=== PATIENT | female | born 1935 ===

== ENCOUNTER 2016-10-14 12:03 | Inpatient (IN) | payer MEDICARE, OTHER ==
[2016-10-14 12:11] VITALS: BMI 25.9
[2016-10-14 12:54] LABS: BASO # 0.1 K/uL (0.0-0.2); BASO % 1.4 % (0.0-2.0); EOS # 0.2 K/uL (0.0-0.7); EOS % 2.9 % (0.0-4.0); HEMATOCRIT 37.4 % (34.0-47.0); LYMPH # 1.4 K/uL (1.0-4.3); LYMPH % 23.3 % (20.0-40.0); MEAN CELL VOLUME 76.2 fL (81.0-99.0); MEAN CORPUSCULAR HEMOGLOBIN 23.5 pg (27.0-31.0); MEAN CORPUSCULAR HGB CONC 30.8 g/dL (33.0-37.0); MEAN PLATELET VOLUME 8.5 fL (7.2-11.7); MONO # 0.6 K/uL (0.0-0.8); MONO % 9.3 % (0.0-10.0); NRBC % 0.1 % (0.0-2.0); RED CELL DISTRIBUTION WIDTH 14.8 % (11.5-14.5); WHITE BLOOD COUNT 6.1 K/uL (4.8-10.8)
[2016-10-14 13:04] LABS: CHLORIDE 101 mmol/L (98-107); POTASSIUM 4.8 mmol/L (3.6-5.2); SODIUM 145 mmol/L (132-148)
[2016-10-14 13:06] LABS: ALB/GLOB RATIO 1.1 (1.0-2.1); ALKALINE PHOSPHATASE 81 U/L (38-126); AST/SGOT 26 U/L (14-36); BILIRUBIN,TOTAL 0.3 mg/dL (0.2-1.3); BLOOD UREA NITROGEN 23 mg/dL (7-17); CARBON DIOXIDE 31 mmol/L (22-30); GFR AFRICAN-AMERICAN 52
[2016-10-14 13:07] LABS: ALT/SGPT < 6 U/L (9-52); CALCIUM 9.8 mg/dl (8.6-10.4); GLUCOSE,RANDOM 108 mg/dL (65-105)
--- NOTE | 2016-10-14 13:17 | RAD ---
PROCEDURE: CHEST RADIOGRAPH, 1 VIEW HISTORY: SOB COMPARISON: 08/23/2016 FINDINGS: LUNGS: Dense consolidation left lung base likely represent some combination of atelectasis/infiltrate and effusion. Mild right basilar atelectasis and or developing infiltrate with small right-sided effusion PLEURA: No pneumothorax or pleural fluid seen. CARDIOVASCULAR: Normal. OSSEOUS STRUCTURES: Minor degenerative changes both shoulder girdles VISUALIZED UPPER ABDOMEN: Normal. OTHER FINDINGS: None. IMPRESSION: Dense consolidation left lung base likely represent some combination of atelectasis/infiltrate and effusion. Mild right basilar atelectasis and or developing infiltrate with small right-sided effusion
--- NOTE | 2016-10-14 13:39 | C.PDOC ---
History Of Present Illness 81-year-old female, PMHx of COPD, lung CA (dx 08/2016, pt unaware), brought to the emergency department by daughterfor evaluation of increasing shortness of breath and non-productive cough x2 days. Patient recently traveled back from , and was feeling well while she was there. Pt uses O2 by NC - 2.5L O2 at home. Time Seen by Provider: 10/14/16 12:04 Chief Complaint (Nursing): Shortness Of Breath History Per: Patient, Family History/Exam Limitations: no limitations Onset/Duration Of Symptoms: Days Current Symptoms Are (Timing): Still Present Current Respiratory Medications: See Home Med List Severity: Moderate Past Medical History Reviewed: Historical Data, Nursing Documentation, Vital Signs Vital Signs: Last Vital Signs Temp 98.5 F 10/20/16 08:00 Pulse 70 10/20/16 08:00 Resp 20 10/20/16 08:00 BP 125/68 10/20/16 09:47 Pulse Ox 96 10/20/16 10:03 - Medical History PMH: COPD (EMPHYSEMA), Emphysema, Hiatal Hernia, HTN, Hypercholesterolemia, Peripheral Edema (FEET) Surgical History: Endoscopy - [facility] Procedures ASSISTANCE WITH RESPIRATORY VENTILATION, <24 HRS, CPAP (05/23/16) RESTRICT OF L INT ILIAC ART WITH INTRALUM DEV, PERC APPROACH (04/29/15) RESTRICTION OF ABD AORTA WITH INTRALUM DEV, PERC APPROACH (04/29/15) Family History: States: Other Other Family History: noncontributory - Social History Hx Tobacco Use: No Hx Alcohol Use: No Hx Substance Use: No - Immunization History Hx Tetanus Toxoid Vaccination: Yes Hx Influenza Vaccination: Yes (05/26/16) Hx Pneumococcal Vaccination: Yes Review Of Systems Except As Marked, All Systems Reviewed And Found Negative. Constitutional: Negative for: Fever, Chills Cardiovascular: Negative for: Chest Pain Respiratory: Positive for: Cough, Shortness of Breath Gastrointestinal: Negative for: Nausea, Vomiting, Abdominal Pain Musculoskeletal: Negative for: Back Pain Skin: Negative for: Rash Neurological: Negative for: Numbness, Headache, Dizziness Physical Exam - Physical Exam Appears: Non-toxic, Chronically Ill, Other (Speaking in full sentences) Skin: Warm, Dry, No Rash Head: Normacephalic Eye(s): bilateral: Normal Inspection Oral Mucosa: Moist Chest: Symmetrical Cardiovascular: Rhythm Regular Respiratory: Decreased Breath Sounds (Left base), No Accessory Muscle Use, No Rales, No Rhonchi, No Wheezing Gastrointestinal/Abdominal: Normal Exam, Bowel Sounds, Soft, No Tenderness Extremity: Normal ROM, No Tenderness, No Pedal Edema Neurological/Psych: Oriented x3 ED Course And Treatment - Laboratory Results Result Diagrams: 10/20/16 07:20 10/20/16 07:20 O2 Sat by Pulse Oximetry: 96 (3L) Pulse Ox Interpretation: Normal - Radiology CXR: Interpreted by Me, Viewed By Me CXR Interpretation: Yes: Other (left sided infiltrate vs effusion) Progress Note: Blood work, EKG and CXR ordered and reviewed. CTA chest ordered to r/o PE due to recent travel and lung CA history. - Physician Consult Information Physician Contacted: Addie Garnica Outcome Of Conversation: Discussed patient with PMD, he agrees with admission to his service for lung CA, large pleural effusion, dyspnea, hydropneumothorax. Medical Decision Making Medical Decision Making: differential diagnoses considered: pneumonia, PE, pleural effusion, pneumothorax , AR/ACS, copd exacerbation, chf excerbation Disposition - Disposition Disposition: HOSPITALIZED Disposition Time: 16:02 Condition: GUARDED - Clinical Impression Clinical Impression: Dyspnea, Lung cancer, Pleural effusion, Hydropneumothorax - Scribe Statement The provider has reviewed the documentation as recorded by the Scriblizzie Lee All medical record entries made by the Scribe were at my direction and personally dictated by me. I have reviewed the chart and agree that the record accurately reflects my personal performance of the history, physical exam, medical decision making, and the department course for this patient. I have also personally directed, reviewed, and agree with the discharge instructions and disposition. Decision To Admit - Pt Status Changed To: Hospital Disposition Of: Inpatient - Admit Certification Admit to Inpatient:: After my assessment, the patient will require hospitalization for at least two midnights. This is because of the severity of symptoms shown, intensity of services needed, and/or the medical risk in this patient being treated as an outpatient. - InPatient: Physician Admission Certification: I certify that this patient requires 2 or more midnights of care for the following reason:: see notes - . Bed Request Type: Telemetry Admitting Physician: Addie Garnica Patient Diagnosis: Dyspnea, Lung cancer, Pleural effusion, Hydropneumothorax
[2016-10-14] MEDS ORDERED: Iodixanol 320 MG/ML 100 ML BOTTLE IV ONE (13:44)
--- NOTE | 2016-10-14 15:56 | CT ---
PROCEDURE: CT angiography chest with contrast. HISTORY: SOB, H/O LUNG CA AND RECENT TRAVEL. COMPARISON: CT chest 05/24/2016 TECHNIQUE: Technique: CT angiography of the chest. Coronal and sagittal reformats, and well as rotating MIP images of the vessels generated at the workstation. Intravenous contrast dose: 100cc Radiation dose: Total exam DLP = 464.45 MGy-cm. This CT exam was performed using one or more of the following dose reduction techniques: Automated exposure control, adjustment of the mA and/or kV according to patient size, and/or use of iterative reconstruction technique FINDINGS: CT ANGIOGRAPHY: Findings: The pulmonary trunk, right and left main, lobar, and segmental branches and proximal subsegmental branches of the pulmonary arteries are well opacified. Note obvious filling defects seen to suggest acute central pulmonary embolus. Heart size appears upper limits of normal/borderline enlarged. No significant pericardial effusion. The ascending thoracic aorta is mildly dilated Few small nonspecific mediastinal lymph nodes. Re- demonstrated is a right perihilar/upper lobe mass consistent with the patient's history of cough of lung carcinoma. Mild atelectasis/ scarring right lung base The There is a large left effusion and left anterior pneumothorax (hydro pneumothorax). Mild to moderate left lower lobe atelectasis. Significant emphysematous changes again noted. The osseous structures appear intact with no definitive suspicious lytic or blastic lesions. There are no acute compression fractures of the thoracic spine. Mild diffuse demineralization. Large hiatal hernia Cholelithiasis. Several low-attenuation foci both kidneys In situ endovascular stent within the abdominal aorta. Impression: No evidence of acute pulmonary embolus. . There is a large left effusion associated with a small to medium-sized left anterior left pneumothorax (hydropneumothorax). Mild to moderate left lower lobe atelectasis. Significant emphysematous changes again noted. Large hiatal hernia. Cholelithiasis. Several low-attenuation foci of the kidneys ; please refer to prior CT scan chest abdomen pelvis report
[2016-10-14] MEDS ORDERED: Albuterol-Ipratrop 3 mg / 0.5 (3 ml) UD INH STA (16:03)
[2016-10-14] MEDS ORDERED: Albuterol-Ipratrop 3 mg / 0.5 (3 ml) UD IH PRN (16:03)
[2016-10-14] MEDS ORDERED: Albuterol-Ipratrop 3 mg / 0.5 (3 ml) UD ONE (16:34)
--- NOTE | 2016-10-14 19:09 | CP.PCM.HP ---
History of Present Illness - History of Present Illness History of Present Illness: Chief complaint: Shortness of breath History present illness: 80-year-old female with history of hypertension congestive heart failure chronic obstructive lung disease chronic smoking abdominal aortic aneurysm status post repair came to the emergency room with the shortness of breath. Patient recently returned from [facility], while she was there she was doing well, but after she came here slowly started developing some shortness of breath. Last night her breathing got worse, and her oxygen usage at home increased to 5 L, in spite of that she was not feeling well, and she came into the emergency room. In the emergency room patient was started having increasing shortness of breath , increasing oxygen was given, bronchial dilators was given and the Solu-Medrol , patient is slightly feeling better. Patient recently diagnosed with the lung cancer, and family aware of the situation, no treatment was discussed with the family.. But patient is not aware of the diagnosis, but the familyabout the diagnosis at this time. Recent PET scan also showing evidence of possible secondaries in the pleural effusion area. Currently patient underwent a CT scan of the chest are showing evidence of hydropneumothorax Past medical history: Hypertension and hypercholesteremia COPD emphysematous lung disease CHF abdominal aortic aneurysm stent placement Surgical history: Inguinal hernia surgery, recent abdominal aortic stent placement Family history noncontributory Review of system noted from the chart Mild shortness of breath noted. Poor appetite noted On examination: Vital signs reviewed Chest good air entry bilaterally, decreased on the left side, regular heart sound, nontender abdomen, extended is no pedal edema BILINGUAL SPEECH THERAPIST alert awake oriented 3 no functional neurological deficit Oxygen saturation is 91% on 5 L of nasal cannula Labs reviewed CT scan of the lungs are showing evidence of hydropneumothorax on the left lung , lung mass noted. Labs reviewed otherwise Assessment/condition: 80-year-old female with history of hypercholesteremia hypertension COPD emphysematous lung disease congestive heart failure aortic aneurysm admitted with shortness of breath. 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 Recent pneumothorax unclear etiology, likely related to residual pneumothorax from biopsy in the past. I spoke to the patient family in details about that and also given the option for chest tube. Meanwhile I spoke to the thoracic surgeon about the patient's situation. He advised the patient to come to the unit, will monitor the patient in the intensive care unit, and the possible chest tube. And will follow the patient Present on Admission - Present on Admission Any Indicators Present on Admission: No History of DVT/PE: No History of Uncontrolled Diabetes: No Urinary Catheter: No Decubitus Ulcer Present: No Past Patient History - Infectious Disease Hx of Infectious Diseases: None - Past Medical History & Family History Past Medical History?: Yes - Past Social History Smoking Status: Former Smoker - CARDIAC Hx Hypercholesterolemia: Yes Hx Hypertension: Yes Hx Peripheral Edema: Yes (FEET) - PULMONARY Hx Chronic Obstructive Pulmonary Disease (COPD): Yes (EMPHYSEMA) Hx Emphysema: Yes - NEUROLOGICAL Hx Neurological Disorder: No Hx Paralysis: No - HEENT Hx HEENT Problems: Yes (READING GLASSES) - ENDOCRINE/METABOLIC Hx Endocrine Disorders: No - HEMATOLOGICAL/ONCOLOGICAL Hx Blood Disorders: No Hx Blood Transfusions: No - INTEGUMENTARY Hx Dermatological Problems: No - MUSCULOSKELETAL/RHEUMATOLOGICAL Hx Musculoskeletal Disorders: No Hx Falls: No - GASTROINTESTINAL Hx Gastrointestinal Disorders: Yes (SEE COMMENT) Other/Comment: Hiatal Hernia, abdominal aneurysm - GENITOURINARY/GYNECOLOGICAL Hx Genitourinary Disorders: No - PSYCHIATRIC Hx Substance Use: No - SURGICAL HISTORY Hx Surgeries: Yes Hx Herniorrhaphy: Yes Hx Hysterectomy: Yes Hx Vascular Surgery: Yes ([facility] 11-05-15) Other/Comment: abdominal aneurysm surgery as per patient - ANESTHESIA Hx Anesthesia Reactions: (REACTED TO MORPHINE DROP IN BP) Meds Allergies/Adverse Reactions: Allergies Allergy/AdvReac Type Severity Reaction Status Date / Time carbamazepine [From Tegretol] Allergy Verified 10/14/16 12:08 morphine AdvReac Mild VOMITING Verified 10/14/16 12:08 Results - Vital Signs Recent Vital Signs: Last Vital Signs Temp 98.1 F 10/14/16 17:25 Pulse 95 H 10/14/16 17:25 Resp 20 10/14/16 17:25 BP 120/71 10/14/16 17:25 Pulse Ox 94 L 10/14/16 17:25 - Labs Result Diagrams: 10/14/16 12:49 10/14/16 12:49
[2016-10-14] MEDS: MethylPREDNISolone 40 mg Vial IVP SCH ×2 (19:17→22:24)
[2016-10-14] MEDS: Albuterol-Ipratrop 3 mg / 0.5 (3 ml) UD INH SCH (21:29)
--- NOTE | 2016-10-14 21:36 | CP.PCM.PN ---
Subjective - Date & Time of Evaluation Date of Evaluation: 10/14/16 Time of Evaluation: 20:00 - Subjective Subjective: THORACIC SURGERY CONSULT NOTE FOR DR. MILLAN 81yo F with PMHx of COPD, CHF, CAD, AAA s/p repair with lung cancer who presented to the ED with SOB. She had recently travelled to the [facility] and returned on 10/05. Then on Sunday, 10/11, she began having SOB. She denies cough, denies CP. The patient is on home O2 at 2.5L and it was increased to 5L which did not relieve her symptoms. She saw her PMD today who told her to come to the ED. She was given Solu-Medrol, DuoNeb, and Spiriva. She states that she feels better than she did when she arrived in the ED. Her vitals are stable on 5L O2 via NC. Of note, she was recently diagnosed with lung cancer. On 08/23/16, she had a CT guided lung biopsy of a mass in the right upper lobe. The pathology report showed adenocarcinoma, acinar pattern, consistent with lung primary. She also had a recent PET CT that showed possible mets in the pleural effusion. The daughter asks that her mother not be told about her diagnosis. PMHx: HTN, hyperlipidemia, COPD with emphysematous lung changes, CHF, AAA s/p stent, [place] in May, Lung Adenocarcinoma Surgeries: inguinal hernia repair, hysterectomy, endovascular repair of AAA and left common iliac aneurysm on 04/29/[address] Henderson Allergies: carbamazepine (rash), morphine (rash) Social history: former smoker Objective - Vital Signs/Intake and Output Vital Signs (last 24 hours): Temp Pulse Resp BP Pulse Ox 98.1 F 93 H 20 120/71 94 L 10/14/16 17:25 10/14/16 21:30 10/14/16 17:25 10/14/16 17:25 10/14/16 17:42 - Medications Medications: Current Medications Albuterol/Ipratropium (Duoneb 3 Mg/0.5 Mg (3 Ml) Ud) 3 ml IH Q2H PRN PRN Reason: SOB Albuterol/Ipratropium (Duoneb 3 Mg/0.5 Mg (3 Ml) Ud) 3 ml INH RQ6 [facility] Last Admin: 10/14/16 21:29 Dose: 3 ml Enalapril Maleate (Vasotec) 2.5 mg PO BID TIKA Furosemide (Lasix) 20 mg PO DAILY TIKA Methylprednisolone (Solu-Medrol) 40 mg IVP Q8 [facility] Last Admin: 10/14/16 19:17 Dose: 40 mg Pantoprazole Sodium (Protonix Ec Tab) 20 mg PO DAILY TIKA Rosuvastatin Calcium (Crestor) 5 mg PO HS TIKA - Labs Labs: PT 11.9 SECONDS (9.7-12.2) 10/14/16 12:49 INR 1.0 10/14/16 12:49 APTT 33 SECONDS (21-34) 10/14/16 12:49 - Constitutional Appears: Non-toxic, No Acute Distress - Head Exam Head Exam: ATRAUMATIC, NORMAL INSPECTION - Respiratory Exam Respiratory Exam: NORMAL BREATHING PATTERN. absent: Respiratory Distress Additional comments: on 5L O2 via nasal cannula - Cardiovascular Exam Cardiovascular Exam: +S1, +S2 - GI/Abdominal Exam GI & Abdominal Exam: Soft. absent: Distended, Tenderness - Extremities Exam Extremities Exam: Normal Inspection. absent: Pedal Edema, Tenderness - Neurological Exam Neurological Exam: Alert, Awake, Oriented x3 - Psychiatric Exam Psychiatric exam: Normal Affect, Normal Mood - Skin Skin Exam: Dry, Normal Color, Warm Assessment and Plan - Assessment and Plan (Free Text) Assessment: 81yo F with PMHx of COPD, CHF, CAD, AAA s/p repair with right lung cancer who presented with SOB and was found to have left hydropneumothorax - Afebrile, HR in 90s, O2 sat between 94-96 - CT: large left effusion associated with small to medium sized left anterior pneumothorax; significant emphysematous changes present;right perihilar/upper lobe mass - Patient currently stable and breathing comfortably on NC - No emergent chest tube indicated at this time - Options discussed extensively with patient, daughter, and Dr. Garnica. - Effusion likely malignant - PleurX catheter would be beneficial for patient for penitentiary control of effusions - Will plan for chest tube with PleurX catheter placement in the OR on Sunday - Due to patient's extensive history, Needs cardiology clearance for IV sedation - Discussed plan with Dr. Rafi Funes PGY-2
--- NOTE | 2016-10-14 21:59 | CP.PCM.CON ---
History of Present Illness - History of Present Illness History of Present Illness: THORACIC SURGERY CONSULT NOTE FOR DR. MILLAN 81yo F with PMHx of COPD, CHF, CAD, AAA s/p repair with lung cancer who presented to the ED with SOB. She had recently travelled to the [facility] and returned on 10/05. Then on 10/11, she began having SOB. She denies cough, denies CP. The patient is on home O2 at 2.5L and it was increased to 5L which did not relieve her symptoms. She saw her PMD today who told her to come to the ED. She was given Solu-Medrol, DuoNeb, and Spiriva. She states that she feels better than she did when she arrived in the ED. Her vitals are stable on 5L O2 via NC. Of note, she was recently diagnosed with lung cancer. On 08/23/16, she had a CT guided lung biopsy of a mass in the right upper lobe. The pathology report showed adenocarcinoma, acinar pattern, consistent with lung primary. She also had a recent PET CT that showed possible mets in the pleural effusion. The daughter asks that her mother not be told about her diagnosis. PMHx: HTN, hyperlipidemia, COPD with emphysematous lung changes, CHF, AAA s/p stent, [place] in May, Lung Adenocarcinoma Surgeries: inguinal hernia repair, hysterectomy, endovascular repair of AAA and left common iliac aneurysm on 04/29/[address] Henderson Allergies: carbamazepine (rash), morphine (rash) Social history: former smoker Review of Systems - Review of Systems All systems: reviewed and no additional remarkable complaints except (as per HPI ) Past Patient History - Infectious Disease Hx of Infectious Diseases: None - Past Medical History & Family History Past Medical History?: Yes - Past Social History Smoking Status: Former Smoker - CARDIAC Hx Hypercholesterolemia: Yes Hx Hypertension: Yes Hx Peripheral Edema: Yes (FEET) - PULMONARY Hx Chronic Obstructive Pulmonary Disease (COPD): Yes (EMPHYSEMA) Hx Emphysema: Yes - NEUROLOGICAL Hx Neurological Disorder: No Hx Paralysis: No - HEENT Hx HEENT Problems: Yes (READING GLASSES) - ENDOCRINE/METABOLIC Hx Endocrine Disorders: No - HEMATOLOGICAL/ONCOLOGICAL Hx Blood Disorders: No Hx Blood Transfusions: No - INTEGUMENTARY Hx Dermatological Problems: No - MUSCULOSKELETAL/RHEUMATOLOGICAL Hx Musculoskeletal Disorders: No Hx Falls: No - GASTROINTESTINAL Hx Gastrointestinal Disorders: Yes (SEE COMMENT) Other/Comment: Hiatal Hernia, abdominal aneurysm - GENITOURINARY/GYNECOLOGICAL Hx Genitourinary Disorders: No - PSYCHIATRIC Hx Substance Use: No - SURGICAL HISTORY Hx Surgeries: Yes Hx Herniorrhaphy: Yes Hx Hysterectomy: Yes Hx Vascular Surgery: Yes ([facility] 04-29-15) Other/Comment: abdominal aneurysm surgery as per patient - ANESTHESIA Hx Anesthesia Reactions: (REACTED TO MORPHINE DROP IN BP) Meds Allergies/Adverse Reactions: Allergies Allergy/AdvReac Type Severity Reaction Status Date / Time carbamazepine [From Tegretol] Allergy Verified 10/14/16 12:08 morphine AdvReac Mild VOMITING Verified 10/14/16 12:08 - Medications Medications: Current Medications Albuterol/Ipratropium (Duoneb 3 Mg/0.5 Mg (3 Ml) Ud) 3 ml IH Q2H PRN PRN Reason: SOB Albuterol/Ipratropium (Duoneb 3 Mg/0.5 Mg (3 Ml) Ud) 3 ml INH RQ6 TIKA Last Admin: 10/14/16 21:29 Dose: 3 ml Enalapril Maleate (Vasotec) 2.5 mg PO BID TIKA Furosemide (Lasix) 20 mg PO DAILY TIKA Methylprednisolone (Solu-Medrol) 40 mg IVP Q8 [facility] Last Admin: 10/14/16 19:17 Dose: 40 mg Pantoprazole Sodium (Protonix Ec Tab) 20 mg PO DAILY TIKA Rosuvastatin Calcium (Crestor) 5 mg PO HS TIKA Physical Exam - Constitutional Appears: Non-toxic, No Acute Distress - Head Exam Head Exam: ATRAUMATIC, NORMAL INSPECTION - Eye Exam Eye Exam: EOMI, Normal appearance - Respiratory Exam Respiratory Exam: NORMAL BREATHING PATTERN. absent: Respiratory Distress Additional comments: on 5L O2 via nasal cannula - Cardiovascular Exam Cardiovascular Exam: +S1, +S2 - GI/Abdominal Exam GI & Abdominal Exam: Soft. absent: Distended, Tenderness - Extremities Exam Extremities exam: Positive for: normal inspection. Negative for: calf tenderness, pedal edema - Neurological Exam Neurological exam: Alert, CN II-XII Intact, Oriented x3 - Psychiatric Exam Psychiatric exam: Normal Affect, Normal Mood - Skin Skin Exam: Dry, Normal Color, Warm Results - Vital Signs Recent Vital Signs: Last Vital Signs Temp 98.1 F 10/14/16 17:25 Pulse 93 H 10/14/16 21:30 Resp 20 10/14/16 17:25 BP 120/71 10/14/16 17:25 Pulse Ox 94 L 10/14/16 17:42 - Labs Result Diagrams: 10/14/16 12:49 10/14/16 12:49 Assessment & Plan - Assessment and Plan (Free Text) Assessment: 81yo F with PMHx of COPD, CHF, CAD, AAA s/p repair with right lung cancer who presented with SOB and was found to have left hydropneumothorax - Afebrile, HR in 90s, O2 sat between 94-96 - CT: large left effusion associated with small to medium sized left anterior pneumothorax; significant emphysematous changes present;right perihilar/upper lobe mass - Patient currently stable and breathing comfortably on NC - No emergent chest tube indicated at this time - Options discussed extensively with patient, daughter, and Dr. Garnica. - Effusion likely malignant - PleurX catheter would be beneficial for patient for longterm control of effusions - Will plan for chest tube with PleurX catheter placement in the OR on Sunday - Due to patient's extensive history, Needs cardiology clearance for IV sedation - Discussed plan with Dr. Rafi Funes PGY-2
[2016-10-15] MEDS: Albuterol-Ipratrop 3 mg / 0.5 (3 ml) UD INH SCH ×4 (01:15→20:13)
[2016-10-15] MEDS: MethylPREDNISolone 40 mg Vial IVP SCH ×3 (05:51→21:48)
[2016-10-15 06:35] LABS: BASO % 0.1 % (0.0-2.0); LYMPH # 0.8 K/uL (1.0-4.3); MEAN CELL VOLUME 75.8 fL (81.0-99.0); MEAN CORPUSCULAR HGB CONC 31.6 g/dL (33.0-37.0); MEAN PLATELET VOLUME 9.1 fL (7.2-11.7); MONO % 0.3 % (0.0-10.0); NRBC % 0.1 % (0.0-2.0); RED CELL DISTRIBUTION WIDTH 14.8 % (11.5-14.5); WHITE BLOOD COUNT 6.1 K/uL (4.8-10.8)
[2016-10-15 06:52] LABS: POTASSIUM 4.5 mmol/L (3.6-5.2)
[2016-10-15 06:54] LABS: ALB/GLOB RATIO 1.1 (1.0-2.1); BILIRUBIN,TOTAL 0.3 mg/dL (0.2-1.3); TOTAL PROTEIN 7.9 g/dL (6.3-8.3)
[2016-10-15 06:55] LABS: CALCIUM 9.9 mg/dl (8.6-10.4); MAGNESIUM 2.3 mg/dL (1.6-2.3)
[2016-10-15] MEDS: Tiotropium 18 mcg Cap For Inhalation INH SCH (07:54)
[2016-10-15] MEDS: Pantoprazole 20 mg EC Tab PO SCH (09:33)
[2016-10-15] MEDS ORDERED: PREGABALIN PO SCH (10:00)
--- NOTE | 2016-10-15 10:11 | CP.PCM.PN ---
Subjective - Date & Time of Evaluation Date of Evaluation: 10/15/16 Time of Evaluation: 07:00 - Subjective Subjective: THORACIC SURGERY PROGRESS NOTE FOR DR. MILLAN Patient seen and examined at bedside in the ICU. There were no acute events overnight per nurse. She denies CP or SOB. She was on 3L O2 when I saw her but after developed some wheezing when she was using the bedpan. She was sat up more in the bed, respiratory therapist gave her a breathing treatment, and now she is on 4L O2 and more comfortable. O2 sat around 93-94. Patient was offered ngo catheter but she refused. Objective - Vital Signs/Intake and Output Vital Signs (last 24 hours): Temp Pulse Resp BP Pulse Ox 98.6 F 104 H 24 137/74 92 L 10/15/16 04:00 10/15/16 06:18 10/15/16 06:18 10/15/16 09:33 10/15/16 06:18 Intake and Output: 10/15/16 10/15/16 06:59 18:59 Intake Total 150 Output Total 800 Balance -650 - Medications Medications: Current Medications Albuterol/Ipratropium (Duoneb 3 Mg/0.5 Mg (3 Ml) Ud) 3 ml IH Q2H PRN PRN Reason: SOB Albuterol/Ipratropium (Duoneb 3 Mg/0.5 Mg (3 Ml) Ud) 3 ml INH RQ6 [facility] Last Admin: 10/15/16 07:54 Dose: 3 ml Enalapril Maleate (Vasotec) 2.5 mg PO BID [facility] Last Admin: 10/15/16 09:32 Dose: 2.5 mg Furosemide (Lasix) 20 mg PO DAILY [facility] Last Admin: 10/15/16 09:33 Dose: 20 mg Methylprednisolone (Solu-Medrol) 40 mg IVP Q8 [facility] Last Admin: 10/15/16 05:51 Dose: 40 mg Pantoprazole Sodium (Protonix Ec Tab) 20 mg PO DAILY [facility] Last Admin: 10/15/16 09:33 Dose: 20 mg Rosuvastatin Calcium (Crestor) 5 mg PO HS [facility] Last Admin: 10/14/16 22:24 Dose: 5 mg Tiotropium [place] (Spiriva) 18 mcg INH RQ24 [facility] Last Admin: 10/15/16 07:54 Dose: 18 mcg - Labs Labs: 10/15/16 06:29 10/15/16 06:29 PT 11.9 SECONDS (9.7-12.2) 10/14/16 12:49 INR 1.0 10/14/16 12:49 APTT 33 SECONDS (21-34) 10/14/16 12:49 - Constitutional Appears: Non-toxic, No Acute Distress - Respiratory Exam Respiratory Exam: NORMAL BREATHING PATTERN (on 4L O2 NC). absent: Respiratory Distress - Cardiovascular Exam Cardiovascular Exam: +S1, +S2 - GI/Abdominal Exam GI & Abdominal Exam: Soft. absent: Tenderness - Neurological Exam Neurological Exam: Alert, Awake, Oriented x3 - Psychiatric Exam Psychiatric exam: Normal Affect, Normal Mood - Skin Skin Exam: Dry, Normal Color, Warm Assessment and Plan - Assessment and Plan (Free Text) Assessment: 81yo F with PMHx of COPD, CHF, CAD, AAA s/p repair with right lung cancer who was found to have left hydropneumothorax - Afebrile, mild tachy, O2 sat between 92-95 - CT: large left effusion associated with small to medium sized left anterior pneumothorax; significant emphysematous changes present;right perihilar/upper lobe mass - Patient currently stable and breathing comfortably on 4L O2 NC - No emergent chest tube indicated at this time - Effusion likely malignant - PleurX catheter would be beneficial for patient for mcfp control of effusions - Scheduled for chest tube with PleurX catheter placement in the OR on Sunday - Procedure will be with local + IV sedation - Due to patient's extensive history, Needs cardiology clearance for IV sedation , Dr. Porras consulted - Discussed plan with Dr. Rafi Funes PGY-2
--- NOTE | 2016-10-15 11:33 | CP.CCUPN ---
CCU Subjective - Physician Review Events Since Last Encounter (Free Text): 10/15/16 11:31 Patient is sometimes having episodes of distress, shortness of breath. She also has a history of COPD, lung cancer. Right now having most likely cancer related pleural effusion, associated with the persistent pneumothorax. Slightly worsening, some shortness of breath noted CCU Objective - Vital Signs / Intake & Output Vital Signs (Last 4 hours): Vital Signs Temp Pulse Resp BP Pulse Ox 10/15/16 10:19 119 H 26 H 166/88 H 96 10/15/16 10:00 119 H 21 96 10/15/16 09:33 137/74 10/15/16 09:32 137/74 10/15/16 09:19 137/74 10/15/16 09:18 103 H 19 10/15/16 09:00 107 H 26 H 96 10/15/16 08:19 105 H 17 158/82 H 93 L 10/15/16 08:00 97.4 F L 106 H 18 96 Intake and Output (Last 8hrs): Intake & Output 10/14/16 10/15/16 10/15/16 22:59 06:59 14:59 Intake Total 150 0 0 Output Total 400 400 350 Balance -250 -400 -350 Weight 167 lb 1.766 oz Intake: Oral 150 0 0 Output: Urine 400 400 350 Urine, Voided 400 400 350 - Physical Exam Narrative Physical Exam (Free Text): 10/15/16 11:31 Chest good air entry bilaterally, decreased in the left lower lung. Regular heart sound. Abdomen nontender. No pedal edema. - Medications Active Medications: Active Medications Generic Name Dose Route Start Last Admin Trade Name Freq PRN Reason Stop Dose Admin Albuterol/Ipratropium 3 ml 10/14/16 16:03 Duoneb 3 Mg/0.5 Mg (3 Ml) Ud IH Q2H PRN SOB Albuterol/Ipratropium 3 ml 10/14/16 20:00 10/15/16 07:54 Duoneb 3 Mg/0.5 Mg (3 Ml) Ud INH 3 ml RQ6 [facility] Administration Enalapril Maleate 2.5 mg 10/15/16 10:00 10/15/16 09:32 Vasotec PO 2.5 mg BID [facility] Administration Furosemide 20 mg 10/15/16 10:00 10/15/16 09:33 Lasix PO 20 mg DAILY [facility] Administration Methylprednisolone 40 mg 10/14/16 17:45 10/15/16 05:51 Solu-Medrol IVP 40 mg Q8 [facility] Administration Pantoprazole Sodium 20 mg 10/15/16 10:00 10/15/16 09:33 Protonix Ec Tab PO 20 mg DAILY [facility] Administration Rosuvastatin Calcium 5 mg 10/14/16 22:00 10/14/16 22:24 Crestor PO 5 mg HS [facility] Administration Tiotropium [place] 18 mcg 10/15/16 08:00 10/15/16 07:54 Spiriva INH 18 mcg RQ24 [facility] Administration - Patient Studies Lab Studies: Lab Studies 10/15/16 Range/Units 06:29 WBC 6.1 (4.8-10.8) K/uL RBC 4.76 (3.80-5.20) Mil/uL Hgb 11.4 (11.0-16.0) g/dL Hct 36.0 (34.0-47.0) % MCV 75.8 L (81.0-99.0) fL MCH 24.0 L (27.0-31.0) pg MCHC 31.6 L (33.0-37.0) g/dL RDW 14.8 H (11.5-14.5) % Plt Count 296 (130-400) K/uL MPV 9.1 (7.2-11.7) fL Neut % (Auto) 86.6 H (50.0-75.0) % Lymph % (Auto) 13.0 L (20.0-40.0) % [place] % (Auto) 0.3 (0.0-10.0) % Eos % (Auto) 0.0 (0.0-4.0) % Baso % (Auto) 0.1 (0.0-2.0) % Neut # 5.3 (1.8-7.0) K/uL Lymph # 0.8 L (1.0-4.3) K/uL [place] # 0.0 (0.0-0.8) K/uL Eos # 0.0 (0.0-0.7) K/uL Baso # 0.0 (0.0-0.2) K/uL Sodium 141 (132-148) mmol/L Potassium 4.5 (3.6-5.2) mmol/L Chloride 103 (98-107) mmol/L Carbon Dioxide 23 (22-30) mmol/L Anion Gap 20 (10-20) BUN 23 H (7-17) mg/dL Creatinine 1.1 (0.7-1.2) MG/DL Est GFR ( Amer) 58 Est GFR (Non-Af Amer) 48 Random Glucose 155 H (65-105) mg/dL Calcium 9.9 (8.6-10.4) mg/dl Phosphorus 4.0 (2.5-4.5) mg/dL Magnesium 2.3 (1.6-2.3) mg/dL Total Bilirubin 0.3 (0.2-1.3) mg/dL AST 18 (14-36) U/L ALT 16 (9-52) U/L Alkaline Phosphatase 82 (38-126) U/L Total Protein 7.9 (6.3-8.3) g/dL Albumin 4.2 (3.5-5.0) g/dL Globulin 3.8 (2.2-3.9) gm/dL Albumin/Globulin Ratio 1.1 (1.0-2.1) Laboratory Results - last 24 hr 10/15/16 06:29 WBC 6.1 RBC 4.76 Hgb 11.4 Hct 36.0 MCV 75.8 L MCH 24.0 L MCHC 31.6 L RDW 14.8 H Plt Count 296 MPV 9.1 Neut % (Auto) 86.6 H Lymph % (Auto) 13.0 L [place] % (Auto) 0.3 Eos % (Auto) 0.0 Baso % (Auto) 0.1 Neut # 5.3 Lymph # 0.8 L [place] # 0.0 Eos # 0.0 Baso # 0.0 Sodium 141 Potassium 4.5 Chloride 103 Carbon Dioxide 23 Anion Gap 20 BUN 23 H Creatinine 1.1 Est GFR ( Amer) 58 Est GFR (Non-Af Amer) 48 Random Glucose 155 H Calcium 9.9 Phosphorus 4.0 Magnesium 2.3 Total Bilirubin 0.3 AST 18 ALT 16 Alkaline Phosphatase 82 Total Protein 7.9 Albumin 4.2 Globulin 3.8 Albumin/Globulin Ratio 1.1 Fingerstick Blood Sugar Results: 125 Review of Systems - Review of Systems All systems: reviewed and no additional remarkable complaints except Critical Care Progress Note - Nutrition Nutrition: Nutrition Category Date Time Status NPO Diet [DIET] Diets 10/16/16 Breakfast Active Assessment/Plan (1) SOB (shortness of breath) Current Visit: No Status: Acute (2) Hydropneumothorax Assessment and plan: Patient with the lung cancer, hydropneumothorax. Most likely related to recent biopsy. 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 Spoke to the patient family. Patient will need a the thorax are chest tube. Spoke to the thoracic surgeon. Current Visit: Yes Status: Acute
--- NOTE | 2016-10-15 12:15 | RAD ---
PROCEDURE: CHEST RADIOGRAPH, 1 VIEW. Note that the examination is limited by rotation to the right HISTORY: hydropneumothorax, lung mass COMPARISON: Comparison made with chest radiographs and CT scan chest 10/14/2016 FINDINGS: LUNGS: Opacification left mid to lower lung field unchanged. [place] pneumothorax is not appreciated on this exam as compared to high-resolution CT scan. Small mass density right upper lobe also less well seen PLEURA: As above CARDIOVASCULAR: Normal. OSSEOUS STRUCTURES: No significant abnormalities. VISUALIZED UPPER ABDOMEN: Normal. OTHER FINDINGS: None. IMPRESSION: Limited rotated study. Opacification left mid to lower lung field unchanged. [place] pneumothorax is not appreciated on this exam as compared to high-resolution CT scan. Small mass density right upper lobe also less well seen
--- NOTE | 2016-10-15 12:24 | CP.PCM.CON ---
History of Present Illness - History of Present Illness History of Present Illness: Reason for consultation: Lung ca right upper lobe, and hydropneumothorax, left+ sob. Requested by Dr. Seay. The patient s/e. Imaging studies and progress notes reviewed. I concurr with 's a/p. This is a 81yo F with multiple comorbities and s/p bx documented(IR) adenocarcinoma and PET+ left pleural effusion+Pleural nodule(STAGE 4 lung ca) who presented to ED with a progressive sob. CT chest: 1.5 cm right upper lobe mass+bullous dis of apex Left>right and hydorpneumothorax of left with copressive atelectasis of left lung. Scheduled for a tube thoracostomy in the OR tomorrow, and further surgical RX,ie resection +pleurodesis of bullous dis, provided the left lung fail to reexpand with air leak. d/w Dr Seay and Dr. Funes. Past Patient History - Infectious Disease Hx of Infectious Diseases: None - Past Medical History & Family History Past Medical History?: Yes - Past Social History Smoking Status: Former Smoker - CARDIAC Hx Hypercholesterolemia: Yes Hx Hypertension: Yes Hx Peripheral Edema: Yes (FEET) - PULMONARY Hx Chronic Obstructive Pulmonary Disease (COPD): Yes (EMPHYSEMA) Hx Emphysema: Yes - NEUROLOGICAL Hx Neurological Disorder: No Hx Paralysis: No - HEENT Hx HEENT Problems: Yes (READING GLASSES) - ENDOCRINE/METABOLIC Hx Endocrine Disorders: No - HEMATOLOGICAL/ONCOLOGICAL Hx Blood Disorders: No Hx Blood Transfusions: No - INTEGUMENTARY Hx Dermatological Problems: No - MUSCULOSKELETAL/RHEUMATOLOGICAL Hx Musculoskeletal Disorders: No Hx Falls: No - GASTROINTESTINAL Hx Gastrointestinal Disorders: Yes (SEE COMMENT) Other/Comment: Hiatal Hernia, abdominal aneurysm - GENITOURINARY/GYNECOLOGICAL Hx Genitourinary Disorders: No - PSYCHIATRIC Hx Substance Use: No - SURGICAL HISTORY Hx Surgeries: Yes Hx Herniorrhaphy: Yes Hx Hysterectomy: Yes Hx Vascular Surgery: Yes ([facility] DEVICE 04-29-15) Other/Comment: abdominal aneurysm surgery as per patient - ANESTHESIA Hx Anesthesia Reactions: (REACTED TO MORPHINE DROP IN BP) Meds Allergies/Adverse Reactions: Allergies Allergy/AdvReac Type Severity Reaction Status Date / Time carbamazepine [From Tegretol] Allergy Verified 10/14/16 12:08 morphine AdvReac Mild VOMITING Verified 10/14/16 12:08 - Medications Medications: Current Medications Albuterol/Ipratropium (Duoneb 3 Mg/0.5 Mg (3 Ml) Ud) 3 ml IH Q2H PRN PRN Reason: SOB Albuterol/Ipratropium (Duoneb 3 Mg/0.5 Mg (3 Ml) Ud) [address] [facility] Last Admin: 10/15/16 07:54 Dose: 3 ml Enalapril Maleate (Vasotec) 2.[address] [facility] Last Admin: 10/15/16 09:32 Dose: 2.5 mg Furosemide (Lasix) [address] [facility] Last Admin: 10/15/16 09:33 Dose: 20 mg Methylprednisolone (Solu-Medrol) [address] [facility] Last Admin: 10/15/16 05:51 Dose: 40 mg Pantoprazole Sodium (Protonix Ec Tab) [address] [facility] Last Admin: 10/15/16 09:33 Dose: 20 mg Rosuvastatin Calcium (Crestor) [address] [facility] Last Admin: 10/14/16 22:24 Dose: 5 mg Tiotropium [place] (Spiriva) [address] [facility] Last Admin: 10/15/16 07:54 Dose: 18 mcg Results - Vital Signs Recent Vital Signs: Last Vital Signs Temp 97.4 F L 10/15/16 08:00 Pulse 111 H 10/15/16 11:19 Resp 24 10/15/16 11:19 BP 156/96 H 10/15/16 11:19 Pulse Ox 96 10/15/16 11:19 - Labs Result Diagrams: 10/15/16 06:29 10/15/16 06:29 Labs: Laboratory Results - last 24 hr 10/15/16 06:29 WBC 6.1 RBC 4.76 Hgb 11.4 Hct 36.0 MCV 75.8 L MCH 24.0 L MCHC 31.6 L RDW 14.8 H Plt Count 296 MPV 9.1 Neut % (Auto) 86.6 H Lymph % (Auto) 13.0 L [place] % (Auto) 0.3 Eos % (Auto) 0.0 Baso % (Auto) 0.1 Neut # 5.3 Lymph # 0.8 L [place] # 0.0 Eos # 0.0 Baso # 0.0 Sodium 141 Potassium 4.5 Chloride 103 Carbon Dioxide 23 Anion Gap 20 BUN 23 H Creatinine 1.1 Est GFR ( Amer) 58 Est GFR (Non-Af Amer) 48 Random Glucose 155 H Calcium 9.9 Phosphorus 4.0 Magnesium 2.3 Total Bilirubin 0.3 AST 18 ALT 16 Alkaline Phosphatase 82 Total Protein 7.9 Albumin 4.2 Globulin 3.8 Albumin/Globulin Ratio 1.1
--- NOTE | 2016-10-15 21:28 | CP.PCM.CON ---
History of Present Illness - History of Present Illness History of Present Illness: Reason For Consultation Pre Op cardiac risk assessment 81-year-old female, PMHx includes lung CA (dx 08/2016, pt unaware), admitted to [facility], brought in by daughter, with complaints of increasing shortness of breath and non-productive cough x2 days. Patient recently traveled back from , and was feeling well, while she was there. Pt is on 2.5L O2 at home. Chief Complaint (Nursing): Shortness Of Breath History Per: Patient History/Exam Limitations: no limitations Onset/Duration Of Symptoms: Days Current Symptoms Are (Timing): Still Present - [facility] Procedures ASSISTANCE WITH RESPIRATORY VENTILATION, <24 HRS, CPAP (05/23/16) RESTRICT OF L INT ILIAC ART WITH INTRALUM DEV, PERC APPROACH (04/29/15) RESTRICTION OF ABD AORTA WITH INTRALUM DEV, PERC APPROACH (04/29/15) Family History: States: Unknown Family Hx - Social History Hx Tobacco Use: No Hx Alcohol Use: No Hx Substance Use: No - Immunization History Hx Tetanus Toxoid Vaccination: Yes Hx Influenza Vaccination: Yes (05/26/16) Hx Pneumococcal Vaccination: Yes Review Of Systems Except As Marked, All Systems Reviewed And Found Negative. Constitutional: Negative for: Fever, Chills Cardiovascular: Negative for: Chest Pain Respiratory: Positive for: Cough, Shortness of Breath Gastrointestinal: Negative for: Vomiting Musculoskeletal: Negative for: Back Pain Skin: Negative for: Rash Neurological: Negative for: Numbness, Headache, Dizziness Physical Exam - Physical Exam Appears: Non-toxic, No Acute Distress, Other (Speaking in full sentences) Skin: Warm, Dry, No Rash Head: Atraumatic, Normacephalic Eye(s): bilateral: Normal Inspection, PERRL Oral Mucosa: Moist Lips: Normal Appearing Neck: Normal ROM Chest: Symmetrical Cardiovascular: Rhythm Irregular (regular rate) Respiratory: Decreased Breath Sounds (Left base), No Accessory Muscle Use, No Wheezing Extremity: Normal ROM, No Tenderness, No Pedal Edema Neurological/Psych: Oriented x3, Normal Speech Past Patient History - Infectious Disease Hx of Infectious Diseases: None - Past Medical History & Family History Past Medical History?: Yes - Past Social History Smoking Status: Former Smoker - CARDIAC Hx Hypercholesterolemia: Yes Hx Hypertension: Yes Hx Peripheral Edema: Yes (FEET) - PULMONARY Hx Chronic Obstructive Pulmonary Disease (COPD): Yes (EMPHYSEMA) Hx Emphysema: Yes - NEUROLOGICAL Hx Neurological Disorder: No Hx Paralysis: No - HEENT Hx HEENT Problems: Yes (READING GLASSES) - ENDOCRINE/METABOLIC Hx Endocrine Disorders: No - HEMATOLOGICAL/ONCOLOGICAL Hx Blood Disorders: No Hx Blood Transfusions: No - INTEGUMENTARY Hx Dermatological Problems: No - MUSCULOSKELETAL/RHEUMATOLOGICAL Hx Musculoskeletal Disorders: No Hx Falls: No - GASTROINTESTINAL Hx Gastrointestinal Disorders: Yes (SEE COMMENT) Other/Comment: Hiatal Hernia, abdominal aneurysm - GENITOURINARY/GYNECOLOGICAL Hx Genitourinary Disorders: No - PSYCHIATRIC Hx Substance Use: No - SURGICAL HISTORY Hx Surgeries: Yes Hx Herniorrhaphy: Yes Hx Hysterectomy: Yes Hx Vascular Surgery: Yes ([facility] ENDOLOG[facility] DEVICE 04-29-15) Other/Comment: abdominal aneurysm surgery as per patient - ANESTHESIA Hx Anesthesia Reactions: (REACTED TO MORPHINE DROP IN BP) Meds Allergies/Adverse Reactions: Allergies Allergy/AdvReac Type Severity Reaction Status Date / Time carbamazepine [From Tegretol] Allergy Verified 10/14/16 12:08 morphine AdvReac Mild VOMITING Verified 10/14/16 12:08 - Medications Medications: Current Medications Albuterol/Ipratropium (Duoneb 3 Mg/0.5 Mg (3 Ml) Ud) 3 ml IH Q2H PRN PRN Reason: SOB Albuterol/Ipratropium (Duoneb 3 Mg/0.5 Mg (3 Ml) Ud) 3 ml INH RQ6 [facility] Last Admin: 10/15/16 20:13 Dose: 3 ml Enalapril Maleate (Vasotec) 2.5 mg PO BID [facility] Last Admin: 10/15/16 17:45 Dose: 2.5 mg Furosemide (Lasix) 20 mg PO DAILY [facility] Last Admin: 10/15/16 09:33 Dose: 20 mg Methylprednisolone (Solu-Medrol) 40 mg IVP Q8 [facility] Last Admin: 10/15/16 14:29 Dose: 40 mg Pantoprazole Sodium (Protonix Ec Tab) 20 mg PO DAILY [facility] Last Admin: 10/15/16 09:33 Dose: 20 mg Rosuvastatin Calcium (Crestor) 5 mg PO HS [facility] Last Admin: 10/14/16 22:24 Dose: 5 mg Tiotropium [place] (Spiriva) 18 mcg INH RQ24 [facility] Last Admin: 10/15/16 07:54 Dose: 18 mcg Results - Vital Signs Recent Vital Signs: Last Vital Signs Temp 98.1 F 10/15/16 20:00 Pulse 108 H 10/15/16 20:00 Resp 25 H 10/15/16 20:00 BP 138/84 10/15/16 19:18 Pulse Ox 80 L 10/15/16 20:00 - Labs Result Diagrams: 10/15/16 06:29 10/15/16 06:29 Labs: Laboratory Results - last 24 hr 10/15/16 06:29 WBC 6.1 RBC 4.76 Hgb 11.4 Hct 36.0 MCV 75.8 L MCH 24.0 L MCHC 31.6 L RDW 14.8 H Plt Count 296 MPV 9.1 Neut % (Auto) 86.6 H Lymph % (Auto) 13.0 L [place] % (Auto) 0.3 Eos % (Auto) 0.0 Baso % (Auto) 0.1 Neut # 5.3 Lymph # 0.8 L [place] # 0.0 Eos # 0.0 Baso # 0.0 Sodium 141 Potassium 4.5 Chloride 103 Carbon Dioxide 23 Anion Gap 20 BUN 23 H Creatinine 1.1 Est GFR ( Amer) 58 Est GFR (Non-Af Amer) 48 Random Glucose 155 H Calcium 9.9 Phosphorus 4.0 Magnesium 2.3 Total Bilirubin 0.3 AST 18 ALT 16 Alkaline Phosphatase 82 Total Protein 7.9 Albumin 4.2 Globulin 3.8 Albumin/Globulin Ratio 1.1 Assessment & Plan - Assessment and Plan (Free Text) Assessment: 81yo F with PMHx of COPD, CHF, CAD, AAA s/p repair with right lung cancer who presented with SOB and was found to have left hydropneumothorax Cardiac risk assessment requested Will evaluate Check ECHO May need a stress test
[2016-10-16] MEDS: Albuterol-Ipratrop 3 mg / 0.5 (3 ml) UD INH SCH ×5 (01:28→19:27)
[2016-10-16] MEDS: MethylPREDNISolone 40 mg Vial IVP SCH ×3 (05:42→21:33)
[2016-10-16] MEDS: Tiotropium 18 mcg Cap For Inhalation INH SCH (08:04)
--- NOTE | 2016-10-16 08:16 | RAD ---
PROCEDURE: CHEST RADIOGRAPH, 1 VIEW HISTORY: hydropneumothorax, lung mass COMPARISON: 10/15/2016 FINDINGS: LUNGS: Persistent large left pleural effusion. Persistent airspace opacifications throughout the majority of the remainder of the left lung. Diffuse increased interstitial lung markings throughout the right lung. Right hilar prominence. Biapical pleural thickening. PLEURA: As above. CARDIOVASCULAR: Cardiomegaly. OSSEOUS STRUCTURES: No significant abnormalities. VISUALIZED UPPER ABDOMEN: Normal. OTHER FINDINGS: None. IMPRESSION: No significant interval change.
[2016-10-16] MEDS: Pantoprazole 20 mg EC Tab PO SCH (09:56)
[2016-10-16] MEDS ORDERED: Lidocaine 1% Inj (20ml) ONE (10:29)
[2016-10-16] MEDS ORDERED: Midazolam 2 MG/2 ML VIAL ONE (10:48)
[2016-10-16] MEDS ORDERED: Etomidate 20 mg/10ml Inj IV ONE (11:08)
[2016-10-16] MEDS ORDERED: ceFAZolin IV 1 gm in Dextrose 1 GM/50 ML BAG IVPB ONE (11:26)
[2016-10-16] MEDS ORDERED: ceFAZolin 1 gm FROZEN Premix 0 ML IVPB ONE (11:27)
[2016-10-16] MEDS ORDERED: Sodium Chloride 0.9% 1,000 ML IV ONE (11:29)
--- NOTE | 2016-10-16 12:37 | PCM.SURG1 ---
Surgeon's Initial Post Op Note - Surgeon's Notes Surgeon: Dr. Mckee Flight Line Service Attendant: Dr. Funes PGY-2 Type of Anesthesia: IV Sedation, Local Anesthesia Administered By: Dr. Jamison Pre-Operative Diagnosis: Left hydropneumothorax, hx right lung adenocarcinoma Operative Findings: 800cc hemorrhagic effusion drained Post-Operative Diagnosis: Left hemopneumothorax Operation Performed: Left chest tube insertion Specimen/Specimens Removed: hemorrhagic fluid, sent for cytology Estimated Blood Loss: EBL {In ML}: 10 Blood Products Given: N/A Drains Used: Chest Tubes (28F) Post-Op Condition: Poor Date of Surgery/Procedure: 10/16/16 Time of Surgery/Procedure: 12:37
--- NOTE | 2016-10-16 13:30 | RAD ---
HISTORY: s/p left chest tube COMPARISON: No prior. FINDINGS: LUNGS: Hazy opacity in the lung bases left greater than right. Bullous changes in both apices, right greater than left. Nodular opacity in the right hilum. PLEURA: Interval reduction in pleural effusion on the left. Minimal pleural effusion on the left again seen. Rounded lucency overlying the projection of the left border of heart could represent a loculated pneumothorax. CARDIOVASCULAR: Enlarged heart. OSSEOUS STRUCTURES: The osseous structures demonstrate degenerative changes. VISUALIZED UPPER ABDOMEN: Upper abdomen is suboptimally evaluated. OTHER FINDINGS: Interval introduction of left-sided chest tube with the distal tip in the left hilum. IMPRESSION: Interval introduction of left-sided chest tube with the distal tip in the left hilum. Residual loculated pneumothorax overlying the projection of the left heart border. Discussed with Dr. Mckee at approximately 1:25 p.m. on 10/16/2016.
[2016-10-16 14:47] LABS: BODY FLUID TYPE PLEURAL
--- NOTE | 2016-10-16 15:39 | CP.CCUPN ---
CCU Subjective - Physician Review Subjective (Free Text): 10/16/16 15:39 Pt seen and examined at bedside. Nursing reports NAEO. Pt is for OR today for chest tube insertion for hydropneumothorax removal. Pt reports severe SOB this AM which is chronic finding due to pts history of COPD. Pt improved on duoneb treatment. Critical Care Time Spent (in minutes): 40 CCU Objective - Vital Signs / Intake & Output Vital Signs (Last 4 hours): Vital Signs Temp Pulse Resp BP Pulse Ox 10/16/16 15:02 76 18 106/45 L 100 10/16/16 15:00 71 20 100 10/16/16 14:52 73 18 133/49 L 100 10/16/16 14:22 91 H 15 127/56 L 100 10/16/16 14:15 95 H 21 100 10/16/16 14:00 86 17 100 10/16/16 13:52 90 17 117/56 L 96 10/16/16 13:40 84 19 102/58 L 100 10/16/16 13:24 82 18 109/52 L 99 10/16/16 13:10 71 17 104/55 L 99 10/16/16 13:00 98 H 14 97 10/16/16 12:54 86 16 133/73 96 10/16/16 12:40 99 H 21 132/80 96 10/16/16 12:25 92 H 16 102/60 96 10/16/16 12:19 100 H 20 97/51 L 96 10/16/16 12:15 98.3 F 94 H 16 102/60 95 10/16/16 12:13 96 H 93 L Intake and Output (Last 8hrs): Intake & Output 10/16/16 10/16/16 10/16/16 06:59 14:59 22:59 Intake Total 0 120 Output Total 590 1380 Balance -590 -1260 Intake: Intake, IV Amount 0 Left Antecubital 0 Oral 0 120 Output: Chest Tube Drainage 800 Urine 590 580 Urethral ([place]) 590 380 - Physical Exam Physical Exam Limitations: Negative for: Altered Mental Status Head: Positive for: Atraumatic, Normocephalic Pupils: Positive for: PERRL Extroacular Muscles: Positive for: EOMI Conjunctiva: Positive for: Normal Mouth: Positive for: Moist Mucous Membranes Neck: Positive for: Normal Range of Motion Respiratory/Chest: Positive for: Accessory Muscle Use, Decreased Breath Sounds ( lower left lung specifically). Negative for: Respiratory Distress Cardiovascular: Positive for: Normal S1, S2, Tachycardic Abdomen: Positive for: Normal Bowel Sounds. Negative for: Tenderness, Distention Upper Extremity: Positive for: Normal Inspection Lower Extremity: Positive for: Normal Inspection Neurological: Positive for: GCS=15, Speech Normal Skin: Positive for: Warm, Dry Psychiatric: Positive for: Alert, Oriented x 3 - Medications Active Medications: Active Medications Generic Name Dose Route Start Last Admin Trade Name Freq PRN Reason Stop Dose Admin Albuterol/Ipratropium 3 ml 10/14/16 20:00 10/16/16 13:53 Duoneb 3 Mg/0.5 Mg (3 Ml) Ud INH 3 ml RQ6 TIKA Administration Enalapril Maleate 2.5 mg 10/15/16 10:00 10/16/16 09:56 Vasotec PO 2.5 mg BID TIKA Administration Furosemide 20 mg 10/15/16 10:00 10/16/16 09:56 Lasix PO 20 mg DAILY TIKA Administration Ketorolac Tromethamine 30 mg 10/16/16 12:34 10/16/16 14:06 Toradol IVP 30 mg Q6 PRN Administration Pain, moderate (4-7) Methylprednisolone 40 mg 10/14/16 17:45 10/16/16 14:02 Solu-Medrol IVP 40 mg Q8 TIKA Administration Ondansetron HCl 4 mg 10/16/16 12:32 10/16/16 12:35 Zofran Inj IVP 4 mg Q4 PRN Administration Nausea/Vomiting Pantoprazole Sodium 20 mg 10/15/16 10:00 10/16/16 09:56 Protonix Ec Tab PO 20 mg DAILY TIKA Administration Rosuvastatin Calcium 5 mg 10/14/16 22:00 10/15/16 21:49 Crestor PO 5 mg HS TIKA Administration Tiotropium [place] 18 mcg 10/15/16 08:00 10/16/16 08:04 Spiriva INH 18 mcg RQ24 TIKA Administration - Patient Studies Lab Studies: Microbiology Studies 10/14/16 Unknown MRSA Culture (Admit) - Final [place] MRSA NOT DETECTED Lab Studies 10/16/16 Range/Units 14:43 Fluid Source Pleural Laboratory Results - last 24 hr 10/16/16 14:43 Fluid Source Pleural Fingerstick Blood Sugar Results: 125 Review of Systems - Constitutional Constitutional: absent: Fever, Chills - EENT Eyes: absent: Change in Vision Ears: absent: Decreased Hearing - Cardiovascular Cardiovascular: Dyspnea (episodes of distress), Dyspnea on Exertion. absent: Chest Pain, Chest Pain at Rest, Palpitations - Gastrointestinal Gastrointestinal: absent: Abdominal Pain, Diarrhea, Nausea, Vomiting - Genitourinary Genitourinary: absent: Dysuria - Neurological Neurological: absent: Numbness, Tingling, Weakness - Endocrine Endocrine: absent: Polydipsia, Polyphagia, Polyuria Critical Care Progress Note - Nutrition Nutrition: Nutrition Category Date Time Status Heart Healthy Diet [DIET] Diets 10/16/16 Dinner Active Assessment/Plan - Assessment and Plan (Free Text) Assessment: 81yo F with PMHx of COPD, CHF, CAD, AAA s/p repair with right lung cancer who was found to have left hydropneumothorax Plan: Pt status: Admitted to IC, Full Code Neuro: AAOx3 CV: HTN Normotensive, hypotensive this AM Start Vasotec 2.5mg PO BID Start Lasix 20mg PO Daily CAD - Crestor 5mg PO HS AAA - 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 Henderson CHF Lasix 20mg PO Daily Pulm: Hydropneumothorax - believed 2/[address] Mckee, CT Surgery: help appreciated - s/p Chest tube insertion, 800cc hemorrhagic effusion drained - f/u cytology Cardiology consult: Dr. Porras, help appreciated - f/u Clearance for procedure Lung CA - Rt Lung Adenocarcinoma, Stage 4 - PET scan (): + left pleural effusion, + pleural nodules - CT Chest Angio (10/14/16): Pulmonary trunk, right and left main, lobar, and segmental branches and subsegmental branches of pulmonary arteries are well opacified. Obvious filling defects seen to suggest pulm embolus. Few non- specific mediastinal lymph nodes. Redemonstrated perihilar/upper lobe mass c/w lung carcinoma. Large right effusion and left anterior pneumothorax ( hydropneumothorax). Mild LLL atelectasis. Significant emphysema. Cholelithiasis. ( COPD: - pt on home 2.5 L O2 - Solumedrol 40mg IV Q8 - Home meds: Continue Spiriva GI: Heart Healthy Diet /Renal: BUN/Cr: 23/1.1 - isolated BUN elevation - monitor Prophylaxis: Protonix 20mg PO Daily SCDs
[2016-10-16 15:45] LABS: BF GROSS APPEARANCE BLOODY (CLEAR)
--- NOTE | 2016-10-16 18:08 | CARD ---
APPROVED REPORT EKG Measurement Heart [id number] <Conclusion> Normal sinus rhythm Minimal voltage criteria for LVH, may be normal variant Nonspecific T wave abnormality Abnormal ECG
[2016-10-16] MEDS ORDERED: POLYETHYLENE GLYCOL 3350 17 GM/Dose PACKET PO ONE (18:11)
--- NOTE | 2016-10-16 20:37 | CP.PCM.PN ---
Subjective - Date & Time of Evaluation Date of Evaluation: 10/16/16 Time of Evaluation: 17:00 - Subjective Subjective: Patient seen and evaluated Denies chest pain and dyspnea S/P Chest Pain Review Of Systems Except As Marked, All Systems Reviewed And Found Negative. Constitutional: Negative for: Fever, Chills Cardiovascular: Negative for: Chest Pain Respiratory: Positive for: Cough, Shortness of Breath Gastrointestinal: Negative for: Vomiting Musculoskeletal: Negative for: Back Pain Skin: Negative for: Rash Neurological: Negative for: Numbness, Headache, Dizziness Physical Exam - Physical Exam Appears: Non-toxic, No Acute Distress, Other (Speaking in full sentences) Skin: Warm, Dry, No Rash Head: Atraumatic, Normacephalic Eye(s): bilateral: Normal Inspection, PERRL Oral Mucosa: Moist Lips: Normal Appearing Neck: Normal ROM Chest: Symmetrical Cardiovascular: Rhythm Irregular (regular rate) Respiratory: Decreased Breath Sounds (Left base), No Accessory Muscle Use, No Wheezing Extremity: Normal ROM, No Tenderness, No Pedal Edema Neurological/Psych: Oriented x3, Normal Speech Objective - Vital Signs/Intake and Output Vital Signs (last 24 hours): Temp Pulse Resp BP Pulse Ox 96.8 F L 101 H 23 102/43 L 98 10/16/16 16:00 10/16/16 18:02 10/16/16 18:02 10/16/16 18:02 10/16/16 18:02 Intake and Output: 10/16/16 10/17/16 18:59 06:59 Intake Total 480 Output Total 1615 Balance -1135 - Medications Medications: Current Medications Albuterol/Ipratropium (Duoneb 3 Mg/0.5 Mg (3 Ml) Ud) 3 ml INH RQ6 [facility] Last Admin: 10/16/16 19:27 Dose: 3 ml Enalapril Maleate (Vasotec) 2.5 mg PO BID [facility] Last Admin: 10/16/16 17:42 Dose: 2.5 mg Furosemide (Lasix) 20 mg PO DAILY [facility] Last Admin: 10/16/16 09:56 Dose: 20 mg Ketorolac Tromethamine (Toradol) 30 mg IVP Q6 PRN PRN Reason: Pain, moderate (4-7) Last Admin: 10/16/16 14:06 Dose: 30 mg Methylprednisolone (Solu-Medrol) 40 mg IVP Q8 [facility] Last Admin: 10/16/16 14:02 Dose: 40 mg Ondansetron HCl (Zofran Inj) 4 mg IVP Q4 PRN PRN Reason: Nausea/Vomiting Last Admin: 10/16/16 12:35 Dose: 4 mg Pantoprazole Sodium (Protonix Ec Tab) 20 mg PO DAILY [facility] Last Admin: 10/16/16 09:56 Dose: 20 mg Rosuvastatin Calcium (Crestor) 5 mg PO HS [facility] Last Admin: 10/15/16 21:49 Dose: 5 mg Tiotropium [place] (Spiriva) 18 mcg INH RQ24 [facility] Last Admin: 10/16/16 08:04 Dose: 18 mcg - Labs Labs: 10/15/16 06:29 10/15/16 06:29 PT 11.9 SECONDS (9.7-12.2) 10/14/16 12:49 INR 1.0 10/14/16 12:49 APTT 33 SECONDS (21-34) 10/14/16 12:49 Assessment and Plan - Assessment and Plan (Free Text) Assessment: 81yo F with PMHx of COPD, CHF, CAD, AAA s/p repair with right lung cancer who was found to have left hydropneumothorax CV: HTN Normotensive, hypotensive this AM Vasotec 2.5mg PO BID Lasix 20mg PO Daily Needs stress test for surgical clearance CAD - Crestor 5mg PO HS AAA - 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 Henderson CHF Lasix 20mg PO Daily Pulm: Hydropneumothorax - believed 2/[address] Mckee, CT Surgery: help appreciated - s/p Chest tube insertion, 800cc hemorrhagic effusion drained - f/u cytology Lung CA - Rt Lung Adenocarcinoma, Stage 4 - PET scan (): + left pleural effusion, + pleural nodules - CT Chest Angio (10/14/16): Pulmonary trunk, right and left main, lobar, and segmental branches and subsegmental branches of pulmonary arteries are well opacified. Obvious filling defects seen to suggest pulm embolus. Few non- specific mediastinal lymph nodes. Redemonstrated perihilar/upper lobe mass c/w lung carcinoma. Large right effusion and left anterior pneumothorax ( hydropneumothorax). Mild LLL atelectasis. Significant emphysema. Cholelithiasis. ( COPD: - pt on home 2.5 L O2 - Solumedrol 40mg IV Q8 - Home meds: Continue Spiriva GI: Heart Healthy Diet /Renal: BUN/Cr: 23/1.1 - isolated BUN elevation - monitor Prophylaxis: Protonix 20mg PO Daily SCDs
[2016-10-17] MEDS: Albuterol-Ipratrop 3 mg / 0.5 (3 ml) UD INH SCH ×4 (01:10→19:21)
[2016-10-17] MEDS: MethylPREDNISolone 40 mg Vial IVP SCH ×3 (06:00→21:53)
[2016-10-17 06:57] LABS: BASO % 0.2 % (0.0-2.0); HEMATOCRIT 35.8 % (34.0-47.0); LYMPH # 0.6 K/uL (1.0-4.3); LYMPH % 4.8 % (20.0-40.0); MEAN CELL VOLUME 75.8 fL (81.0-99.0); MEAN CORPUSCULAR HEMOGLOBIN 23.2 pg (27.0-31.0); MEAN CORPUSCULAR HGB CONC 30.6 g/dL (33.0-37.0); MEAN PLATELET VOLUME 9.5 fL (7.2-11.7); MONO # 0.4 K/uL (0.0-0.8); MONO % 2.9 % (0.0-10.0); PLATELET COUNT 297 K/uL (130-400); WHITE BLOOD COUNT 13.2 K/uL (4.8-10.8)
[2016-10-17 06:58] LABS: CHLORIDE 103 mmol/L (98-107); SODIUM 138 mmol/L (132-148)
[2016-10-17 07:00] LABS: GFR AFRICAN-AMERICAN 40
[2016-10-17 07:01] LABS: ALKALINE PHOSPHATASE 59 U/L (38-126); AST/SGOT 30 U/L (14-36); BILIRUBIN,TOTAL 0.4 mg/dL (0.2-1.3); BLOOD UREA NITROGEN 49 mg/dL (7-17); CARBON DIOXIDE 21 mmol/L (22-30); GLUCOSE,RANDOM 115 mg/dL (65-105); TOTAL PROTEIN 6.7 g/dL (6.3-8.3)
[2016-10-17 07:02] LABS: CALCIUM 8.8 mg/dl (8.6-10.4)
[2016-10-17 07:16] LABS: ALT/SGPT < 6 U/L (9-52)
[2016-10-17 07:17] LABS: POTASSIUM 4.9 mmol/L (3.6-5.2)
[2016-10-17 07:45] LABS: MAGNESIUM 2.3 mg/dL (1.6-2.3)
[2016-10-17] MEDS: Tiotropium 18 mcg Cap For Inhalation INH SCH (08:00)
[2016-10-17 09:30] LABS: MYELOCYTE 1 % (0-0); NEUTROPHIL 92 % (50-75); TOTAL CELLS COUNTED 100
[2016-10-17 09:44] LABS: GIANT PLATELETS PRESENT; LARGE PLATELETS PRESENT
[2016-10-17] MEDS: Pantoprazole 20 mg EC Tab PO SCH (09:46)
[2016-10-17] MEDS: Sodium Chloride 0.9% 1,000 ML IV SCH ×2 (09:47→19:18)
--- NOTE | 2016-10-17 10:19 | RAD ---
PROCEDURE: CHEST RADIOGRAPH, 1 VIEW HISTORY: hydropneumothorax, lung mass COMPARISON: 10/16/2016 FINDINGS: LUNGS: Lines and tubes stable position. Persistent moderate left pleural effusion with associated confluent consolidative changes in the left mid to lower lung zone. Biapical pleural thickening with upper lobe granulomatous changes. Hyperinflation suggestive for COPD and or emphysematous changes. Venous congestion. Nodular consolidative changes in the right hilar region and right lung base. Small right pleural effusion. PLEURA: As above. CARDIOVASCULAR: Cardiomegaly. Radiopaque density projects over the upper abdomen, possibly related to aorta. Clinical correlation. OSSEOUS STRUCTURES: No significant abnormalities. VISUALIZED UPPER ABDOMEN: Normal. OTHER FINDINGS: None. IMPRESSION: Lines and tubes stable position. Persistent moderate left pleural effusion with associated confluent consolidative changes in the left mid to lower lung zone. Biapical pleural thickening with upper lobe granulomatous changes. Hyperinflation suggestive for COPD and or emphysematous changes. Venous congestion. Nodular consolidative changes in the right hilar region and right lung base. Small right pleural effusion.
--- NOTE | 2016-10-17 11:06 | CP.CCUPN ---
Addendum entered and electronically signed by Matt Goldstein DO 10/17/16 14:54: Spoke with attending Dr. Mckee and surgical team: - will restart Heparin today - further interventions by surgery will "entail prohibitive morbidity/mortality " due to pts co-morbidities - pt is poor candidate for pleurodesis or pleurx catheter Original Note: <Matt Goldstein - Last Filed: 10/17/16 14:48> CCU Subjective - Physician Review Subjective (Free Text): 10/17/16 10:39 Pt seen and examined at bedside. Nursing reports NAEO. S/P chest tube insertion for hydropneumothorax. Pt admits improved breathing today, and denies present SOB. 24 hour chest tube drainage: 220 cc, 110 cc overnight. Critical Care Time Spent (in minutes): 40 CCU Objective - Vital Signs / Intake & Output Vital Signs (Last 4 hours): Vital Signs Temp Pulse Resp BP Pulse Ox 10/17/16 09:46 124/76 10/17/16 08:02 71 18 132/70 98 10/17/16 08:00 97.8 F 67 19 97 10/17/16 07:04 54 L 17 100 Intake and Output (Last 8hrs): Intake & Output 10/16/16 10/17/16 10/17/16 22:59 06:59 14:59 Intake Total 460 0 Output Total 315 60 30 Balance 145 -60 -30 Intake: Oral 460 0 Output: Chest Tube Drainage 80 Left Mid-Axillary Chest 80 Urine 235 60 30 Urethral ([place]) 235 60 30 Other: # Bowel Movements 0 - Physical Exam Head: Positive for: Atraumatic, Normocephalic Pupils: Positive for: PERRL Extroacular Muscles: Positive for: EOMI Conjunctiva: Positive for: Normal Mouth: Positive for: Moist Mucous Membranes Neck: Positive for: Normal Range of Motion Respiratory/Chest: Positive for: Accessory Muscle Use, Decreased Breath Sounds ( lower left lung specifically). Negative for: Respiratory Distress Cardiovascular: Positive for: Normal S1, S2, Tachycardic Abdomen: Positive for: Normal Bowel Sounds. Negative for: Tenderness, Distention Upper Extremity: Positive for: Normal Inspection Lower Extremity: Positive for: Normal Inspection Neurological: Positive for: GCS=15, Speech Normal Skin: Positive for: Warm, Dry Psychiatric: Positive for: Alert, Oriented x 3 - Medications Active Medications: Active Medications Generic Name Dose Route Start Last Admin Trade Name Freq PRN Reason Stop Dose Admin Albuterol/Ipratropium 3 ml 10/14/16 20:00 10/17/16 07:39 Duoneb 3 Mg/0.5 Mg (3 Ml) Ud INH 3 ml RQ6 TIKA Administration Enalapril Maleate 2.5 mg 10/15/16 10:00 10/17/16 09:46 Vasotec PO 2.5 mg BID TIKA Administration Sodium Chloride 1,000 mls @ 100 mls/hr 10/17/16 09:30 10/17/16 09:47 Sodium Chloride 0.9% IV 100 mls/hr .Q10H TIKA Administration Ketorolac Tromethamine 30 mg 10/16/16 12:34 10/16/16 21:29 Toradol IVP 30 mg Q6 PRN Administration Pain, moderate (4-7) Methylprednisolone 40 mg 10/14/16 17:45 10/16/16 21:33 Solu-Medrol IVP 40 mg Q8 TIKA Administration Ondansetron HCl 4 mg 10/16/16 12:32 10/16/16 12:35 Zofran Inj IVP 4 mg Q4 PRN Administration Nausea/Vomiting Pantoprazole Sodium 20 mg 10/15/16 10:00 10/17/16 09:46 Protonix Ec Tab PO 20 mg DAILY TIKA Administration Rosuvastatin Calcium 5 mg 10/14/16 22:00 10/16/16 21:33 Crestor PO 5 mg HS TIKA Administration Tiotropium [place] 18 mcg 10/15/16 08:00 10/17/16 08:00 Spiriva INH 18 mcg RQ24 TIKA Administration - Patient Studies Lab Studies: Microbiology Studies 10/16/16 12:19 Gram Stain - Final Pleural Fluid 10/14/16 Unknown MRSA Culture (Admit) - Final Naris MRSA NOT DETECTED Lab Studies 10/17/16 10/17/16 10/17/16 Range/Units 06:34 06:34 01:55 WBC 13.2 H D (4.8-10.8) K/uL RBC 4.73 (3.80-5.20) Mil/uL Hgb 11.0 (11.0-16.0) g/dL Hct 35.8 (34.0-47.0) % MCV 75.8 L (81.0-99.0) fL MCH 23.2 L (27.0-31.0) pg MCHC 30.6 L (33.0-37.0) g/dL RDW 15.0 H (11.5-14.5) % Plt Count 297 (130-400) K/uL MPV 9.5 (7.2-11.7) fL Neut % (Auto) 92.1 H (50.0-75.0) % Lymph % (Auto) 4.8 L (20.0-40.0) % [place] % (Auto) 2.9 (0.0-10.0) % Eos % (Auto) 0.0 (0.0-4.0) % Baso % (Auto) 0.2 (0.0-2.0) % Neut # 12.2 H (1.8-7.0) K/uL Lymph # 0.6 L (1.0-4.3) K/uL [place] # 0.4 (0.0-0.8) K/uL Eos # 0.0 (0.0-0.7) K/uL Baso # 0.0 (0.0-0.2) K/uL Neutrophils % (Manual) 92 H (50-75) % Lymphocytes % (Manual) 4 L (20-40) % Monocytes % (Manual) 3 (0-10) % Myelocytes % 1 H (0-0) % Platelet Estimate Normal (NORMAL) Large Platelets Present Giant Platelets Present Hypochromasia (manual) Slight Poikilocytosis (manual Slight Anisocytosis (manual) Slight Macrocytosis (manual) Slight Target Cells Slight Sodium 138 (132-148) mmol/L Potassium 4.9 (3.6-5.2) mmol/L Chloride 103 (98-107) mmol/L Carbon Dioxide 21 L (22-30) mmol/L Anion Gap 19 (10-20) BUN 49 H (7-17) mg/dL Creatinine 1.5 H (0.7-1.2) MG/DL Est GFR ( Amer) 40 Est GFR (Non-Af Amer) 33 Random Glucose 115 H (65-105) mg/dL Calcium 8.8 (8.6-10.4) mg/dl Phosphorus 4.0 (2.5-4.5) mg/dL Magnesium 2.3 (1.6-2.3) mg/dL Total Bilirubin 0.4 (0.2-1.3) mg/dL AST 30 (14-36) U/L ALT < 6 L D (9-52) U/L Alkaline Phosphatase 59 (38-126) U/L Total Protein 6.7 (6.3-8.3) g/dL Albumin 3.4 L (3.5-5.0) g/dL Globulin 3.3 (2.2-3.9) gm/dL Albumin/Globulin Ratio 1.0 (1.0-2.1) Fluid Source Fluid Appearance (CLEAR) Fluid WBC (0.0-300.0) /mm3 Fluid RBC (0.0-0.0) /mm3 Fluid Tot Cell Count Fluid Neutrophils (0-0) % Fluid Lymphocytes (0-0) % Fld Monocyte/Macrophag (0-0) % Fluid Comment 10/16/16 Range/Units 14:43 WBC (4.8-10.8) K/uL RBC (3.80-5.20) Mil/uL Hgb (11.0-16.0) g/dL Hct (34.0-47.0) % MCV (81.0-99.0) fL MCH (27.0-31.0) pg MCHC (33.0-37.0) g/dL RDW (11.5-14.5) % Plt Count (130-400) K/uL MPV (7.2-11.7) fL Neut % (Auto) (50.0-75.0) % Lymph % (Auto) (20.0-40.0) % [place] % (Auto) (0.0-10.0) % Eos % (Auto) (0.0-4.0) % Baso % (Auto) (0.0-2.0) % Neut # (1.8-7.0) K/uL Lymph # (1.0-4.3) K/uL [place] # (0.0-0.8) K/uL Eos # (0.0-0.7) K/uL Baso # (0.0-0.2) K/uL Neutrophils % (Manual) (50-75) % Lymphocytes % (Manual) (20-40) % Monocytes % (Manual) (0-10) % Myelocytes % (0-0) % Platelet Estimate (NORMAL) Large Platelets Giant Platelets Hypochromasia (manual) Poikilocytosis (manual Anisocytosis (manual) Macrocytosis (manual) Target Cells Sodium (132-148) mmol/L Potassium (3.6-5.2) mmol/L Chloride (98-107) mmol/L Carbon Dioxide (22-30) mmol/L Anion Gap (10-20) BUN (7-17) mg/dL Creatinine (0.7-1.2) MG/DL Est GFR ( Amer) Est GFR (Non-Af Amer) Random Glucose (65-105) mg/dL Calcium (8.6-10.4) mg/dl Phosphorus (2.5-4.5) mg/dL Magnesium (1.6-2.3) mg/dL Total Bilirubin (0.2-1.3) mg/dL AST (14-36) U/L ALT (9-52) U/L Alkaline Phosphatase (38-126) U/L Total Protein (6.3-8.3) g/dL Albumin (3.5-5.0) g/dL Globulin (2.2-3.9) gm/dL Albumin/Globulin Ratio (1.0-2.1) Fluid Source Pleural Fluid Appearance Bloody (CLEAR) Fluid WBC 6676.0 H (0.0-300.0) /mm3 Fluid RBC 088528.0 H (0.0-0.0) /mm3 Fluid Tot Cell Count TEST NOT PERFORMED Fluid Neutrophils 21.0 H (0-0) % Fluid Lymphocytes 53.0 H (0-0) % Fld Monocyte/Macrophag 10 H (0-0) % Fluid Comment Laboratory Results - last 24 hr 10/16/16 10/17/16 10/17/16 14:43 01:55 06:34 WBC RBC Hgb Hct MCV MCH MCHC RDW Plt Count MPV Neut % (Auto) Lymph % (Auto) [place] % (Auto) Eos % (Auto) Baso % (Auto) Neut # Lymph # [place] # Eos # Baso # Neutrophils % (Manual) Lymphocytes % (Manual) Monocytes % (Manual) Myelocytes % Platelet Estimate Large Platelets Giant Platelets Hypochromasia (manual) Poikilocytosis (manual Anisocytosis (manual) Macrocytosis (manual) Target Cells Sodium 138 Potassium 4.9 Chloride 103 Carbon Dioxide 21 L Anion Gap 19 BUN 49 H Creatinine 1.5 H Est GFR ( Amer) 40 Est GFR (Non-Af Amer) 33 Random Glucose 115 H Calcium 8.8 Phosphorus 4.0 Magnesium 2.3 Total Bilirubin 0.4 AST 30 ALT < 6 L D Alkaline Phosphatase 59 Total Protein 6.7 Albumin 3.4 L Globulin 3.3 Albumin/Globulin Ratio 1.0 Fluid Source Pleural Fluid Appearance Bloody Fluid WBC 6676.0 H Fluid RBC 446320.0 H Fluid Tot Cell Count TEST NOT PERFORMED Fluid Neutrophils 21.0 H Fluid Lymphocytes 53.0 H Fld Monocyte/Macrophag 10 H Fluid Comment 10/17/16 06:34 WBC 13.2 H D RBC 4.73 Hgb 11.0 Hct 35.8 MCV 75.8 L MCH 23.2 L MCHC 30.6 L RDW 15.0 H Plt Count 297 MPV 9.5 Neut % (Auto) 92.1 H Lymph % (Auto) 4.8 L [place] % (Auto) 2.9 Eos % (Auto) 0.0 Baso % (Auto) 0.2 Neut # 12.2 H Lymph # 0.6 L [place] # 0.4 Eos # 0.0 Baso # 0.0 Neutrophils % (Manual) 92 H Lymphocytes % (Manual) 4 L Monocytes % (Manual) 3 Myelocytes % 1 H Platelet Estimate Normal Large Platelets Present Giant Platelets Present Hypochromasia (manual) Slight Poikilocytosis (manual Slight Anisocytosis (manual) Slight Macrocytosis (manual) Slight Target Cells Slight Sodium Potassium Chloride Carbon Dioxide Anion Gap BUN Creatinine Est GFR ( Amer) Est GFR (Non-Af Amer) Random Glucose Calcium Phosphorus Magnesium Total Bilirubin AST ALT Alkaline Phosphatase Total Protein Albumin Globulin Albumin/Globulin Ratio Fluid Source Fluid Appearance Fluid WBC Fluid RBC Fluid Tot Cell Count Fluid Neutrophils Fluid Lymphocytes Fld Monocyte/Macrophag Fluid Comment Fingerstick Blood Sugar Results: 125 Review of Systems - Constitutional Constitutional: absent: Fever, Chills - EENT Eyes: absent: Change in Vision Ears: absent: Decreased Hearing Nose/Mouth/Throat: absent: Nasal Discharge, Sore Throat - Cardiovascular Cardiovascular: absent: Chest Pain, Chest Pain at Rest, Dyspnea, Dyspnea on Exertion - Respiratory Respiratory: absent: Cough, Chest Congestion - Gastrointestinal Gastrointestinal: absent: Abdominal Pain, Nausea, Vomiting - Genitourinary Genitourinary: absent: Dysuria - Musculoskeletal Musculoskeletal: absent: Back Pain, Numbness, Tingling - Neurological Neurological: absent: Numbness, Tingling, Weakness - Psychiatric Psychiatric: absent: Anxiety, Depression - Endocrine Endocrine: absent: Polydipsia, Polyphagia Critical Care Progress Note - Nutrition Nutrition: Nutrition Category Date Time Status Heart Healthy Diet [DIET] Diets 10/16/16 Dinner Active Assessment/Plan - Assessment and Plan (Free Text) Assessment: 81yo F with PMHx of COPD, CHF, CAD, AAA s/p repair with right lung cancer who was found to have left hydropneumothorax. S/P chest tube placement on 10/[address] Mckee, CT surgeon. 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 Henderson CHF Discontinued Lasix 20mg PO Daily due to worsening RF Pulm: Hydropneumothorax - believed 2/[address] Mckee, CT Surgery: help appreciated - s/p Chest tube insertion, 800cc hemorrhagic effusion drained - Overnight 110cc drainage, 220cc in 24 hrs - f/u cytology Pain: Toradol 30mg IVP Q6H Nausea: Zofran 40mg IVP Q4H Lung CA - Rt Lung Adenocarcinoma, Stage 4 - PET scan (07/29/16): + left pleural effusion, + pleural nodules; believed possible mets - CT Chest Angio (10/14/16): Pulmonary trunk, right and left main, lobar, and segmental branches and subsegmental branches of pulmonary arteries are well opacified. Obvious filling defects seen to suggest pulm embolus. Few non- specific mediastinal lymph nodes. Redemonstrated perihilar/upper lobe mass c/w lung carcinoma. Large right effusion and left anterior pneumothorax ( hydropneumothorax). Mild LLL atelectasis. Significant emphysema. Cholelithiasis. (see full report) Palliative care consult: help, appreciated - chart says pt unaware of diagnosis of Adenocarcinoma - will speak with family today COPD: - pt on home 2.5 L O2 - Solumedrol 40mg IV Q8, Duonebs Q6H tika - Home meds: Continue Spiriva GI: Heart Healthy Diet /Renal: BUN/Cr: 49/1.5, elevated from 23.1 yesterday -discontinued lasix Start NS @100 cc/hr Monitor Hem/Onc: Leukocytosis 13.2 today, from 6.1 - believed reactive, will monitor - Blood cx: (10/17/16) - negative x 3days - Pleural fluid (10/16/16) - no growth x 24 hours Prophylaxis: Protonix 20mg PO Daily SCDs Heparin 5000 units Q12H <Tristan Terry - Last Filed: 10/17/16 18:02> CCU Objective - Vital Signs / Intake & Output Vital Signs (Last 4 hours): Vital Signs Temp Pulse Resp BP Pulse Ox 10/17/16 17:59 137/62 10/17/16 17:03 64 16 137/62 100 10/17/16 17:00 59 L 23 99 10/17/16 16:03 72 19 135/59 L 99 10/17/16 16:00 97.6 F 77 16 100 10/17/16 15:02 74 20 112/76 99 10/17/16 15:00 72 17 98 10/17/16 14:03 70 15 121/71 100 Intake and Output (Last 8hrs): Intake & Output 10/17/16 10/17/16 10/17/16 06:59 14:59 22:59 Intake Total 1050 Output Total 60 185 Balance -60 865 Intake: Intake, IV Amount 450 Right Wrist 450 Oral 600 Output: Urine 60 185 Urethral ([place]) 60 185 Other: # Bowel Movements 0 - Medications Active Medications: Active Medications Generic Name Dose Route Start Last Admin Trade Name Freq PRN Reason Stop Dose Admin Albuterol/Ipratropium 3 ml 10/14/16 20:00 10/17/16 13:55 Duoneb 3 Mg/0.5 Mg (3 Ml) Ud INH 3 ml RQ6 TIKA Administration Enalapril Maleate 2.5 mg 10/15/16 10:00 10/17/16 17:59 Vasotec PO 2.5 mg BID TIKA Administration Heparin Sodium (Porcine) 5,000 units 10/17/16 13:30 10/17/16 13:32 Heparin SC 5,000 units Q12H TIKA Administration Sodium Chloride 1,000 mls @ 100 mls/hr 10/17/16 09:30 10/17/16 09:47 Sodium Chloride 0.9% IV 100 mls/hr .Q10H TIKA Administration Ketorolac Tromethamine 30 mg 10/16/16 12:34 10/16/16 21:29 Toradol IVP 30 mg Q6 PRN Administration Pain, moderate (4-7) Methylprednisolone 40 mg 10/14/16 17:45 10/17/16 13:25 Solu-Medrol IVP 40 mg Q8 TIKA Administration Ondansetron HCl 4 mg 10/16/16 12:32 10/16/16 12:35 Zofran Inj IVP 4 mg Q4 PRN Administration Nausea/Vomiting Pantoprazole Sodium 20 mg 10/15/16 10:00 10/17/16 09:46 Protonix Ec Tab PO 20 mg DAILY TIKA Administration Rosuvastatin Calcium 5 mg 10/14/16 22:00 10/16/16 21:33 Crestor PO 5 mg HS TIKA Administration Tiotropium [place] 18 mcg 10/15/16 08:00 10/17/16 08:00 Spiriva INH 18 mcg RQ24 TIKA Administration - Patient Studies Lab Studies: Microbiology Studies 10/16/16 12:19 Gram Stain - Final Pleural Fluid Body Fluid Culture - Preliminary NO GROWTH AFTER 24 HOURS Lab Studies 10/17/16 10/17/16 10/17/16 Range/Units 06:34 06:34 01:55 WBC 13.2 H D (4.8-10.8) K/uL RBC 4.73 (3.80-5.20) Mil/uL Hgb 11.0 (11.0-16.0) g/dL Hct 35.8 (34.0-47.0) % MCV 75.8 L (81.0-99.0) fL MCH 23.2 L (27.0-31.0) pg MCHC 30.6 L (33.0-37.0) g/dL RDW 15.0 H (11.5-14.5) % Plt Count 297 (130-400) K/uL MPV 9.5 (7.2-11.7) fL Neut % (Auto) 92.1 H (50.0-75.0) % Lymph % (Auto) 4.8 L (20.0-40.0) % [place] % (Auto) 2.9 (0.0-10.0) % Eos % (Auto) 0.0 (0.0-4.0) % Baso % (Auto) 0.2 (0.0-2.0) % Neut # 12.2 H (1.8-7.0) K/uL Lymph # 0.6 L (1.0-4.3) K/uL [place] # 0.4 (0.0-0.8) K/uL Eos # 0.0 (0.0-0.7) K/uL Baso # 0.0 (0.0-0.2) K/uL Neutrophils % (Manual) 92 H (50-75) % Lymphocytes % (Manual) 4 L (20-40) % Monocytes % (Manual) 3 (0-10) % Myelocytes % 1 H (0-0) % Platelet Estimate Normal (NORMAL) Large Platelets Present Giant Platelets Present Hypochromasia (manual) Slight Poikilocytosis (manual Slight Anisocytosis (manual) Slight Macrocytosis (manual) Slight Target Cells Slight Sodium 138 (132-148) mmol/L Potassium 4.9 (3.6-5.2) mmol/L Chloride 103 (98-107) mmol/L Carbon Dioxide 21 L (22-30) mmol/L Anion Gap 19 (10-20) BUN 49 H (7-17) mg/dL Creatinine 1.5 H (0.7-1.2) MG/DL Est GFR ( Amer) 40 Est GFR (Non-Af Amer) 33 Random Glucose 115 H (65-105) mg/dL Calcium 8.8 (8.6-10.4) mg/dl Phosphorus 4.0 (2.5-4.5) mg/dL Magnesium 2.3 (1.6-2.3) mg/dL Total Bilirubin 0.4 (0.2-1.3) mg/dL AST 30 (14-36) U/L ALT < 6 L D (9-52) U/L Alkaline Phosphatase 59 (38-126) U/L Total Protein 6.7 (6.3-8.3) g/dL Albumin 3.4 L (3.5-5.0) g/dL Globulin 3.3 (2.2-3.9) gm/dL Albumin/Globulin Ratio 1.0 (1.0-2.1) Laboratory Results - last 24 hr 10/17/16 10/17/16 10/17/16 01:55 06:34 06:34 WBC 13.2 H D RBC 4.73 Hgb 11.0 Hct 35.8 MCV 75.8 L MCH 23.2 L MCHC 30.6 L RDW 15.0 H Plt Count 297 MPV 9.5 Neut % (Auto) 92.1 H Lymph % (Auto) 4.8 L [place] % (Auto) 2.9 Eos % (Auto) 0.0 Baso % (Auto) 0.2 Neut # 12.2 H Lymph # 0.6 L [place] # 0.4 Eos # 0.0 Baso # 0.0 Neutrophils % (Manual) 92 H Lymphocytes % (Manual) 4 L Monocytes % (Manual) 3 Myelocytes % 1 H Platelet Estimate Normal Large Platelets Present Giant Platelets Present Hypochromasia (manual) Slight Poikilocytosis (manual Slight Anisocytosis (manual) Slight Macrocytosis (manual) Slight Target Cells Slight Sodium 138 Potassium 4.9 Chloride 103 Carbon Dioxide 21 L Anion Gap 19 BUN 49 H Creatinine 1.5 H Est GFR ( Amer) 40 Est GFR (Non-Af Amer) 33 Random Glucose 115 H Calcium 8.8 Phosphorus 4.0 Magnesium 2.3 Total Bilirubin 0.4 AST 30 ALT < 6 L D Alkaline Phosphatase 59 Total Protein 6.7 Albumin 3.4 L Globulin 3.3 Albumin/Globulin Ratio 1.0 Critical Care Progress Note - Nutrition Nutrition: Nutrition Category Date Time Status Heart Healthy Diet [DIET] Diets 10/16/16 Dinner Active Attending/Attestation - Attestation I have personally seen and examined this patient.: Yes I have fully participated in the care of the patient.: Yes I have reviewed all pertinent clinical information: Yes Notes (Text): 10/17/16 18:01 Patient seen and examined in the intensive care unit. Case discussed with house staff in the morning rounds. Status post chest tube insertion for hydropneumothorax and plan is to continue with chest tube is still draining fluid Not a candidate for pleurodesis
--- NOTE | 2016-10-17 11:37 | CP.PCM.PN ---
Subjective - Date & Time of Evaluation Date of Evaluation: 10/17/16 Time of Evaluation: 07:00 - Subjective Subjective: THORACIC SURGERY PROGRESS NOTE FOR DR. MILLAN The patient is an 81 y/o female with history of COPD, CHF, CAD, AAA s/ p repair with right lung adenocarcinoma w/ left pleural effusion s/p left chest tube POD#1. When seen, the patient states that her breathing has significantly improved after chest tube insertion. She also complained of pain at the site of the Left CT last night. Nursing stated that she received Toradol once overnight. Both the patient and nursing staff report no other acute events overnight. The patient denies any trouble with breathing, eating, and drinking. Her chest tube is on low suction (-20 mm Hg) and put out 110 cc of serosanguinous fluid overnight (total output of 220 cc from chest tube insertion until 7 am this morning). Review of systems: General: denies fever/chills Cardiac: denies chest pain and palpitations Pulmonary: denies cough, SOB, pain on inspiration, and sputum production GI: denies nausea/vomiting and abdominal pain Objective - Vital Signs/Intake and Output Vital Signs (last 24 hours): Temp Pulse Resp BP Pulse Ox 97.8 F 71 18 124/76 98 10/17/16 08:00 10/17/16 08:02 10/17/16 08:02 10/17/16 09:46 10/17/16 08:02 Intake and Output: 10/17/16 10/17/16 06:59 18:59 Intake Total 100 0 Output Total 140 30 Balance -40 -30 - Medications Medications: Current Medications Albuterol/Ipratropium (Duoneb 3 Mg/0.5 Mg (3 Ml) Ud) 3 ml INH RQ6 TIKA Last Admin: 10/17/16 07:39 Dose: 3 ml Enalapril Maleate (Vasotec) 2.5 mg PO BID TIKA Last Admin: 10/17/16 09:46 Dose: 2.5 mg Sodium Chloride (Sodium Chloride 0.9%) 1,000 mls @ 100 mls/hr IV .Q10H TIKA Last Admin: 10/17/16 09:47 Dose: 100 mls/hr Ketorolac Tromethamine (Toradol) 30 mg IVP Q6 PRN PRN Reason: Pain, moderate (4-7) Last Admin: 10/16/16 21:29 Dose: 30 mg Methylprednisolone (Solu-Medrol) 40 mg IVP Q8 TIKA Last Admin: 10/16/16 21:33 Dose: 40 mg Ondansetron HCl (Zofran Inj) 4 mg IVP Q4 PRN PRN Reason: Nausea/Vomiting Last Admin: 10/16/16 12:35 Dose: 4 mg Pantoprazole Sodium (Protonix Ec Tab) 20 mg PO DAILY TIKA Last Admin: 10/17/16 09:46 Dose: 20 mg Rosuvastatin Calcium (Crestor) 5 mg PO HS TIKA Last Admin: 10/16/16 21:33 Dose: 5 mg Tiotropium [place] (Spiriva) 18 mcg INH RQ24 TIKA Last Admin: 10/17/16 08:00 Dose: 18 mcg - Labs Labs: 10/17/16 06:34 10/17/16 01:55 PT 11.9 SECONDS (9.7-12.2) 10/14/16 12:49 INR 1.0 10/14/16 12:49 APTT 33 SECONDS (21-34) 10/14/16 12:49 - Constitutional Appears: Non-toxic, No Acute Distress - Head Exam Head Exam: ATRAUMATIC, NORMOCEPHALIC - Respiratory Exam Respiratory Exam: Decreased Breath Sounds (Decreased breath sounds on the left) , Rhonchi (Minimal in left lung base), NORMAL BREATHING PATTERN. absent: Rales , Wheezes, Respiratory Distress Additional comments: - Chest tube: 110 cc of serosanguinous output overnight (total output of 220 cc from chest tube insertion until 7 am this morning) - Chest tube on low suction (-20 mm Hg) with no air leak - Dressing clean and dry, changed at bedside - Cardiovascular Exam Cardiovascular Exam: RRR, +S1, +S2. absent: Diastolic murmur, Gallop, Rubs, Murmur - Neurological Exam Neurological Exam: Alert, Awake - Psychiatric Exam Psychiatric exam: Normal Affect, Normal Mood - Skin Skin Exam: Dry, Normal Color, Warm Assessment and Plan - Assessment and Plan (Free Text) Assessment: 81 y/o female with history of COPD, CHF, CAD, AAA s/p repair with right lung adenocarcinoma w/ left pleural effusion s/p Left CT in [place] POD#1 Plan: - Afebrile, O2 sat at 99% improved from yesterday - Patient currently breathing comfortably on NC - Continue chest tube dressing daily - CXR impressions: "Persistent moderate left pleural effusion with associated confluent consolidative changes in the left mid to lower lung zone. Biapical pleural thickening with upper lobe granulomatous changes. Hyperinflation suggestive for COPD and or emphysematous changes. Venous congestion. Nodular consolidative changes in the right hilar region and right lung base. Small right pleural effusion." - Chest tube: 110 cc of serosanguinous output overnight (total output of 220 cc from chest tube insertion until 7 am this morning) - Continue chest tube on low suction (-20 mm Hg) - Continue daily CXRs - F/u pleural fluid cytology - Will remove chest tube prior to DC from hospital - Discussed plan with Dr. Rafi Funes PGY-2
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
--- NOTE | 2016-10-17 14:24 | CP.PCM.PN ---
Subjective - Date & Time of Evaluation Date of Evaluation: 10/17/16 Time of Evaluation: 14:19 - Subjective Subjective: pt s/e. Management plan discussed with residents on rounds. Any further surgical interventions to control effusion would entail prohibitive mortality and morbity due to her multible significant comorbities. Will remove chest tube whenever disposition plan is finalized. a Objective - Vital Signs/Intake and Output Vital Signs (last 24 hours): Temp Pulse Resp BP Pulse Ox 97.9 F 64 22 129/68 99 10/17/16 12:00 10/17/16 13:02 10/17/16 13:02 10/17/16 13:02 10/17/16 13:02 Intake and Output: 10/17/16 10/17/16 06:59 18:59 Intake Total 100 1050 Output Total 140 185 Balance -40 865 - Medications Medications: Current Medications Albuterol/Ipratropium (Duoneb 3 Mg/0.5 Mg (3 Ml) Ud) 3 ml INH RQ6 [facility] Last Admin: 10/17/16 13:55 Dose: 3 ml Enalapril Maleate (Vasotec) 2.5 mg PO BID [facility] Last Admin: 10/17/16 09:46 Dose: 2.5 mg Heparin Sodium (Porcine) (Heparin) 5,000 units SC Q12H [facility] Last Admin: 10/17/16 13:32 Dose: 5,000 units Sodium Chloride (Sodium Chloride 0.9%) 1,000 mls @ 100 mls/hr IV .Q10H [facility] Last Admin: 10/17/16 09:47 Dose: 100 mls/hr Ketorolac Tromethamine (Toradol) 30 mg IVP Q6 PRN PRN Reason: Pain, moderate (4-7) Last Admin: 10/16/16 21:29 Dose: 30 mg Methylprednisolone (Solu-Medrol) 40 mg IVP Q8 [facility] Last Admin: 10/17/16 13:25 Dose: 40 mg Ondansetron HCl (Zofran Inj) 4 mg IVP Q4 PRN PRN Reason: Nausea/Vomiting Last Admin: 10/16/16 12:35 Dose: 4 mg Pantoprazole Sodium (Protonix Ec Tab) 20 mg PO DAILY [facility] Last Admin: 10/17/16 09:46 Dose: 20 mg Rosuvastatin Calcium (Crestor) 5 mg PO HS [facility] Last Admin: 10/16/16 21:33 Dose: 5 mg Tiotropium [place] (Spiriva) 18 mcg INH RQ24 [facility] Last Admin: 10/17/16 08:00 Dose: 18 mcg - Labs Labs: 10/17/16 06:34 10/17/16 01:55 PT 11.9 SECONDS (9.7-12.2) 10/14/16 12:49 INR 1.0 10/14/16 12:49 APTT 33 SECONDS (21-34) 10/14/16 12:49
--- NOTE | 2016-10-17 22:12 | CP.PCM.PN ---
Subjective - Date & Time of Evaluation Date of Evaluation: 10/17/16 Time of Evaluation: 16:10 - Subjective Subjective: Patient seen and evaluated Comfortable S/P Chest tube Review Of Systems Except As Marked, All Systems Reviewed And Found Negative. Constitutional: Negative for: Fever, Chills Cardiovascular: Negative for: Chest Pain Respiratory: Positive for: Cough, Shortness of Breath Gastrointestinal: Negative for: Vomiting Musculoskeletal: Negative for: Back Pain Skin: Negative for: Rash Neurological: Negative for: Numbness, Headache, Dizziness Physical Exam - Physical Exam Appears: Non-toxic, No Acute Distress, Other (Speaking in full sentences) Skin: Warm, Dry, No Rash Head: Atraumatic, Normacephalic Eye(s): bilateral: Normal Inspection, PERRL Oral Mucosa: Moist Lips: Normal Appearing Neck: Normal ROM Chest: Symmetrical Cardiovascular: Rhythm Irregular (regular rate) Respiratory: Decreased Breath Sounds (Left base), No Accessory Muscle Use, No Wheezing Extremity: Normal ROM, No Tenderness, No Pedal Edema Neurological/Psych: Oriented x3, Normal Speech Objective - Vital Signs/Intake and Output Vital Signs (last 24 hours): Temp Pulse Resp BP Pulse Ox 97.6 F 78 24 147/73 98 10/17/16 20:00 10/17/16 20:02 10/17/16 20:02 10/17/16 20:02 10/17/16 20:02 Intake and Output: 10/17/16 10/18/16 18:59 06:59 Intake Total 1950 1300 Output Total 530 Balance 1420 1300 - Medications Medications: Current Medications Albuterol/Ipratropium (Duoneb 3 Mg/0.5 Mg (3 Ml) Ud) 3 ml INH RQ6 [facility] Last Admin: 10/17/16 19:21 Dose: 3 ml Enalapril Maleate (Vasotec) 2.5 mg PO BID [facility] Last Admin: 10/17/16 17:59 Dose: 2.5 mg Heparin Sodium (Porcine) (Heparin) 5,000 units SC Q12H [facility] Last Admin: 10/17/16 13:32 Dose: 5,000 units Sodium Chloride (Sodium Chloride 0.9%) 1,000 mls @ 100 mls/hr IV .Q10H [facility] Last Admin: 10/17/16 19:18 Dose: 100 mls/hr Ketorolac Tromethamine (Toradol) 30 mg IVP Q6 PRN PRN Reason: Pain, moderate (4-7) Last Admin: 10/16/16 21:29 Dose: 30 mg Methylprednisolone (Solu-Medrol) 40 mg IVP Q8 [facility] Last Admin: 10/17/16 21:53 Dose: 40 mg Ondansetron HCl (Zofran Inj) 4 mg IVP Q4 PRN PRN Reason: Nausea/Vomiting Last Admin: 10/16/16 12:35 Dose: 4 mg Pantoprazole Sodium (Protonix Ec Tab) 20 mg PO DAILY [facility] Last Admin: 10/17/16 09:46 Dose: 20 mg Rosuvastatin Calcium (Crestor) 5 mg PO HS [facility] Last Admin: 10/17/16 21:54 Dose: 5 mg Tiotropium [place] (Spiriva) 18 mcg INH RQ24 [facility] Last Admin: 10/17/16 08:00 Dose: 18 mcg - Labs Labs: 10/17/16 06:34 10/17/16 01:55 PT 11.9 SECONDS (9.7-12.2) 10/14/16 12:49 INR 1.0 10/14/16 12:49 APTT 33 SECONDS (21-34) 10/14/16 12:49 Assessment and Plan - Assessment and Plan (Free Text) Assessment: 81yo F with PMHx of COPD, CHF, CAD, AAA s/p repair with right lung cancer who was found to have left hydropneumothorax CV: HTN Normotensive, hypotensive this AM Vasotec 2.5mg PO BID Lasix 20mg PO Daily Need stress test for surgical clearance CAD - Crestor 5mg PO HS AAA - 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 Henderson CHF Lasix 20mg PO Daily Pulm: Hydropneumothorax - believed 2/[address] Mckee, CT Surgery: help appreciated - s/p Chest tube insertion, 800cc hemorrhagic effusion drained - f/u cytology Lung CA - Rt Lung Adenocarcinoma, Stage 4 - PET scan (): + left pleural effusion, + pleural nodules - CT Chest Angio (10/14/16): Pulmonary trunk, right and left main, lobar, and segmental branches and subsegmental branches of pulmonary arteries are well opacified. Obvious filling defects seen to suggest pulm embolus. Few non- specific mediastinal lymph nodes. Redemonstrated perihilar/upper lobe mass c/w lung carcinoma. Large right effusion and left anterior pneumothorax ( hydropneumothorax). Mild LLL atelectasis. Significant emphysema. Cholelithiasis. ( COPD: - pt on home 2.5 L O2 - Solumedrol 40mg IV Q8 - Home meds: Continue Spiriva GI: Heart Healthy Diet /Renal: BUN/Cr: 23/1.1 - isolated BUN elevation - monitor Prophylaxis: Protonix 20mg PO Daily [facility]
--- NOTE | 2016-10-17 22:34 | CP.PCM.PN ---
Subjective - Date & Time of Evaluation Date of Evaluation: 10/17/16 Time of Evaluation: 22:34 - Subjective Subjective: patient is currently doing well. Status post chest tube. Some weakness and tiredness noted. Objective - Vital Signs/Intake and Output Vital Signs (last 24 hours): Temp Pulse Resp BP Pulse Ox 97.6 F 78 24 147/73 98 10/17/16 20:00 10/17/16 20:02 10/17/16 20:02 10/17/16 20:02 10/17/16 20:02 Intake and Output: 10/17/16 10/18/16 18:59 06:59 Intake Total 1950 1300 Output Total 530 Balance 1420 1300 - Medications Medications: Current Medications Albuterol/Ipratropium (Duoneb 3 Mg/0.5 Mg (3 Ml) Ud) 3 ml INH RQ6 [facility] Last Admin: 10/17/16 19:21 Dose: 3 ml Enalapril Maleate (Vasotec) 2.5 mg PO BID [facility] Last Admin: 10/17/16 17:59 Dose: 2.5 mg Heparin Sodium (Porcine) (Heparin) 5,000 units SC Q12H [facility] Last Admin: 10/17/16 13:32 Dose: 5,000 units Sodium Chloride (Sodium Chloride 0.9%) 1,000 mls @ 100 mls/hr IV .Q10H [facility] Last Admin: 10/17/16 19:18 Dose: 100 mls/hr Ketorolac Tromethamine (Toradol) 30 mg IVP Q6 PRN PRN Reason: Pain, moderate (4-7) Last Admin: 10/16/16 21:29 Dose: 30 mg Methylprednisolone (Solu-Medrol) 40 mg IVP Q8 [facility] Last Admin: 10/17/16 21:53 Dose: 40 mg Ondansetron HCl (Zofran Inj) 4 mg IVP Q4 PRN PRN Reason: Nausea/Vomiting Last Admin: 10/16/16 12:35 Dose: 4 mg Pantoprazole Sodium (Protonix Ec Tab) 20 mg PO DAILY [facility] Last Admin: 10/17/16 09:46 Dose: 20 mg Rosuvastatin Calcium (Crestor) 5 mg PO HS [facility] Last Admin: 10/17/16 21:54 Dose: 5 mg Tiotropium [place] (Spiriva) 18 mcg INH RQ24 [facility] Last Admin: 10/17/16 08:00 Dose: 18 mcg chest good air entry bilaterally regular heart sound nontender abdomen. - Labs Labs: 10/17/16 06:34 10/17/16 01:55 PT 11.9 SECONDS (9.7-12.2) 10/14/16 12:49 INR 1.0 10/14/16 12:49 APTT 33 SECONDS (21-34) 10/14/16 12:49 Assessment and Plan (1) SOB (shortness of breath) Status: Acute (2) Hydropneumothorax Assessment & Plan: patient with hydropneumothorax. Status post chest tube. Discontinue IV fluid, monitor IV fluid, reducing corticosteroids will follow the patient Status: Acute
[2016-10-18] MEDS: Albuterol-Ipratrop 3 mg / 0.5 (3 ml) UD INH SCH ×4 (01:42→20:09)
[2016-10-18 06:37] LABS: CHLORIDE 102 mmol/L (98-107); POTASSIUM 4.8 mmol/L (3.6-5.2); SODIUM 139 mmol/L (132-148)
[2016-10-18 06:39] LABS: BILIRUBIN,TOTAL 0.2 mg/dL (0.2-1.3); GFR AFRICAN-AMERICAN 48
[2016-10-18 06:40] LABS: ALB/GLOB RATIO 1.1 (1.0-2.1); ALKALINE PHOSPHATASE 73 U/L (38-126); AST/SGOT 22 U/L (14-36); BLOOD UREA NITROGEN 48 mg/dL (7-17); CALCIUM 9.5 mg/dl (8.6-10.4); CARBON DIOXIDE 25 mmol/L (22-30); GLUCOSE,RANDOM 134 mg/dL (65-105); PHOSPHOROUS 3.9 mg/dL (2.5-4.5); TOTAL PROTEIN 7.1 g/dL (6.3-8.3)
[2016-10-18 06:41] LABS: MAGNESIUM 2.7 mg/dL (1.6-2.3)
[2016-10-18 06:45] LABS: ALT/SGPT < 6 U/L (9-52)
[2016-10-18 06:51] LABS: BASO # 0.1 K/uL (0.0-0.2); BASO % 0.5 % (0.0-2.0); HEMATOCRIT 38.8 % (34.0-47.0); LYMPH # 0.8 K/uL (1.0-4.3); LYMPH % 6.8 % (20.0-40.0); MEAN CELL VOLUME 75.3 fL (81.0-99.0); MEAN CORPUSCULAR HGB CONC 30.5 g/dL (33.0-37.0); MEAN PLATELET VOLUME 9.2 fL (7.2-11.7); MONO # 0.3 K/uL (0.0-0.8); MONO % 2.7 % (0.0-10.0); NRBC % 0.1 % (0.0-2.0); PLATELET COUNT 313 K/uL (130-400); RED CELL DISTRIBUTION WIDTH 15.3 % (11.5-14.5); WHITE BLOOD COUNT 11.5 K/uL (4.8-10.8)
--- NOTE | 2016-10-18 08:22 | RAD ---
PROCEDURE: CHEST RADIOGRAPH, 1 VIEW HISTORY: hydropneumothorax, lung mass COMPARISON: 10/17/2016 FINDINGS: LUNGS: Lines and tubes in stable position. Confluent consolidative changes with associated loculated pleural effusion within the left mid to lower lung zone. Additional patchy increased markings in the right hilar region and right lung base. Biapical pleural thickening with upper lobe granulomatous changes. . PLEURA: As above. CARDIOVASCULAR: Cardiomegaly. OSSEOUS STRUCTURES: Degenerative changes in the spine and shoulders. VISUALIZED UPPER ABDOMEN: Normal. OTHER FINDINGS: None. IMPRESSION: Lines and tubes in stable position. Confluent consolidative changes with associated loculated pleural effusion within the left mid to lower lung zone. Additional patchy increased markings in the right hilar region and right lung base. Biapical pleural thickening with upper lobe granulomatous changes. .
[2016-10-18 08:33] LABS: NEUTROPHIL 88 % (50-75); TOTAL CELLS COUNTED 100
[2016-10-18] MEDS: Aluminum Hydroxide/Magnesium Hydroxide Susp (30 mL) PO PRN (08:56)
[2016-10-18] MEDS: Tiotropium 18 mcg Cap For Inhalation INH SCH (09:14)
[2016-10-18] MEDS: Pantoprazole 20 mg EC Tab PO SCH (09:29)
[2016-10-18] MEDS: MethylPREDNISolone 40 mg Vial IVP SCH (09:29)
--- NOTE | 2016-10-18 10:42 | CP.CCUPN ---
<Matt Goldstein - Last Filed: 10/18/16 18:08> CCU Subjective - Physician Review Subjective (Free Text): 10/17/16 10:39 Pt seen and examined at bedside. Nursing reports pt complained of mild pain at tube site overnight. Pt admits breathing well. This AM, pt complained of stomach upset and dizziness after breakfast, which subsided with Maalox. 24 hour chest tube drainage: 120 cc. Critical Care Time Spent (in minutes): 35 CCU Objective - Vital Signs / Intake & Output Vital Signs (Last 4 hours): Vital Signs Temp Pulse Resp BP Pulse Ox 10/18/16 09:28 147/72 10/18/16 08:49 81 24 161/84 H 98 10/18/16 08:02 87 15 148/81 100 10/18/16 08:00 97.5 F L 66 16 99 10/18/16 07:02 58 L 12 144/63 10/18/16 07:00 61 13 Intake and Output (Last 8hrs): Intake & Output 10/17/16 10/18/16 10/18/16 22:59 06:59 14:59 Intake Total 2200 100 Output Total 665 680 110 Balance 1535 -680 -10 Weight 159 lb Intake: IV 1000 Intake, IV Amount 700 Right Wrist 700 Oral 500 100 Output: Chest Tube Drainage 90 30 Left Mid-Axillary Chest 90 30 Urine 575 650 110 Urethral ([place]) 575 650 110 Other: # Bowel Movements 0 0 - Physical Exam Head: Positive for: Atraumatic, Normocephalic Pupils: Positive for: PERRL Extroacular Muscles: Positive for: EOMI Conjunctiva: Positive for: Normal Mouth: Positive for: Moist Mucous Membranes Neck: Positive for: Normal Range of Motion Respiratory/Chest: Positive for: Good Air Exchange, Decreased Breath Sounds ( lower left lung specifically). Negative for: Respiratory Distress, Accessory Muscle Use Cardiovascular: Positive for: Regular Rate and Rhythm, Normal S1, S2 Abdomen: Positive for: Normal Bowel Sounds. Negative for: Tenderness, Distention Upper Extremity: Positive for: Normal Inspection Lower Extremity: Positive for: Normal Inspection Neurological: Positive for: GCS=15, Speech Normal Skin: Positive for: Warm, Dry Psychiatric: Positive for: Alert, Oriented x 3, Normal Insight - Medications Active Medications: Active Medications Generic Name Dose Route Start Last Admin Trade Name Freq PRN Reason Stop Dose Admin Acetaminophen 650 mg 10/17/16 22:36 10/18/16 02:11 Tylenol 325mg Tab PO 650 mg Q6 PRN Administration Pain, severe (8-10) Al Hydrox/Mg Hydrox/Simethicone 30 ml 10/18/16 08:52 10/18/16 08:56 Maalox 30 Ml PO 30 ml Q6H PRN Administration Indigestion / Heartburn Albuterol/Ipratropium 3 ml 10/14/16 20:00 10/18/16 09:14 Duoneb 3 Mg/0.5 Mg (3 Ml) Ud INH 3 ml RQ6 [facility] Administration Enalapril Maleate 2.5 mg 10/15/16 10:00 10/18/16 09:28 Vasotec PO 2.5 mg BID [facility]I Administration Heparin Sodium (Porcine) 5,000 units 10/17/16 13:30 10/18/16 01:07 Heparin SC 5,000 units Q12H [facility] Administration Methylprednisolone 40 mg 10/18/16 10:00 10/18/16 09:29 Solu-Medrol IVP 40 mg DAILY [facility] Administration Ondansetron HCl 4 mg 10/16/16 12:32 10/16/16 12:35 Zofran Inj IVP 4 mg Q4 PRN Administration Nausea/Vomiting Pantoprazole Sodium 20 mg 10/15/16 10:00 10/18/16 09:29 Protonix Ec Tab PO 20 mg DAILY [facility] Administration Rosuvastatin Calcium 5 mg 10/14/16 22:00 10/17/16 21:54 Crestor PO 5 mg HS [facility] Administration Tiotropium [place] 18 mcg 10/15/16 08:00 10/18/16 09:14 Spiriva INH 18 mcg RQ24 [facility] Administration - Patient Studies Lab Studies: Microbiology Studies 10/16/16 12:19 Gram Stain - Final Pleural Fluid Body Fluid Culture - Preliminary NO GROWTH AFTER 24 HOURS Lab Studies 10/18/16 10/18/16 Range/Units 06:18 06:18 WBC 11.5 H (4.8-10.8) K/uL RBC 5.16 (3.80-5.20) Mil/uL Hgb 11.8 (11.0-16.0) g/dL Hct 38.8 (34.0-47.0) % MCV 75.3 L (81.0-99.0) fL MCH 23.0 L (27.0-31.0) pg MCHC 30.5 L (33.0-37.0) g/dL RDW 15.3 H (11.5-14.5) % Plt Count 313 (130-400) K/uL MPV 9.2 (7.2-11.7) fL Neut % (Auto) 90.0 H (50.0-75.0) % Lymph % (Auto) 6.8 L (20.0-40.0) % [place] % (Auto) 2.7 (0.0-10.0) % Eos % (Auto) 0.0 (0.0-4.0) % Baso % (Auto) 0.5 (0.0-2.0) % Neut # 10.3 H (1.8-7.0) K/uL Lymph # 0.8 L (1.0-4.3) K/uL [place] # 0.3 (0.0-0.8) K/uL Eos # 0.0 (0.0-0.7) K/uL Baso # 0.1 (0.0-0.2) K/uL Neutrophils % (Manual) 88 H (50-75) % Lymphocytes % (Manual) 8 L (20-40) % Monocytes % (Manual) 4 (0-10) % Platelet Estimate Normal (NORMAL) Hypochromasia (manual) Slight Poikilocytosis (manual Slight Anisocytosis (manual) Slight Sodium 139 (132-148) mmol/L Potassium 4.8 (3.6-5.2) mmol/L Chloride 102 (98-107) mmol/L Carbon Dioxide 25 (22-30) mmol/L Anion Gap 17 (10-20) BUN 48 H (7-17) mg/dL Creatinine 1.3 H (0.7-1.2) MG/DL Est GFR ( Amer) 48 Est GFR (Non-Af Amer) 39 Random Glucose 134 H (65-105) mg/dL Calcium 9.5 (8.6-10.4) mg/dl Phosphorus 3.9 (2.5-4.5) mg/dL Magnesium 2.7 H (1.6-2.3) mg/dL Total Bilirubin 0.2 (0.2-1.3) mg/dL AST 22 (14-36) U/L ALT < 6 L (9-52) U/L Alkaline Phosphatase 73 (38-126) U/L Total Protein 7.1 (6.3-8.3) g/dL Albumin 3.7 (3.5-5.0) g/dL Globulin 3.5 (2.2-3.9) gm/dL Albumin/Globulin Ratio 1.1 (1.0-2.1) Laboratory Results - last 24 hr 10/18/16 10/18/16 06:18 06:18 WBC 11.5 H RBC 5.16 Hgb 11.8 Hct 38.8 MCV 75.3 L MCH 23.0 L MCHC 30.5 L RDW 15.3 H Plt Count 313 MPV 9.2 Neut % (Auto) 90.0 H Lymph % (Auto) 6.8 L [place] % (Auto) 2.7 Eos % (Auto) 0.0 Baso % (Auto) 0.5 Neut # 10.3 H Lymph # 0.8 L [place] # 0.3 Eos # 0.0 Baso # 0.1 Neutrophils % (Manual) 88 H Lymphocytes % (Manual) 8 L Monocytes % (Manual) 4 Platelet Estimate Normal Hypochromasia (manual) Slight Poikilocytosis (manual Slight Anisocytosis (manual) Slight Sodium 139 Potassium 4.8 Chloride 102 Carbon Dioxide 25 Anion Gap 17 BUN 48 H Creatinine 1.3 H Est GFR ( Amer) 48 Est GFR (Non-Af Amer) 39 Random Glucose 134 H Calcium 9.5 Phosphorus 3.9 Magnesium 2.7 H Total Bilirubin 0.2 AST 22 ALT < 6 L Alkaline Phosphatase 73 Total Protein 7.1 Albumin 3.7 Globulin 3.5 Albumin/Globulin Ratio 1.1 Fingerstick Blood Sugar Results: 125 Review of Systems - Constitutional Constitutional: absent: Fever, Chills - EENT Eyes: absent: Change in Vision Ears: absent: Decreased Hearing Nose/Mouth/Throat: absent: Nasal Congestion - Respiratory Respiratory: absent: Cough, Dyspnea - Gastrointestinal Gastrointestinal: Dyspepsia. absent: Nausea, Vomiting - Genitourinary Genitourinary: absent: Dysuria - Musculoskeletal Musculoskeletal: absent: Numbness, Tingling - Integumentary Integumentary: absent: Dry Skin, Wounds - Neurological Neurological: Dizziness - Psychiatric Psychiatric: absent: Anxiety, Depression Critical Care Progress Note - Nutrition Nutrition: Nutrition Category Date Time Status Heart Healthy Diet [DIET] Diets 10/16/16 Dinner Active Assessment/Plan - Assessment and Plan (Free Text) Assessment: 81yo F with PMHx of COPD, CHF, CAD, AAA s/p repair with right lung cancer who was found to have left hydropneumothorax. S/P chest tube placement on 10/[address] Mckee, CT surgeon. 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 Henderson CHF Discontinued Lasix 20mg PO Daily due to worsening RF Pulm: Hydropneumothorax - believed 07/[address] Mckee, CT Surgery: help appreciated - s/p Chest tube insertion, 800cc hemorrhagic effusion drained - Overnight 120cc drainage - Tube ready for removal today - f/u cytology Pain: Toradol 30mg IVP Q6H Nausea: Zofran 40mg IVP Q4H Lung CA - Rt Lung Adenocarcinoma, Stage 4 - PET scan (07/29/16): + left pleural effusion, + pleural nodules; believed possible mets - CT Chest Angio (10/14/16): Pulmonary trunk, right and left main, lobar, and segmental branches and subsegmental branches of pulmonary arteries are well opacified. Obvious filling defects seen to suggest pulm embolus. Few non- specific mediastinal lymph nodes. Redemonstrated perihilar/upper lobe mass c/w lung carcinoma. Large right effusion and left anterior pneumothorax ( hydropneumothorax). Mild LLL atelectasis. Significant emphysema. Cholelithiasis. (see full report) Palliative care consult: help, appreciated - chart says pt unaware of diagnosis of Adenocarcinoma - will speak with family today COPD: - pt on home 2.5 L O2 - Solumedrol 40mg IV Q8, Duonebs Q6H temi - Home meds: Continue Spiriva GI: Heart Healthy Diet /Renal: BUN/Cr: 48/1.3, elevated but slight improvement from 49/1.5 yesterday Monitor Hem/Onc: Leukocytosis 11.5 today, from 13.2 - believed reactive, will monitor - Blood cx: (10/17/16) - negative x 4 days - Pleural fluid (10/16/16) - no growth x 2 days Prophylaxis: Protonix 20mg PO Daily SCDs Heparin 5000 units Q12H <Tristan Terry - Last Filed: 10/18/16 18:46> CCU Objective - Vital Signs / Intake & Output Vital Signs (Last 4 hours): Vital Signs Temp Pulse Resp BP Pulse Ox 10/18/16 18:02 68 19 139/79 97 10/18/16 18:00 85 11 L 97 10/18/16 17:14 133/66 10/18/16 17:02 74 16 133/66 100 10/18/16 17:00 64 19 99 10/18/16 16:02 83 21 141/63 97 10/18/16 16:00 98 F 63 18 97 10/18/16 15:03 77 21 145/60 94 L 10/18/16 15:00 107 H 22 93 L Intake and Output (Last 8hrs): Intake & Output 10/18/16 10/18/16 10/18/16 06:59 14:59 22:59 Intake Total 595 250 Output Total 680 370 290 Balance -680 225 -40 Weight 159 lb Intake: Oral 595 250 Output: Chest Tube Drainage 30 40 Left Mid-Axillary Chest 30 40 Urine 650 370 250 Urethral ([place]) 650 370 Urine, Voided 0 250 Other: # Bowel Movements 0 0 - Medications Active Medications: Active Medications Generic Name Dose Route Start Last Admin Trade Name Garciaq PRN Reason Stop Dose Admin Acetaminophen 650 mg 10/17/16 22:36 10/18/16 13:39 Tylenol 325mg Tab PO 650 mg Q6 PRN Administration Pain, severe (8-10) Al Hydrox/Mg Hydrox/Simethicone 30 ml 10/18/16 08:52 10/18/16 08:56 Maalox 30 Ml PO 30 ml Q6H PRN Administration Indigestion / Heartburn Albuterol/Ipratropium 3 ml 10/14/16 20:00 10/18/16 13:51 Duoneb 3 Mg/0.5 Mg (3 Ml) Ud INH 3 ml RQ6 [facility]I Administration Enalapril Maleate 2.5 mg 10/15/16 10:00 10/18/16 17:14 Vasotec PO 2.5 mg BID TEMI Administration Heparin Sodium (Porcine) 5,000 units 10/17/16 13:30 10/18/16 13:49 Heparin SC 5,000 units Q12H [facility]I Administration Methylprednisolone 40 mg 10/18/16 10:00 10/18/16 09:29 Solu-Medrol IVP 40 mg DAILY [facility]I Administration Ondansetron HCl 4 mg 10/16/16 12:32 10/18/16 12:17 Zofran Inj IVP 4 mg Q4 PRN Administration Nausea/Vomiting Pantoprazole Sodium 20 mg 10/15/16 10:00 10/18/16 09:29 Protonix Ec Tab PO 20 mg DAILY [facility]I Administration Rosuvastatin Calcium 5 mg 10/14/16 22:00 10/17/16 21:54 Crestor PO 5 mg HS TEMI Administration Tiotropium [place] 18 mcg 10/15/16 08:00 10/18/16 09:14 Spiriva INH 18 mcg RQ24 [facility]I Administration - Patient Studies Lab Studies: Microbiology Studies 10/16/16 12:19 Gram Stain - Final Pleural Fluid Body Fluid Culture - Preliminary NO GROWTH AFTER 2 DAYS 10/16/16 12:17 Anaerobic Culture - Final Pleural Fluid NO ANAEROBES ISOLATED. Lab Studies 10/18/16 10/18/16 10/16/16 Range/Units 06:18 06:18 14:43 WBC 11.5 H (4.8-10.8) K/uL RBC 5.16 (3.80-5.20) Mil/uL Hgb 11.8 (11.0-16.0) g/dL Hct 38.8 (34.0-47.0) % MCV 75.3 L (81.0-99.0) fL MCH 23.0 L (27.0-31.0) pg MCHC 30.5 L (33.0-37.0) g/dL RDW 15.3 H (11.5-14.5) % Plt Count 313 (130-400) K/uL MPV 9.2 (7.2-11.7) fL Neut % (Auto) 90.0 H (50.0-75.0) % Lymph % (Auto) 6.8 L (20.0-40.0) % [place] % (Auto) 2.7 (0.0-10.0) % Eos % (Auto) 0.0 (0.0-4.0) % Baso % (Auto) 0.5 (0.0-2.0) % Neut # 10.3 H (1.8-7.0) K/uL Lymph # 0.8 L (1.0-4.3) K/uL [place] # 0.3 (0.0-0.8) K/uL Eos # 0.0 (0.0-0.7) K/uL Baso # 0.1 (0.0-0.2) K/uL Neutrophils % (Manual) 88 H (50-75) % Lymphocytes % (Manual) 8 L (20-40) % Monocytes % (Manual) 4 (0-10) % Platelet Estimate Normal (NORMAL) Hypochromasia (manual) Slight Poikilocytosis (manual Slight Anisocytosis (manual) Slight Sodium 139 (132-148) mmol/L Potassium 4.8 (3.6-5.2) mmol/L Chloride 102 (98-107) mmol/L Carbon Dioxide 25 (22-30) mmol/L Anion Gap 17 (10-20) BUN 48 H (7-17) mg/dL Creatinine 1.3 H (0.7-1.2) MG/DL Est GFR ( Amer) 48 Est GFR (Non-Af Amer) 39 Random Glucose 134 H (65-105) mg/dL Calcium 9.5 (8.6-10.4) mg/dl Phosphorus 3.9 (2.5-4.5) mg/dL Magnesium 2.7 H (1.6-2.3) mg/dL Total Bilirubin 0.2 (0.2-1.3) mg/dL AST 22 (14-36) U/L ALT < 6 L (9-52) U/L Alkaline Phosphatase 73 (38-126) U/L Total Protein 7.1 (6.3-8.3) g/dL Albumin 3.7 (3.5-5.0) g/dL Globulin 3.5 (2.2-3.9) gm/dL Albumin/Globulin Ratio 1.1 (1.0-2.1) Pleural Amylase 20 U/L Laboratory Results - last 24 hr 04/10/18/16 10/18/16 14:43 06:18 06:18 WBC 11.5 H RBC 5.16 Hgb 11.8 Hct 38.8 MCV 75.3 L MCH 23.0 L MCHC 30.5 L RDW 15.3 H Plt Count 313 MPV 9.2 Neut % (Auto) 90.0 H Lymph % (Auto) 6.8 L [place] % (Auto) 2.7 Eos % (Auto) 0.0 Baso % (Auto) 0.5 Neut # 10.3 H Lymph # 0.8 L [place] # 0.3 Eos # 0.0 Baso # 0.1 Neutrophils % (Manual) 88 H Lymphocytes % (Manual) 8 L Monocytes % (Manual) 4 Platelet Estimate Normal Hypochromasia (manual) Slight Poikilocytosis (manual Slight Anisocytosis (manual) Slight Sodium 139 Potassium 4.8 Chloride 102 Carbon Dioxide 25 Anion Gap 17 BUN 48 H Creatinine 1.3 H Est GFR ( Amer) 48 Est GFR (Non-Af Amer) 39 Random Glucose 134 H Calcium 9.5 Phosphorus 3.9 Magnesium 2.7 H Total Bilirubin 0.2 AST 22 ALT < 6 L Alkaline Phosphatase 73 Total Protein 7.1 Albumin 3.7 Globulin 3.5 Albumin/Globulin Ratio 1.1 Pleural Amylase 20 Critical Care Progress Note - Nutrition Nutrition: Nutrition Category Date Time Status Heart Healthy Diet [DIET] Diets 10/16/16 Dinner Active Attending/Attestation - Attestation I have personally seen and examined this patient.: Yes I have fully participated in the care of the patient.: Yes I have reviewed all pertinent clinical information: Yes Notes (Text): 10/18/16 18:45 Patient seen and examined in the intensive care unit. discussed with staff in the morning rounds. 81yo F with PMHx of COPD, CHF, CAD, AAA s/p repair with right lung cancer who was found to have left hydropneumothorax. S/P chest tube placement on 10/[address] Mckee, CT surgeon. Plan is to discontinue chest tube
--- NOTE | 2016-10-18 23:07 | CP.PCM.PN ---
Subjective - Date & Time of Evaluation Date of Evaluation: 10/18/16 Time of Evaluation: 15:05 - Subjective Subjective: Patient denies chest pain and dyspnea Objective - Vital Signs/Intake and Output Vital Signs (last 24 hours): Temp Pulse Resp BP Pulse Ox 98.3 F 84 12 154/89 H 97 10/18/16 20:51 10/18/16 20:02 10/18/16 20:02 10/18/16 20:02 10/18/16 20:02 Intake and Output: 10/18/16 10/19/16 18:59 06:59 Intake Total 845 0 Output Total 660 0 Balance 185 0 - Medications Medications: Current Medications Acetaminophen (Tylenol 325mg Tab) 650 mg PO Q6 PRN PRN Reason: Pain, severe (8-10) Last Admin: 10/18/16 20:51 Dose: 650 mg Al Hydrox/Mg Hydrox/Simethicone (Maalox 30 Ml) 30 ml PO Q6H PRN PRN Reason: Indigestion / Heartburn Last Admin: 10/18/16 08:56 Dose: 30 ml Albuterol/Ipratropium (Duoneb 3 Mg/0.5 Mg (3 Ml) Ud) 3 ml INH RQ6 [facility] Last Admin: 10/18/16 20:09 Dose: 3 ml Enalapril Maleate (Vasotec) 2.5 mg PO BID [facility] Last Admin: 10/18/16 17:14 Dose: 2.5 mg Heparin Sodium (Porcine) (Heparin) 5,000 units SC Q12H [facility] Last Admin: 10/18/16 13:49 Dose: 5,000 units Methylprednisolone (Solu-Medrol) 40 mg IVP DAILY [facility] Last Admin: 10/18/16 09:29 Dose: 40 mg Ondansetron HCl (Zofran Inj) 4 mg IVP Q4 PRN PRN Reason: Nausea/Vomiting Last Admin: 10/18/16 12:17 Dose: 4 mg Pantoprazole Sodium (Protonix Ec Tab) 20 mg PO DAILY [facility] Last Admin: 10/18/16 09:29 Dose: 20 mg Rosuvastatin Calcium (Crestor) 5 mg PO HS [facility] Last Admin: 10/18/16 21:25 Dose: 5 mg Tiotropium [place] (Spiriva) 18 mcg INH RQ24 [facility] Last Admin: 10/18/16 09:14 Dose: 18 mcg - Labs Labs: 10/18/16 06:18 10/18/16 06:18 PT 11.9 SECONDS (9.7-12.2) 10/14/16 12:49 INR 1.0 10/14/16 12:49 APTT 33 SECONDS (21-34) 10/14/16 12:49
[2016-10-19] MEDS: Aluminum Hydroxide/Magnesium Hydroxide Susp (30 mL) PO PRN (01:11)
[2016-10-19] MEDS: Albuterol-Ipratrop 3 mg / 0.5 (3 ml) UD INH SCH ×4 (01:34→20:51)
[2016-10-19 06:43] LABS: POTASSIUM 4.7 mmol/L (3.6-5.2)
[2016-10-19 06:45] LABS: BILIRUBIN,TOTAL 0.5 mg/dL (0.2-1.3); TOTAL PROTEIN 6.1 g/dL (6.3-8.3)
[2016-10-19 06:46] LABS: MAGNESIUM 2.7 mg/dL (1.6-2.3); PHOSPHOROUS 3.1 mg/dL (2.5-4.5)
[2016-10-19 06:52] LABS: BASO % 0.2 % (0.0-2.0); HEMATOCRIT 35.2 % (34.0-47.0); LYMPH # 1.9 K/uL (1.0-4.3); LYMPH % 20.1 % (20.0-40.0); MEAN CELL VOLUME 75.4 fL (81.0-99.0); MEAN CORPUSCULAR HEMOGLOBIN 23.7 pg (27.0-31.0); MEAN CORPUSCULAR HGB CONC 31.4 g/dL (33.0-37.0); MONO # 0.9 K/uL (0.0-0.8); MONO % 9.2 % (0.0-10.0); NRBC % 0.1 % (0.0-2.0); RED CELL DISTRIBUTION WIDTH 14.9 % (11.5-14.5); WHITE BLOOD COUNT 9.6 K/uL (4.8-10.8)
--- NOTE | 2016-10-19 07:03 | CP.PCM.PN ---
Subjective - Date & Time of Evaluation Date of Evaluation: 10/18/16 Time of Evaluation: 07:03 - Subjective Subjective: patient is complaining of some pain, not in any distress. IV fluid discontinued. Patient is eating. Left side chest tube noted Objective - Vital Signs/Intake and Output Vital Signs (last 24 hours): Temp Pulse Resp BP Pulse Ox 97.8 F 70 19 154/89 H 99 10/19/16 06:07 10/19/16 04:00 10/19/16 04:00 10/18/16 20:02 10/19/16 04:00 Intake and Output: 10/19/16 10/19/16 06:59 18:59 Intake Total 0 Output Total 0 Balance 0 On examination: HEENT PERRLA, neck supple No thyromegaly was noted and no cervical adenopathy noted left chest tube CVS regular heart sound, no murmur Abdomen soft and no organomegaly Extremities no pedal edema, no leg swelling, pedal pulses are good. [employer] alert awake oriented x3 no functional neurological deficit - Medications Medications: Current Medications Acetaminophen (Tylenol 325mg Tab) 650 mg PO Q6 PRN PRN Reason: Pain, severe (8-10) Last Admin: 10/19/16 06:07 Dose: 650 mg Al Hydrox/Mg Hydrox/Simethicone (Maalox 30 Ml) 30 ml PO Q6H PRN PRN Reason: Indigestion / Heartburn Last Admin: 10/19/16 01:11 Dose: 30 ml Albuterol/Ipratropium (Duoneb 3 Mg/0.5 Mg (3 Ml) Ud) 3 ml INH RQ6 [facility] Last Admin: 10/19/16 01:34 Dose: 3 ml Enalapril Maleate (Vasotec) 2.5 mg PO BID [facility] Last Admin: 10/18/16 17:14 Dose: 2.5 mg Heparin Sodium (Porcine) (Heparin) 5,000 units SC Q12H [facility] Last Admin: 10/19/16 01:08 Dose: 5,000 units Methylprednisolone (Solu-Medrol) 40 mg IVP DAILY [facility] Last Admin: 10/18/16 09:29 Dose: 40 mg Ondansetron HCl (Zofran Inj) 4 mg IVP Q4 PRN PRN Reason: Nausea/Vomiting Last Admin: 10/18/16 12:17 Dose: 4 mg Pantoprazole Sodium (Protonix Ec Tab) 20 mg PO DAILY [facility] Last Admin: 10/18/16 09:29 Dose: 20 mg Rosuvastatin Calcium (Crestor) 5 mg PO HS [facility] Last Admin: 10/18/16 21:25 Dose: 5 mg Tiotropium [place] (Spiriva) 18 mcg INH RQ24 [facility] Last Admin: 10/18/16 09:14 Dose: 18 mcg - Labs Labs: 10/18/16 06:18 10/19/16 06:15 PT 11.9 SECONDS (9.7-12.2) 10/14/16 12:49 INR 1.0 10/14/16 12:49 APTT 33 SECONDS (21-34) 10/14/16 12:49 Assessment and Plan (1) SOB (shortness of breath) Status: Acute (2) Hydropneumothorax Assessment & Plan: lung cancer, status post a chest tube for left-sided hydropneumothorax, spontaneous. Awaiting cytology from the fluid. Clinically stable Status: Acute
--- NOTE | 2016-10-19 07:04 | CP.PCM.PN ---
Subjective - Date & Time of Evaluation Date of Evaluation: 10/19/16 Time of Evaluation: 07:03 - Subjective Subjective: patient will be seen by hospitalist. Seen by [employer] manager Objective - Vital Signs/Intake and Output Vital Signs (last 24 hours): Temp Pulse Resp BP Pulse Ox 97.8 F 70 19 154/89 H 99 10/19/16 06:07 10/19/16 04:00 10/19/16 04:00 10/18/16 20:02 10/19/16 04:00 Intake and Output: 10/19/16 10/19/16 06:59 18:59 Intake Total 0 Output Total 0 Balance 0 - Medications Medications: Current Medications Acetaminophen (Tylenol 325mg Tab) 650 mg PO Q6 PRN PRN Reason: Pain, severe (8-10) Last Admin: 10/19/16 06:07 Dose: 650 mg Al Hydrox/Mg Hydrox/Simethicone (Maalox 30 Ml) 30 ml PO Q6H PRN PRN Reason: Indigestion / Heartburn Last Admin: 10/19/16 01:11 Dose: 30 ml Albuterol/Ipratropium (Duoneb 3 Mg/0.5 Mg (3 Ml) Ud) 3 ml INH RQ6 [facility] Last Admin: 10/19/16 01:34 Dose: 3 ml Enalapril Maleate (Vasotec) 2.5 mg PO BID [facility] Last Admin: 10/18/16 17:14 Dose: 2.5 mg Heparin Sodium (Porcine) (Heparin) 5,000 units SC Q12H [facility] Last Admin: 10/19/16 01:08 Dose: 5,000 units Methylprednisolone (Solu-Medrol) 40 mg IVP DAILY [facility] Last Admin: 10/18/16 09:29 Dose: 40 mg Ondansetron HCl (Zofran Inj) 4 mg IVP Q4 PRN PRN Reason: Nausea/Vomiting Last Admin: 10/18/16 12:17 Dose: 4 mg Pantoprazole Sodium (Protonix Ec Tab) 20 mg PO DAILY [facility] Last Admin: 10/18/16 09:29 Dose: 20 mg Rosuvastatin Calcium (Crestor) 5 mg PO HS [facility] Last Admin: 10/18/16 21:25 Dose: 5 mg Tiotropium [place] (Spiriva) 18 mcg INH RQ24 [facility] Last Admin: 10/18/16 09:14 Dose: 18 mcg - Labs Labs: 10/18/16 06:18 10/19/16 06:15 PT 11.9 SECONDS (9.7-12.2) 10/14/16 12:49 INR 1.0 10/14/16 12:49 APTT 33 SECONDS (21-34) 10/14/16 12:49 Assessment and Plan (1) SOB (shortness of breath) Status: Acute (2) Hydropneumothorax Status: Acute
[2016-10-19] MEDS: Tiotropium 18 mcg Cap For Inhalation INH SCH (08:21)
--- NOTE | 2016-10-19 09:29 | RAD ---
HISTORY: chest tube COMPARISON: 10/18/2016 FINDINGS: LUNGS: Lines and tubes in stable position. Small loculated left pleural effusion with prominent consolidative changes in the left mid to lower lung zone. Biapical pleural thickening with upper lobe granulomatous changes. Right hilar prominence. Mild patchy increased markings at the right lung base. PLEURA: As above. CARDIOVASCULAR: Cardiomegaly. OSSEOUS STRUCTURES: Degenerative changes in the spine and shoulders. VISUALIZED UPPER ABDOMEN: Normal. OTHER FINDINGS: None. IMPRESSION: Lines and tubes in stable position. Small loculated left pleural effusion with prominent consolidative changes in the left mid to lower lung zone. Biapical pleural thickening with upper lobe granulomatous changes. Right hilar prominence. Mild patchy increased markings at the right lung base.
[2016-10-19] MEDS: Pantoprazole 20 mg EC Tab PO SCH (09:48)
[2016-10-19] MEDS: MethylPREDNISolone 40 mg Vial IVP SCH (09:48)
[2016-10-19] MEDS ORDERED: Lidocaine 1% Inj (20ml) INFIL ONE (11:15)
--- NOTE | 2016-10-19 17:45 | CARD ---
APPROVED REPORT EXAM: Two-dimensional and M-mode echocardiogram with Doppler and color Doppler. Other Information Quality : GoodRhythm : NSR INDICATION Dyspnea Pleural Effusion LUNG CANCER M-Mode DIMENSIONS RVDd1.11 (2.1-3.2cm)Left Atrium (MM)3.61 (2.5-4.0cm) IVSd0.72 (0.7-1.1cm)Aortic Root2.92 (2.2-3.7cm) LVDd5.04 (4.0-5.6cm)Aortic Cusp Exc.1.91 (1.5-2.0cm) PWd0.94 (0.7-1.1cm)FS (%) 25 % LVDs3.77 (2.0-3.8cm)LVEF (%)49 (>50%) Aortic Valve AoV Peak Vqriahjm508.9cm/Martin Peak GR.16mmHgAI P 1/2 [id number] Mitral Valve MV E Lhdjgluv87.9cm/sMV A Qpdfyzsj012.8cm/sE/A ratio0.6 TDI E/Lateral E'0.0E/Medial E'0.0 Tricuspid Valve TR Peak Jeqlterw022iv/sTR Peak Gr.[id number] LEFT VENTRICLE The left ventricle is normal size. There is borderline to mild concentric left ventricular hypertrophy. The left ventricular function is normal. The left ventricular ejection fraction is within the normal range. No regional wall motion abnormalities noted. Transmitral Doppler flow pattern is Grade I-abnormal relaxation pattern. No left ventricle thrombus noted on this study. There is no ventricular septal defect visualized. There is no left ventricular aneurysm. There is no mass noted in the left ventricle. RIGHT VENTRICLE The right ventricle is normal size. There is normal right ventricular wall thickness. The right ventricular systolic function is normal. ATRIA The left atrium is mildly dilated. The right atrium size is normal. The interatrial septum is intact with no evidence for an atrial septal defect. AORTIC VALVE The aortic valve is calcified but opens well. The aortic valve is moderately calcified. there appears to be calcification of the leaflet tips. There is mild aortic regurgitation. There is no aortic valvular stenosis. There is no aortic valvular vegetation. MITRAL VALVE Mitral annular calcification is mild. There is no evidence of mitral valve prolapse. There is no mitral valve stenosis. Mitral regurgitation is mild. TRICUSPID VALVE The tricuspid valve is normal in structure and function. There is mild tricuspid regurgitation. There is no tricuspid valve prolapse or vegetation. There is no tricuspid valve stenosis. PULMONIC VALVE The pulmonary valve is normal in structure and function. There is no pulmonic valvular regurgitation. There is no pulmonic valvular stenosis. GREAT VESSELS The aortic root is normal in size. The ascending aorta is normal in size. The pulmonary artery is normal. The IVC is normal in size and collapses >50% with inspiration. PERICARDIAL EFFUSION The pericardium appears normal. There is no pleural effusion. <Conclusion> The left ventricular ejection fraction is within the normal range. There is borderline to mild concentric left ventricular hypertrophy. Transmitral Doppler flow pattern is Grade I-abnormal relaxation pattern. The left atrium is mildly dilated. Mitral annular calcification is mild. Mitral regurgitation is mild. The aortic valve is moderately calcified. there appears to be calcification of the leaflet tips. There is mild aortic regurgitation. There is mild tricuspid regurgitation.
--- NOTE | 2016-10-19 18:03 | CP.PCM.PN ---
<Patti Thomas - Last Filed: 10/19/16 17:59> Subjective - Date & Time of Evaluation Date of Evaluation: 10/19/16 Time of Evaluation: 10:00 - Subjective Subjective: Patient seen and examined at bedside. Patient states she feels improved. She continues to have chest tube in place. She denies pain to chest tube insertion site. She also denies shortness of breath. Patient denies chest pain, cough, fever, chills, abdominal pain, nausea, vomiting, diarrhea, constipation, and dysuria. She reports her appetite is good and she is tolerating diet. Objective - Vital Signs/Intake and Output Vital Signs (last 24 hours): Temp Pulse Resp BP Pulse Ox 98.6 F 75 18 142/84 98 10/19/16 16:00 10/19/16 16:00 10/19/16 16:00 10/19/16 17:31 10/19/16 16:00 Intake and Output: 10/19/16 10/19/16 06:59 18:59 Intake Total 0 680 Output Total 0 1650 Balance 0 -970 - Medications Medications: Current Medications Acetaminophen (Tylenol 325mg Tab) 650 mg PO Q6 PRN PRN Reason: Pain, Mild (1-3) Al Hydrox/Mg Hydrox/Simethicone (Maalox 30 Ml) 30 ml PO Q6H PRN PRN Reason: Indigestion / Heartburn Last Admin: 10/19/16 01:11 Dose: 30 ml Albuterol/Ipratropium (Duoneb 3 Mg/0.5 Mg (3 Ml) Ud) 3 ml INH RQ6 [facility] Last Admin: 10/19/16 14:11 Dose: 3 ml Enalapril Maleate (Vasotec) 2.5 mg PO BID [facility] Last Admin: 10/19/16 17:31 Dose: 2.5 mg Heparin Sodium (Porcine) (Heparin) 5,000 units SC Q12H [facility] Last Admin: 10/19/16 13:36 Dose: 5,000 units Ketorolac Tromethamine (Toradol) 15 mg IVP Q6 PRN PRN Reason: Pain, moderate (4-7) Last Admin: 10/19/16 14:11 Dose: 15 mg Methylprednisolone (Solu-Medrol) 40 mg IVP DAILY [facility] Last Admin: 10/19/16 09:48 Dose: 40 mg Ondansetron HCl (Zofran Inj) 4 mg IVP Q4 PRN PRN Reason: Nausea/Vomiting Last Admin: 10/18/16 12:17 Dose: 4 mg Pantoprazole Sodium (Protonix Ec Tab) 20 mg PO DAILY [facility] Last Admin: 10/19/16 09:48 Dose: 20 mg Rosuvastatin Calcium (Crestor) 5 mg PO HS [facility] Last Admin: 10/18/16 21:25 Dose: 5 mg Tiotropium [place] (Spiriva) 18 mcg INH RQ24 [facility] Last Admin: 10/19/16 08:21 Dose: 18 mcg - Labs Labs: 10/19/16 06:15 10/19/16 06:15 PT 11.9 SECONDS (9.7-12.2) 10/14/16 12:49 INR 1.0 10/14/16 12:49 APTT 33 SECONDS (21-34) 10/14/16 12:49 - Constitutional Appears: Non-toxic, No Acute Distress - Head Exam Head Exam: ATRAUMATIC, NORMAL INSPECTION, NORMOCEPHALIC - Eye Exam Eye Exam: EOMI, PERRL - ENT Exam ENT Exam: Mucous Membranes Moist - Neck Exam Neck Exam: Normal Inspection - Respiratory Exam Respiratory Exam: Clear to Ausculation Bilateral, NORMAL BREATHING PATTERN. absent: Accessory Muscle Use, Chest Wall Tenderness, Decreased Breath Sounds, Rales, Rhonchi, Wheezes, Respiratory Distress Additional comments: chest tube in place to left side. Dressing clean, dry and intact - Cardiovascular Exam Cardiovascular Exam: +S1, +S2. absent: Tachycardia - GI/Abdominal Exam GI & Abdominal Exam: Soft, Normal Bowel Sounds. absent: Firm, Guarding, Rigid, Tenderness - Extremities Exam Extremities Exam: Normal Inspection. absent: Pedal Edema, Tenderness - Neurological Exam Neurological Exam: Alert, Awake, Oriented x3 - Psychiatric Exam Psychiatric exam: Normal Affect, Normal Mood - Skin Skin Exam: Intact, Normal Color, Warm Assessment and Plan - Assessment and Plan (Free Text) Assessment: Shortness of Breath Hydropneumothorax likely secondary to malignant effusion Pleural Fluid: Bloody, WBC 6676.0, RBC 166892, Neuts 21.0, Monocyte/Macrophag 10 , Total Protein 10, LDH 14067, Glucose 23, Amylase 20 Pleural Fluid culture: No growth after [address] Mckee, CT Surgery: help appreciated patient s/p Chest tube insertion Chest Tube discontinued today Tylenol 650 mg po q6 prn for mild pain and Toradol 15 mg IVP Q6 PRN for moderate pain Zofran 40mg IVP Q4H PRN for nausea Right Lung Adenocarcinoma Stage 4 PET scan (07/29/16): + left pleural effusion, + pleural nodules; believed possible mets CT Chest Angio (10/14/16): Pulmonary trunk, right and left main, lobar, and segmental branches and subsegmental branches of pulmonary arteries are well opacified. Obvious filling defects seen to suggest pulm embolus. Few non- specific mediastinal lymph nodes. Redemonstrated perihilar/upper lobe mass c/w lung carcinoma. Large right effusion and left anterior pneumothorax ( hydropneumothorax). Mild LLL atelectasis. Significant emphysema. Cholelithiasis. (see full report) Palliative care consult: help, appreciated chart says pt unaware of diagnosis of Adenocarcinoma. 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 Henderson CHF Discontinued Lasix 20mg PO Daily due to worsening RF Echocardiogram: The LVEF is within the normal range. THere is borderline to mild concentric left ventricular hypertrophy. Transmitral Doppler flow pattern is Grade I-abnormal relaxation pattern. Left atrium is mildly dilated. Mitral annular calcification is mild. Mitral regurgitation is mild. The aortic valve is moderately calcified and there appears to be calcification of the leaflet tips. There is mild aortic regurgitation. There is mild tricuspid regurgitation. TEX Improving BUN/Cr: 44/1.3 Monitor Hem/Onc: Leukocytosis resolved, WBC 9.6 Blood cx: (10/17/16) - negative x 3days Pleural fluid (10/16/16) - no growth x 24 hours Prophylaxis: Protonix 20mg PO Daily [facility] Heparin 5000 units Q12H Maalox 30 ml po q6h PRN Dispo Plan for patient to be discharged home <Maddi Del Castillo V - Last Filed: 10/20/16 09:20> Objective - Vital Signs/Intake and Output Vital Signs (last 24 hours): Temp Pulse Resp BP Pulse Ox 98.5 F 70 20 125/68 96 10/20/16 08:00 10/20/16 08:00 10/20/16 08:00 10/20/16 08:00 10/20/16 08:00 Intake and Output: 10/20/16 10/20/16 06:59 18:59 Intake Total 120 Balance 120 - Medications Medications: Current Medications Acetaminophen (Tylenol 325mg Tab) 650 mg PO Q6 PRN PRN Reason: Pain, Mild (1-3) Al Hydrox/Mg Hydrox/Simethicone (Maalox 30 Ml) 30 ml PO Q6H PRN PRN Reason: Indigestion / Heartburn Last Admin: 10/19/16 01:11 Dose: 30 ml Albuterol/Ipratropium (Duoneb 3 Mg/0.5 Mg (3 Ml) Ud) 3 ml INH RQ6 [facility] Last Admin: 10/20/16 07:19 Dose: Not Given Enalapril Maleate (Vasotec) 2.5 mg PO BID [facility] Last Admin: 10/19/16 17:31 Dose: 2.5 mg Heparin Sodium (Porcine) (Heparin) 5,000 units SC Q12H [facility] Last Admin: 10/20/16 01:18 Dose: 5,000 units Ketorolac Tromethamine (Toradol) 15 mg IVP Q6 PRN PRN Reason: Pain, moderate (4-7) Last Admin: 10/19/16 14:11 Dose: 15 mg Methylprednisolone (Solu-Medrol) 40 mg IVP DAILY [facility] Last Admin: 10/19/16 09:48 Dose: 40 mg Ondansetron HCl (Zofran Inj) 4 mg IVP Q4 PRN PRN Reason: Nausea/Vomiting Last Admin: 10/18/16 12:17 Dose: 4 mg Pantoprazole Sodium (Protonix Ec Tab) 20 mg PO DAILY [facility] Last Admin: 10/19/16 09:48 Dose: 20 mg Rosuvastatin Calcium (Crestor) 5 mg PO HS [facility] Last Admin: 10/19/16 21:04 Dose: 5 mg Tiotropium [place] (Spiriva) 18 mcg INH RQ24 [facility] Last Admin: 10/20/16 07:19 Dose: Not Given - Labs Labs: 10/20/16 07:20 04/28/17 07:20 PT 11.9 SECONDS (9.7-12.2) 10/14/16 12:49 INR 1.0 10/14/16 12:49 APTT 33 SECONDS (21-34) 10/14/16 12:49 Attending/Attestation - Attestation I have personally seen and examined this patient.: Yes I have fully participated in the care of the patient.: Yes I have reviewed all pertinent clinical information, including history, physical exam and plan: Yes Notes (Text): This is a late computer entry for 10/19/16. patient seen, examined, and case discussed with day-time resident. Patient seen sitting upright, eating food at bedside, denies acute complaints. Reports she is feeling good. Chest tube removed. Patient report breathing is well. White count has normalized. Pleural growth shows no growth and pleural fluid studies showing increased RBC and WBC. Possible discharge planning for tomorrow. Discussed with patient's PMD regarding possible discharge. Assessment/Plan 1) Shortness of Breath * Hydropneumothorax likely secondary to malignant effusion secondary to lung adenocarcinoma; hx of COPD * Pleural Fluid: Bloody, WBC 6676.0, RBC 632378, Neuts 21.0, Monocyte/Macrophag 10, Total Protein 10, LDH 37141, Glucose 23, Amylase 20 * Pleural Fluid culture: No growth after 3 days * Dr. Mckee, CT Surgery: help appreciated; patient s/p Chest tube insertion and Chest Tube discontinued today * Tylenol 650 mg po q6 prn for mild pain and Toradol 15 mg IVP Q6 PRN for moderate pain * Zofran 40mg IVP Q4H PRN for nausea 2) Right Lung Adenocarcinoma * Stage 4 * PET scan (07/29/16): + left pleural effusion, + pleural nodules; believed possible mets * CT Chest Angio (10/14/16): Pulmonary trunk, right and left main, lobar, and segmental branches and subsegmental branches of pulmonary arteries are well opacified. Obvious filling defects seen to suggest pulm embolus. Few non- specific mediastinal lymph nodes. Redemonstrated perihilar/upper lobe mass c/w lung carcinoma. Large right effusion and left anterior pneumothorax ( hydropneumothorax). Mild LLL atelectasis. Significant emphysema. Cholelithiasis. (see full report) * Palliative care consult: help, appreciated * chart says pt unaware of diagnosis of Adenocarcinoma; per family. 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 Henderson 7) CHF * Discontinued Lasix 20mg PO Daily due to worsening RF * Echocardiogram: The LVEF is within the normal range. THere is borderline to mild concentric left ventricular hypertrophy. Transmitral Doppler flow pattern is Grade I-abnormal relaxation pattern. Left atrium is mildly dilated. Mitral annular calcification is mild. Mitral regurgitation is mild. The aortic valve is moderately calcified and there appears to be calcification of the leaflet tips. There is mild aortic regurgitation. There is mild tricuspid regurgitation. * Cardiology (Dr. Porras on board) help appreciated 8) TEX * Improving * BUN/Cr: 44/1.3 * Monitor 9) Leukocytosis Leukocytosis resolved, WBC 9.6 Blood cx: (10/17/16) - negative x 3days Pleural fluid (10/16/16) - no growth x 24 hours 10) Prophylaxis: Protonix 20mg PO Daily [facility] Heparin 5000 units Q12H Maalox 30 ml po q6h PRN Dispo Plan for patient to be discharged home
[2016-10-19 20:31] VITALS: RESP 20
--- NOTE | 2016-10-19 21:51 | CP.PCM.PN ---
Subjective - Date & Time of Evaluation Date of Evaluation: 10/19/16 Time of Evaluation: 17:30 - Subjective Subjective: Patient seen and evaluated Feels better. No chest pain and dyspnea Objective - Vital Signs/Intake and Output Vital Signs (last 24 hours): Temp Pulse Resp BP Pulse Ox 98.1 F 68 20 136/75 95 10/19/16 20:30 10/19/16 20:30 10/19/16 20:30 10/19/16 20:30 10/19/16 20:30 Intake and Output: 10/19/16 10/20/16 18:59 06:59 Intake Total 920 Output Total 1650 Balance -730 - Medications Medications: Current Medications Acetaminophen (Tylenol 325mg Tab) 650 mg PO Q6 PRN PRN Reason: Pain, Mild (1-3) Al Hydrox/Mg Hydrox/Simethicone (Maalox 30 Ml) 30 ml PO Q6H PRN PRN Reason: Indigestion / Heartburn Last Admin: 10/19/16 01:11 Dose: 30 ml Enalapril Maleate (Vasotec) 2.5 mg PO BID [facility] Last Admin: 10/19/16 17:31 Dose: 2.5 mg Heparin Sodium (Porcine) (Heparin) 5,000 units SC Q12H [facility] Last Admin: 10/19/16 13:36 Dose: 5,000 units Ketorolac Tromethamine (Toradol) 15 mg IVP Q6 PRN PRN Reason: Pain, moderate (4-7) Last Admin: 10/19/16 14:11 Dose: 15 mg Methylprednisolone (Solu-Medrol) 40 mg IVP DAILY [facility] Last Admin: 10/19/16 09:48 Dose: 40 mg Ondansetron HCl (Zofran Inj) 4 mg IVP Q4 PRN PRN Reason: Nausea/Vomiting Last Admin: 10/18/16 12:17 Dose: 4 mg Pantoprazole Sodium (Protonix Ec Tab) 20 mg PO DAILY [facility] Last Admin: 10/19/16 09:48 Dose: 20 mg Rosuvastatin Calcium (Crestor) 5 mg PO HS [facility] Last Admin: 10/19/16 21:04 Dose: 5 mg Tiotropium [place] (Spiriva) 18 mcg INH RQ24 [facility] Last Admin: 10/19/16 08:21 Dose: 18 mcg - Labs Labs: 10/19/16 06:15 10/19/16 06:15 PT 11.9 SECONDS (9.7-12.2) 10/14/16 12:49 INR 1.0 10/14/16 12:49 APTT 33 SECONDS (21-34) 10/14/16 12:49
[2016-10-20] MEDS: Albuterol-Ipratrop 3 mg / 0.5 (3 ml) UD INH SCH ×3 (01:14→13:27)
--- NOTE | 2016-10-20 06:31 | CP.PCM.PN ---
Subjective - Date & Time of Evaluation Date of Evaluation: 10/20/16 Time of Evaluation: 06:30 - Subjective Subjective: Patient seen and examined at bedside. Objective - Vital Signs/Intake and Output Vital Signs (last 24 hours): Temp Pulse Resp BP Pulse Ox 98 F 62 20 130/65 97 10/20/16 00:00 10/20/16 00:00 10/20/16 00:00 10/20/16 00:00 10/20/16 00:00 Intake and Output: 10/19/16 10/20/16 18:59 06:59 Intake Total 920 120 Output Total 1650 Balance -730 120 - Medications Medications: Current Medications Acetaminophen (Tylenol 325mg Tab) 650 mg PO Q6 PRN PRN Reason: Pain, Mild (1-3) Al Hydrox/Mg Hydrox/Simethicone (Maalox 30 Ml) 30 ml PO Q6H PRN PRN Reason: Indigestion / Heartburn Last Admin: 10/19/16 01:11 Dose: 30 ml Albuterol/Ipratropium (Duoneb 3 Mg/0.5 Mg (3 Ml) Ud) 3 ml INH RQ6 [facility] Last Admin: 10/20/16 01:14 Dose: 3 ml Enalapril Maleate (Vasotec) 2.5 mg PO BID [facility] Last Admin: 10/19/16 17:31 Dose: 2.5 mg Heparin Sodium (Porcine) (Heparin) 5,000 units SC Q12H [facility] Last Admin: 10/20/16 01:18 Dose: 5,000 units Ketorolac Tromethamine (Toradol) 15 mg IVP Q6 PRN PRN Reason: Pain, moderate (4-7) Last Admin: 10/19/16 14:11 Dose: 15 mg Methylprednisolone (Solu-Medrol) 40 mg IVP DAILY [facility] Last Admin: 10/19/16 09:48 Dose: 40 mg Ondansetron HCl (Zofran Inj) 4 mg IVP Q4 PRN PRN Reason: Nausea/Vomiting Last Admin: 10/18/16 12:17 Dose: 4 mg Pantoprazole Sodium (Protonix Ec Tab) 20 mg PO DAILY [facility] Last Admin: 10/19/16 09:48 Dose: 20 mg Rosuvastatin Calcium (Crestor) 5 mg PO HS [facility] Last Admin: 10/19/16 21:04 Dose: 5 mg Tiotropium [place] (Spiriva) 18 mcg INH RQ24 [facility] Last Admin: 10/19/16 08:21 Dose: 18 mcg - Labs Labs: 10/19/16 06:15 10/19/16 06:15 PT 11.9 SECONDS (9.7-12.2) 10/14/16 12:49 INR 1.0 10/14/16 12:49 APTT 33 SECONDS (21-34) 10/14/16 12:49 Assessment and Plan - Assessment and Plan (Free Text) Assessment: Shortness of Breath Hydropneumothorax likely secondary to malignant effusion Pleural Fluid: Bloody, WBC 6676.0, RBC 891055, Neuts 21.0, Monocyte/Macrophag 10 , Total Protein 10, LDH 84461, Glucose 23, Amylase 20 Pleural Fluid culture: No growth after [address] Mckee, CT Surgery: help appreciated patient s/p Chest tube insertion Chest Tube discontinued today Tylenol 650 mg po q6 prn for mild pain and Toradol 15 mg IVP Q6 PRN for moderate pain Zofran 40mg IVP Q4H PRN for nausea Right Lung Adenocarcinoma Stage 4 PET scan (07/29/16): + left pleural effusion, + pleural nodules; believed possible mets CT Chest Angio (10/14/16): Pulmonary trunk, right and left main, lobar, and segmental branches and subsegmental branches of pulmonary arteries are well opacified. Obvious filling defects seen to suggest pulm embolus. Few non- specific mediastinal lymph nodes. Redemonstrated perihilar/upper lobe mass c/w lung carcinoma. Large right effusion and left anterior pneumothorax ( hydropneumothorax). Mild LLL atelectasis. Significant emphysema. Cholelithiasis. (see full report) Palliative care consult: help, appreciated chart says pt unaware of diagnosis of Adenocarcinoma. 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 Henderson CHF Discontinued Lasix 20mg PO Daily due to worsening RF Echocardiogram: The LVEF is within the normal range. THere is borderline to mild concentric left ventricular hypertrophy. Transmitral Doppler flow pattern is Grade I-abnormal relaxation pattern. Left atrium is mildly dilated. Mitral annular calcification is mild. Mitral regurgitation is mild. The aortic valve is moderately calcified and there appears to be calcification of the leaflet tips. There is mild aortic regurgitation. There is mild tricuspid regurgitation. TEX Improving BUN/Cr: 44/1.3 Monitor Hem/Onc: Leukocytosis resolved, WBC 9.6 Blood cx: (10/17/16) - negative x 3days Pleural fluid (10/16/16) - no growth x 24 hours Prophylaxis: Protonix 20mg PO Daily [facility] Heparin 5000 units Q12H Maalox 30 ml po q6h PRN Dispo Plan for patient to be discharged home
[2016-10-20] MEDS: Tiotropium 18 mcg Cap For Inhalation INH SCH (07:19)
[2016-10-20 07:35] LABS: BASO % 0.1 % (0.0-2.0); HEMATOCRIT 36.3 % (34.0-47.0); LYMPH # 2.2 K/uL (1.0-4.3); MEAN CELL VOLUME 74.9 fL (81.0-99.0); MEAN CORPUSCULAR HEMOGLOBIN 23.5 pg (27.0-31.0); MEAN CORPUSCULAR HGB CONC 31.4 g/dL (33.0-37.0); MONO % 12.2 % (0.0-10.0); NRBC % 0.1 % (0.0-2.0); RED CELL DISTRIBUTION WIDTH 14.7 % (11.5-14.5); WHITE BLOOD COUNT 8.5 K/uL (4.8-10.8)
[2016-10-20 08:04] LABS: POTASSIUM 4.2 mmol/L (3.6-5.2)
[2016-10-20 08:06] LABS: ALB/GLOB RATIO 1.1 (1.0-2.1); BILIRUBIN,TOTAL 0.6 mg/dL (0.2-1.3); TOTAL PROTEIN 6.5 g/dL (6.3-8.3)
[2016-10-20 08:07] VITALS: BP 125/68; PULSE 70; TEMP 98.5
[2016-10-20 08:07] LABS: CALCIUM 9.2 mg/dl (8.6-10.4); MAGNESIUM 2.8 mg/dL (1.6-2.3)
--- NOTE | 2016-10-20 08:56 | RAD ---
HISTORY: chest tube removal COMPARISON: 10/19/2016 FINDINGS: LUNGS: Interval removal of a left-sided chest tube. Persistent small loculated left pleural effusion and trace right pleural effusion. Venous congestion. Consolidative opacities at both lung bases. Linear atelectatic changes in the mid to lower lung zones. Biapical pleural thickening with upper lobe granulomatous changes. PLEURA: As above. CARDIOVASCULAR: Cardiomegaly. Tortuous ectatic aorta. OSSEOUS STRUCTURES: Degenerative changes in the spine and shoulders. VISUALIZED UPPER ABDOMEN: Normal. OTHER FINDINGS: None. IMPRESSION: Interval removal of a left-sided chest tube. Persistent small loculated left pleural effusion and trace right pleural effusion. Venous congestion. Consolidative opacities at both lung bases. Linear atelectatic changes in the mid to lower lung zones. Biapical pleural thickening with upper lobe granulomatous changes.
[2016-10-20] MEDS: MethylPREDNISolone 40 mg Vial IVP SCH (09:46)
[2016-10-20] MEDS: Pantoprazole 20 mg EC Tab PO SCH (09:47)
[2016-10-20 10:03] VITALS: O2SAT 96
--- NOTE | 2016-10-20 13:22 | CP.PCM.PN ---
Subjective - Date & Time of Evaluation Date of Evaluation: 10/20/16 Time of Evaluation: 07:00 - Subjective Subjective: THORACIC SURGERY PROGRESS NOTE FOR DR. MILLAN Patient seen and examined at bedside. She states that she is breathing well and has no SOB or CP. Chest tube was removed by ICU team yesterday. Objective - Vital Signs/Intake and Output Vital Signs (last 24 hours): Temp Pulse Resp BP Pulse Ox 98.5 F 70 20 125/68 96 10/20/16 08:00 10/20/16 08:00 10/20/16 08:00 10/20/16 09:47 10/20/16 10:24 Intake and Output: 10/20/16 10/20/16 06:59 18:59 Intake Total 120 Balance 120 - Medications Medications: Current Medications Acetaminophen (Tylenol 325mg Tab) 650 mg PO Q6 PRN PRN Reason: Pain, Mild (1-3) Al Hydrox/Mg Hydrox/Simethicone (Maalox 30 Ml) 30 ml PO Q6H PRN PRN Reason: Indigestion / Heartburn Last Admin: 10/19/16 01:11 Dose: 30 ml Albuterol/Ipratropium (Duoneb 3 Mg/0.5 Mg (3 Ml) Ud) 3 ml INH RQ6 [facility] Last Admin: 10/20/16 07:19 Dose: Not Given Enalapril Maleate (Vasotec) 2.5 mg PO BID [facility] Last Admin: 10/20/16 09:47 Dose: 2.5 mg Heparin Sodium (Porcine) (Heparin) 5,000 units SC Q12H [facility] Last Admin: 10/20/16 01:18 Dose: 5,000 units Methylprednisolone (Solu-Medrol) 40 mg IVP DAILY [facility] Last Admin: 10/20/16 09:46 Dose: 40 mg Ondansetron HCl (Zofran Inj) 4 mg IVP Q6 PRN PRN Reason: NAUSEA/VOMITING Pantoprazole Sodium (Protonix Ec Tab) 20 mg PO DAILY [facility] Last Admin: 10/20/16 09:47 Dose: 20 mg Rosuvastatin Calcium (Crestor) 5 mg PO HS [facility] Last Admin: 10/19/16 21:04 Dose: 5 mg Tiotropium [place] (Spiriva) 18 mcg INH RQ24 [facility] Last Admin: 10/20/16 07:19 Dose: Not Given - Labs Labs: 10/20/16 07:20 10/20/16 07:20 PT 11.9 SECONDS (9.7-12.2) 10/14/16 12:49 INR 1.0 10/14/16 12:49 APTT 33 SECONDS (21-34) 10/14/16 12:49 - Constitutional Appears: Non-toxic, No Acute Distress - Respiratory Exam Respiratory Exam: NORMAL BREATHING PATTERN. absent: Respiratory Distress Additional comments: Dressing clean/dry/intact - Cardiovascular Exam Cardiovascular Exam: +S1, +S2 - Neurological Exam Neurological Exam: Alert, Awake - Psychiatric Exam Psychiatric exam: Normal Affect, Normal Mood - Skin Skin Exam: Dry, Normal Color, Warm Assessment and Plan - Assessment and Plan (Free Text) Assessment: 81 y/o female with history of COPD, CHF, CAD, AAA s/p repair with right lung adenocarcinoma w/ left pleural effusion s/p Left CT in [place] POD#4 - Afebrile, VSS - Chest tube removed yesterday by ICU team - CXR ordered for today - Discussed plan with Dr. Rafi Funes PGY-2
--- NOTE | 2016-10-20 21:59 | CP.PCM.DIS ---
<Patti Thomas - Last Filed: 10/20/16 21:56> Provider - Provider Date of Admission: 10/14/16 16:02 Attending physician: Addie Garnica MD Primary care physician: Dr. Garnica Consults: Cardiology: Dr. Porras General Surgery: Dr. Mckee Palliative Care: Tory Chung Time Spent in preparation of Discharge (in minutes): 31 Diagnosis - Discharge Diagnosis (1) Lung cancer Status: Acute Comment: please see hospital course (2) Hydropneumothorax Status: Acute Comment: please see hospital course (3) Pleural effusion Status: Acute Comment: please see hospital course (4) Generalized weakness Status: Acute Comment: please see hospital course (5) Abdominal aortic aneurysm greater than 39 mm in diameter Status: Chronic Comment: please see hospital course (6) TEX (acute kidney injury) Status: Acute Comment: please see hospital course Hospital Course - Lab Results Lab Results: Micro Results 10/16/16 12:19 Pleural Fluid Gram Stain - Final 10/16/16 12:19 Pleural Fluid Body Fluid Culture - Final No growth. 10/16/16 12:19 Pleural Fluid Fungal Culture - Preliminary 10/16/16 12:17 Pleural Fluid Anaerobic Culture - Final NO ANAEROBES ISOLATED. 10/14/16 Unknown Naris MRSA Culture (Admit) - Final MRSA NOT DETECTED Most Recent Lab Values WBC 8.5 K/uL (4.8-10.8) 10/20/16 07:20 RBC 4.85 Mil/uL (3.80-5.20) 10/20/16 07:20 Hgb 11.4 g/dL (11.0-16.0) 10/20/16 07:20 Hct 36.3 % (34.0-47.0) 10/20/16 07:20 MCV 74.9 fL (81.0-99.0) L 10/20/16 07:20 MCH 23.5 pg (27.0-31.0) L 10/20/16 07:20 MCHC 31.4 g/dL (33.0-37.0) L 10/20/16 07:20 RDW 14.7 % (11.5-14.5) H 10/20/16 07:20 Plt Count 286 K/uL (130-400) 10/20/16 07:20 MPV 9.0 fL (7.2-11.7) 10/20/16 07:20 Neut % (Auto) 61.7 % (50.0-75.0) 10/20/16 07:20 Lymph % (Auto) 26.0 % (20.0-40.0) 10/20/16 07:20 [place] % (Auto) 12.2 % (0.0-10.0) H 10/20/16 07:20 Eos % (Auto) 0.0 % (0.0-4.0) 10/20/16 07:20 Baso % (Auto) 0.1 % (0.0-2.0) 10/20/16 07:20 Neut # 5.3 K/uL (1.8-7.0) 10/20/16 07:20 Lymph # 2.2 K/uL (1.0-4.3) 10/20/16 07:20 [place] # 1.0 K/uL (0.0-0.8) H 10/20/16 07:20 Eos # 0.0 K/uL (0.0-0.7) 10/20/16 07:20 Baso # 0.0 K/uL (0.0-0.2) 10/20/16 07:20 Neutrophils % (Manual) 88 % (50-75) H 10/18/16 06:18 Lymphocytes % (Manual) 8 % (20-40) L 10/18/16 06:18 Monocytes % (Manual) 4 % (0-10) 10/18/16 06:18 Myelocytes % 1 % (0-0) H 10/17/16 06:34 Platelet Estimate Normal (NORMAL) 10/18/16 06:18 Large Platelets Present 10/17/16 06:34 Giant Platelets Present 10/17/16 06:34 Hypochromasia (manual) Slight 10/18/16 06:18 Poikilocytosis (manual Slight 10/18/16 06:18 Anisocytosis (manual) Slight 10/18/16 06:18 Macrocytosis (manual) Slight 10/17/16 06:34 Target Cells Slight 10/17/16 06:34 PT 11.9 SECONDS (9.7-12.2) 10/14/16 12:49 INR 1.0 10/14/16 12:49 APTT 33 SECONDS (21-34) 10/14/16 12:49 Sodium 139 mmol/L (132-148) 10/20/16 07:20 Potassium 4.2 mmol/L (3.6-5.2) 10/20/16 07:20 Chloride 102 mmol/L (98-107) 10/20/16 07:20 Carbon Dioxide 29 mmol/L (22-30) 10/20/16 07:20 Anion Gap 13 (10-20) 10/20/16 07:20 BUN 36 mg/dL (7-17) H 10/20/16 07:20 Creatinine 1.2 MG/DL (0.7-1.2) 10/20/16 07:20 Est GFR ( Amer) 52 10/20/16 07:20 Est GFR (Non-Af Amer) 43 10/20/16 07:20 POC Glucose (mg/dL) 125 mg/dL (65-110) H 10/14/16 12:38 Random Glucose 90 mg/dL (65-105) 10/20/16 07:20 Calcium 9.2 mg/dl (8.6-10.4) 10/20/16 07:20 Phosphorus 3.1 mg/dL (2.5-4.5) 10/19/16 06:15 Magnesium 2.8 mg/dL (1.6-2.3) H 10/20/16 07:20 Total Bilirubin 0.6 mg/dL (0.2-1.3) 10/20/16 07:20 AST 21 U/L (14-36) 10/20/16 07:20 ALT 20 U/L (9-52) 10/20/16 07:20 Alkaline Phosphatase 62 U/L (38-126) 10/20/16 07:20 Total Creatine Kinase 33 U/L (30-135) 10/14/16 12:49 CK-MB (Mass) 0.63 ng/mL (0.0-3.38) 10/14/16 12:49 Troponin I < 0.0120 ng/mL (0.00-0.120) 10/14/16 12:49 NT-Pro-B Natriuret Pep 275 pg/mL (0-900) 10/14/16 12:49 Total Protein 6.5 g/dL (6.3-8.3) 10/20/16 07:20 Albumin 3.4 g/dL (3.5-5.0) L 10/20/16 07:20 Globulin 3.1 gm/dL (2.2-3.9) 10/20/16 07:20 Albumin/Globulin Ratio 1.1 (1.0-2.1) 10/20/16 07:20 Fluid Source Pleural 10/16/16 14:43 Fluid Appearance Bloody (CLEAR) 10/16/16 14:43 Fluid WBC 6676.0 /mm3 (0.0-300.0) H 10/16/16 14:43 Fluid RBC 586170.0 /mm3 (0.0-0.0) H 10/16/16 14:43 Fluid Tot Cell Count TEST NOT PERFORMED 10/16/16 14:43 Fluid Neutrophils 21.0 % (0-0) H 10/16/16 14:43 Fluid Lymphocytes 53.0 % (0-0) H 10/16/16 14:43 Fld Monocyte/Macrophag 10 % (0-0) H 10/16/16 14:43 Fluid Comment 10/16/16 14:43 Pleural Total Protein 6.2 g/dL 10/16/16 14:43 Pleural LDH 69159 U/L 10/16/16 14:43 Pleural Glucose 23 mg/dL 10/16/16 14:43 Pleural Amylase 20 U/L 10/16/16 14:43 - Hospital Course Hospital Course: On admission: Per Dr. Garnica Chief complaint: Shortness of breath History present illness: 80-year-old female with history of hypertension congestive heart failure chronic obstructive lung disease chronic smoking abdominal aortic aneurysm status post repair came to the emergency room with the shortness of breath. Patient recently returned from [facility], while she was there she was doing well, but after she came here slowly started developing some shortness of breath. Last night her breathing got worse, and her oxygen usage at home increased to 5 L, in spite of that she was not feeling well, and she came into the emergency room. In the emergency room patient was started having increasing shortness of breath , increasing oxygen was given, bronchial dilators was given and the Solu-Medrol , patient is slightly feeling better. Patient recently diagnosed with the lung cancer, and family aware of the situation, no treatment was discussed with the family.. But patient is not aware of the diagnosis, but the familyabout the diagnosis at this time. Recent PET scan also showing evidence of possible secondaries in the pleural effusion area. Currently patient underwent a CT scan of the chest are showing evidence of hydropneumothorax Past medical history: Hypertension and hypercholesteremia COPD emphysematous lung disease CHF abdominal aortic aneurysm stent placement Surgical history: Inguinal hernia surgery, recent abdominal aortic stent placement Family history noncontributory Review of system noted from the chart Mild shortness of breath noted. Poor appetite noted On examination: Vital signs reviewed Chest good air entry bilaterally, decreased on the left side, regular heart sound, nontender abdomen, extended is no pedal edema [employer] alert awake oriented 3 no functional neurological deficit Oxygen saturation is 91% on 5 L of nasal cannula Labs reviewed CT scan of the lungs are showing evidence of hydropneumothorax on the left lung , lung mass noted. Labs reviewed otherwise Assessment/condition: 80-year-old female with history of hypercholesteremia hypertension COPD emphysematous lung disease congestive heart failure aortic aneurysm admitted with shortness of breath. 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 Recent pneumothorax unclear etiology, likely related to residual pneumothorax from biopsy in the past. I spoke to the patient family in details about that and also given the option for chest tube. Meanwhile I spoke to the thoracic surgeon about the patient's situation. He advised the patient to come to the unit, will monitor the patient in the intensive care unit, and the possible chest tube. And will follow the patient During hospital course: Shortness of Breath Hydropneumothorax likely secondary to malignant effusion Pleural Fluid: Bloody, WBC 6676.0, RBC 988554, Neuts 21.0, Monocyte/Macrophag 10 , Total Protein 10, LDH 24653, Glucose 23, Amylase 20 Pleural Fluid culture: No growth after [address] Mckee, CT Surgery was consulted Chest tube was inserted Chest Tube discontinued on 10/19/16. Patient tolerated removal well Tylenol 650 mg po q6 prn for mild pain and Toradol 15 mg IVP Q6 PRN for moderate pain Zofran 40mg IVP Q4H PRN for nausea Right Lung Adenocarcinoma Stage 4 PET scan (07/29/16): + left pleural effusion, + pleural nodules; believed possible mets CT Chest Angio (10/14/16): Pulmonary trunk, right and left main, lobar, and segmental branches and subsegmental branches of pulmonary arteries are well opacified. Obvious filling defects seen to suggest pulm embolus. Few non- specific mediastinal lymph nodes. Redemonstrated perihilar/upper lobe mass c/w lung carcinoma. Large right effusion and left anterior pneumothorax ( hydropneumothorax). Mild LLL atelectasis. Significant emphysema. Cholelithiasis. (see full report) Palliative care consult was consulted. Family requested patient not be informed of diagnosis of malignancy as previously patient had become depressed/suicidal. Patient thus unaware of diagnosis of Adenocarcinoma. COPD Patient on home 2.5 L O2 Patient was started on Solumedrol 40mg IV Q8 and Spiriva 18 mcg INH RQ24 Duonebs Q6H temi given Hypertension Blood pressure was monitored and home medication Vasotec 2.5 mg PO BID administered as needed. 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 Henderson CHF Discontinued Lasix 20mg PO Daily due to worsening renal function. Echocardiogram: The LVEF is within the normal range. THere is borderline to mild concentric left ventricular hypertrophy. Transmitral Doppler flow pattern is Grade I-abnormal relaxation pattern. Left atrium is mildly dilated. Mitral annular calcification is mild. Mitral regurgitation is mild. The aortic valve is moderately calcified and there appears to be calcification of the leaflet tips. There is mild aortic regurgitation. There is mild tricuspid regurgitation. TEX Improved BUN/Cr: 36/1.2 Lasix was discontinued Leukocytosis Resolved, WBC 8.5 Blood cx: (10/17/16) - negative x 3days Pleural fluid (10/16/16) - no growth x 24 hours Prophylaxis: Protonix 20mg PO Daily SCDs Heparin 5000 units Q12H Maalox 30 ml po q6h PRN Please note this is summary of hospital/ICU course. For full details, please see patient chart. Discharge Instructions: Patient medically stable for discharge. Patient instructed to take the following medications as prescribed: Acetaminophen 650 mg tab by mouth every 6 hours as needed ([id number]) Vasotec 2.5 mg tab by mouth twice daily Simvastatin 20 mg tab by mouth daily Omeprazole 20 mg tab by mouth daily Budesonide 0.5 mg/2 ml Nebulizer twice daily Tiotropium 18 mcg Inhaler daily Patient instructed to follow-up with primary care physician, Dr. Garnica, within one week of discharge from the hospital. Patient instructed to follow-up with surgery at [facility] within 2 weeks for removal of stitches. Patient instructed to keep surgical area clean and dry. Dressing may be removed tomorrow. Patient may shower but cannot submerge area in water for at least 2 weeks. Patient instructed to return to the emergency room if symptoms recur. Patient and family present at bedside given detailed instructions. Patient and family understands and agrees. - Date & Time of H&P Date of H&P: 10/14/16 Time of H&P: 19:08 Discharge Exam - Head Exam Head Exam: ATRAUMATIC, NORMAL INSPECTION, NORMOCEPHALIC - Eye Exam Eye Exam: EOMI, Normal appearance Pupil Exam: PERRL - ENT Exam ENT Exam: Mucous Membranes Moist - Respiratory Exam Respiratory Exam: Clear to PA & Lateral, NORMAL BREATHING PATTERN. absent: Rhonchi, Wheezes - Cardiovascular Exam Cardiovascular Exam: +S1, +S2. absent: Tachycardia - GI/Abdominal Exam GI & Abdominal Exam: Normal Bowel Sounds - Extremities Exam Extremities exam: full ROM, normal inspection - Neurological Exam Neurological exam: Alert, CN II-XII Intact, Oriented x3 - Psychiatric Exam Psychiatric exam: Normal Affect, Normal Mood - Skin Skin Exam: Dry, Intact, Normal Color Discharge Plan - Discharge Medications Prescriptions: Budesonide [Pulmicort Respules] 1 dose NEB BID #30 Enalapril Maleate [Vasotec] 2.5 mg PO BID #60 tab Omeprazole 20 mg PO DAILY #30 predniSONE [Prednisone] 20 mg PO DAILY #5 tab Simvastatin 20 mg PO DAILY #30 Tiotropium [Spiriva] 18 mcg INH RQ24 #1 inhaler - Follow Up Plan Condition: GUARDED Disposition: HOME/ ROUTINE Instructions: Enalapril (By mouth), Omeprazole (By mouth), Simvastatin (By mouth), Budesonide (By breathing), Chest Tubes (DC), Lung Cancer (DC), Pleural Effusion (DC), Dyspnea (GEN) Additional Instructions: Patient medically stable for discharge. Patient instructed to take the following medications as prescribed: Acetaminophen 650 mg tab by mouth every 6 hours as needed ([id number]) Vasotec 2.5 mg tab by mouth twice daily Simvastatin 20 mg tab by mouth daily Omeprazole 20 mg tab by mouth daily Budesonide 0.5 mg/2 ml Nebulizer twice daily Tiotropium 18 mcg Inhaler daily Patient instructed to follow-up with primary care physician, Dr. Garnica, within one week of discharge from the hospital. Patient instructed to follow-up with surgery at [facility] within 2 weeks for removal of stitches. Patient instructed to keep surgical area clean and dry. Dressing may be removed tomorrow. Patient may shower but cannot submerge area in water for at least 2 weeks. Patient instructed to return to the emergency room if symptoms recur. Patient and family present at bedside given detailed instructions. Patient and family understands and agrees. Referrals: Chinmay Wyatt [Staff Provider] - Addie Garnica MD [Staff Provider] - Clinical Quality Measures - CQM - Heart Failure Ejection Fraction: 40 % or Greater Left Ventricular Function to be assessed after discharge: No GOLDIE Inhibitor Prescribed: Yes Beta-Cherelle Prescribed: None Contraindication/Reason for not providing: history of bradycardia Angiotensin II Receptor Cherelle Prescribed: No Contraindication/Reason for not providing: GOLDIE-I prescribed AnticoagulationTherapy for Atrial Fibrillation/Atrialflutter: No Contraindication/Reason for not providing: No history of a-fib/flutter Aldosterone Antagonist Prescribed: No Contraindication/Reason for not providing: no indication Hydralazine Nitrate Prescribed: No Contraindication/Reason for not providing: no indication Implantable Cardioverter Defibrillator Therapy: No Contraindication/Reason for not providing: EF preserved Cardiac Resynchronization Therapy Prescribed: No Contraindication/Reason for not providing: N/A Will be discharged to: Home Follow Up Date (must be within 7 days from discharge): 10/23/16 Follow Up Time: 09:00 - Date & Time of Discharge Summary Date of Discharge Summary: 10/20/16 Time of Discharge Summary: 22:18 <Maddi Del Castillo V - Last Filed: 10/21/16 15:52> Provider - Provider Date of Admission: 10/14/16 16:02 Attending physician: Addie Garnica MD Hospital Course - Lab Results Lab Results: Micro Results 10/19/16 06:00 Naris MRSA Culture - Final MRSA NOT DETECTED 10/16/16 12:19 Pleural Fluid Gram Stain - Final 10/16/16 12:19 Pleural Fluid Body Fluid Culture - Final No growth. 10/16/16 12:19 Pleural Fluid Fungal Culture - Preliminary 10/16/16 12:17 Pleural Fluid Anaerobic Culture - Final NO ANAEROBES ISOLATED. 10/14/16 Unknown Naris MRSA Culture (Admit) - Final MRSA NOT DETECTED Most Recent Lab Values WBC 8.5 K/uL (4.8-10.8) 10/20/16 07:20 RBC 4.85 Mil/uL (3.80-5.20) 10/20/16 07:20 Hgb 11.4 g/dL (11.0-16.0) 10/20/16 07:20 Hct 36.3 % (34.0-47.0) 10/20/16 07:20 MCV 74.9 fL (81.0-99.0) L 10/20/16 07:20 MCH 23.5 pg (27.0-31.0) L 10/20/16 07:20 MCHC 31.4 g/dL (33.0-37.0) L 10/20/16 07:20 RDW 14.7 % (11.5-14.5) H 10/20/16 07:20 Plt Count 286 K/uL (130-400) 10/20/16 07:20 MPV 9.0 fL (7.2-11.7) 10/20/16 07:20 Neut % (Auto) 61.7 % (50.0-75.0) 10/20/16 07:20 Lymph % (Auto) 26.0 % (20.0-40.0) 10/20/16 07:20 [place] % (Auto) 12.2 % (0.0-10.0) H 10/20/16 07:20 Eos % (Auto) 0.0 % (0.0-4.0) 10/20/16 07:20 Baso % (Auto) 0.1 % (0.0-2.0) 10/20/16 07:20 Neut # 5.3 K/uL (1.8-7.0) 10/20/16 07:20 Lymph # 2.2 K/uL (1.0-4.3) 10/20/16 07:20 [place] # 1.0 K/uL (0.0-0.8) H 10/20/16 07:20 Eos # 0.0 K/uL (0.0-0.7) 10/20/16 07:20 Baso # 0.0 K/uL (0.0-0.2) 10/20/16 07:20 Neutrophils % (Manual) 88 % (50-75) H 10/18/16 06:18 Lymphocytes % (Manual) 8 % (20-40) L 10/18/16 06:18 Monocytes % (Manual) 4 % (0-10) 10/18/16 06:18 Myelocytes % 1 % (0-0) H 10/17/16 06:34 Platelet Estimate Normal (NORMAL) 10/18/16 06:18 Large Platelets Present 10/17/16 06:34 Giant Platelets Present 10/17/16 06:34 Hypochromasia (manual) Slight 10/18/16 06:18 Poikilocytosis (manual Slight 10/18/16 06:18 Anisocytosis (manual) Slight 10/18/16 06:18 Macrocytosis (manual) Slight 10/17/16 06:34 Target Cells Slight 10/17/16 06:34 PT 11.9 SECONDS (9.7-12.2) 10/14/16 12:49 INR 1.0 10/14/16 12:49 APTT 33 SECONDS (21-34) 10/14/16 12:49 Sodium 139 mmol/L (132-148) 10/20/16 07:20 Potassium 4.2 mmol/L (3.6-5.2) 10/20/16 07:20 Chloride 102 mmol/L (98-107) 10/20/16 07:20 Carbon Dioxide 29 mmol/L (22-30) 10/20/16 07:20 Anion Gap 13 (10-20) 10/20/16 07:20 BUN 36 mg/dL (7-17) H 10/20/16 07:20 Creatinine 1.2 MG/DL (0.7-1.2) 10/20/16 07:20 Est GFR ( Amer) 52 10/20/16 07:20 Est GFR (Non-Af Amer) 43 10/20/16 07:20 POC Glucose (mg/dL) 125 mg/dL (65-110) H 10/14/16 12:38 Random Glucose 90 mg/dL (65-105) 10/20/16 07:20 Calcium 9.2 mg/dl (8.6-10.4) 10/20/16 07:20 Phosphorus 3.1 mg/dL (2.5-4.5) 10/19/16 06:15 Magnesium 2.8 mg/dL (1.6-2.3) H 10/20/16 07:20 Total Bilirubin 0.6 mg/dL (0.2-1.3) 10/20/16 07:20 AST 21 U/L (14-36) 10/20/16 07:20 ALT 20 U/L (9-52) 10/20/16 07:20 Alkaline Phosphatase 62 U/L (38-126) 10/20/16 07:20 Total Creatine Kinase 33 U/L (30-135) 10/14/16 12:49 CK-MB (Mass) 0.63 ng/mL (0.0-3.38) 10/14/16 12:49 Troponin I < 0.0120 ng/mL (0.00-0.120) 10/14/16 12:49 NT-Pro-B Natriuret Pep 275 pg/mL (0-900) 10/14/16 12:49 Total Protein 6.5 g/dL (6.3-8.3) 10/20/16 07:20 Albumin 3.4 g/dL (3.5-5.0) L 10/20/16 07:20 Globulin 3.1 gm/dL (2.2-3.9) 10/20/16 07:20 Albumin/Globulin Ratio 1.1 (1.0-2.1) 10/20/16 07:20 Fluid Source Pleural 10/16/16 14:43 Fluid Appearance Bloody (CLEAR) 10/16/16 14:43 Fluid WBC 6676.0 /mm3 (0.0-300.0) H 10/16/16 14:43 Fluid RBC 741083.0 /mm3 (0.0-0.0) H 10/16/16 14:43 Fluid Tot Cell Count TEST NOT PERFORMED 10/16/16 14:43 Fluid Neutrophils 21.0 % (0-0) H 10/16/16 14:43 Fluid Lymphocytes 53.0 % (0-0) H 10/16/16 14:43 Fld Monocyte/Macrophag 10 % (0-0) H 10/16/16 14:43 Fluid Comment 10/16/16 14:43 Pleural Total Protein 6.2 g/dL 10/16/16 14:43 Pleural LDH 79805 U/L 10/16/16 14:43 Pleural Glucose 23 mg/dL 10/16/16 14:43 Pleural Amylase 20 U/L 10/16/16 14:43 Attending/Attestation - Attestation I have personally seen and examined this patient.: Yes I have fully participated in the care of the patient.: Yes I have reviewed all pertinent clinical information, including history, physical exam and plan: Yes Notes (Text): This is late computer entry for 10/20/16. Patient seen, examined, and case discussed with day-time resident. Patient accompanied at bedside with guerline. Patient denies acute complaints. Tolerating diet at bedside. Per CT-surgery, patient stable for discharge. Recommended to follow-up in 2 weeks for removal of stitches and dressing change. Discussed with patient's PMD, Dr. Garnica recommend to follow-up in the office.next week. Discussed discharge order and discharge instructions with day-time resident. Patient medically stable for discharge. Patient instructed to take the following medications as prescribed: Acetaminophen 650 mg tab by mouth every 6 hours as needed ([id number]) Vasotec 2.5 mg tab by mouth twice daily Simvastatin 20 mg tab by mouth daily Omeprazole 20 mg tab by mouth daily Budesonide 0.5 mg/2 ml Nebulizer twice daily Tiotropium 18 mcg Inhaler daily Prednisone 20 mg tab by mouth daily for 5 days Patient instructed to follow-up with primary care physician, Dr. Garnica, within one week of discharge from the hospital. Patient instructed to follow-up with surgery at [facility] within 2 weeks for removal of stitches. Patient instructed to keep surgical area clean and dry. Dressing may be removed tomorrow. Patient may shower but cannot submerge area in water for at least 2 weeks. Patient instructed to return to the emergency room if symptoms recur. Patient and family present at bedside given detailed instructions. Patient and family understands and agrees. This is a summary of patient's hospitalization. Please see EMR for further details.
--- NOTE | 2016-10-23 07:29 | OP ---
PROCEDURE DATE: 10/16/2016 PREOPERATIVE DIAGNOSES: 1. Pleural effusion, left 2. Stage IV lung carcinoma( contralateral lung metastasis). 3. Shortness of breath. 4. Atelectasis. POSTOPERATIVE DIAGNOSES: 1. Hemorrhagic pleural effusion. 2. Stage IV lung carcinoma. 3. Shortness of breath. 4. Atelectasis. SURGEON: Donnell Mckee MD. LEAD GENERATION REPRESENTATIVE: Dr. Funes. ANESTHESIA: IV sedation plus 0.5 percent local Xylocaine. OPERATIVE PROCEDURE: After placing the patient in supine position, operative field was prepared and draped in a sterile fashion. Through a limited left lateral incision in the fifth intercostal space in mid axillary line, incision was deepened to the fifth intercostal space , and the pleural cavity was entered using blunt finger dissection. After exploring the chest cavity, lysing the adhesions, a 28-Persian chest tube was inserted, and directed superiorly. The chest tube was secured at the skin opening with 0 silk sutures. Approximately 800 mL of hemorrhagic effusion was evacuated. The fluid was sent out for appropriate studies. Operative site was covered with 4 x 4 and taped in the usual manner. The patient tolerated the procedure well, and transferred to ICU in a stable condition. ESTIMATED BLOOD LOSS: 40 cc. Sponge, needle and instrument counts were correct. Donnell Mckee MD cc: [id number] TT: 10/21/2016 14:58:06 jn MTDD
== END 2016-10-20 16:30 | disposition home or self-care (01) | DRG 181 ==
LOC: C.ER 12:03 → C.6T 16:02 → C.9E 16:29 → C.6T 16:31 → C.9I 20:20 → C.3T 10-19 20:09
PROVIDERS: ADMIT Internal Medicine; ATTEND Internal Medicine
PROC: 0W9B00Z Drainage of Left Pleural Cavity with Drainage Device, Open Approach (ICD-10-PCS; principal; 2016-10-16 13:00)
DX: C34.90 Malignant neoplasm of unspecified part of unspecified bronchus or lung (principal); N17.9 Acute kidney failure, unspecified; J91.0 Malignant pleural effusion; J94.8 Other specified pleural conditions; I50.9 Heart failure, unspecified; I11.0 Hypertensive heart disease with heart failure; J43.9 Emphysema, unspecified; E78.00 Pure hypercholesterolemia, unspecified; F17.210 Nicotine dependence, cigarettes, uncomplicated; I25.10 Atherosclerotic heart disease of native coronary artery without angina pectoris; Z51.5 Encounter for palliative care

== ENCOUNTER 2016-12-20 02:02 | Inpatient (IN) | payer OTHER, MEDICARE ==
[2016-12-20 02:03] VITALS: BMI 25.9
--- NOTE | 2016-12-20 02:30 | C.PDOC ---
History Of Present Illness Pt with history of lung ca(unknown to pt, only to family) presents with worsening shortness of breath. Pt was diagnosed with a PE last week . No cp or palpitations. No f/c/n/v. Time Seen by Provider: 12/20/16 02:29 Chief Complaint (Nursing): Shortness Of Breath History Per: Patient History/Exam Limitations: no limitations Onset/Duration Of Symptoms: Days Current Symptoms Are (Timing): Still Present Initiating Event: Upper Respiratory Illness, Emotionaly Upset Quality: Dull Exacerbating Factor(s): Exertion Current Respiratory Medications: See Home Med List Severity: Moderate Pain Scale Rating Of: 4 Associated Symptoms: denies: Fever, Chills, Chest Pain Reports Recently: Seen In ED, Treated By A Physician, Hospitalized Recent travel outside of the [place]: No Additional History Per: Family Past Medical History Reviewed: Historical Data, Nursing Documentation, Vital Signs Vital Signs: Last Vital Signs Temp 98.2 F 12/20/16 02:16 Pulse 103 H 12/20/16 02:16 Resp 18 12/20/16 02:32 BP 134/88 12/20/16 02:16 Pulse Ox 97 12/20/16 03:22 - Medical History PMH: Anxiety, COPD (EMPHYSEMA), Emphysema, Hiatal Hernia, HTN, Hypercholesterolemia, Peripheral Edema (FEET), Pneumonia (november 2016) Surgical History: Endoscopy - [facility] Procedures ASSISTANCE WITH RESPIRATORY VENTILATION, <24 HRS, CPAP (05/23/16) DRAINAGE OF L PLEURAL CAV WITH DRAIN DEV, OPEN APPROACH (10/14/16) RESTRICT OF L INT ILIAC ART WITH INTRALUM DEV, PERC APPROACH (04/29/15) RESTRICTION OF ABD AORTA WITH INTRALUM DEV, PERC APPROACH (04/29/15) Family History: States: No Known Family Hx - Social History Hx Tobacco Use: No Hx Alcohol Use: No Hx Substance Use: No - Immunization History Hx Tetanus Toxoid Vaccination: Yes Hx Influenza Vaccination: Yes (05/26/16) Hx Pneumococcal Vaccination: Yes Review Of Systems Constitutional: Negative for: Fever, Chills Eyes: Negative for: Vision Change ENT: Negative for: Throat Pain Cardiovascular: Negative for: Chest Pain, Palpitations, Edema Respiratory: Positive for: Shortness of Breath. Negative for: Wheezing Gastrointestinal: Negative for: Nausea, Vomiting, Abdominal Pain Genitourinary: Negative for: Dysuria Musculoskeletal: Negative for: Back Pain Skin: Negative for: Rash, Lesions, Jaundice, Bruising Neurological: Negative for: Weakness Psych: Positive for: Anxiety Physical Exam - Physical Exam Appears: Non-toxic Skin: Warm, Dry Head: Normacephalic Eye(s): bilateral: Normal Inspection Oral Mucosa: Moist Neck: Supple Chest: Symmetrical Cardiovascular: Rhythm Regular Respiratory: Decreased Breath Sounds, No Rales, Rhonchi Gastrointestinal/Abdominal: Soft, No Tenderness, No Distention, No Guarding Back: No CVA Tenderness Extremity: No Tenderness, No Pedal Edema Extremity: Bilateral: Atraumatic, Normal Color And Temperature Pulses: Left Dorsalis Pedis: Normal, Right Dorsalis Pedis: Normal Neurological/Psych: Oriented x3, Normal Speech, Normal Cognition ED Course And Treatment - Laboratory Results Result Diagrams: 12/20/16 03:25 12/20/16 03:25 ECG: Interpreted By Me, Viewed By Me ECG Rhythm: Sinus Rhythm (103), Nonspecific Changes O2 Sat by Pulse Oximetry: 97 Pulse Ox Interpretation: Normal - Radiology CXR: Interpreted by Me, Viewed By Me CXR Interpretation: Yes: Cardiomegaly, Other (large left pleural effusion, worsening since 12/06/16). No: Fracture, Pnemothorax Disposition Discussed With : Addie Garnica Comment: accepted the pt on his service and took over the care at 5:19AM Doctor Will See Patient In The: Hospital Counseled Patient/Family Regarding: Studies Performed, Diagnosis - Disposition Disposition: HOSPITALIZED Disposition Time: 02:29 Condition: GUARDED Instructions: Weakness (ED) - POA Present On Arrival: None - Clinical Impression Clinical Impression: Dyspnea, Pleural effusion, Generalized weakness, CHF (congestive heart failure) Decision To Admit - Pt Status Changed To: Hospital Disposition Of: Inpatient - Admit Certification Admit to Inpatient:: After my assessment, the patient will require hospitalization for at least two midnights. This is because of the severity of symptoms shown, intensity of services needed, and/or the medical risk in this patient being treated as an outpatient. - InPatient: Physician Admission Certification: I certify that this patient requires 2 or more midnights of care for the following reason:: After my assessment, the patient will require hospitalization for at least two midnights. This is because of the severity of symptoms shown, intensity of services needed, and/or the medical risk in this patient being treated as an outpatient. - . Bed Request Type: Telemetry Admitting Physician: Addie Garnica Patient Diagnosis: Dyspnea, Pleural effusion, Generalized weakness, CHF (congestive heart failure)
[2016-12-20 03:30] LABS: BASO # 0.1 K/uL (0.0-0.2); BASO % 1.4 % (0.0-2.0); EOS % 0.5 % (0.0-4.0); HEMOGLOBIN 10.3 g/dL (11.0-16.0); LYMPH # 1.8 K/uL (1.0-4.3); LYMPH % 20.1 % (20.0-40.0); MEAN CELL VOLUME 73.6 fL (81.0-99.0); MEAN CORPUSCULAR HGB CONC 31.3 g/dL (33.0-37.0); MEAN PLATELET VOLUME 8.5 fL (7.2-11.7); MONO % 10.7 % (0.0-10.0); NEUT # 6.1 K/uL (1.8-7.0); NEUT % 67.3 % (50.0-75.0); RBC 4.48 Mil/uL (3.80-5.20); RED CELL DISTRIBUTION WIDTH 19.5 % (11.5-14.5); WHITE BLOOD COUNT 9.1 K/uL (4.8-10.8)
[2016-12-20 03:41] LABS: INR 1.1; PROTHROMBIN TIME 12.5 SECONDS (9.7-12.2)
[2016-12-20 03:43] LABS: ABG ALLEN TEST POS; ARTERIAL BLOOD GAS O2 SAT 98.2 % (95-98); ARTERIAL BLOOD GAS PCO2 34 mm/Hg (35-45); ARTERIAL BLOOD GAS PH 7.43 (7.35-7.45); ARTERIAL BLOOD GAS PO2 84 mm/Hg (80-100); ARTERIAL BLOOD GAS TCO2 23.6 mmol/L (22-28)
[2016-12-20 03:49] LABS: ALBUMIN 3.6 g/dL (3.5-5.0)
[2016-12-20 03:52] LABS: AST/SGOT 30 U/L (14-36); BLOOD UREA NITROGEN 13 mg/dL (7-17); GFR AFRICAN-AMERICAN > 60; GFR NON-AFRICAN AMERICAN 53
[2016-12-20 03:53] LABS: ALT/SGPT 22 U/L (9-52); CALCIUM 9.7 mg/dl (8.6-10.4)
[2016-12-20 04:02] LABS: B-TYPE NATRIURETIC PEPTIDE 3470 pg/mL (0-900)
[2016-12-20] MEDS ORDERED: Potassium Chloride 10 mEq ER Tab PO STA (05:27)
[2016-12-20] MEDS ORDERED: Potassium Chloride 20 mEq ER Tab PO ONE (05:45)
[2016-12-20] MEDS ORDERED: Albuterol-Ipratrop 3 mg / 0.5 (3 ml) UD ONE ×2 (05:53→07:55)
[2016-12-20] MEDS ORDERED: Albuterol-Ipratrop 3 mg / 0.5 (3 ml) UD INH STA (05:59)
[2016-12-20 06:00] LABS: SQUAMOUS EPITHIAL 1 /hpf (0-5); URINE BILIRUBIN NEGATIVE (NEGATIVE); URINE BLOOD NEGATIVE (NEGATIVE); URINE CLARITY Clear (Clear); URINE COLOR Straw (YELLOW); URINE GLUCOSE (UA) NORMAL (Normal); URINE LEUKOCYTE ESTERASE NEG Leu/uL (Negative); URINE NITRATE NEGATIVE (NEGATIVE); URINE PROTEIN NEGATIVE (NEGATIVE); URINE UROBILINOGEN NORMAL mg/dL (0.2-1.0)
--- NOTE | 2016-12-20 06:57 | CP.PCM.HP ---
History of Present Illness - History of Present Illness History of Present Illness: Chief complaint: Shortness of breath History present illness: 80-year-old female with history of hypertension, congestive heart failure, chronic obstructive lung disease, chronic smoking, abdominal aortic aneurysm status post repair came to the emergency room with the shortness of breath. Recently diagnosed with possible ?lung cancer and possible left side malignant effusion from ?breast cancer. Admitted to [facility] [place] and noted to have subsegmental PE and on lovenox also receiving antibiotics at [facility] Patient recently diagnosed with the lung cancer, and family aware of the situation, no treatment was discussed with the family.. Recent PET scan also showing evidence of possible secondaries in the pleural effusion area. Currently patient underwent a CT scan of the chest are showing evidence of pleural thickening and PE from [facility] Past medical history: Hypertension and hypercholesteremia COPD emphysematous lung disease CHF abdominal aortic aneurysm stent placement Surgical history: Inguinal hernia surgery, recent abdominal aortic stent placement Family history noncontributory Review of system noted from the chart Mild shortness of breath noted. Poor appetite noted On examination: Vital signs reviewed Chest good air entry bilaterally, decreased on the left side, regular heart sound, nontender abdomen, extended is no pedal edema CASTING COORDINATOR alert awake oriented 3 no functional neurological deficit Oxygen saturation is 91% on 5 L of nasal cannula Labs reviewed Labs reviewed otherwise Assessment/condition: 80-year-old female with history of hypercholesteremia hypertension COPD emphysematous lung disease congestive heart failure aortic aneurysm admitted with shortness of breath. 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 decompensated chf likly will add lasix bipap prn duoneb dvt and gi prophylaxis Present on Admission - Present on Admission Any Indicators Present on Admission: No History of DVT/PE: No History of Uncontrolled Diabetes: No Urinary Catheter: No Decubitus Ulcer Present: No Past Patient History - Infectious Disease Hx of Infectious Diseases: None - Past Medical History & Family History Past Medical History?: Yes - Past Social History Smoking Status: Former Smoker - CARDIAC Hx Hypercholesterolemia: Yes Hx Hypertension: Yes Hx Peripheral Edema: Yes (FEET) - PULMONARY Hx Chronic Obstructive Pulmonary Disease (COPD): Yes (EMPHYSEMA) Hx Emphysema: Yes Hx Pneumonia: Yes (november 2016) - NEUROLOGICAL Hx Neurological Disorder: No Hx Paralysis: No - HEENT Hx HEENT Problems: Yes (READING GLASSES) - ENDOCRINE/METABOLIC Hx Endocrine Disorders: No - HEMATOLOGICAL/ONCOLOGICAL Hx Blood Disorders: No Hx Blood Transfusions: No - INTEGUMENTARY Hx Dermatological Problems: No - MUSCULOSKELETAL/RHEUMATOLOGICAL Hx Musculoskeletal Disorders: No Hx Falls: No - GASTROINTESTINAL Hx Gastrointestinal Disorders: Yes (SEE COMMENT) Other/Comment: Hiatal Hernia, abdominal aneurysm - GENITOURINARY/GYNECOLOGICAL Hx Genitourinary Disorders: No - PSYCHIATRIC Hx Anxiety: Yes Hx Substance Use: No - SURGICAL HISTORY Hx Surgeries: Yes Hx Herniorrhaphy: Yes Hx Hysterectomy: Yes Hx Vascular Surgery: Yes ([facility] 04-29-15) Other/Comment: abdominal aneurysm surgery as per patient - ANESTHESIA Hx Anesthesia: Yes Hx Anesthesia Reactions: (REACTED TO MORPHINE DROP IN BP) Meds Home Medications: Home Medication List Medication Instructions Recorded Confirmed Type Acetaminophen [Tylenol 325mg tab] 650 mg PO Q6 PRN #30 tab 01/02/17 Rx Aspirin [Ecotrin] 81 mg PO DAILY #30 01/02/17 Rx Furosemide [Lasix] 20 mg PO DAILY #30 tab 01/02/17 Rx LORazepam [Ativan] 0.5 mg PO TID PRN #30 tab 01/02/17 Rx predniSONE [predniSONE Tab] 20 mg PO DAILY #30 tab 01/02/17 Rx traMADol [Ultram] 50 mg PO TID #45 tab 01/02/17 Rx Allergies/Adverse Reactions: Allergies Allergy/AdvReac Type Severity Reaction Status Date / Time carbamazepine [From Tegretol] Allergy Verified 01/03/17 12:03 morphine AdvReac Mild VOMITING Verified 01/03/17 12:03 Results - Vital Signs Recent Vital Signs: Last Vital Signs Temp 98.1 F 12/20/16 06:33 Pulse 93 H 12/20/16 06:33 Resp 20 12/20/16 06:33 BP 120/77 12/20/16 06:33 Pulse Ox 99 12/20/16 06:33 - Labs Result Diagrams: 12/28/16 07:26 12/30/16 22:58 Labs: Laboratory Results - last 24 hr 12/20/16 05:55 Urine Color Straw Urine Clarity Clear Urine pH 6.0 Ur Specific [place] 1.005 Urine Protein Negative Urine Glucose (UA) Normal Urine Ketones Negative Urine Blood Negative Urine Nitrate Negative Urine Bilirubin Negative Urine Urobilinogen Normal Ur Leukocyte Esterase Neg Ur Squamous Epith Cells 1
[2016-12-20] MEDS: Albuterol-Ipratrop 3 mg / 0.5 (3 ml) UD INH SCH ×3 (07:55→18:56)
[2016-12-20] MEDS: Tiotropium 18 mcg Cap For Inhalation INH SCH (10:00)
[2016-12-20] MEDS: Budesonide 0.5 mg/2 ml Inhal Susp UD INH SCH ×2 (10:00→18:56)
[2016-12-20] MEDS: Enoxaparin 80 mg Syringe SC SCH ×2 (10:55→18:18)
[2016-12-20] MEDS: Pantoprazole 40 mg EC Tab PO SCH (10:58)
--- NOTE | 2016-12-20 11:06 | RAD ---
PROCEDURE: CHEST RADIOGRAPH, 1 VIEW HISTORY: SOB COMPARISON: 12/06/2016 FINDINGS: LUNGS: NC at no definite consolidation. However, cannot exclude retrocardiac consolidation. Known hiatal hernia is not demonstrated clearly on this film. Minimal linear atelectasis right lung base. PLEURA: Small to moderate left pleural effusion, unchanged. No evidence of right pleural effusion. CARDIOVASCULAR: Mild cardiomegaly. OSSEOUS STRUCTURES: No significant abnormalities. VISUALIZED UPPER ABDOMEN: Normal. OTHER FINDINGS: None. IMPRESSION: Mild cardiomegaly. Left pleural effusion. No definite infiltrate.
[2016-12-20] MEDS: Tramadol 25 mg PO PRN (21:31)
--- NOTE | 2016-12-21 01:26 | CP.PCM.PN ---
Subjective - Date & Time of Evaluation Date of Evaluation: 12/21/16 Time of Evaluation: 01:26 - Subjective Subjective: Patient is having increasing symptoms of a cough on the chest discomfort and the shortness of breath noted. She is also complaining of pain over the left side of the chest, especially in the left pectoral region. On also complaining of pain over the left scapular region. Patient is somewhat allergic to morphine. She does not want any high opiate medications at this time. Will start the patient on tramadol and Tylenol. Pain medications. Contained the bronchodilators. Diuretics, bronchodilators, and Lasix. Will get a cardiology evaluation. If needed oncology avulsion will follow the patient Objective - Vital Signs/Intake and Output Vital Signs (last 24 hours): Temp Pulse Resp BP Pulse Ox 98.2 F 114 H 20 126/81 95 12/20/16 23:25 12/20/16 23:25 12/20/16 23:25 12/20/16 23:25 12/20/16 23:25 - Medications Medications: Current Medications Acetaminophen (Tylenol 325mg Tab) 650 mg PO Q6 PRN PRN Reason: Pain, severe (8-10) Last Admin: 12/20/16 10:55 Dose: 650 mg Albuterol/Ipratropium (Duoneb 3 Mg/0.5 Mg (3 Ml) Ud) 3 ml INH RQ6 [facility] Last Admin: 12/20/16 18:56 Dose: 3 ml Aspirin (Aspirin Chewable) 81 mg PO DAILY [facility] Last Admin: 12/20/16 10:56 Dose: 81 mg Budesonide (Pulmicort Respules) 0.5 mg INH BID [facility] Last Admin: 12/20/16 18:56 Dose: 0.5 mg Enalapril Maleate (Vasotec) 2.5 mg PO BID [facility] Last Admin: 12/20/16 18:18 Dose: 2.5 mg Enoxaparin Sodium (Lovenox) 80 mg SC BID [facility] Last Admin: 12/20/16 18:18 Dose: 80 mg Furosemide (Lasix) 20 mg PO DAILY [facility] Last Admin: 12/20/16 10:55 Dose: 20 mg Ceftriaxone Sodium 1 gm/ (Sodium Chloride) 100 mls @ 100 mls/hr IVPB DAILY [facility] Lorazepam (Ativan) 0.5 mg PO TID PRN PRN Reason: Anxiety Last Admin: 12/20/16 20:19 Dose: 0.5 mg Methylprednisolone (Solu-Medrol) 20 mg IVP DAILY [facility] Pantoprazole Sodium (Protonix Ec Tab) 40 mg PO DAILY [facility] Last Admin: 12/20/16 10:58 Dose: 40 mg Rosuvastatin Calcium (Crestor) 40 mg PO HS [facility] Last Admin: 12/20/16 21:31 Dose: 40 mg Tiotropium [place] (Spiriva) 18 mcg INH RQ24 [facility] Last Admin: 12/20/16 10:00 Dose: 18 mcg Tiotropium [place] (Spiriva Inhalation Handihaler Device) 1 inhaler INH RQ24 ONE Stop: 12/21/16 08:01 Tramadol HCl (Ultram) 25 mg PO TID PRN PRN Reason: Pain, severe (8-10) Last Admin: 12/20/16 21:31 Dose: 25 mg - Labs Labs: PT 12.5 SECONDS (9.7-12.2) H 12/20/16 03:25 INR 1.1 12/20/16 03:25 APTT 45 SECONDS (21-34) H 12/20/16 03:25
[2016-12-21] MEDS: Albuterol-Ipratrop 3 mg / 0.5 (3 ml) UD INH SCH ×4 (01:36→20:15)
[2016-12-21] MEDS: Tramadol 25 mg PO PRN (07:17)
[2016-12-21] MEDS: Tiotropium 18 mcg Cap For Inhalation INH SCH (09:13)
[2016-12-21] MEDS: Budesonide 0.5 mg/2 ml Inhal Susp UD INH SCH ×2 (09:13→20:15)
--- NOTE | 2016-12-21 10:46 | RAD ---
Chest x-ray single frontal view History: Congestive heart failure. Comparison: 12/20/2016 Findings: Moderate to large loculated left and small right pleural effusion. Confluent consolidative changes in the left mid to lower lung zone. More linear and reticular opacities seen within the right mid to lower lung zone. Biapical pleural thickening with upper lobe granulomatous changes. Cardiomegaly. Tortuous aorta. Question hiatal hernia. Degenerative changes in the spine and shoulders. Mesh and/or vascular stent material seen within the upper abdomen. Impression: No significant interval change.
[2016-12-21] MEDS: MethylPREDNISolone 40 mg Vial IVP SCH (11:05)
[2016-12-21] MEDS: Pantoprazole 40 mg EC Tab PO SCH (11:06)
[2016-12-21] MEDS: Enoxaparin 60 mg Syringe SC SCH ×2 (11:08→17:28)
[2016-12-22] MEDS: Albuterol-Ipratrop 3 mg / 0.5 (3 ml) UD INH SCH ×4 (01:50→20:34)
[2016-12-22] MEDS: Tiotropium 18 mcg Cap For Inhalation INH SCH (07:33)
[2016-12-22] MEDS ORDERED: Budesonide 0.5 mg/2 ml Inhal Susp UD INH SCH (08:00)
[2016-12-22 08:04] LABS: BASO # 0.1 K/uL (0.0-0.2); BASO % 0.5 % (0.0-2.0); HEMOGLOBIN 9.9 g/dL (11.0-16.0); LYMPH # 1.3 K/uL (1.0-4.3); LYMPH % 12.3 % (20.0-40.0); MEAN CELL VOLUME 72.8 fL (81.0-99.0); MEAN CORPUSCULAR HEMOGLOBIN 22.9 pg (27.0-31.0); MEAN CORPUSCULAR HGB CONC 31.5 g/dL (33.0-37.0); MEAN PLATELET VOLUME 8.8 fL (7.2-11.7); MONO # 1.4 K/uL (0.0-0.8); MONO % 12.6 % (0.0-10.0); NEUT % 74.6 % (50.0-75.0); NRBC % 0.1 % (0.0-2.0); RBC 4.33 Mil/uL (3.80-5.20); RED CELL DISTRIBUTION WIDTH 19.4 % (11.5-14.5); WHITE BLOOD COUNT 10.8 K/uL (4.8-10.8)
[2016-12-22 08:18] LABS: ALBUMIN 3.3 g/dL (3.5-5.0)
[2016-12-22 08:22] LABS: CALCIUM 8.8 mg/dl (8.6-10.4)
[2016-12-22] MEDS: Pantoprazole 40 mg EC Tab PO SCH (10:41)
[2016-12-22] MEDS: MethylPREDNISolone 40 mg Vial IVP SCH (10:42)
[2016-12-22] MEDS: Enoxaparin 60 mg Syringe SC SCH ×2 (11:39→17:38)
--- NOTE | 2016-12-22 23:13 | CP.PCM.CON ---
History of Present Illness - History of Present Illness History of Present Illness: Patient seen and evaluated Lung Ca admitted for respiratory failure On BiPAP Past Patient History - Infectious Disease Hx of Infectious Diseases: None - Past Medical History & Family History Past Medical History?: Yes - Past Social History Smoking Status: Former Smoker - CARDIAC Hx Hypercholesterolemia: Yes Hx Hypertension: Yes - PULMONARY Hx Chronic Obstructive Pulmonary Disease (COPD): Yes (EMPHYSEMA) - NEUROLOGICAL Hx Neurological Disorder: No Hx Paralysis: No - HEENT Hx HEENT Problems: Yes (READING GLASSES) - ENDOCRINE/METABOLIC Hx Endocrine Disorders: No - HEMATOLOGICAL/ONCOLOGICAL Hx Blood Disorders: No Hx Blood Transfusions: No - INTEGUMENTARY Hx Dermatological Problems: No - MUSCULOSKELETAL/RHEUMATOLOGICAL Hx Musculoskeletal Disorders: No Hx Falls: No - GASTROINTESTINAL Hx Gastrointestinal Disorders: Yes (SEE COMMENT) Other/Comment: Hiatal Hernia, abdominal aneurysm - GENITOURINARY/GYNECOLOGICAL Hx Genitourinary Disorders: No - PSYCHIATRIC Hx Anxiety: Yes Hx Substance Use: No - SURGICAL HISTORY Hx Surgeries: Yes Hx Herniorrhaphy: Yes Hx Hysterectomy: Yes Hx Vascular Surgery: Yes ([facility] 04-29-15) Other/Comment: abdominal aneurysm surgery as per patient - ANESTHESIA Hx Anesthesia: Yes Hx Anesthesia Reactions: Yes (REACTED TO MORPHINE DROP IN BP) Hx Malignant Hyperthermia: No Meds Allergies/Adverse Reactions: Allergies Allergy/AdvReac Type Severity Reaction Status Date / Time carbamazepine [From Tegretol] Allergy Verified 12/20/16 02:22 morphine AdvReac Mild VOMITING Verified 12/20/16 02:22 - Medications Medications: Current Medications Acetaminophen (Tylenol 325mg Tab) 650 mg PO TID [facility] Albuterol/Ipratropium (Duoneb 3 Mg/0.5 Mg (3 Ml) Ud) 3 ml INH RQ6 [facility] Last Admin: 12/22/16 20:34 Dose: 3 ml Aspirin (Aspirin Chewable) 81 mg PO DAILY [facility] Last Admin: 12/22/16 10:42 Dose: 81 mg Enalapril Maleate (Vasotec) 2.5 mg PO BID [facility] Last Admin: 12/22/16 17:38 Dose: 2.5 mg Enoxaparin Sodium (Lovenox) 60 mg SC BID [facility] Last Admin: 12/22/16 17:38 Dose: 60 mg Furosemide (Lasix) 20 mg IVP DAILY [facility] Last Admin: 12/22/16 10:40 Dose: 20 mg Ceftriaxone Sodium 1 gm/ (Sodium Chloride) 100 mls @ 100 mls/hr IVPB DAILY [facility] Last Admin: 12/22/16 10:42 Dose: 100 mls/hr Ketorolac Tromethamine (Toradol) 15 mg IVP Q6 PRN PRN Reason: Pain, moderate (4-7) Last Admin: 12/22/16 21:48 Dose: 15 mg Lorazepam (Ativan) 0.5 mg PO TID PRN PRN Reason: Anxiety Last Admin: 12/22/16 21:48 Dose: 0.5 mg Methylprednisolone (Solu-Medrol) 20 mg IVP DAILY [facility] Last Admin: 12/22/16 10:42 Dose: 20 mg Ondansetron HCl (Zofran Inj) 4 mg IVP Q8 PRN PRN Reason: nausea Last Admin: 12/21/16 08:26 Dose: 4 mg Pantoprazole Sodium (Protonix Ec Tab) 40 mg PO DAILY [facility] Last Admin: 12/22/16 10:41 Dose: 40 mg Rosuvastatin Calcium (Crestor) 40 mg PO HS [facility] Last Admin: 12/22/16 21:48 Dose: 40 mg Tiotropium [place] (Spiriva) 18 mcg INH RQ24 [facility] Last Admin: 12/22/16 07:33 Dose: 18 mcg Tramadol HCl (Ultram) 50 mg PO TID [facility] Results - Vital Signs Recent Vital Signs: Last Vital Signs Temp 97.4 F L 12/22/16 15:00 Pulse 92 H 12/22/16 22:16 Resp 18 12/22/16 15:00 BP 112/72 12/22/16 17:38 Pulse Ox 99 12/22/16 15:00 - Labs Result Diagrams: 12/22/16 07:54 12/22/16 07:54 Labs: Laboratory Results - last 24 hr 12/22/16 12/22/16 07:54 07:54 WBC 10.8 RBC 4.33 Hgb 9.9 L Hct 31.5 L MCV 72.8 L MCH 22.9 L MCHC 31.5 L RDW 19.4 H Plt Count 355 MPV 8.8 Neut % (Auto) 74.6 Lymph % (Auto) 12.3 L [place] % (Auto) 12.6 H Eos % (Auto) 0.0 Baso % (Auto) 0.5 Neut # 8.0 H Lymph # 1.3 [place] # 1.4 H Eos # 0.0 Baso # 0.1 Sodium 134 Potassium 3.9 Chloride 98 Carbon Dioxide 22 Anion Gap 17 BUN 16 Creatinine 1.3 H Est GFR ( Amer) 48 Est GFR (Non-Af Amer) 39 Random Glucose 99 Calcium 8.8 Total Bilirubin 0.4 AST 28 ALT 24 Alkaline Phosphatase 80 Total Protein 6.5 Albumin 3.3 L Globulin 3.2 Albumin/Globulin Ratio 1.0
[2016-12-23] MEDS: Albuterol-Ipratrop 3 mg / 0.5 (3 ml) UD INH SCH ×4 (01:54→19:20)
--- NOTE | 2016-12-23 06:50 | CARD ---
APPROVED REPORT EKG Measurement Heart [id number] MS [id number] <Conclusion> Sinus tachycardia Left ventricular hypertrophy with repolarization abnormality Abnormal ECG
[2016-12-23] MEDS: Tiotropium 18 mcg Cap For Inhalation INH SCH (08:25)
[2016-12-23] MEDS: Enoxaparin 60 mg Syringe SC SCH (11:09)
[2016-12-23] MEDS: MethylPREDNISolone 40 mg Vial IVP SCH (11:09)
[2016-12-23] MEDS: Pantoprazole 40 mg EC Tab PO SCH (11:09)
[2016-12-24] MEDS: Albuterol-Ipratrop 3 mg / 0.5 (3 ml) UD INH SCH ×4 (01:29→19:31)
[2016-12-24] MEDS: Tiotropium 18 mcg Cap For Inhalation INH SCH (08:39)
[2016-12-24] MEDS: Pantoprazole 40 mg EC Tab PO SCH (10:27)
[2016-12-24] MEDS: Enoxaparin 60 mg Syringe SC SCH ×2 (10:28→17:36)
[2016-12-24] MEDS: MethylPREDNISolone 40 mg Vial IVP SCH (10:28)
--- NOTE | 2016-12-24 23:23 | CP.PCM.PN ---
Subjective - Date & Time of Evaluation Date of Evaluation: 12/23/16 Time of Evaluation: 23:23 - Subjective Subjective: Patient is complaining of increasing pain over the left side of the chest. No nausea. Poor appetite noted. Patient is not able to stand up. She needs on and off BiPAP. Spoke to the family. Patient will need chronic respiratory management. Currently having acute on chronic respirated failure, and awaiting for possible outpatient Chronic vent management. Objective - Vital Signs/Intake and Output Vital Signs (last 24 hours): Temp Pulse Resp BP Pulse Ox 98.4 F 80 20 136/75 97 12/24/16 17:03 12/24/16 17:03 12/24/16 17:03 12/24/16 17:35 12/24/16 17:03 Intake and Output: 12/24/16 12/25/16 18:59 06:59 Intake Total 480 Balance 480 - Medications Medications: Current Medications Acetaminophen (Tylenol 325mg Tab) 650 mg PO TID [facility] Last Admin: 12/24/16 17:39 Dose: Not Given Albuterol/Ipratropium (Duoneb 3 Mg/0.5 Mg (3 Ml) Ud) 3 ml INH RQ6 [facility] Last Admin: 12/24/16 19:31 Dose: 3 ml Aspirin (Aspirin Chewable) 81 mg PO DAILY [facility] Last Admin: 12/24/16 10:26 Dose: 81 mg Enalapril Maleate (Vasotec) 2.5 mg PO BID [facility] Last Admin: 12/24/16 17:35 Dose: 2.5 mg Enoxaparin Sodium (Lovenox) 60 mg SC BID [facility] Last Admin: 12/24/16 17:36 Dose: 60 mg Furosemide (Lasix) 20 mg IVP DAILY [facility] Last Admin: 12/24/16 10:28 Dose: 20 mg Ceftriaxone Sodium 1 gm/ (Sodium Chloride) 100 mls @ 100 mls/hr IVPB DAILY [facility] Last Admin: 12/24/16 10:28 Dose: 100 mls/hr Lorazepam (Ativan) 0.5 mg PO TID PRN PRN Reason: Anxiety Last Admin: 12/23/16 09:05 Dose: 0.5 mg Methylprednisolone (Solu-Medrol) 20 mg IVP DAILY [facility] Last Admin: 12/24/16 10:28 Dose: 20 mg Ondansetron HCl (Zofran Inj) 4 mg IVP Q8 PRN PRN Reason: nausea Last Admin: 12/21/16 08:26 Dose: 4 mg Pantoprazole Sodium (Protonix Ec Tab) 40 mg PO DAILY [facility] Last Admin: 12/24/16 10:27 Dose: 40 mg Rosuvastatin Calcium (Crestor) 40 mg PO HS [facility] Last Admin: 12/24/16 21:33 Dose: 40 mg Tiotropium [place] (Spiriva) 18 mcg INH RQ24 [facility] Last Admin: 12/24/16 08:39 Dose: 18 mcg Tramadol HCl (Ultram) 50 mg PO TID [facility] Last Admin: 12/24/16 17:36 Dose: 50 mg - Labs Labs: 12/22/16 07:54 12/22/16 07:54 PT 12.5 SECONDS (9.7-12.2) H 12/20/16 03:25 INR 1.1 12/20/16 03:25 APTT 45 SECONDS (21-34) H 12/20/16 03:25
--- NOTE | 2016-12-24 23:23 | CP.PCM.PN ---
Subjective - Date & Time of Evaluation Date of Evaluation: 12/22/16 Time of Evaluation: 23:23 - Subjective Subjective: Patient is having increasing symptoms of a cough on the chest discomfort and the shortness of breath noted. She is also complaining of pain over the left side of the chest, especially in the left pectoral region. On also complaining of pain over the left scapular region. Patient is somewhat allergic to morphine. She does not want any high opiate medications at this time. Will start the patient on tramadol and Tylenol. Pain medications. Contained the bronchodilators. Diuretics, bronchodilators, and Lasix. Will get a cardiology evaluation. If needed oncology avulsion will follow the patient Objective - Vital Signs/Intake and Output Vital Signs (last 24 hours): Temp Pulse Resp BP Pulse Ox 98.4 F 80 20 136/75 97 12/24/16 17:03 12/24/16 17:03 12/24/16 17:03 12/24/16 17:35 12/24/16 17:03 Intake and Output: 12/24/16 12/25/16 18:59 06:59 Intake Total 480 Balance 480 - Medications Medications: Current Medications Acetaminophen (Tylenol 325mg Tab) 650 mg PO TID [facility] Last Admin: 12/24/16 17:39 Dose: Not Given Albuterol/Ipratropium (Duoneb 3 Mg/0.5 Mg (3 Ml) Ud) 3 ml INH RQ6 [facility] Last Admin: 12/24/16 19:31 Dose: 3 ml Aspirin (Aspirin Chewable) 81 mg PO DAILY [facility] Last Admin: 12/24/16 10:26 Dose: 81 mg Enalapril Maleate (Vasotec) 2.5 mg PO BID [facility] Last Admin: 12/24/16 17:35 Dose: 2.5 mg Enoxaparin Sodium (Lovenox) 60 mg SC BID [facility] Last Admin: 12/24/16 17:36 Dose: 60 mg Furosemide (Lasix) 20 mg IVP DAILY [facility] Last Admin: 12/24/16 10:28 Dose: 20 mg Ceftriaxone Sodium 1 gm/ (Sodium Chloride) 100 mls @ 100 mls/hr IVPB DAILY [facility] Last Admin: 12/24/16 10:28 Dose: 100 mls/hr Lorazepam (Ativan) 0.5 mg PO TID PRN PRN Reason: Anxiety Last Admin: 12/23/16 09:05 Dose: 0.5 mg Methylprednisolone (Solu-Medrol) 20 mg IVP DAILY [facility] Last Admin: 12/24/16 10:28 Dose: 20 mg Ondansetron HCl (Zofran Inj) 4 mg IVP Q8 PRN PRN Reason: nausea Last Admin: 12/21/16 08:26 Dose: 4 mg Pantoprazole Sodium (Protonix Ec Tab) 40 mg PO DAILY [facility] Last Admin: 12/24/16 10:27 Dose: 40 mg Rosuvastatin Calcium (Crestor) 40 mg PO HS [facility] Last Admin: 12/24/16 21:33 Dose: 40 mg Tiotropium [place] (Spiriva) 18 mcg INH RQ24 [facility] Last Admin: 12/24/16 08:39 Dose: 18 mcg Tramadol HCl (Ultram) 50 mg PO TID [facility] Last Admin: 12/24/16 17:36 Dose: 50 mg - Labs Labs: 12/22/16 07:54 12/22/16 07:54 PT 12.5 SECONDS (9.7-12.2) H 12/20/16 03:25 INR 1.1 12/20/16 03:25 APTT 45 SECONDS (21-34) H 12/20/16 03:25
--- NOTE | 2016-12-24 23:23 | CP.PCM.PN ---
Subjective - Date & Time of Evaluation Date of Evaluation: 12/24/16 Time of Evaluation: 23:23 - Subjective Subjective: Patient is complaining of increasing pain over the left side of the chest. No nausea. Poor appetite noted. Patient is not able to stand up. She needs on and off BiPAP. Spoke to the family. Patient will need chronic respirated management. Chronic vent management. Currently having acute on chronic respirated failure, and awaiting for possible outpatient and a Objective - Vital Signs/Intake and Output Vital Signs (last 24 hours): Temp Pulse Resp BP Pulse Ox 98.4 F 80 20 136/75 97 12/24/16 17:03 12/24/16 17:03 12/24/16 17:03 12/24/16 17:35 12/24/16 17:03 Intake and Output: 12/24/16 12/25/16 18:59 06:59 Intake Total 480 Balance 480 - Medications Medications: Current Medications Acetaminophen (Tylenol 325mg Tab) 650 mg PO TID [facility] Last Admin: 12/24/16 17:39 Dose: Not Given Albuterol/Ipratropium (Duoneb 3 Mg/0.5 Mg (3 Ml) Ud) 3 ml INH RQ6 [facility] Last Admin: 12/24/16 19:31 Dose: 3 ml Aspirin (Aspirin Chewable) 81 mg PO DAILY [facility] Last Admin: 12/24/16 10:26 Dose: 81 mg Enalapril Maleate (Vasotec) 2.5 mg PO BID [facility] Last Admin: 12/24/16 17:35 Dose: 2.5 mg Enoxaparin Sodium (Lovenox) 60 mg SC BID [facility] Last Admin: 12/24/16 17:36 Dose: 60 mg Furosemide (Lasix) 20 mg IVP DAILY [facility] Last Admin: 12/24/16 10:28 Dose: 20 mg Ceftriaxone Sodium 1 gm/ (Sodium Chloride) 100 mls @ 100 mls/hr IVPB DAILY [facility] Last Admin: 12/24/16 10:28 Dose: 100 mls/hr Lorazepam (Ativan) 0.5 mg PO TID PRN PRN Reason: Anxiety Last Admin: 12/23/16 09:05 Dose: 0.5 mg Methylprednisolone (Solu-Medrol) 20 mg IVP DAILY [facility] Last Admin: 12/24/16 10:28 Dose: 20 mg Ondansetron HCl (Zofran Inj) 4 mg IVP Q8 PRN PRN Reason: nausea Last Admin: 12/21/16 08:26 Dose: 4 mg Pantoprazole Sodium (Protonix Ec Tab) 40 mg PO DAILY [facility] Last Admin: 12/24/16 10:27 Dose: 40 mg Rosuvastatin Calcium (Crestor) 40 mg PO HS [facility] Last Admin: 12/24/16 21:33 Dose: 40 mg Tiotropium [place] (Spiriva) 18 mcg INH RQ24 [facility] Last Admin: 12/24/16 08:39 Dose: 18 mcg Tramadol HCl (Ultram) 50 mg PO TID [facility] Last Admin: 12/24/16 17:36 Dose: 50 mg - Labs Labs: 12/22/16 07:54 12/22/16 07:54 PT 12.5 SECONDS (9.7-12.2) H 12/20/16 03:25 INR 1.1 12/20/16 03:25 APTT 45 SECONDS (21-34) H 12/20/16 03:25
[2016-12-25] MEDS: Albuterol-Ipratrop 3 mg / 0.5 (3 ml) UD INH SCH ×2 (01:04→08:53)
[2016-12-25 07:14] LABS: BASO % 0.3 % (0.0-2.0); HEMOGLOBIN 10.1 g/dL (11.0-16.0); LYMPH # 1.9 K/uL (1.0-4.3); LYMPH % 18.3 % (20.0-40.0); MEAN CELL VOLUME 73.6 fL (81.0-99.0); MEAN CORPUSCULAR HEMOGLOBIN 23.1 pg (27.0-31.0); MEAN CORPUSCULAR HGB CONC 31.4 g/dL (33.0-37.0); MEAN PLATELET VOLUME 8.4 fL (7.2-11.7); MONO # 1.2 K/uL (0.0-0.8); MONO % 11.7 % (0.0-10.0); NEUT # 7.2 K/uL (1.8-7.0); NEUT % 69.7 % (50.0-75.0); NRBC % 0.1 % (0.0-2.0); RBC 4.39 Mil/uL (3.80-5.20); RED CELL DISTRIBUTION WIDTH 19.2 % (11.5-14.5); WHITE BLOOD COUNT 10.4 K/uL (4.8-10.8)
[2016-12-25 07:31] LABS: ALBUMIN 3.3 g/dL (3.5-5.0)
[2016-12-25 07:35] LABS: CALCIUM 9.9 mg/dl (8.6-10.4); MAGNESIUM 2.4 mg/dL (1.6-2.3)
[2016-12-25] MEDS: Tiotropium 18 mcg Cap For Inhalation INH SCH (08:53)
[2016-12-25] MEDS: Pantoprazole 40 mg EC Tab PO SCH (10:33)
[2016-12-25] MEDS: Enoxaparin 60 mg Syringe SC SCH ×2 (10:33→18:07)
[2016-12-25] MEDS: MethylPREDNISolone 40 mg Vial IVP SCH (10:34)
--- NOTE | 2016-12-25 10:35 | RAD ---
HISTORY: chf COMPARISON: 12/21/2016 FINDINGS: LUNGS: No definite infiltrate. Linear atelectasis at right base. Cannot exclude consolidation at left base due to superimposed density of pleural effusion. PLEURA: Moderate left pleural effusion. Small right pleural effusion. No significant change. CARDIOVASCULAR: Retrocardiac lucency may reflect known hiatal hernia. OSSEOUS STRUCTURES: No significant abnormalities. VISUALIZED UPPER ABDOMEN: Normal. OTHER FINDINGS: None. IMPRESSION: Moderate left and small right pleural effusion. No definite infiltrate. Retrocardiac lucency consistent with known hiatal hernia.
[2016-12-25 14:16] LABS: ABG ALLEN TEST POS; ARTERIAL BLOOD GAS HCO3 30.7 mmol/L (21-28); ARTERIAL BLOOD GAS O2 SAT 87.7 % (95-98); ARTERIAL BLOOD GAS PCO2 42 mm/Hg (35-45); ARTERIAL BLOOD GAS PH 7.49 (7.35-7.45); ARTERIAL BLOOD GAS PO2 45 mm/Hg (80-100); ARTERIAL BLOOD GAS TCO2 33.3 mmol/L (22-28)
--- NOTE | 2016-12-25 17:38 | CP.PCM.PN ---
Subjective - Date & Time of Evaluation Date of Evaluation: 12/25/16 Time of Evaluation: 08:00 - Subjective Subjective: Patient seen and evaluated No cardiac events noted Objective - Vital Signs/Intake and Output Vital Signs (last 24 hours): Temp Pulse Resp BP Pulse Ox 97.8 F 101 H 20 131/76 95 12/25/16 16:04 12/25/16 16:15 12/25/16 16:04 12/25/16 16:04 12/25/16 16:04 Intake and Output: 12/25/16 12/25/16 06:59 18:59 Intake Total 240 Balance 240 - Medications Medications: Current Medications Acetaminophen (Tylenol 325mg Tab) 650 mg PO TID [facility] Last Admin: 12/25/16 13:53 Dose: Not Given Aspirin (Aspirin Chewable) 81 mg PO DAILY [facility] Last Admin: 12/25/16 10:32 Dose: 81 mg Enalapril Maleate (Vasotec) 2.5 mg PO BID [facility] Last Admin: 12/25/16 10:35 Dose: 2.5 mg Enoxaparin Sodium (Lovenox) 60 mg SC BID [facility] Last Admin: 12/25/16 10:33 Dose: 60 mg Furosemide (Lasix) 20 mg IVP DAILY [facility] Last Admin: 12/25/16 10:32 Dose: 20 mg Ceftriaxone Sodium 1 gm/ (Sodium Chloride) 100 mls @ 100 mls/hr IVPB DAILY [facility] Last Admin: 12/25/16 10:33 Dose: 100 mls/hr Lorazepam (Ativan) 0.5 mg PO TID PRN PRN Reason: Anxiety Last Admin: 12/25/16 03:01 Dose: 0.5 mg Methylprednisolone (Solu-Medrol) 20 mg IVP DAILY [facility] Last Admin: 12/25/16 10:34 Dose: 20 mg Ondansetron HCl (Zofran Inj) 4 mg IVP Q8 PRN PRN Reason: nausea Last Admin: 12/21/16 08:26 Dose: 4 mg Pantoprazole Sodium (Protonix Ec Tab) 40 mg PO DAILY [facility] Last Admin: 12/25/16 10:33 Dose: 40 mg Rosuvastatin Calcium (Crestor) 40 mg PO HS [facility] Last Admin: 12/24/16 21:33 Dose: 40 mg Tiotropium [place] (Spiriva) 18 mcg INH RQ24 [facility] Last Admin: 12/25/16 08:53 Dose: 18 mcg Tramadol HCl (Ultram) 50 mg PO TID [facility] Last Admin: 12/25/16 13:53 Dose: 50 mg - Labs Labs: 12/25/16 07:01 12/25/16 07:01 PT 12.5 SECONDS (9.7-12.2) H 12/20/16 03:25 INR 1.1 12/20/16 03:25 APTT 45 SECONDS (21-34) H 12/20/16 03:25
--- NOTE | 2016-12-25 22:50 | CP.PCM.PN ---
Subjective - Date & Time of Evaluation Date of Evaluation: 12/25/16 Time of Evaluation: 22:48 - Subjective Subjective: Patient is currently feeling slightly better, no chest pain, but complaining of some cough, mild shortness of breath noted. Currently using BiPAP. On examination: On examination: HEENT PERRLA, neck supple No thyromegaly was noted and no cervical adenopathy noted Wheezing noted bilaterally CVS regular heart sound, no murmur Abdomen soft and no organomegaly Extremities no pedal edema, no leg swelling, pedal pulses are good. DIRECTOR MEDICARE SALES alert awake oriented x3 no functional neurological deficit. Assessment and recommendation: 81-year-old female with history of lung cancer, congestive heart failure, recurrent respirated failure, hypoxia, COPD. Currently on BiPAP. Patient will benefit having the respiratory assisted device, BiPAP. Continue the oxygen. Physical therapy. Will follow the patient Objective - Vital Signs/Intake and Output Vital Signs (last 24 hours): Temp Pulse Resp BP Pulse Ox 97.8 F 101 H 20 116/77 95 12/25/16 16:04 12/25/16 16:15 12/25/16 16:04 12/25/16 18:06 12/25/16 16:04 Intake and Output: 12/25/16 12/26/16 18:59 06:59 Intake Total 300 Balance 300 - Medications Medications: Current Medications Acetaminophen (Tylenol 325mg Tab) 650 mg PO TID [facility] Last Admin: 12/25/16 18:08 Dose: Not Given Aspirin (Aspirin Chewable) 81 mg PO DAILY [facility] Last Admin: 12/25/16 10:32 Dose: 81 mg Enalapril Maleate (Vasotec) 2.5 mg PO BID [facility] Last Admin: 12/25/16 18:06 Dose: 2.5 mg Enoxaparin Sodium (Lovenox) 60 mg SC BID [facility] Last Admin: 12/25/16 18:07 Dose: 60 mg Furosemide (Lasix) 20 mg IVP DAILY [facility] Last Admin: 12/25/16 10:32 Dose: 20 mg Ceftriaxone Sodium 1 gm/ (Sodium Chloride) 100 mls @ 100 mls/hr IVPB DAILY [facility] Last Admin: 12/25/16 10:33 Dose: 100 mls/hr Lorazepam (Ativan) 0.5 mg PO TID PRN PRN Reason: Anxiety Last Admin: 12/25/16 03:01 Dose: 0.5 mg Methylprednisolone (Solu-Medrol) 20 mg IVP DAILY [facility] Last Admin: 12/25/16 10:34 Dose: 20 mg Ondansetron HCl (Zofran Inj) 4 mg IVP Q8 PRN PRN Reason: nausea Last Admin: 12/21/16 08:26 Dose: 4 mg Pantoprazole Sodium (Protonix Ec Tab) 40 mg PO DAILY [facility] Last Admin: 12/25/16 10:33 Dose: 40 mg Rosuvastatin Calcium (Crestor) 40 mg PO HS [facility] Last Admin: 12/25/16 21:05 Dose: 40 mg Tiotropium [place] (Spiriva) 18 mcg INH RQ24 [facility] Last Admin: 12/25/16 08:53 Dose: 18 mcg Tramadol HCl (Ultram) 50 mg PO TID [facility] Last Admin: 12/25/16 18:06 Dose: 50 mg - Labs Labs: 12/25/16 07:01 12/25/16 07:01 PT 12.5 SECONDS (9.7-12.2) H 12/20/16 03:25 INR 1.1 12/20/16 03:25 APTT 45 SECONDS (21-34) H 12/20/16 03:25
[2016-12-26 08:45] LABS: CK-MB 0.68 ng/mL (0.0-3.38)
[2016-12-26] MEDS: Tiotropium 18 mcg Cap For Inhalation INH SCH (09:00)
[2016-12-26] MEDS: MethylPREDNISolone 40 mg Vial IVP SCH (10:13)
[2016-12-26] MEDS: Pantoprazole 40 mg EC Tab PO SCH (10:13)
--- NOTE | 2016-12-26 11:01 | RAD ---
HISTORY: coughing out bloody sputum Comparison made with chest radiographs dated 12/25/2016 comparison also made with CTA chest 10/14/2016 COMPARISON: FINDINGS: LUNGS: Re- demonstrated is of left lower lobe opacification consistent with atelectasis and or infiltrate with moderate-sized left effusion. Patchy of right lower lobe infiltrate. Lucent appearance of the right and to a lesser degree left upper lobes may represent emphysematous, bleb and or bullous changes. PLEURA: As above. No apparent pneumothorax CARDIOVASCULAR: Cardiomegaly OSSEOUS STRUCTURES: No significant abnormalities. VISUALIZED UPPER ABDOMEN: Normal. OTHER FINDINGS: None. IMPRESSION: Re- demonstrated is of left lower lobe opacification consistent with atelectasis and or infiltrate with moderate-sized left effusion. Patchy of right lower lobe infiltrate. Lucent appearance of the right and to a lesser degree left upper lobes may represent emphysematous, bleb and or bullous changes.
--- NOTE | 2016-12-26 23:47 | CP.PCM.PN ---
Subjective - Date & Time of Evaluation Date of Evaluation: 12/26/16 Time of Evaluation: 23:44 - Subjective Subjective: Patient is frequently complaining of left sided chest pain. Left shoulder pain. Especially after taking deep breath. Patient is having less cough. But this morning patient had an episode of mucus with the hemodialysis. At one episode. Currently the Lovenox and aspirin is on hold because of that. Patient has no chest pain but left shoulder pain. Weakness noted, currently only using oxygen, patient does not want to use a BiPAP Vital signs reviewed No neck vein distention noted Chest decreased air entry on the left lung CVS regular heart sound, no murmur noted Abdomen soft, nontender. Extremities no pedal edema TRADE SHOW COORDINATOR alert awake oriented 3, no functional neurological deficit Chest x-ray done today showing evidence of chronic lung changes. Left lung pleural disease noted, associated hiatus hernia. Previous CAT scan which was [facility] reviewed, chronic lung changes, and associated pleural disease secondary to possible malignancy, Assessment and recommendation: 81-year-old female with a history of hypertension, congestive heart failure, history of peripheral was cut disease, abdominal aortic aneurysm, status post repair, severe COPD, oxygen dependent, diagnosed with lung cancer in the right upper lung. Left lung the patient has a metastatic suspected breast cancer secondary. Associated pleural disease, with the pleural entrapment, causing restricted her left lung. Associated with the pain at this time. Overall prognosis is poor. Patient will continue the oxygen 4 L/m per now. Pain management. We'll get palliative care if needed. Will follow the patient. Objective - Vital Signs/Intake and Output Vital Signs (last 24 hours): Temp Pulse Resp BP Pulse Ox 98.2 F 83 20 142/60 96 12/26/16 16:00 12/26/16 18:00 12/26/16 16:00 12/26/16 17:34 12/26/16 16:00 Intake and Output: 12/26/16 12/27/16 18:59 06:59 Intake Total 560 Output Total 200 Balance 360 - Medications Medications: Current Medications Acetaminophen (Tylenol 325mg Tab) 650 mg PO TID [facility] Last Admin: 12/26/16 17:34 Dose: Not Given Enalapril Maleate (Vasotec) 2.5 mg PO BID [facility] Last Admin: 12/26/16 17:34 Dose: 2.5 mg Furosemide (Lasix) 20 mg IVP DAILY [facility] Last Admin: 12/26/16 10:12 Dose: 20 mg Lorazepam (Ativan) 0.5 mg PO TID PRN PRN Reason: Anxiety Last Admin: 12/26/16 22:22 Dose: 0.5 mg Methylprednisolone (Solu-Medrol) 20 mg IVP DAILY [facility] Last Admin: 12/26/16 10:13 Dose: 20 mg Ondansetron HCl (Zofran Inj) 4 mg IVP Q8 PRN PRN Reason: nausea Last Admin: 12/26/16 17:33 Dose: 4 mg Pantoprazole Sodium (Protonix Ec Tab) 40 mg PO DAILY [facility] Last Admin: 12/26/16 10:13 Dose: 40 mg Rosuvastatin Calcium (Crestor) 40 mg PO HS [facility] Last Admin: 12/26/16 22:22 Dose: 40 mg Tiotropium [place] (Spiriva) 18 mcg INH RQ24 [facility] Last Admin: 12/26/16 09:00 Dose: 18 mcg Tramadol HCl (Ultram) 50 mg PO TID [facility] Last Admin: 12/26/16 17:34 Dose: 50 mg - Labs Labs: 12/25/16 07:01 12/25/16 07:01 PT 12.5 SECONDS (9.7-12.2) H 12/20/16 03:25 INR 1.1 12/20/16 03:25 APTT 45 SECONDS (21-34) H 12/20/16 03:25
[2016-12-27] MEDS: Tiotropium 18 mcg Cap For Inhalation INH SCH (08:34)
[2016-12-27] MEDS: MethylPREDNISolone 40 mg Vial IVP SCH (10:20)
[2016-12-27] MEDS: Pantoprazole 40 mg EC Tab PO SCH (10:22)
--- NOTE | 2016-12-27 20:48 | CP.PCM.PN ---
Subjective - Date & Time of Evaluation Date of Evaluation: 12/27/16 Time of Evaluation: 20:46 - Subjective Subjective: Chest the having symptoms of pain over the left interscapular region, and the chest side on the left side. Radiation of the pain in the left shoulder noted. Denies any nausea vomiting. Poorly eating. Exertional dyspnea severely noted, family is at bedside. Patient is having some trouble in walking to the bathroom also. Extremely fatigued Vital signs reviewed weakness noted No neck vein distention noted Decreased left lower lung air entry noted CVS regular heart sound, no murmur noted Abdomen soft, nontender. Extremities no pedal edema CHROME PLATER HELPER alert awake oriented 3, no functional neurological deficit Patient today used to BiPAP at least a 2-3 hours. The wheezing and rales noted 81-year-old female with history of lung cancer, severe COPD, congestive heart failure, metastatic cancer. Patient is also having history of aortic abdominal aortic aneurysm, status post surgery. Osteoarthritis and osteoporosis. Patient is having increasing symptoms of pain, most likely related to the pleuritic pain secondary to the metastatic lungs. Repeat chest x-ray today showing evidence of worsening effusion. We'll repeat the chest x-ray in the morning. Aggressive cancer treatment is not going to improve patient's overall situation. We will get oncology evaluation if the family agrees and will follow the patient. Meanwhile continue the pain management. Objective - Vital Signs/Intake and Output Vital Signs (last 24 hours): Temp Pulse Resp BP Pulse Ox 97.9 F 91 H 20 100/62 94 L 12/27/16 15:00 12/27/16 16:00 12/27/16 15:00 12/27/16 17:48 12/27/16 15:00 - Medications Medications: Current Medications Acetaminophen (Tylenol 325mg Tab) 650 mg PO TID [facility] Last Admin: 12/27/16 17:37 Dose: Not Given Enalapril Maleate (Vasotec) 2.5 mg PO BID [facility] Last Admin: 12/27/16 17:48 Dose: 2.5 mg Furosemide (Lasix) 20 mg IVP DAILY [facility] Last Admin: 12/27/16 10:20 Dose: 20 mg Methylprednisolone (Solu-Medrol) 20 mg IVP DAILY [facility] Last Admin: 12/27/16 10:20 Dose: 20 mg Ondansetron HCl (Zofran Inj) 4 mg IVP Q8 PRN PRN Reason: nausea Last Admin: 12/26/16 17:33 Dose: 4 mg Pantoprazole Sodium (Protonix Ec Tab) 40 mg PO DAILY [facility] Last Admin: 12/27/16 10:22 Dose: 40 mg Rosuvastatin Calcium (Crestor) 40 mg PO HS [facility] Last Admin: 12/26/16 22:22 Dose: 40 mg Tiotropium [place] (Spiriva) 18 mcg INH RQ24 [facility] Last Admin: 12/27/16 08:34 Dose: 18 mcg Tramadol HCl (Ultram) 50 mg PO TID [facility] Last Admin: 12/27/16 17:37 Dose: Not Given - Labs Labs: 12/25/16 07:01 12/25/16 07:01 PT 12.5 SECONDS (9.7-12.2) H 12/20/16 03:25 INR 1.1 12/20/16 03:25 APTT 45 SECONDS (21-34) H 12/20/16 03:25
--- NOTE | 2016-12-27 23:28 | CP.PCM.PN ---
Subjective - Date & Time of Evaluation Date of Evaluation: 12/27/16 Time of Evaluation: 15:00 - Subjective Subjective: Days events noted Stable hemodynamics Objective - Vital Signs/Intake and Output Vital Signs (last 24 hours): Temp Pulse Resp BP Pulse Ox 97.9 F 91 H 20 100/62 94 L 12/27/16 15:00 12/27/16 16:00 12/27/16 15:00 12/27/16 17:48 12/27/16 15:00 - Medications Medications: Current Medications Acetaminophen (Tylenol 325mg Tab) 650 mg PO TID [facility] Last Admin: 12/27/16 17:37 Dose: Not Given Enalapril Maleate (Vasotec) 2.5 mg PO BID [facility] Last Admin: 12/27/16 17:48 Dose: 2.5 mg Enoxaparin Sodium (Lovenox) 40 mg SC DAILY [facility] Furosemide (Lasix) 20 mg IVP DAILY [facility] Last Admin: 12/27/16 10:20 Dose: 20 mg Lorazepam (Ativan) 0.5 mg PO TID PRN PRN Reason: Agitation Methylprednisolone (Solu-Medrol) 20 mg IVP DAILY [facility] Last Admin: 12/27/16 10:20 Dose: 20 mg Ondansetron HCl (Zofran Inj) 4 mg IVP Q8 PRN PRN Reason: nausea Last Admin: 12/26/16 17:33 Dose: 4 mg Pantoprazole Sodium (Protonix Ec Tab) 40 mg PO DAILY [facility] Last Admin: 12/27/16 10:22 Dose: 40 mg Rosuvastatin Calcium (Crestor) 40 mg PO HS [facility] Last Admin: 12/27/16 21:39 Dose: 40 mg Tiotropium [place] (Spiriva) 18 mcg INH RQ24 [facility] Last Admin: 12/27/16 08:34 Dose: 18 mcg Tramadol HCl (Ultram) 50 mg PO TID [facility] Last Admin: 12/27/16 21:39 Dose: 50 mg - Labs Labs: 12/25/16 07:01 12/25/16 07:01 PT 12.5 SECONDS (9.7-12.2) H 12/20/16 03:25 INR 1.1 12/20/16 03:25 APTT 45 SECONDS (21-34) H 12/20/16 03:25
[2016-12-28] MEDS: Tiotropium 18 mcg Cap For Inhalation INH SCH (07:32)
[2016-12-28 07:34] LABS: BASO # 0.1 K/uL (0.0-0.2); BASO % 0.4 % (0.0-2.0); HEMOGLOBIN 10.5 g/dL (11.0-16.0); LYMPH # 1.8 K/uL (1.0-4.3); LYMPH % 14.1 % (20.0-40.0); MEAN CELL VOLUME 73.3 fL (81.0-99.0); MEAN CORPUSCULAR HEMOGLOBIN 22.7 pg (27.0-31.0); MEAN PLATELET VOLUME 8.3 fL (7.2-11.7); MONO # 1.5 K/uL (0.0-0.8); MONO % 12.2 % (0.0-10.0); NEUT # 9.2 K/uL (1.8-7.0); NEUT % 73.3 % (50.0-75.0); NRBC % 0.1 % (0.0-2.0); RBC 4.6 Mil/uL (3.80-5.20); RED CELL DISTRIBUTION WIDTH 19.1 % (11.5-14.5); WHITE BLOOD COUNT 12.5 K/uL (4.8-10.8)
[2016-12-28 07:56] LABS: ALBUMIN 3.4 g/dL (3.5-5.0)
[2016-12-28 08:00] LABS: CALCIUM 10.1 mg/dl (8.6-10.4)
--- NOTE | 2016-12-28 08:43 | RAD ---
HISTORY: pleural effusion COMPARISON: 12/26/2016 and angio chest PE October 14 2016 FINDINGS: LUNGS: A right perihilar spiculated mass is less conspicuous on chest x-ray its overlap with the underlying posterior ribs here landing right hilar structures. Surrounding similar emphysematous changes. There discoid atelectasis and/or scarring at the right lung base with some minimal patchy consolidation similar to 12/26/2016. No change in the right hemithorax noted. The more extensive left lateral and left upper pleural thickening is renoted. Pleural effusion is pre suggested. Basal compressive atelectasis and/or infiltrate is renoted. The prior CT has suggested a left hydropneumothorax this is difficult to assess on this single frontal view. PLEURA: Right apical pleural thickening as before. No right pneumothorax apparent. CARDIOVASCULAR: Mild cardiomegaly. Atherosclerotic vascular calcifications. In the upper abdomen a endovascular stent is partially visualized. OSSEOUS STRUCTURES: Dextroscoliosis VISUALIZED UPPER ABDOMEN: Normal. OTHER FINDINGS: A air-fluid level over the heart this is consistent with patient's previously referenced hiatal hernia. None. IMPRESSION: No interval change seen in the bilateral pathologies denoted above.
[2016-12-28] MEDS: MethylPREDNISolone 40 mg Vial IVP SCH (09:45)
[2016-12-28] MEDS: Enoxaparin 40 mg Syringe SC SCH (09:45)
[2016-12-28] MEDS: Pantoprazole 40 mg EC Tab PO SCH (09:46)
--- NOTE | 2016-12-28 20:45 | CP.PCM.PN ---
Subjective - Date & Time of Evaluation Date of Evaluation: 12/28/16 Time of Evaluation: 20:43 - Subjective Subjective: Patient today having still some pain over the left side of the chest. Minimal shortness of breath noted. She able to stand up. No nausea vomiting. On examination: HEENT PERRLA, neck supple No thyromegaly was noted and no cervical adenopathy noted Decreased air entry on the left lung CVS regular heart sound, no murmur Abdomen soft and no organomegaly Extremities no pedal edema, no leg swelling, pedal pulses are good. CELLULAR BIOLOGIST alert awake oriented x3 no functional neurological deficit. Chest x-ray showing evidence of worsening left-sided effusion. Assessment and recommendation: 81-year-old female with history of hypertension, peripheral of the disease, congestive heart failure, CAD, aortic aneurysm, status post repair admitted with the worsening left lung. Effusion. Patient is currently agreeing for the intervention such as thoracentesis or chest tube placement. Given the worsening situation, and in no improvement in the respirated status the patient may benefit to have a pigtail catheter. Will get evaluation by the interventional radiologist. Overall prognosis is poor Objective - Vital Signs/Intake and Output Vital Signs (last 24 hours): Temp Pulse Resp BP Pulse Ox 98.2 F 94 H 20 118/81 94 L 12/28/16 15:00 12/28/16 18:00 12/28/16 15:00 12/28/16 17:52 12/28/16 15:00 Intake and Output: 12/28/16 12/29/16 18:59 06:59 Intake Total 480 Balance 480 - Medications Medications: Current Medications Acetaminophen (Tylenol 325mg Tab) 650 mg PO TID [facility] Last Admin: 12/28/16 17:51 Dose: Not Given Enalapril Maleate (Vasotec) 2.5 mg PO BID [facility] Last Admin: 12/28/16 17:52 Dose: 2.5 mg Enoxaparin Sodium (Lovenox) 40 mg SC DAILY [facility] Last Admin: 12/28/16 09:45 Dose: 40 mg Furosemide (Lasix) 20 mg PO DAILY [facility] Lorazepam (Ativan) 0.5 mg PO TID PRN PRN Reason: Agitation Ondansetron HCl (Zofran Inj) 4 mg IVP Q8 PRN PRN Reason: nausea Last Admin: 12/26/16 17:33 Dose: 4 mg Pantoprazole Sodium (Protonix Ec Tab) 40 mg PO DAILY [facility] Last Admin: 12/28/16 09:46 Dose: 40 mg Prednisone (Prednisone Tab) 20 mg PO DAILY [facility] Rosuvastatin Calcium (Crestor) 40 mg PO HS [facility] Last Admin: 12/27/16 21:39 Dose: 40 mg Tiotropium [place] (Spiriva) 18 mcg INH RQ24 [facility] Last Admin: 12/28/16 07:32 Dose: 18 mcg Tramadol HCl (Ultram) 50 mg PO TID [facility] Last Admin: 12/28/16 17:48 Dose: 50 mg - Labs Labs: 12/28/16 07:26 12/28/16 07:26 PT 12.5 SECONDS (9.7-12.2) H 12/20/16 03:25 INR 1.1 12/20/16 03:25 APTT 45 SECONDS (21-34) H 12/20/16 03:25
[2016-12-29] MEDS: Pantoprazole 40 mg EC Tab PO SCH (10:27)
[2016-12-29] MEDS: Enoxaparin 40 mg Syringe SC SCH ×2 (10:29→13:19)
[2016-12-29] MEDS: Tiotropium 18 mcg Cap For Inhalation INH SCH (10:36)
--- NOTE | 2016-12-29 22:21 | CP.PCM.PN ---
Subjective - Date & Time of Evaluation Date of Evaluation: 12/29/16 Time of Evaluation: 08:10 - Subjective Subjective: Patient seen and evaluated No new events noted Objective - Vital Signs/Intake and Output Vital Signs (last 24 hours): Temp Pulse Resp BP Pulse Ox 97.8 F 93 H 20 119/77 93 L 12/29/16 15:00 12/29/16 15:00 12/29/16 15:00 12/29/16 18:22 12/29/16 15:00 Intake and Output: 12/29/16 12/30/16 18:59 06:59 Intake Total 480 Balance 480 - Medications Medications: Current Medications Acetaminophen (Tylenol 325mg Tab) 650 mg PO TID [facility] Last Admin: 12/29/16 18:21 Dose: 650 mg Enalapril Maleate (Vasotec) 2.5 mg PO BID [facility] Last Admin: 12/29/16 18:22 Dose: 2.5 mg Enoxaparin Sodium (Lovenox) 40 mg SC DAILY [facility] Last Admin: 12/29/16 13:19 Dose: Not Given Furosemide (Lasix) 20 mg PO DAILY [facility] Last Admin: 12/29/16 10:27 Dose: 20 mg Lorazepam (Ativan) 0.5 mg PO TID PRN PRN Reason: Agitation Last Admin: 12/29/16 10:27 Dose: 0.5 mg Ondansetron HCl (Zofran Inj) 4 mg IVP Q8 PRN PRN Reason: nausea Last Admin: 12/26/16 17:33 Dose: 4 mg Pantoprazole Sodium (Protonix Ec Tab) 40 mg PO DAILY [facility] Last Admin: 12/29/16 10:27 Dose: 40 mg Prednisone (Prednisone Tab) 20 mg PO DAILY [facility] Last Admin: 12/29/16 10:27 Dose: 20 mg Rosuvastatin Calcium (Crestor) 40 mg PO HS [facility] Last Admin: 12/28/16 21:12 Dose: 40 mg Tiotropium [place] (Spiriva) 18 mcg INH RQ24 [facility] Last Admin: 12/29/16 10:36 Dose: 18 mcg Tramadol HCl (Ultram) 50 mg PO TID [facility] Last Admin: 12/29/16 18:21 Dose: 50 mg - Labs Labs: 12/28/16 07:26 12/28/16 07:26 PT 12.5 SECONDS (9.7-12.2) H 12/20/16 03:25 INR 1.1 12/20/16 03:25 APTT 45 SECONDS (21-34) H 12/20/16 03:25
[2016-12-30] MEDS ORDERED: guaiFENesin 200 mg/10 ml Syrup UD PO PRN (00:20)
[2016-12-30] MEDS: Tiotropium 18 mcg Cap For Inhalation INH SCH (08:22)
[2016-12-30] MEDS: Pantoprazole 40 mg EC Tab PO SCH (10:40)
[2016-12-30] MEDS: guaiFENesin 100 mg/5 ml Syrup UD PO PRN (10:43)
--- NOTE | 2016-12-30 20:16 | CP.PCM.PN ---
Subjective - Date & Time of Evaluation Date of Evaluation: 12/29/16 Time of Evaluation: 20:16 - Subjective Subjective: The patient complaining of left-sided chest pain. Attempted to have the thoracentesis today, but with the CAT scan guidance if there was no evidence of fluid, but significant mass pleural-based and the pleural mass noted. In the past patient had evidence of cancer. Currently patient is comfortable otherwise. Somewhat anxious, severe respiratory distress upon exertion noted. Vital signs reviewed No neck vein distention noted Decreased air entry on the left lung CVS regular heart sound, no murmur noted Abdomen soft, nontender. Extremities no pedal edema PEST CONTROLLER ASSISTANT alert awake oriented 3, no functional neurological deficit Assessment and a condition: 81-year-old female with history of COPD, hypertension, CAD, abdominal aortic aneurysm. Status post abdominal aortic aneurysm repair. Recurrent flash pulmonary edema. Congestive heart failure. Right upper lung cancer of the lungs noted. Lung cancer adenocarcinoma. Left lung the patient has metastatic lesions, likely breast in origin. I spoke to the family in details. Unable to do the thoracentesis. Currently taking on and off BiPAP. I advised the patient to get the oncology evaluation and opinion But patient is overall prognosis is poor. Objective - Vital Signs/Intake and Output Vital Signs (last 24 hours): Temp Pulse Resp BP Pulse Ox 97.9 F 85 18 118/81 97 12/30/16 16:00 12/30/16 16:00 12/30/16 16:00 12/30/16 17:24 12/30/16 16:00 Intake and Output: 12/30/16 12/31/16 18:59 06:59 Intake Total 200 Output Total 400 Balance -200 - Medications Medications: Current Medications Acetaminophen (Tylenol 325mg Tab) 650 mg PO TID [facility] Last Admin: 12/30/16 17:25 Dose: 650 mg Enalapril Maleate (Vasotec) 2.5 mg PO BID [facility] Last Admin: 12/30/16 17:24 Dose: 2.5 mg Enoxaparin Sodium (Lovenox) 40 mg SC DAILY [facility] Last Admin: 12/29/16 13:19 Dose: Not Given Furosemide (Lasix) 20 mg PO DAILY [facility] Last Admin: 12/30/16 10:43 Dose: 20 mg Guaifenesin (Robitussin) 200 mg PO Q6H PRN PRN Reason: Cough Last Admin: 12/30/16 10:43 Dose: 200 mg Lorazepam (Ativan) 0.5 mg PO TID PRN PRN Reason: Agitation Last Admin: 12/30/16 17:24 Dose: 0.5 mg Ondansetron HCl (Zofran Inj) 4 mg IVP Q8 PRN PRN Reason: nausea Last Admin: 12/26/16 17:33 Dose: 4 mg Pantoprazole Sodium (Protonix Ec Tab) 40 mg PO DAILY [facility] Last Admin: 12/30/16 10:40 Dose: 40 mg Prednisone (Prednisone Tab) 20 mg PO DAILY [facility] Last Admin: 12/30/16 10:43 Dose: 20 mg Rosuvastatin Calcium (Crestor) 40 mg PO HS [facility] Last Admin: 12/29/16 22:36 Dose: 40 mg Tiotropium [place] (Spiriva) 18 mcg INH RQ24 [facility] Last Admin: 12/30/16 08:22 Dose: 18 mcg Tramadol HCl (Ultram) 50 mg PO TID [facility] Last Admin: 12/30/16 17:24 Dose: 50 mg - Labs Labs: 12/28/16 07:26 12/28/16 07:26 PT 12.5 SECONDS (9.7-12.2) H 12/20/16 03:25 INR 1.1 12/20/16 03:25 APTT 45 SECONDS (21-34) H 12/20/16 03:25
--- NOTE | 2016-12-30 20:16 | CP.PCM.PN ---
Subjective - Date & Time of Evaluation Date of Evaluation: 12/30/16 Time of Evaluation: 20:16 - Subjective Subjective: The patient complaining of left-sided chest pain. Attempted to have the thoracentesis yesterday, but with the CAT scan guidance if there was no evidence of fluid, but significant mass pleural-based and the pleural mass noted. In the past patient had evidence of cancer. Currently patient is comfortable otherwise. Somewhat anxious, severe respiratory distress upon exertion noted. Vital signs reviewed No neck vein distention noted Decreased air entry on the left lung CVS regular heart sound, no murmur noted Abdomen soft, nontender. Extremities no pedal edema DIVISION CONTROLLER alert awake oriented 3, no functional neurological deficit Assessment and a condition: 81-year-old female with history of COPD, hypertension, CAD, abdominal aortic aneurysm. Status post abdominal aortic aneurysm repair. Recurrent flash pulmonary edema. Congestive heart failure. Right upper lung cancer of the lungs noted. Lung cancer adenocarcinoma. Left lung the patient has metastatic lesions, likely breast in origin. I spoke to the family in details. Unable to do the thoracentesis. Currently taking on and off BiPAP. I advised the patient to get the oncology evaluation and opinion But patient is overall prognosis is poor. spoke to Objective - Vital Signs/Intake and Output Vital Signs (last 24 hours): Temp Pulse Resp BP Pulse Ox 97.9 F 85 18 118/81 97 12/30/16 16:00 12/30/16 16:00 12/30/16 16:00 12/30/16 17:24 12/30/16 16:00 Intake and Output: 12/30/16 12/31/16 18:59 06:59 Intake Total 200 Output Total 400 Balance -200 - Medications Medications: Current Medications Acetaminophen (Tylenol 325mg Tab) 650 mg PO TID [facility] Last Admin: 12/30/16 17:25 Dose: 650 mg Enalapril Maleate (Vasotec) 2.5 mg PO BID [facility] Last Admin: 12/30/16 17:24 Dose: 2.5 mg Enoxaparin Sodium (Lovenox) 40 mg SC DAILY [facility] Last Admin: 12/29/16 13:19 Dose: Not Given Furosemide (Lasix) 20 mg PO DAILY [facility] Last Admin: 12/30/16 10:43 Dose: 20 mg Guaifenesin (Robitussin) 200 mg PO Q6H PRN PRN Reason: Cough Last Admin: 12/30/16 10:43 Dose: 200 mg Lorazepam (Ativan) 0.5 mg PO TID PRN PRN Reason: Agitation Last Admin: 12/30/16 17:24 Dose: 0.5 mg Ondansetron HCl (Zofran Inj) 4 mg IVP Q8 PRN PRN Reason: nausea Last Admin: 12/26/16 17:33 Dose: 4 mg Pantoprazole Sodium (Protonix Ec Tab) 40 mg PO DAILY [facility] Last Admin: 12/30/16 10:40 Dose: 40 mg Prednisone (Prednisone Tab) 20 mg PO DAILY [facility] Last Admin: 12/30/16 10:43 Dose: 20 mg Rosuvastatin Calcium (Crestor) 40 mg PO HS [facility] Last Admin: 12/29/16 22:36 Dose: 40 mg Tiotropium [place] (Spiriva) 18 mcg INH RQ24 [facility] Last Admin: 12/30/16 08:22 Dose: 18 mcg Tramadol HCl (Ultram) 50 mg PO TID [facility] Last Admin: 12/30/16 17:24 Dose: 50 mg - Labs Labs: 12/28/16 07:26 12/28/16 07:26 PT 12.5 SECONDS (9.7-12.2) H 12/20/16 03:25 INR 1.1 12/20/16 03:25 APTT 45 SECONDS (21-34) H 12/20/16 03:25
[2016-12-30] MEDS ORDERED: DiphenhydrAMINE 12.5 mg/5 ml LIQ UD (5 ml) PO STA (20:57)
[2016-12-31 00:04] VITALS: RESP 20
[2016-12-31 00:21] LABS: ALBUMIN 3.4 g/dL (3.5-5.0)
[2016-12-31 00:25] LABS: CALCIUM 9.9 mg/dl (8.6-10.4)
--- NOTE | 2016-12-31 07:06 | CP.PCM.PN ---
Subjective - Date & Time of Evaluation Date of Evaluation: 12/30/16 Time of Evaluation: 13:30 - Subjective Subjective: Patient seen and evaluated Chest and body pains Metastatic Lung Ca H/O Vascular disease, COPD and CAD Medical management Objective - Vital Signs/Intake and Output Vital Signs (last 24 hours): Temp Pulse Resp BP Pulse Ox 97.5 F L 108 H 20 113/73 95 12/31/16 00:01 12/31/16 04:08 12/31/16 00:01 12/31/16 00:01 12/31/16 00:01 - Medications Medications: Current Medications Acetaminophen (Tylenol 325mg Tab) 650 mg PO TID [facility] Last Admin: 12/30/16 17:25 Dose: 650 mg Enalapril Maleate (Vasotec) 2.5 mg PO BID [facility] Last Admin: 12/30/16 17:24 Dose: 2.5 mg Enoxaparin Sodium (Lovenox) 40 mg SC DAILY [facility] Last Admin: 12/29/16 13:19 Dose: Not Given Furosemide (Lasix) 20 mg PO DAILY [facility] Last Admin: 12/30/16 10:43 Dose: 20 mg Guaifenesin (Robitussin) 200 mg PO Q6H PRN PRN Reason: Cough Last Admin: 12/30/16 10:43 Dose: 200 mg Lorazepam (Ativan) 0.5 mg PO TID PRN PRN Reason: Agitation Last Admin: 12/30/16 22:19 Dose: 0.5 mg Ondansetron HCl (Zofran Inj) 4 mg IVP Q8 PRN PRN Reason: nausea Last Admin: 12/31/16 06:57 Dose: 4 mg Pantoprazole Sodium (Protonix Ec Tab) 40 mg PO DAILY [facility] Last Admin: 12/30/16 10:40 Dose: 40 mg Prednisone (Prednisone Tab) 20 mg PO DAILY [facility] Last Admin: 12/30/16 10:43 Dose: 20 mg Rosuvastatin Calcium (Crestor) 40 mg PO HS [facility] Last Admin: 12/30/16 22:18 Dose: 40 mg Tiotropium [place] (Spiriva) 18 mcg INH RQ24 [facility] Last Admin: 12/30/16 08:22 Dose: 18 mcg Tramadol HCl (Ultram) 50 mg PO TID [facility] Last Admin: 12/30/16 17:24 Dose: 50 mg - Labs Labs: 12/28/16 07:26 12/30/16 22:58 PT 12.5 SECONDS (9.7-12.2) H 12/20/16 03:25 INR 1.1 12/20/16 03:25 APTT 45 SECONDS (21-34) H 12/20/16 03:25
[2016-12-31 07:21] LABS: CK-MB 1.5 ng/mL (0.0-3.38)
[2016-12-31] MEDS: Tiotropium 18 mcg Cap For Inhalation INH SCH (08:00)
[2016-12-31] MEDS: Pantoprazole 40 mg EC Tab PO SCH (09:44)
[2016-12-31] MEDS: Enoxaparin 40 mg Syringe SC SCH (09:45)
[2016-12-31] MEDS: guaiFENesin 100 mg/5 ml Syrup UD PO PRN ×2 (11:19→21:39)
--- NOTE | 2016-12-31 17:08 | CP.PCM.PN ---
Subjective - Date & Time of Evaluation Date of Evaluation: 12/31/16 Time of Evaluation: 17:08 - Subjective Subjective: Spoke to the patient's family in details. Patient will be seen by oncologist tomorrow. And further management as per the oncology. Continue the current management. Objective - Vital Signs/Intake and Output Vital Signs (last 24 hours): Temp Pulse Resp BP Pulse Ox 97.6 F 88 20 99/65 L 94 L 12/31/16 16:00 12/31/16 16:00 12/31/16 16:00 12/31/16 16:00 12/31/16 16:00 - Medications Medications: Current Medications Acetaminophen (Tylenol 325mg Tab) 650 mg PO TID [facility] Last Admin: 12/31/16 13:30 Dose: 650 mg Aspirin (Ecotrin) 81 mg PO DAILY [facility] Last Admin: 12/31/16 09:39 Dose: Not Given Enalapril Maleate (Vasotec) 2.5 mg PO BID [facility] Last Admin: 12/31/16 09:44 Dose: 2.5 mg Enoxaparin Sodium (Lovenox) 40 mg SC DAILY [facility] Last Admin: 12/31/16 09:45 Dose: 40 mg Furosemide (Lasix) 20 mg PO DAILY [facility] Last Admin: 12/31/16 09:44 Dose: 20 mg Guaifenesin (Robitussin) 200 mg PO Q6H PRN PRN Reason: Cough Last Admin: 12/31/16 11:19 Dose: 200 mg Lorazepam (Ativan) 0.5 mg PO TID PRN PRN Reason: Agitation Last Admin: 12/30/16 22:19 Dose: 0.5 mg Ondansetron HCl (Zofran Inj) 4 mg IVP Q8 PRN PRN Reason: nausea Last Admin: 12/31/16 06:57 Dose: 4 mg Pantoprazole Sodium (Protonix Ec Tab) 40 mg PO DAILY [facility] Last Admin: 12/31/16 09:44 Dose: 40 mg Prednisone (Prednisone Tab) 20 mg PO DAILY [facility] Last Admin: 12/31/16 09:49 Dose: 20 mg Rosuvastatin Calcium (Crestor) 40 mg PO HS [facility] Last Admin: 12/30/16 22:18 Dose: 40 mg Tiotropium [place] (Spiriva) 18 mcg INH RQ24 [facility] Last Admin: 12/31/16 08:00 Dose: Not Given Tramadol HCl (Ultram) 50 mg PO TID [facility] Last Admin: 12/31/16 13:29 Dose: 50 mg - Labs Labs: 12/28/16 07:26 12/30/16 22:58 PT 12.5 SECONDS (9.7-12.2) H 12/20/16 03:25 INR 1.1 12/20/16 03:25 APTT 45 SECONDS (21-34) H 12/20/16 03:25
--- NOTE | 2016-12-31 22:33 | CP.PCM.PN ---
Subjective - Date & Time of Evaluation Date of Evaluation: 12/31/16 Time of Evaluation: 18:50 - Subjective Subjective: Patient seen and evaluated Chest pain unlikely Cardiac ischemia Trops slightly elevted but CK values are very low No additional cardiac therapy other than ASA 81 daily Objective - Vital Signs/Intake and Output Vital Signs (last 24 hours): Temp Pulse Resp BP Pulse Ox 97.6 F 88 20 99/65 L 94 L 12/31/16 16:00 12/31/16 16:00 12/31/16 16:00 12/31/16 16:00 12/31/16 16:00 - Medications Medications: Current Medications Acetaminophen (Tylenol 325mg Tab) 650 mg PO TID [facility] Last Admin: 12/31/16 18:27 Dose: 650 mg Aspirin (Ecotrin) 81 mg PO DAILY [facility] Last Admin: 12/31/16 09:39 Dose: Not Given Enalapril Maleate (Vasotec) 2.5 mg PO BID [facility] Last Admin: 12/31/16 18:24 Dose: Not Given Enoxaparin Sodium (Lovenox) 40 mg SC DAILY [facility] Last Admin: 12/31/16 09:45 Dose: 40 mg Furosemide (Lasix) 20 mg PO DAILY [facility] Last Admin: 12/31/16 09:44 Dose: 20 mg Guaifenesin (Robitussin) 200 mg PO Q6H PRN PRN Reason: Cough Last Admin: 12/31/16 21:39 Dose: 200 mg Lorazepam (Ativan) 0.5 mg PO TID PRN PRN Reason: Agitation Last Admin: 12/30/16 22:19 Dose: 0.5 mg Ondansetron HCl (Zofran Inj) 4 mg IVP Q8 PRN PRN Reason: nausea Last Admin: 12/31/16 06:57 Dose: 4 mg Pantoprazole Sodium (Protonix Ec Tab) 40 mg PO DAILY [facility] Last Admin: 12/31/16 09:44 Dose: 40 mg Prednisone (Prednisone Tab) 20 mg PO DAILY [facility] Last Admin: 12/31/16 09:49 Dose: 20 mg Rosuvastatin Calcium (Crestor) 40 mg PO HS [facility] Last Admin: 12/31/16 21:36 Dose: 40 mg Tiotropium [place] (Spiriva) 18 mcg INH RQ24 [facility] Last Admin: 12/31/16 08:00 Dose: Not Given Tramadol HCl (Ultram) 50 mg PO TID [facility] Last Admin: 12/31/16 18:27 Dose: 50 mg - Labs Labs: 12/28/16 07:26 12/30/16 22:58 PT 12.5 SECONDS (9.7-12.2) H 12/20/16 03:25 INR 1.1 12/20/16 03:25 APTT 45 SECONDS (21-34) H 12/20/16 03:25
[2017-01-01 02:29] LABS: SQUAMOUS EPITHIAL 2 /hpf (0-5); URINE BACTERIA RARE (<OCC); URINE BILIRUBIN NEGATIVE (NEGATIVE); URINE BLOOD NEGATIVE (NEGATIVE); URINE CLARITY Hazy (Clear); URINE COLOR Yellow (YELLOW); URINE GLUCOSE (UA) NORMAL (Normal); URINE LEUKOCYTE ESTERASE 2+ Leu/uL (Negative); URINE NITRATE NEGATIVE (NEGATIVE); URINE PROTEIN 1+ mg/dL (NEGATIVE); URINE UROBILINOGEN NORMAL mg/dL (0.2-1.0)
[2017-01-01] MEDS: guaiFENesin 100 mg/5 ml Syrup UD PO PRN (04:20)
[2017-01-01] MEDS: Tiotropium 18 mcg Cap For Inhalation INH SCH (07:40)
[2017-01-01] MEDS: Pantoprazole 40 mg EC Tab PO SCH (10:00)
[2017-01-01] MEDS: Enoxaparin 40 mg Syringe SC SCH (10:03)
--- NOTE | 2017-01-01 14:50 | US ---
PROCEDURE: Ultrasound of left lung for purposes of thoracentesis HISTORY: Left effusion described on chest x-ray COMPARISON: TECHNIQUE: Limb ultrasound patient's left chest the right chest performed the curvilinear probe. FINDINGS: There is no right effusion. There is trace left effusion. Complex changes noticed within the lung which may represent atelectasis or underlying malignancy. IMPRESSION: No significant left effusion identified on current study. If clinically indicated, a CT scan is recommended.
--- NOTE | 2017-01-01 18:17 | CP.PCM.CON ---
History of Present Illness - History of Present Illness History of Present Illness: 81 yo woman with history of rt. lung spiculated mass, biopsy showing adenocarcinoma, TTF1 positive consistent with lung primary. More recently patient has developed SOB, poor appetite, weight loss, thoracentesis showing malignant pleural effusion, TTF1 negative, GATA1 positive( multispecific stain). ??breast primary. Patient currently resting comfortably, not c/o pain, lying flat in bed Past Patient History - Infectious Disease Hx of Infectious Diseases: None - Past Medical History & Family History Past Medical History?: Yes - Past Social History Smoking Status: Former Smoker - CARDIAC Hx Hypercholesterolemia: Yes Hx Hypertension: Yes - PULMONARY Hx Chronic Obstructive Pulmonary Disease (COPD): Yes (EMPHYSEMA) - NEUROLOGICAL Hx Neurological Disorder: No Hx Paralysis: No - HEENT Hx HEENT Problems: Yes (READING GLASSES) - ENDOCRINE/METABOLIC Hx Endocrine Disorders: No - HEMATOLOGICAL/ONCOLOGICAL Hx Blood Disorders: No Hx Blood Transfusions: No - INTEGUMENTARY Hx Dermatological Problems: No - MUSCULOSKELETAL/RHEUMATOLOGICAL Hx Musculoskeletal Disorders: No Hx Falls: No - GASTROINTESTINAL Hx Gastrointestinal Disorders: Yes (SEE COMMENT) Other/Comment: Hiatal Hernia, abdominal aneurysm - GENITOURINARY/GYNECOLOGICAL Hx Genitourinary Disorders: No - PSYCHIATRIC Hx Anxiety: Yes Hx Substance Use: No - SURGICAL HISTORY Hx Surgeries: Yes Hx Herniorrhaphy: Yes Hx Hysterectomy: Yes Hx Vascular Surgery: Yes ([facility] END[facility]IC DEVICE 11-05-15) Other/Comment: abdominal aneurysm surgery as per patient - ANESTHESIA Hx Anesthesia: Yes Hx Anesthesia Reactions: Yes (REACTED TO MORPHINE DROP IN BP) Hx Malignant Hyperthermia: No Meds Allergies/Adverse Reactions: Allergies Allergy/AdvReac Type Severity Reaction Status Date / Time carbamazepine [From Tegretol] Allergy Verified 12/20/16 02:22 morphine AdvReac Mild VOMITING Verified 12/20/16 02:22 - Medications Medications: Current Medications Acetaminophen (Tylenol 325mg Tab) 650 mg PO TID [facility] Last Admin: 01/01/17 13:27 Dose: 650 mg Aspirin (Ecotrin) 81 mg PO DAILY [facility] Last Admin: 01/01/17 10:00 Dose: 81 mg Enalapril Maleate (Vasotec) 2.5 mg PO BID [facility] Last Admin: 01/01/17 10:00 Dose: 2.5 mg Enoxaparin Sodium (Lovenox) 40 mg SC DAILY [facility] Last Admin: 01/01/17 10:03 Dose: 40 mg Furosemide (Lasix) 20 mg PO DAILY [facility] Last Admin: 01/01/17 10:00 Dose: 20 mg Guaifenesin (Robitussin) 200 mg PO Q6H PRN PRN Reason: Cough Last Admin: 01/01/17 04:20 Dose: 200 mg Lorazepam (Ativan) 0.5 mg PO TID PRN PRN Reason: Agitation Last Admin: 01/01/17 10:12 Dose: 0.5 mg Ondansetron HCl (Zofran Inj) 4 mg IVP Q8 PRN PRN Reason: nausea Last Admin: 12/31/16 06:57 Dose: 4 mg Pantoprazole Sodium (Protonix Ec Tab) 40 mg PO DAILY [facility] Last Admin: 01/01/17 10:00 Dose: 40 mg Prednisone (Prednisone Tab) 20 mg PO DAILY [facility] Last Admin: 01/01/17 10:00 Dose: 20 mg Rosuvastatin Calcium (Crestor) 40 mg PO HS [facility] Last Admin: 12/31/16 21:36 Dose: 40 mg Tiotropium [place] (Spiriva) 18 mcg INH RQ24 [facility] Last Admin: 01/01/17 07:40 Dose: 18 mcg Tramadol HCl (Ultram) 50 mg PO TID [facility] Last Admin: 01/01/17 13:26 Dose: 50 mg Results - Vital Signs Recent Vital Signs: Last Vital Signs Temp 97.2 F L 01/01/17 16:21 Pulse 101 H 01/01/17 16:21 Resp 20 01/01/17 16:21 BP 110/74 01/01/17 16:21 Pulse Ox 94 L 01/01/17 16:21 - Labs Result Diagrams: 12/28/16 07:26 12/30/16 22:58 Labs: Laboratory Results - last 24 hr 01/01/17 02:21 Urine Color Yellow Urine Clarity Hazy Urine pH 5.0 Ur Specific [place] 1.009 Urine Protein 1+ H Urine Glucose (UA) Normal Urine Ketones Negative Urine Blood Negative Urine Nitrate Negative Urine Bilirubin Negative Urine Urobilinogen Normal Ur Leukocyte Esterase 2+ H Urine WBC (Auto) 22 H Urine RBC (Auto) 2 Ur Squamous Epith Cells 2 Urine Bacteria Rare Assessment & Plan (1) Malignant pleural effusion Assessment and Plan: 81 to woman presenting with progressive SOB, CAT scan of lung showing left upper lobe mass, with rt. pleural effusion, cytology of pleural fluid positive for metastatic adenocarcinoma. Have discussed with pathology to add ER, OR and her2 lolis stains to the pathology report. Since patient is not aware of her cancer diagnosis, have not discussed potential treatment options, if the stains are positive, starting a hormonal agent will improve quality and length of life, the stains may take a few days to come back Status: Acute
--- NOTE | 2017-01-01 22:00 | CP.PCM.PN ---
Subjective - Date & Time of Evaluation Date of Evaluation: 01/01/17 Time of Evaluation: 22:00 - Subjective Subjective: Seen by oncologist today. Spoke to the family. Currently awaiting pathology report. Continue the current treatment. Patient had episode of chest pain. Positive troponin. Spoke to the elementary instructional coach. Patient is not a candidate for any aggressive treatment at this time Objective - Vital Signs/Intake and Output Vital Signs (last 24 hours): Temp Pulse Resp BP Pulse Ox 97.2 F L 101 H 20 110/73 94 L 01/01/17 16:21 01/01/17 16:21 01/01/17 16:21 01/01/17 18:36 01/01/17 16:21 Intake and Output: 01/01/17 01/02/17 18:59 06:59 Intake Total 480 Balance 480 - Medications Medications: Current Medications Acetaminophen (Tylenol 325mg Tab) 650 mg PO TID [facility] Last Admin: 01/01/17 19:38 Dose: 650 mg Aspirin (Ecotrin) 81 mg PO DAILY [facility] Last Admin: 01/01/17 10:00 Dose: 81 mg Enalapril Maleate (Vasotec) 2.5 mg PO BID [facility] Last Admin: 01/01/17 18:36 Dose: 2.5 mg Enoxaparin Sodium (Lovenox) 40 mg SC DAILY [facility] Last Admin: 01/01/17 10:03 Dose: 40 mg Furosemide (Lasix) 20 mg PO DAILY [facility] Last Admin: 01/01/17 10:00 Dose: 20 mg Guaifenesin (Robitussin) 200 mg PO Q6H PRN PRN Reason: Cough Last Admin: 01/01/17 04:20 Dose: 200 mg Lorazepam (Ativan) 0.5 mg PO TID PRN PRN Reason: Agitation Last Admin: 01/01/17 21:44 Dose: 0.5 mg Ondansetron HCl (Zofran Inj) 4 mg IVP Q8 PRN PRN Reason: nausea Last Admin: 12/31/16 06:57 Dose: 4 mg Pantoprazole Sodium (Protonix Ec Tab) 40 mg PO DAILY [facility] Last Admin: 01/01/17 10:00 Dose: 40 mg Prednisone (Prednisone Tab) 20 mg PO DAILY [facility] Last Admin: 01/01/17 10:00 Dose: 20 mg Rosuvastatin Calcium (Crestor) 40 mg PO HS [facility] Last Admin: 01/01/17 21:44 Dose: 40 mg Tiotropium [place] (Spiriva) 18 mcg INH RQ24 [facility] Last Admin: 01/01/17 07:40 Dose: 18 mcg Tramadol HCl (Ultram) 50 mg PO TID [facility] Last Admin: 01/01/17 18:37 Dose: 50 mg - Labs Labs: 12/28/16 07:26 12/30/16 22:58 PT 12.5 SECONDS (9.7-12.2) H 12/20/16 03:25 INR 1.1 12/20/16 03:25 APTT 45 SECONDS (21-34) H 12/20/16 03:25
--- NOTE | 2017-01-01 22:50 | CP.PCM.PN ---
Subjective - Date & Time of Evaluation Date of Evaluation: 01/01/17 Time of Evaluation: 18:25 - Subjective Subjective: Patient seen and evaluated No cardiac events Objective - Vital Signs/Intake and Output Vital Signs (last 24 hours): Temp Pulse Resp BP Pulse Ox 97.2 F L 101 H 20 110/73 94 L 01/01/17 16:21 01/01/17 16:21 01/01/17 16:21 01/01/17 18:36 01/01/17 16:21 Intake and Output: 01/01/17 01/02/17 18:59 06:59 Intake Total 480 Balance 480 - Medications Medications: Current Medications Acetaminophen (Tylenol 325mg Tab) 650 mg PO TID [facility] Last Admin: 01/01/17 19:38 Dose: 650 mg Aspirin (Ecotrin) 81 mg PO DAILY [facility] Last Admin: 01/01/17 10:00 Dose: 81 mg Enalapril Maleate (Vasotec) 2.5 mg PO BID [facility] Last Admin: 01/01/17 18:36 Dose: 2.5 mg Enoxaparin Sodium (Lovenox) 40 mg SC DAILY [facility] Last Admin: 01/01/17 10:03 Dose: 40 mg Furosemide (Lasix) 20 mg PO DAILY [facility] Last Admin: 01/01/17 10:00 Dose: 20 mg Guaifenesin (Robitussin) 200 mg PO Q6H PRN PRN Reason: Cough Last Admin: 01/01/17 04:20 Dose: 200 mg Lorazepam (Ativan) 0.5 mg PO TID PRN PRN Reason: Agitation Last Admin: 01/01/17 21:44 Dose: 0.5 mg Ondansetron HCl (Zofran Inj) 4 mg IVP Q8 PRN PRN Reason: nausea Last Admin: 12/31/16 06:57 Dose: 4 mg Pantoprazole Sodium (Protonix Ec Tab) 40 mg PO DAILY [facility] Last Admin: 01/01/17 10:00 Dose: 40 mg Prednisone (Prednisone Tab) 20 mg PO DAILY [facility] Last Admin: 01/01/17 10:00 Dose: 20 mg Rosuvastatin Calcium (Crestor) 40 mg PO HS [facility] Last Admin: 01/01/17 21:44 Dose: 40 mg Tiotropium [place] (Spiriva) 18 mcg INH RQ24 [facility] Last Admin: 01/01/17 07:40 Dose: 18 mcg Tramadol HCl (Ultram) 50 mg PO TID [facility] Last Admin: 01/01/17 18:37 Dose: 50 mg - Labs Labs: 12/28/16 07:26 12/30/16 22:58 PT 12.5 SECONDS (9.7-12.2) H 12/20/16 03:25 INR 1.1 12/20/16 03:25 APTT 45 SECONDS (21-34) H 12/20/16 03:25
[2017-01-02] MEDS: Tiotropium 18 mcg Cap For Inhalation INH SCH (08:05)
[2017-01-02] MEDS: Pantoprazole 40 mg EC Tab PO SCH (09:56)
[2017-01-02] MEDS: Enoxaparin 40 mg Syringe SC SCH (10:00)
[2017-01-02 17:30] VITALS: BP 107/65; PULSE 84; TEMP 98; O2SAT 94
--- NOTE | 2017-01-02 23:05 | CP.PCM.PN ---
Subjective - Date & Time of Evaluation Date of Evaluation: 01/02/17 Time of Evaluation: 07:25 - Subjective Subjective: Patient seen and evaluated Chest pain free No further cardiac work up planned for now Objective - Vital Signs/Intake and Output Vital Signs (last 24 hours): Temp Pulse Resp BP Pulse Ox 98.0 F 84 20 107/65 94 L 01/02/17 17:28 01/02/17 17:28 01/02/17 17:28 01/02/17 17:28 01/02/17 17:28 Intake and Output: 01/02/17 01/03/17 18:59 06:59 Intake Total 400 Balance 400 - Labs Labs: 12/28/16 07:26 12/30/16 22:58 PT 12.5 SECONDS (9.7-12.2) H 12/20/16 03:25 INR 1.1 12/20/16 03:25 APTT 45 SECONDS (21-34) H 12/20/16 03:25
--- NOTE | 2017-01-03 08:53 | PCM.HF ---
Heart Failure Core Measure - Heart Failure Ejection Fraction: 40 % or Greater GOLDIE Inhibitor Prescribed: Yes Beta-Cherelle Prescribed: None Contraindication/Reason for not providing: copd Angiotensin II Receptor Cherelle Prescribed: No Contraindication/Reason for not providing: on goldie AnticoagulationTherapy for Atrial Fibrillation/Atrialflutter: Yes Aldosterone Antagonist Prescribed: No Contraindication/Reason for not providing: ef>45 Hydralazine Nitrate Prescribed: No Contraindication/Reason for not providing: ef>45 Implantable Cardioverter Defibrillator Therapy: No Contraindication/Reason for not providing: ef>45 Cardiac Resynchronization Therapy Prescribed: No Contraindication/Reason for not providing: ef>45 - Follow up Will be discharged to: Home Follow Up Date (must be within 7 days from discharge): 01/08/17 Follow Up Time: 09:00
--- NOTE | 2017-01-03 14:56 | CARD ---
APPROVED REPORT EKG Measurement Heart [id number] DC [id number] <Conclusion> Sinus tachycardia with occasional premature ventricular complexes Left ventricular hypertrophy with QRS widening and repolarization abnormality Abnormal ECG
--- NOTE | 2017-01-03 14:56 | CARD ---
APPROVED REPORT EKG Measurement Heart [id number] <Conclusion> Sinus rhythm with occasional premature ventricular complexes Left axis deviation Left ventricular hypertrophy with QRS widening Nonspecific T wave abnormality Abnormal ECG
--- NOTE | 2017-01-11 16:00 | CP.PCM.DIS ---
Provider - Provider Date of Admission: 12/20/16 05:21 Attending physician: Addie Garnica MD Time Spent in preparation of Discharge (in minutes): 45 Hospital Course - Lab Results Lab Results: Most Recent Lab Values WBC 12.5 K/uL (4.8-10.8) H 12/28/16 07:26 RBC 4.60 Mil/uL (3.80-5.20) 12/28/16 07:26 Hgb 10.5 g/dL (11.0-16.0) L 12/28/16 07:26 Hct 33.7 % (34.0-47.0) L 12/28/16 07:26 MCV 73.3 fL (81.0-99.0) L 12/28/16 07:26 MCH 22.7 pg (27.0-31.0) L 12/28/16 07:26 MCHC 31.0 g/dL (33.0-37.0) L 12/28/16 07:26 RDW 19.1 % (11.5-14.5) H 12/28/16 07:26 Plt Count 425 K/uL (130-400) H 12/28/16 07:26 MPV 8.3 fL (7.2-11.7) 12/28/16 07:26 Neut % (Auto) 73.3 % (50.0-75.0) 12/28/16 07:26 Lymph % (Auto) 14.1 % (20.0-40.0) L 12/28/16 07:26 [place] % (Auto) 12.2 % (0.0-10.0) H 12/28/16 07:26 Eos % (Auto) 0.0 % (0.0-4.0) 12/28/16 07:26 Baso % (Auto) 0.4 % (0.0-2.0) 12/28/16 07:26 Neut # 9.2 K/uL (1.8-7.0) H 12/28/16 07:26 Lymph # 1.8 K/uL (1.0-4.3) 12/28/16 07:26 [place] # 1.5 K/uL (0.0-0.8) H 12/28/16 07:26 Eos # 0.0 K/uL (0.0-0.7) 12/28/16 07:26 Baso # 0.1 K/uL (0.0-0.2) 12/28/16 07:26 PT 12.5 SECONDS (9.7-12.2) H 12/20/16 03:25 INR 1.1 12/20/16 03:25 APTT 45 SECONDS (21-34) H 12/20/16 03:25 Puncture Site Rr 12/25/16 14:10 pCO2 42 mm/Hg (35-45) 12/25/16 14:10 pO2 45 mm/Hg (80-100) L 12/25/16 14:10 HCO3 30.7 mmol/L (21-28) H 12/25/16 14:10 ABG pH 7.49 (7.35-7.45) H 12/25/16 14:10 ABG Total CO2 33.3 mmol/L (22-28) H 12/25/16 14:10 ABG O2 Saturation 87.7 % (95-98) L 12/25/16 14:10 ABG Base Excess 7.8 mmol/L (-2.0-3.0) H 12/25/16 14:10 ABG Hemoglobin 13.0 g/dL (11.7-17.4) 12/25/16 14:10 ABG Carboxyhemoglobin 1.5 % (0.5-1.5) 12/25/16 14:10 POC ABG HHb (Measured) 11.9 % (0.0-5.0) H 12/25/16 14:10 ABG Methemoglobin 1.4 % (0.0-3.0) 12/25/16 14:10 [place] Test Pos 12/25/16 14:10 ABG Potassium 2.9 mmol/L (3.6-5.2) L 12/20/16 03:33 A-a O2 Difference 52.0 mm/Hg 12/25/16 14:10 Respiratory Index 1.2 12/25/16 14:10 Hgb O2 Saturation 85.2 % (95.0-98.0) L 12/25/16 14:10 Sodium 144.0 mmol/l (132-148) 12/20/16 03:33 Chloride 114.0 mmol/L (98-107) H 12/20/16 03:33 Glucose 91 mg/dl (65-105) 12/20/16 03:33 Lactate 1.0 mmol/L (0.7-2.1) 12/20/16 03:33 Liter Flow 3.0 12/20/16 03:33 FiO2 21.0 % 12/25/16 14:10 Crit Value Called To Md kate bryant 12/20/16 03:33 Crit Value Called By R alert wire machine operator 12/20/16 03:33 Crit Value Read Back Y 12/20/16 03:33 Blood Gas Notified Time 340 12/20/16 03:33 Sodium 129 mmol/L (132-148) L 12/30/16 22:58 Potassium 4.2 mmol/L (3.6-5.2) 12/30/16 22:58 Chloride 86 mmol/L (98-107) L 12/30/16 22:58 Carbon Dioxide 33 mmol/L (22-30) H 12/30/16 22:58 Anion Gap 14 (10-20) 12/30/16 22:58 BUN 32 mg/dL (7-17) H 12/30/16 22:58 Creatinine 1.5 MG/DL (0.7-1.2) H 12/30/16 22:58 Est GFR ( Amer) 40 12/30/16 22:58 Est GFR (Non-Af Amer) 33 12/30/16 22:58 Random Glucose 128 mg/dL (65-105) H 12/30/16 22:58 Calcium 9.9 mg/dl (8.6-10.4) 12/30/16 22:58 Magnesium 2.4 mg/dL (1.6-2.3) H 12/25/16 07:01 Total Bilirubin 0.5 mg/dL (0.2-1.3) 12/30/16 22:58 AST 31 U/L (14-36) 12/30/16 22:58 ALT 31 U/L (9-52) 12/30/16 22:58 Alkaline Phosphatase 90 U/L (38-126) 12/30/16 22:58 Total Creatine Kinase 27 U/L (30-135) L 12/31/16 06:40 CK-MB (Mass) 1.50 ng/mL (0.0-3.38) 12/31/16 06:40 Troponin I, Quant 0.3090 ng/mL (0.00-0.120) H* 12/31/16 06:40 NT-Pro-B Natriuret Pep 3470 pg/mL (0-900) H 12/20/16 03:25 Total Protein 6.9 g/dL (6.3-8.3) 12/30/16 22:58 Albumin 3.4 g/dL (3.5-5.0) L 12/30/16 22:58 Globulin 3.5 gm/dL (2.2-3.9) 12/30/16 22:58 Albumin/Globulin Ratio 1.0 (1.0-2.1) 12/30/16 22:58 Arterial Blood Potassium 2.9 mmol/L (3.6-5.2) L 12/20/16 03:33 Urine Color Yellow (YELLOW) 01/01/17 02:21 Urine Clarity Hazy (Clear) 01/01/17 02:21 Urine pH 5.0 (5.0-8.0) 01/01/17 02:21 Ur Specific [place] 1.009 (1.003-1.030) 01/01/17 02:21 Urine Protein 1+ mg/dL (NEGATIVE) H 01/01/17 02:21 Urine Glucose (UA) Normal mg/dL (Normal) 01/01/17 02:21 Urine Ketones Negative mg/dL (NEGATIVE) 01/01/17 02:21 Urine Blood Negative (NEGATIVE) 01/01/17 02:21 Urine Nitrate Negative (NEGATIVE) 01/01/17 02:21 Urine Bilirubin Negative (NEGATIVE) 01/01/17 02:21 Urine Urobilinogen Normal mg/dL (0.2-1.0) 01/01/17 02:21 Ur Leukocyte Esterase 2+ Divine/uL (Negative) H 01/01/17 02:21 Urine WBC (Auto) 22 /hpf (0-5) H 01/01/17 02:21 Urine RBC (Auto) 2 /hpf (0-3) 01/01/17 02:21 Ur Squamous Epith Cells 2 /hpf (0-5) 01/01/17 02:21 Urine Bacteria Rare (<OCC) 01/01/17 02:21 - Hospital Course Hospital Course: 81-year-old female with history of severe COPD, abdominal aortic aneurysm, status post a stent, CAD, significant heart failure, and recurrent flash pulmonary edema, renal insufficiency. Severe peripheral vascular disease. Oxygen dependent. On home oxygen. Patient recently hospitalized with a left-sided pleural effusion, hydropneumothorax, complicated with a malignant pleural effusion Patient hospitalized at this time, left-sided chest pain, shortness of breath, and wheezing. Patient was recently at [facility], treated for pulmonary embolism, and also patient treated with antibiotic for possible pneumonia. Now having increasing shortness of breath, left leg swelling, and also increasing leg swelling bilaterally, and associate with shortness of breath. During the hospital stay patient started having increasing SOB. Placed on BiPAP. Diuretics, bronchodilators, and the corticosteroid started. Slowly patient condition stabilized. Oncology evaluation called. Awaiting for the results about the tissue diagnosis of the malignancy. As an outpatient the treatment management will be discussed with the family as well as patient. Final diagnosis of decompensated heart failure. Acute on chronic respirated failure. Home oxygen. Pneumonia. Pulmonary embolism. COPD. Hypertension. Peripheral vascular disease. Active aneurysm. Malignant pleural effusion. Medications reviewed. Patient will be going home today and the Will follow the patient Discharge Plan - Discharge Medications Prescriptions: LORazepam [Ativan] 0.5 mg PO TID PRN #30 tab PRN Reason: Agitation Aspirin [Ecotrin] 81 mg PO DAILY #30 Furosemide [Lasix] 20 mg PO DAILY #30 tab predniSONE [predniSONE Tab] 20 mg PO DAILY #30 tab Acetaminophen [Tylenol 325mg tab] 650 mg PO Q6 PRN #30 tab PRN Reason: Pain, Severe (8-10) traMADol [Ultram] 50 mg PO TID #45 tab - Follow Up Plan Condition: GUARDED Disposition: HOME/ ROUTINE Instructions: Furosemide (By mouth), Acetaminophen (By mouth), Lorazepam (By mouth), Prednisone (By mouth), Aspirin (By mouth), Tramadol (By mouth), Heart Failure (DC), Heart Healthy Diet (DC), Using Oxygen at Home (DC), Pleural Effusion (DC), Weakness (ED), Dyspnea (GEN) Additional Instructions: Follow up with Dr. Garnica in one week. New medications prescribed. Take as directed. Continue home medications as directed. Use oxygen at home as directed. If symptoms worsen, return to the emergency department. Referrals: Addie Garnica MD [Staff Provider] -
== END 2017-01-02 21:07 | disposition home or self-care (01) | DRG 544 ==
LOC: C.ER 02:02 → C.9E 05:21 → C.5T 09:35
PROVIDERS: ADMIT Internal Medicine; ATTEND Internal Medicine
PROC: 5A09557 Assistance with Respiratory Ventilation, Greater than 96 Consecutive Hours, Continuous Positive Airway Pressure (ICD-10-PCS; principal; 2016-12-20)
PROC: BB4BZZZ Ultrasonography of Pleura (ICD-10-PCS; 2016-12-29)
DX: I11.0 Hypertensive heart disease with heart failure (principal); J96.21 Acute and chronic respiratory failure with hypoxia; J91.0 Malignant pleural effusion; C78.02 Secondary malignant neoplasm of left lung; I26.99 Other pulmonary embolism without acute cor pulmonale; J18.9 Pneumonia, unspecified organism; I73.9 Peripheral vascular disease, unspecified; C34.11 Malignant neoplasm of upper lobe, right bronchus or lung; J44.0 Chronic obstructive pulmonary disease with (acute) lower respiratory infection; I71.4 Abdominal aortic aneurysm, without rupture; J44.9 Chronic obstructive pulmonary disease, unspecified; C50.919 Malignant neoplasm of unspecified site of unspecified female breast; J43.9 Emphysema, unspecified; I50.9 Heart failure, unspecified; R07.89 Other chest pain; I25.10 Atherosclerotic heart disease of native coronary artery without angina pectoris; E78.00 Pure hypercholesterolemia, unspecified; M81.0 Age-related osteoporosis without current pathological fracture; M19.90 Unspecified osteoarthritis, unspecified site; K44.9 Diaphragmatic hernia without obstruction or gangrene; Z99.81 Dependence on supplemental oxygen; Z79.82 Long term (current) use of aspirin; Z87.891 Personal history of nicotine dependence; Z90.710 Acquired absence of both cervix and uterus; Z88.5 Allergy status to narcotic agent

== ENCOUNTER 2017-01-03 11:48 | Inpatient (IN) | payer OTHER, MEDICARE ==
[2017-01-03 11:48] VITALS: BMI 25.9
[2017-01-03] MEDS ORDERED: Sodium Chloride 0.9% 1,000 ML IV ONE (12:15)
--- NOTE | 2017-01-03 12:18 | C.PDOC ---
History Of Present Illness 81 y/o female presents to ED with complaints of sob and diarrhea since yesterday. Patient was seen at ED yesterday for similar symptoms and was discharged home after being treated. Patient reports symptoms have not improved and came to ED for further evaluation. Patient is Maced[place] speaking and denies fever, chills, nausea, vomiting, chest pain or any other complaints at this time. Time Seen by Provider: 01/03/17 11:51 Chief Complaint (Nursing): Shortness Of Breath History Per: Patient History/Exam Limitations: no limitations Onset/Duration Of Symptoms: Days Current Symptoms Are (Timing): Still Present Past Medical History Reviewed: Historical Data, Nursing Documentation, Vital Signs Vital Signs: Last Vital Signs Temp 98.5 F 01/03/17 16:11 Pulse 108 H 01/03/17 16:11 Resp 20 01/03/17 16:11 BP 102/62 01/03/17 16:11 Pulse Ox 93 L 01/03/17 16:11 - Medical History PMH: Anxiety, COPD (EMPHYSEMA), Emphysema, Hiatal Hernia, HTN, Hypercholesterolemia, Peripheral Edema (FEET), Pneumonia (november 2016) Surgical History: Endoscopy - [facility] Procedures ASSISTANCE WITH RESPIRATORY VENTILATION, <24 HRS, CPAP (05/23/16) DRAINAGE OF L PLEURAL CAV WITH DRAIN DEV, OPEN APPROACH (10/14/16) RESTRICT OF L INT ILIAC ART WITH INTRALUM DEV, PERC APPROACH (04/29/15) RESTRICTION OF ABD AORTA WITH INTRALUM DEV, PERC APPROACH (04/29/15) Family History: States: Unknown Family Hx - Social History Hx Tobacco Use: No Hx Alcohol Use: No Hx Substance Use: No - Immunization History Hx Tetanus Toxoid Vaccination: Yes Hx Influenza Vaccination: Yes (05/26/16) Hx Pneumococcal Vaccination: Yes Review Of Systems Except As Marked, All Systems Reviewed And Found Negative. Constitutional: Negative for: Fever, Chills Cardiovascular: Negative for: Chest Pain Respiratory: Positive for: Shortness of Breath Gastrointestinal: Negative for: Nausea, Vomiting, Diarrhea Skin: Negative for: Rash Physical Exam - Physical Exam Appears: Non-toxic, No Acute Distress Skin: Normal Color, Warm Head: Atraumatic, Normacephalic Chest: Symmetrical Cardiovascular: Rhythm Regular, No Murmur Respiratory: Normal Breath Sounds, No Rales, No Rhonchi, No Wheezing Gastrointestinal/Abdominal: Tenderness (Mild diffuse abdominal tenderness), No Guarding, No Rebound Extremity: Normal ROM, Capillary Refill (<2 seconds) Neurological/Psych: Oriented x3 ED Course And Treatment - Laboratory Results Result Diagrams: 01/03/17 12:36 01/03/17 12:36 Lab Interpretation: Abnormal ECG Rhythm: Sinus Tachycardia Rate From EC (bpm) O2 Sat by Pulse Oximetry: 85 (RA) Pulse Ox Interpretation: Abnormal - Radiology CXR: Viewed By Me, Read By Radiologist - Other Rad No standard instances X-Ray: Viewed By Me, Read By Radiologist Interpretation: FINDINGS: LUNGS: There is interval improved aeration in both lungs. There is persistent retrocardiac opacity in the left lung. The lungs are hyperinflated. PLEURA: There is interval improvement in left pleural effusion which is likely loculated along the lateral margin. No pneumothorax or right pleural fluid seen. CARDIOVASCULAR: Normal. OSSEOUS STRUCTURES: No significant abnormalities. VISUALIZED UPPER ABDOMEN: Normal. OTHER FINDINGS: None. IMPRESSION: Improving left lower lobe pneumonia and pleural effusion which is likely loculated along the lateral margin. COPD. - CT Scan/US No standard instances Other Rad Studies (CT/US): Read By Radiologist, Radiology Report Reviewed CT/US Interpretation: FINDINGS: LOWER THORAX: The current study re- demonstrates large hiatal hernia and/or eventration of the diaphragm which is associated with herniation of mesenteric fat as well. Small left-sided effusion decreased from prior study. Mild left basilar atelectasis. Minor right basilar atelectasis. Heart appears enlarged. LIVER: Liver exhibits normal size measuring approximately 13.5 cm in CC dimension. . There are the subtle low- attenuation changes are seen in the left lobe bordering the fissure likely representing localized fat. Possibility of small hemangioma formation not excluded. There is a tiny/punctate calcification left lobe liver along the posterior surface left lobe liver probably representing a granuloma and related to prior exposure to granulomatous disease process. GALLBLADDER AND BILE DUCTS : Multiple intraluminal gallbladder calculi seen. PANCREAS: Pancreas is slightly atrophic and fatty replaced. There are no pancreatic masses or collections. SPLEEN: Spleen exhibits normal size and attenuation pattern. ADRENALS: The slightly nodular appearing right adrenal gland with a tiny calcification possibly dystrophic in nature. . There is also mild enlargement of the left adrenal gland. Clinical correlation recommended. KIDNEYS AND URETERS: The kidneys demonstrate relatively symmetric size. There is a tiny calcification seen in the left hilum possibility vascular in origin. Two adjacent small low-attenuation foci the lateral aspect upper pole right kidney and another along the anterior midpole -lower pole and another very small focus low attenuation along the lateral aspect midpole left kidney likely representing renal cyst. BLADDER: Urinary bladder is incompletely distended which may account for thick-walled appearance. Possibility of a cystitis not excluded. REPRODUCTIVE: Uterus is not visible presumably secondary hysterectomy per clinical correlation recommended. APPENDIX: Unremarkable as indicated below. BOWEL: Evaluation of the bowel is slightly limited due to the lack of oral contrast material. The stomach is the nondistended which presumably accounts for thick-walled appearance. Visualized loops of small bowel exhibit normal contour and caliber. No evidence acute mechanical small bowel obstruction. What is felt to represent normal appendix of best seen on axial image number [id number] and coronal image number [id number]. No periappendiceal inflammatory changes. There is moderate wall thickening of a short segment of the distal descending and sigmoid colon with some vague infiltration changes in the adjacent mesenteric with less severe wall thickening of the mid and distal descending colon. Findings likely related to a given the length of segment involved however of diverticulosis involving this segment of bowel was present on the prior exam and the possibility of early long segment diverticulitis cannot be completely excluded. The note also that the possibility of an intrinsic/ invasive wall lesion should also be excluded. Consider followup colonoscopy following treatment. PERITONEUM: No free or loculated fluid collections. No evidence of gross free intraperitoneal air. LYMPH NODES: No free fluid. Unremarkable. No enlarged lymph nodes. VASCULATURE: Endovascular stent repair of an infrarenal abdominal aortic aneurysm. Endovascular stents extend into the iliac arteries. BONES: The osseous structures appear grossly intact. . OTHER FINDINGS: None. IMPRESSION: Moderate wall thickening of a short segment of the distal descending and sigmoid colon with some vague infiltration changes in the adjacent mesenteric with less severe wall thickening of the mid and distal descending colon. Findings likely related to a given the length of segment involved however of diverticulosis involving this segment of bowel was present on the prior exam and the possibility of early long segment diverticulitis cannot be completely excluded. The note also that the possibility of an intrinsic/ invasive wall lesion should also be excluded. Consider followup colonoscopy following treatment. No evidence of acute appendicitis. Endovascular repair infrarenal abdominal aortic aneurysm. Multiple low-attenuation foci both kidneys likely representing renal cysts. Cholelithiasis. Low-attenuation changes seen left lobe liver bordering the fissure likely representing localize fat. Possibility of a hemangioma not completely excluded. Large hiatal hernia. Decrease size left-sided effusion with mild left basilar atelectasis. Progress Note: Treated with IVF NSS and percocet 5/325 mg PO x1. Treated with flagyl and cipro IV. On re-evaluation lungs clear Reassessment Condition: Improved - Physician Consult Information Physician Contacted: Addie Garnica Outcome Of Conversation: admit Medical Decision Making Medical Decision Making: Plan: Labs Disposition Discussed With Dr.: Addie Garnica Doctor Will See Patient In The: Hospital - Disposition Disposition: HOSPITALIZED Disposition Time: 13:45 Condition: STABLE - POA Present On Arrival: None - Clinical Impression Clinical Impression: Lung cancer, Abdominal pain, Respiratory distress - Scribe Statement The provider has reviewed the documentation as recorded by the Scribe Braulio Huntley All medical record entries made by the Scribe were at my direction and personally dictated by me. I have reviewed the chart and agree that the record accurately reflects my personal performance of the history, physical exam, medical decision making, and the department course for this patient. I have also personally directed, reviewed, and agree with the discharge instructions and disposition. Decision To Admit - Pt Status Changed To: Hospital Disposition Of: Inpatient - Admit Certification Admit to Inpatient:: After my assessment, the patient will require hospitalization for at least two midnights. This is because of the severity of symptoms shown, intensity of services needed, and/or the medical risk in this patient being treated as an outpatient. - InPatient: Physician Admission Certification: I certify that this patient requires 2 or more midnights of care for the following reason:: Abdominal Pain. Dyspnea. Diverticulitis - . Bed Request Type: Regular Patient Diagnosis: Lung cancer, Abdominal pain, Respiratory distress
[2017-01-03] MEDS ORDERED: Sodium Chloride 0.9% 1,000 ML ONE (12:24)
[2017-01-03] MEDS: Albuterol-Ipratrop 3 mg / 0.5 (3 ml) UD IH SCH ×2 (12:30→12:45)
[2017-01-03] MEDS ORDERED: Albuterol-Ipratrop 3 mg / 0.5 (3 ml) UD ONE ×2 (12:35→12:44)
[2017-01-03 12:46] LABS: BASO # 0.1 K/uL (0.0-0.2); BASO % 0.6 % (0.0-2.0); EOS % 0.1 % (0.0-4.0); HEMATOCRIT 34.8 % (34.0-47.0); LYMPH # 1.1 K/uL (1.0-4.3); MEAN CELL VOLUME 72.4 fL (81.0-99.0); MEAN CORPUSCULAR HEMOGLOBIN 22.4 pg (27.0-31.0); MEAN PLATELET VOLUME 8.4 fL (7.2-11.7); MONO # 1.6 K/uL (0.0-0.8); MONO % 7.5 % (0.0-10.0); NRBC % 0.1 % (0.0-2.0); RED CELL DISTRIBUTION WIDTH 18.6 % (11.5-14.5)
[2017-01-03 12:47] LABS: PLATELET COUNT 170 K/uL (130-400); WHITE BLOOD COUNT 21.3 K/uL (4.8-10.8)
[2017-01-03 12:56] LABS: NEUTROPHIL 87 % (50-75); TOTAL CELLS COUNTED 100
[2017-01-03 12:57] LABS: LARGE PLATELETS PRESENT
[2017-01-03 13:05] LABS: POTASSIUM 4.1 mmol/L (3.6-5.2)
[2017-01-03 13:07] LABS: BILIRUBIN,TOTAL 0.7 mg/dL (0.2-1.3); TOTAL PROTEIN 6.6 g/dL (6.3-8.3)
[2017-01-03 13:08] LABS: CALCIUM 9.8 mg/dl (8.6-10.4)
[2017-01-03] MEDS ORDERED: Oxycodone/Acetaminophen 5/325 mg Tab PO STA (13:27)
--- NOTE | 2017-01-03 13:29 | RAD ---
PROCEDURE: CHEST RADIOGRAPH, 1 VIEW HISTORY: SOB COMPARISON: 12/26/2016 FINDINGS: LUNGS: There is interval improved aeration in both lungs. There is persistent retrocardiac opacity in the left lung. The lungs are hyperinflated. PLEURA: There is interval improvement in left pleural effusion which is likely loculated along the lateral margin. No pneumothorax or right pleural fluid seen. CARDIOVASCULAR: Normal. OSSEOUS STRUCTURES: No significant abnormalities. VISUALIZED UPPER ABDOMEN: Normal. OTHER FINDINGS: None. IMPRESSION: Improving left lower lobe pneumonia and pleural effusion which is likely loculated along the lateral margin. COPD.
[2017-01-03] MEDS ORDERED: Oxycodone/Acetaminophen 5/325 mg Tab ONE (13:35)
[2017-01-03 13:40] LABS: RBC URINE 17 /hpf (0-3); URINE BACTERIA RARE (<OCC); URINE BILIRUBIN NEGATIVE (NEGATIVE); URINE BLOOD 1+ (NEGATIVE); URINE COLOR Yellow (YELLOW); URINE GLUCOSE (UA) NORMAL (Normal); URINE KETONE TRACE mg/dL (NEGATIVE); URINE LEUKOCYTE ESTERASE 3+ Leu/uL (Negative); URINE PROTEIN 2+ mg/dL (NEGATIVE); URINE UROBILINOGEN NORMAL mg/dL (0.2-1.0); WBC URINE 35 /hpf (0-5)
--- NOTE | 2017-01-03 14:51 | CT ---
PROCEDURE: CT abdomen and pelvis dated 01/03/2017. HISTORY: Pain COMPARISON: Comparison made with CTA chest dated 10/14/[address] scan abdomen and pelvis 05/23/2016 TECHNIQUE: Contiguous axial images of the abdomen and pelvis. Oral contrast was administered. No IV contrast given. Coronal and Sagittal reformats generated. Radiation dose: Total exam DLP = 964.35 mGy-cm. This CT exam was performed using one or more of the following dose reduction techniques: Automated exposure control, adjustment of the mA and/or kV according to patient size, and/or use of iterative reconstruction technique. FINDINGS: LOWER THORAX: The current study re- demonstrates large hiatal hernia and/or eventration of the diaphragm which is associated with herniation of mesenteric fat as well. Small left-sided effusion decreased from prior study. Mild left basilar atelectasis. Minor right basilar atelectasis. Heart appears enlarged. LIVER: Liver exhibits normal size measuring approximately 13.5 cm in CC dimension. . There are the subtle low-attenuation changes are seen in the left lobe bordering the fissure likely representing localized fat. Possibility of small hemangioma formation not excluded. There is a tiny/punctate calcification left lobe liver along the posterior surface left lobe liver probably representing a granuloma and related to prior exposure to granulomatous disease process. GALLBLADDER AND BILE DUCTS: Multiple intraluminal gallbladder calculi seen. PANCREAS: Pancreas is slightly atrophic and fatty replaced. There are no pancreatic masses or collections. SPLEEN: Spleen exhibits normal size and attenuation pattern. ADRENALS: The slightly nodular appearing right adrenal gland with a tiny calcification possibly dystrophic in nature. . There is also mild enlargement of the left adrenal gland. Clinical correlation recommended. KIDNEYS AND URETERS: The kidneys demonstrate relatively symmetric size. There is a tiny calcification seen in the left hilum possibility vascular in origin. Two adjacent small low-attenuation foci the lateral aspect upper pole right kidney and another along the anterior midpole -lower pole and another very small focus low attenuation along the lateral aspect midpole left kidney likely representing renal cyst. BLADDER: Urinary bladder is incompletely distended which may account for thick-walled appearance. Possibility of a cystitis not excluded. REPRODUCTIVE: Uterus is not visible presumably secondary hysterectomy per clinical correlation recommended. APPENDIX: Unremarkable as indicated below. BOWEL: Evaluation of the bowel is slightly limited due to the lack of oral contrast material. The stomach is the nondistended which presumably accounts for thick-walled appearance. Visualized loops of small bowel exhibit normal contour and caliber. No evidence acute mechanical small bowel obstruction. What is felt to represent normal appendix of best seen on axial image number [id number] and coronal image number [id number] 61. No periappendiceal inflammatory changes. There is moderate wall thickening of a short segment of the distal descending and sigmoid colon with some vague infiltration changes in the adjacent mesenteric with less severe wall thickening of the mid and distal descending colon. Findings likely related to a given the length of segment involved however of diverticulosis involving this segment of bowel was present on the prior exam and the possibility of early long segment diverticulitis cannot be completely excluded. The note also that the possibility of an intrinsic/ invasive wall lesion should also be excluded. Consider followup colonoscopy following treatment PERITONEUM: No free or loculated fluid collections. No evidence of gross free intraperitoneal air. LYMPH NODES: No free fluid Unremarkable. No enlarged lymph nodes. VASCULATURE: Endovascular stent repair of an infrarenal abdominal aortic aneurysm. Endovascular stents extend into the iliac arteries. BONES: The osseous structures appear grossly intact. . OTHER FINDINGS: None. IMPRESSION: Moderate wall thickening of a short segment of the distal descending and sigmoid colon with some vague infiltration changes in the adjacent mesenteric with less severe wall thickening of the mid and distal descending colon. Findings likely related to a given the length of segment involved however of diverticulosis involving this segment of bowel was present on the prior exam and the possibility of early long segment diverticulitis cannot be completely excluded. The note also that the possibility of an intrinsic/ invasive wall lesion should also be excluded. Consider followup colonoscopy following treatment. No evidence of acute appendicitis. Endovascular repair infrarenal abdominal aortic aneurysm. Multiple low-attenuation foci both kidneys likely representing renal cysts. Cholelithiasis. Low-attenuation changes seen left lobe liver bordering the fissure likely representing localize fat. Possibility of a hemangioma not completely excluded. Large hiatal hernia. Decrease size left-sided effusion with mild left basilar atelectasis.
[2017-01-03] MEDS ORDERED: Ciprofloxacin 400mg/200ml D5W 400 MG/200 ML BAG IV STA (15:03)
[2017-01-03] MEDS ORDERED: metroNIDAZOLE IV 500 mg/100 ml 500 MG/100 ML BAG IV ONE (15:15)
[2017-01-03] MEDS: Tramadol 25 mg PO SCH (17:54)
[2017-01-03] MEDS ORDERED: Sodium Chloride 0.9% 1,000 ML IV SCH (20:00)
--- NOTE | 2017-01-03 21:44 | CP.PCM.HP ---
History of Present Illness - History of Present Illness History of Present Illness: Chief complaint: abdominal pain. History present illness: 81-year-old female with history of hypertension, congestive heart failure, chronic obstructive lung disease, chronic smoking, abdominal aortic aneurysm status post repair,patient came to the emergency room. Patient was recently hospitalized with the shortness of breath, and heart failure and was discharged yesterday. Last nightpatient went home, she was doing okay, this morning, patient started having some nausea, not eating well. She was feeling more nauseated sensation and also started having some epigastric discomfort, and one episode. The patient's home health aide called the ambulance,patient was brought to the emergency room following that In the emergency room patient started having some discomfort, abdominal pain.And one episode of vomiting. Mostly bile in nature. She was also noted to have tachycardia, and the shortness of breath identified. patient was recently diagnosed with possible lung cancer, and thesuspected metastatic lesion in the left lung the workup is still pending the markers not available yet. Oncology on board, awaiting for thefinal results. He was also recently hospitalized at [facility] with a possible pneumonia. At the time patient was managed conservatively. And during the time patient was noted to have evidence of pulmonary embolism, received anticoagulation. While she was on Lovenox therapeutic dose, patient had a 2 episodes of hemoptysis so lovenox hold at this time, but currently on prophylactic dose of anticoagulation Past medical history: Hypertension and hypercholesteremia COPD emphysematous lung disease CHF abdominal aortic aneurysm stent placement Surgical history: Inguinal hernia surgery, recent abdominal aortic stent placement Family history noncontributory Review of system noted from the chart Mild shortness of breath noted. Poor appetite noted On examination: Patient is having sinus tachycardia. Abdominal pain noted, abdomen tenderness noted. Diffuse abdominal distention and tenderness present. Bilateral wheezing noted. Mild tachycardia noted. Labs reviewed CAT scan of the abdomen showing evidence of suspected colitis. Unclear. Patient had an episode of diarrhea. Elevated WBC noted. No fever. Chest x-ray showing no new changes Assessment/condition: 80-year-old female with history of hypercholesteremia hypertension COPD emphysematous lung disease congestive heart failure aortic aneurysm Currently patient admitted to the hospital with the acute abdominal pain, most likely colitis. Antibiotic associated colitis cannot be ruled out. Patient was receiving antibiotic while at the [facility]. Possibility of C. difficile colitis. We will get a C. difficile testing. IV fluid. We'll start the patient on vancomycin by mouth. Flagyl.. Patient will need to be monitored closely. She is at high risk for recurrent flash pulmonary edema. Patient gets into very anxious about even small stress. At this time will closely monitor the patient for any complications related to heart failure. Patient is at high risk, prognosis is poor family aware about the condition Present on Admission - Present on Admission Any Indicators Present on Admission: No History of DVT/PE: Yes History of Uncontrolled Diabetes: No Urinary Catheter: No Decubitus Ulcer Present: No Past Patient History - Infectious Disease Hx of Infectious Diseases: C.diff - Past Medical History & Family History Past Medical History?: Yes - Past Social History Smoking Status: Never Smoked - CARDIAC Hx Hypercholesterolemia: Yes Hx Hypertension: Yes - PULMONARY Hx Chronic Obstructive Pulmonary Disease (COPD): Yes (EMPHYSEMA) Hx Emphysema: Yes Hx Pneumonia: Yes (november 2016) - NEUROLOGICAL Hx Neurological Disorder: No Hx Paralysis: No - HEENT Hx HEENT Problems: Yes (READING GLASSES) - ENDOCRINE/METABOLIC Hx Endocrine Disorders: No - HEMATOLOGICAL/ONCOLOGICAL Hx Blood Disorders: No Hx Blood Transfusions: No - INTEGUMENTARY Hx Dermatological Problems: No - MUSCULOSKELETAL/RHEUMATOLOGICAL Hx Musculoskeletal Disorders: No Hx Falls: No - GASTROINTESTINAL Hx Gastrointestinal Disorders: Yes (SEE COMMENT) Other/Comment: Hiatal Hernia, abdominal aortic aneurysm - GENITOURINARY/GYNECOLOGICAL Hx Genitourinary Disorders: No - PSYCHIATRIC Hx Anxiety: Yes Hx Substance Use: No - SURGICAL HISTORY Hx Surgeries: Yes Hx Herniorrhaphy: Yes Hx Hysterectomy: Yes Hx Vascular Surgery: Yes ([facility] 11-05-15) Other/Comment: abdominal aneurysm aortic surgery as per patient - ANESTHESIA Hx Anesthesia: Yes Hx Anesthesia Reactions: Yes (REACTED TO MORPHINE DROP IN BP) Hx Malignant Hyperthermia: No Meds Allergies/Adverse Reactions: Allergies Allergy/AdvReac Type Severity Reaction Status Date / Time carbamazepine [From Tegretol] Allergy Verified 01/03/17 12:03 morphine AdvReac Mild VOMITING Verified 01/03/17 12:03 Results - Vital Signs Recent Vital Signs: Last Vital Signs Temp 98.5 F 01/03/17 16:11 Pulse 108 H 01/03/17 16:11 Resp 20 01/03/17 16:11 BP 102/62 01/03/17 16:11 Pulse Ox 85 L 01/03/17 17:57 - Labs Result Diagrams: 01/03/17 12:36 01/03/17 12:36
[2017-01-04] MEDS: Vancomycin 125 MG/5 ML SOLN (ORAL/RECTAL) PO SCH ×5 (00:18→22:00)
[2017-01-04] MEDS: metroNIDAZOLE IV 500 mg/100 ml 250 MG in Premixed IV 1 EA IVPB SCH ×4 (00:19→22:01)
[2017-01-04] MEDS: Albuterol-Ipratrop 3 mg / 0.5 (3 ml) UD INH SCH ×4 (01:44→19:28)
[2017-01-04] MEDS: Ciprofloxacin 200mg/100ml D5W 100 ML IVPB SCH ×2 (06:44→18:49)
[2017-01-04 06:45] LABS: POTASSIUM 4.1 mmol/L (3.6-5.2)
[2017-01-04 06:47] LABS: BILIRUBIN,TOTAL 0.7 mg/dL (0.2-1.3); TOTAL PROTEIN 6.7 g/dL (6.3-8.3)
[2017-01-04 06:48] LABS: CALCIUM 9.5 mg/dl (8.6-10.4)
--- NOTE | 2017-01-04 06:55 | CP.CCUPN ---
<DonaldNette MauricioMichelle - Last Filed: 01/04/17 10:07> CCU Subjective - Physician Review Subjective (Free Text): 01/04/17 08:03 Patient was seen and examined at bedside in the AM. Patient is alert and responds to commands. Patient knows she is at the hospital, she knows who are current president is but she does not know the current year, the patient stated it was 1996. Per the patient's daughter the patient has been very forgetful lately. Patient stated yesterday she had diarrhea 3-4x and the stool was a paste with a strong order. The patient denies any current episodes of diarrhea. The patient denies fever, nausea, vomiting, chest pain, shortness of breath, fever, or headache. Patient states her appetite is usually poor but she states she drinks a lot of fluid at home. 01/04/17 08:09 CCU Objective - Vital Signs / Intake & Output Vital Signs (Last 4 hours): Vital Signs Pulse Resp BP Pulse Ox 01/04/17 06:10 113 H 34 H 92 L 01/04/17 05:30 110 H 32 H 114/70 94 L 01/04/17 05:00 106 H 17 95 01/04/17 04:30 105/66 01/04/17 04:20 108 H 21 95 01/04/17 04:00 112 H 25 H 94 L 01/04/17 03:30 116/71 01/04/17 03:20 111 H 22 95 01/04/17 03:00 110 H 18 94 L Intake and Output (Last 8hrs): Intake & Output 01/03/17 01/03/17 01/04/17 14:59 22:59 06:59 Intake Total 110 Output Total 250 Balance -140 Intake: Intake, IV Amount 110 Left Hand 110 Output: Urine 250 Urine, Voided 250 Other: Voiding Method Bedpan - Physical Exam Head: Positive for: Normocephalic Extroacular Muscles: Positive for: EOMI Conjunctiva: Positive for: Normal Mouth: Positive for: Moist Mucous Membranes Respiratory/Chest: Positive for: Clear to Auscultation, Good Air Exchange. Negative for: Accessory Muscle Use, Wheezes, Rales, Rhonchi Cardiovascular: Positive for: Regular Rate and Rhythm, Normal S1, S2 Abdomen: Positive for: Tenderness (tenderness in the right upper quadrant, mid epigastric and left upper quadrant), Normal Bowel Sounds. Negative for: Distention Upper Extremity: Positive for: Normal Inspection. Negative for: Cyanosis, Edema Lower Extremity: Positive for: Normal Inspection. Negative for: Edema, CALF TENDERNESS, Tenderness Neurological: Positive for: GCS=15, Speech Normal Skin: Positive for: Warm, Dry, Normal Color - Medications Active Medications: Active Medications Generic Name Dose Route Start Last Admin Trade Name Freq PRN Reason Stop Dose Admin Albuterol/Ipratropium 3 ml 01/03/17 20:00 01/04/17 01:44 Duoneb 3 Mg/0.5 Mg (3 Ml) Ud INH 3 ml RQ6 TIKA Administration Aspirin 81 mg 01/04/17 10:00 Aspirin Chewable PO DAILY [facility]END[facility] TO [facility] Enalapril Maleate 2.5 mg 01/04/17 10:00 Vasotec PO DAILY PENDING [facility] TO [facility] Enoxaparin Sodium 40 mg 01/04/17 10:00 Lovenox SC DAILY TIKA Ciprofloxacin 100 mls @ 67 mls/hr 01/04/17 06:00 Cipro 200mg/100ml D5w IVPB Q12H TIKA Metronidazole 250 mg/ 50 mls @ 100 mls/hr 01/04/17 01:00 01/04/17 06:35 Miscellaneous IVPB 100 mls/hr Q8 TIKA Administration Ketorolac Tromethamine 15 mg 01/03/17 19:53 01/03/17 21:07 Toradol IVP 01/05/17 19:54 15 mg Q8 PRN Administration Pain, moderate (4-7) Ondansetron HCl 4 mg 01/03/17 17:49 01/03/17 17:54 Zofran Inj IVP 4 mg Q8H PRN Administration Nausea/Vomiting Tramadol HCl 25 mg 01/03/17 18:00 01/03/17 17:54 Ultram PO 25 mg TID TIKA Administration Vancomycin HCl 250 mg 01/03/17 22:00 01/04/17 00:18 Vancocin (Oral Or Rectal Use) PO 250 mg QID TIKA Administration - Patient Studies Lab Studies: Lab Studies 01/04/17 Range/Units 06:30 Sodium 130 L (132-148) mmol/L Potassium 4.1 (3.6-5.2) mmol/L Chloride 89 L (98-107) mmol/L Carbon Dioxide 25 (22-30) mmol/L Anion Gap 20 (10-20) BUN 36 H (7-17) mg/dL Creatinine 1.9 H (0.7-1.2) MG/DL Est GFR ( Amer) 31 Est GFR (Non-Af Amer) 25 Random Glucose 90 (65-105) mg/dL Calcium 9.5 (8.6-10.4) mg/dl Total Bilirubin 0.7 (0.2-1.3) mg/dL AST 42 H (14-36) U/L ALT 23 (9-52) U/L Alkaline Phosphatase 126 (38-126) U/L Total Protein 6.7 (6.3-8.3) g/dL Albumin 3.3 L (3.5-5.0) g/dL Globulin 3.4 (2.2-3.9) gm/dL Albumin/Globulin Ratio 1.0 (1.0-2.1) Laboratory Results - last 24 hr 01/04/17 06:30 Sodium 130 L Potassium 4.1 Chloride 89 L Carbon Dioxide 25 Anion Gap 20 BUN 36 H Creatinine 1.9 H Est GFR ( Amer) 31 Est GFR (Non-Af Amer) 25 Random Glucose 90 Calcium 9.5 Total Bilirubin 0.7 AST 42 H ALT 23 Alkaline Phosphatase 126 Total Protein 6.7 Albumin 3.3 L Globulin 3.4 Albumin/Globulin Ratio 1.0 Review of Systems - Constitutional Constitutional: absent: Fever - Cardiovascular Cardiovascular: absent: Chest Pain, Dyspnea - Respiratory Respiratory: absent: Dyspnea - Gastrointestinal Gastrointestinal: Abdominal Pain, Diarrhea, Loose Stools. absent: Hematochezia , Melena, Nausea, Vomiting - Genitourinary Genitourinary: absent: Dysuria - Neurological Neurological: absent: Headaches Critical Care Progress Note - Nutrition Nutrition: Nutrition Category Date Time Status Heart Healthy Diet [DIET] Diets 01/03/17 Breakfast Active Assessment/Plan - Assessment and Plan (Free Text) Assessment: 81-year-old female with history of hypertension, congestive heart failure, chronic obstructive lung disease, chronic smoking, abdominal aortic aneurysm status post repair,patient came to the emergency room. Plan: Neuro: - Alert, Oriented to person and place. - The patient knows who the current president is but stated the year was 1996 Pulm: - O2 Nasal Cannula: 4L - Duoneb 3ml INH RQ6 CV: - Aspirin 81mg PO Daily Heme: - H/H: 11.7/38.2 - Lovenox 40mg SC daily ID: - WBC (01/04): 17.7; WBC (01/03): 21.3 - f/u C. Diff - Ciprofloxacin 100mls at 67 mls/hr IVPB Q12H - Metronidazole 50mls at 100 mls/hr IVPB Q8 - Vancomycin 250mg PO QID Renal: - BUN/Cr: 36/1.9 GI: - Clear Liquid Diet DVT proph - SCDs Code status - full code Case discussed with Dr. Kushal Bennett PGY-1 <David Fatima - Last Filed: 01/04/17 12:19> CCU Objective - Vital Signs / Intake & Output Intake and Output (Last 8hrs): Intake & Output 01/03/17 01/04/17 01/04/17 22:59 06:59 14:59 Intake Total 110 100 Output Total 250 0 Balance -140 100 Intake: Intake, IV Amount 110 100 Left Hand 110 100 Output: Urine 250 0 Urine, Voided 250 0 Other: Voiding Method Bedpan - Medications Active Medications: Active Medications Generic Name Dose Route Start Last Admin Trade Name Freq PRN Reason Stop Dose Admin Albuterol/Ipratropium 3 ml 01/03/17 20:00 01/04/17 08:10 Duoneb 3 Mg/0.5 Mg (3 Ml) Ud INH 3 ml RQ6 TIKA Administration Aspirin 81 mg 01/04/17 10:00 01/04/17 10:46 Aspirin Chewable PO 81 mg DAILY TIKA Administration Enalapril Maleate 2.5 mg 01/04/17 10:00 Vasotec PO DAILY TIK[facility] Enoxaparin Sodium 40 mg 01/04/17 10:00 01/04/17 10:43 Lovenox SC 40 mg DAILY TIKA Administration Ciprofloxacin 100 mls @ 67 mls/hr 01/04/17 06:00 01/04/17 06:44 Cipro 200mg/100ml D5w IVPB 67 mls/hr Q12H TIKA Administration Metronidazole 250 mg/ 50 mls @ 100 mls/hr 01/04/17 01:00 01/04/17 06:35 Miscellaneous IVPB 100 mls/hr Q8 TIKA Administration Ketorolac Tromethamine 15 mg 01/03/17 19:53 01/03/17 21:07 Toradol IVP 01/05/17 19:54 15 mg Q8 PRN Administration Pain, moderate (4-7) Ondansetron HCl 4 mg 01/03/17 17:49 01/03/17 17:54 Zofran Inj IVP 4 mg Q8H PRN Administration Nausea/Vomiting Tramadol HCl 25 mg 01/03/17 18:00 01/04/17 10:45 Ultram PO 25 mg TID TIKA Administration Vancomycin HCl 250 mg 01/03/17 22:00 01/04/17 00:18 Vancocin (Oral Or Rectal Use) PO 250 mg QID TIKA Administration - Patient Studies Lab Studies: Lab Studies 01/04/17 01/04/17 Range/Units 06:30 06:30 WBC 17.7 H (4.8-10.8) K/uL RBC 5.14 (3.80-5.20) Mil/uL Hgb 11.7 (11.0-16.0) g/dL Hct 38.2 (34.0-47.0) % MCV 74.2 L (81.0-99.0) fL MCH 22.7 L (27.0-31.0) pg MCHC 30.6 L (33.0-37.0) g/dL RDW 19.3 H (11.5-14.5) % Plt Count 125 L D (130-400) K/uL MPV 8.9 (7.2-11.7) fL Neut % (Auto) 83.8 H (50.0-75.0) % Lymph % (Auto) 7.3 L (20.0-40.0) % Hubbard % (Auto) 8.1 (0.0-10.0) % Eos % (Auto) 0.2 (0.0-4.0) % Baso % (Auto) 0.6 (0.0-2.0) % Neut # 14.8 H (1.8-7.0) K/uL Lymph # 1.3 (1.0-4.3) K/uL Hubbard # 1.4 H (0.0-0.8) K/uL Eos # 0.0 (0.0-0.7) K/uL Baso # 0.1 (0.0-0.2) K/uL Neutrophils % (Manual) 80 H (50-75) % Band Neutrophils % 12 H* (0-2) % Lymphocytes % (Manual) 4 L (20-40) % Monocytes % (Manual) 3 (0-10) % Eosinophils % (Manual) 1 (0-4) % Platelet Estimate Slightly decreased L (NORMAL) Giant Platelets Present Polychromasia Slight Hypochromasia (manual) Slight Anisocytosis (manual) Slight Microcytosis (manual) Slight Tear Drop Cells Slight Ovalocytes Slight Sodium 130 L (132-148) mmol/L Potassium 4.1 (3.6-5.2) mmol/L Chloride 89 L (98-107) mmol/L Carbon Dioxide 25 (22-30) mmol/L Anion Gap 20 (10-20) BUN 36 H (7-17) mg/dL Creatinine 1.9 H (0.7-1.2) MG/DL Est GFR ( Amer) 31 Est GFR (Non-Af Amer) 25 Random Glucose 90 (65-105) mg/dL Calcium 9.5 (8.6-10.4) mg/dl Total Bilirubin 0.7 (0.2-1.3) mg/dL AST 42 H (14-36) U/L ALT 23 (9-52) U/L Alkaline Phosphatase 126 (38-126) U/L Total Protein 6.7 (6.3-8.3) g/dL Albumin 3.3 L (3.5-5.0) g/dL Globulin 3.4 (2.2-3.9) gm/dL Albumin/Globulin Ratio 1.0 (1.0-2.1) Laboratory Results - last 24 hr 01/04/17 01/04/17 06:30 06:30 WBC 17.7 H RBC 5.14 Hgb 11.7 Hct 38.2 MCV 74.2 L MCH 22.7 L MCHC 30.6 L RDW 19.3 H Plt Count 125 L D MPV 8.9 Neut % (Auto) 83.8 H Lymph % (Auto) 7.3 L Hubbard % (Auto) 8.1 Eos % (Auto) 0.2 Baso % (Auto) 0.6 Neut # 14.8 H Lymph # 1.3 Hubbard # 1.4 H Eos # 0.0 Baso # 0.1 Neutrophils % (Manual) 80 H Band Neutrophils % 12 H* Lymphocytes % (Manual) 4 L Monocytes % (Manual) 3 Eosinophils % (Manual) 1 Platelet Estimate Slightly decreased L Giant Platelets Present Polychromasia Slight Hypochromasia (manual) Slight Anisocytosis (manual) Slight Microcytosis (manual) Slight Tear Drop Cells Slight Ovalocytes Slight Sodium 130 L Potassium 4.1 Chloride 89 L Carbon Dioxide 25 Anion Gap 20 BUN 36 H Creatinine 1.9 H Est GFR ( Amer) 31 Est GFR (Non-Af Amer) 25 Random Glucose 90 Calcium 9.5 Total Bilirubin 0.7 AST 42 H ALT 23 Alkaline Phosphatase 126 Total Protein 6.7 Albumin 3.3 L Globulin 3.4 Albumin/Globulin Ratio 1.0 Critical Care Progress Note - Nutrition Nutrition: Nutrition Category Date Time Status Liquid Diet [DIET] Diets 01/04/17 Lunch Active Attending/Attestation - Attestation I have personally seen and examined this patient.: Yes I have fully participated in the care of the patient.: Yes I have reviewed all pertinent clinical information: Yes Notes (Text): 01/04/17 12:17 I have seen and examined the patient. Medical records, lab studies, and imaging were reviewed by me and a management plan was formulated on multidisciplinary rounds with resident Dr. Bennett. I agree with their above documented assessment and plan. Patient is septic from colitis. Continue current antibiotic regimen. Critical Care Time 35 minutes. Multi-disciplinary rounds were performed with house staff, nursing, speech therapy, respiratory therapy, pharmacy and nutrition with integrated input from the primary team/attending and other consulting services. The documented time is cumulative and includes review of patient data/exams/labs/chart review and examination of the patient on rounds and throughout the day; time is exclusive of any procedures or teaching time.
[2017-01-04 07:35] LABS: BASO # 0.1 K/uL (0.0-0.2); BASO % 0.6 % (0.0-2.0); EOS % 0.2 % (0.0-4.0); HEMATOCRIT 38.2 % (34.0-47.0); LYMPH # 1.3 K/uL (1.0-4.3); LYMPH % 7.3 % (20.0-40.0); MEAN CELL VOLUME 74.2 fL (81.0-99.0); MEAN CORPUSCULAR HEMOGLOBIN 22.7 pg (27.0-31.0); MEAN CORPUSCULAR HGB CONC 30.6 g/dL (33.0-37.0); MEAN PLATELET VOLUME 8.9 fL (7.2-11.7); MONO # 1.4 K/uL (0.0-0.8); MONO % 8.1 % (0.0-10.0); PLATELET COUNT 125 K/uL (130-400); RED CELL DISTRIBUTION WIDTH 19.3 % (11.5-14.5); WHITE BLOOD COUNT 17.7 K/uL (4.8-10.8)
[2017-01-04 08:32] LABS: EOSINOPHIL 1 % (0-4); NEUTROPHIL 80 % (50-75); TOTAL CELLS COUNTED 100
[2017-01-04 08:34] LABS: GIANT PLATELETS PRESENT
[2017-01-04] MEDS ORDERED: MethylPREDNISolone 40 mg Vial IVP SCH (10:00)
[2017-01-04] MEDS: Enoxaparin 40 mg Syringe SC SCH (10:43)
[2017-01-04] MEDS: Tramadol 25 mg PO SCH ×3 (10:45→18:52)
--- NOTE | 2017-01-04 22:52 | CP.PCM.PN ---
Subjective - Date & Time of Evaluation Date of Evaluation: 01/04/17 Time of Evaluation: 22:52 - Subjective Subjective: Is still feeling a shortness of breath, cough noted. Chest pain present. Taking Tylenol. On and off using BiPAP. Awake and responding. Family at bedside. Extensively spoke to the family. Continue the current treatment. Objective - Vital Signs/Intake and Output Vital Signs (last 24 hours): Temp Pulse Resp BP Pulse Ox 97.9 F 119 H 22 107/64 92 L 01/04/17 12:00 01/04/17 21:30 01/04/17 21:30 01/04/17 21:30 01/04/17 21:30 Intake and Output: 01/04/17 01/05/17 18:59 06:59 Intake Total 500 100 Output Total 200 0 Balance 300 100 - Medications Medications: Current Medications Albuterol/Ipratropium (Duoneb 3 Mg/0.5 Mg (3 Ml) Ud) 3 ml INH RQ6 [facility] Last Admin: 01/04/17 19:28 Dose: 3 ml Aspirin (Aspirin Chewable) 81 mg PO DAILY [facility] Last Admin: 01/04/17 10:46 Dose: 81 mg Enalapril Maleate (Vasotec) 2.5 mg PO DAILY [facility] Enoxaparin Sodium (Lovenox) 40 mg SC DAILY [facility] Last Admin: 01/04/17 10:43 Dose: 40 mg Ciprofloxacin (Cipro 200mg/100ml D5w) 100 mls @ 67 mls/hr IVPB Q12H [facility] Last Admin: 01/04/17 18:49 Dose: 67 mls/hr Metronidazole 250 mg/ (Miscellaneous) 50 mls @ 100 mls/hr IVPB Q8 [facility] Last Admin: 01/04/17 22:01 Dose: 100 mls/hr Lorazepam (Ativan) 0.5 mg PO BID [facility] Last Admin: 01/04/17 18:49 Dose: 0.5 mg Ondansetron HCl (Zofran Inj) 4 mg IVP Q8H PRN PRN Reason: Nausea/Vomiting Last Admin: 01/03/17 17:54 Dose: 4 mg Tramadol HCl (Ultram) 25 mg PO BID [facility] Vancomycin HCl (Vancocin (Oral Or Rectal Use)) 250 mg PO QID [facility] Last Admin: 01/04/17 22:00 Dose: 250 mg - Labs Labs: 01/04/17 06:30 01/04/17 06:30
--- NOTE | 2017-01-05 00:31 | CARD ---
APPROVED REPORT EKG Measurement Heart [id number] <Conclusion> Sinus tachycardia with occasional premature ventricular complexes Left axis deviation Left ventricular hypertrophy with repolarization abnormality Abnormal ECG
[2017-01-05] MEDS: Albuterol-Ipratrop 3 mg / 0.5 (3 ml) UD INH SCH ×4 (01:59→20:17)
[2017-01-05] MEDS: metroNIDAZOLE IV 500 mg/100 ml 250 MG in Premixed IV 1 EA IVPB SCH ×3 (06:12→22:00)
[2017-01-05] MEDS: Ciprofloxacin 200mg/100ml D5W 100 ML IVPB SCH ×2 (06:21→17:18)
[2017-01-05 06:23] LABS: BASO % 0.2 % (0.0-2.0); EOS # 0.1 K/uL (0.0-0.7); EOS % 0.5 % (0.0-4.0); HEMATOCRIT 31.5 % (34.0-47.0); LYMPH # 0.9 K/uL (1.0-4.3); MEAN CORPUSCULAR HEMOGLOBIN 22.8 pg (27.0-31.0); MEAN CORPUSCULAR HGB CONC 31.2 g/dL (33.0-37.0); MEAN PLATELET VOLUME 8.9 fL (7.2-11.7); MONO # 1.6 K/uL (0.0-0.8); MONO % 10.5 % (0.0-10.0); PLATELET COUNT 100 K/uL (130-400); RED CELL DISTRIBUTION WIDTH 18.6 % (11.5-14.5); WHITE BLOOD COUNT 14.9 K/uL (4.8-10.8)
[2017-01-05 06:29] LABS: POTASSIUM 3.5 mmol/L (3.6-5.2)
[2017-01-05 06:31] LABS: ALB/GLOB RATIO 0.9 (1.0-2.1); BILIRUBIN,TOTAL 0.6 mg/dL (0.2-1.3); TOTAL PROTEIN 5.9 g/dL (6.3-8.3)
[2017-01-05] MEDS ORDERED: Potassium Chloride 20 mEq ER Tab PO ONE (07:59)
[2017-01-05 08:00] LABS: NEUTROPHIL 92 % (50-75); TOTAL CELLS COUNTED 100
[2017-01-05] MEDS ORDERED: Potassium Chloride 10 mEq ER Tab PO SCH (08:00)
[2017-01-05 08:06] LABS: LARGE PLATELETS PRESENT
[2017-01-05] MEDS ORDERED: Potassium Chloride 20 mEq/15 ml LIQ UD PO ONE (08:29)
[2017-01-05] MEDS: Tramadol 25 mg PO SCH ×2 (09:45→18:46)
[2017-01-05] MEDS: Enoxaparin 40 mg Syringe SC SCH (09:48)
[2017-01-05] MEDS: Vancomycin 125 MG/5 ML SOLN (ORAL/RECTAL) PO SCH ×4 (09:48→22:36)
[2017-01-05] MEDS ORDERED: Sodium Chloride 0.9% 1,000 ML IV SCH (10:15)
--- NOTE | 2017-01-05 12:18 | CP.CCUPN ---
<DonaldNette SMichelle - Last Filed: 01/05/17 13:06> CCU Subjective - Physician Review Subjective (Free Text): Patient was seen and examined at bedside in the AM. Patient is alert and responds to commands. Patient knows she is at the hospital, she knows who are current president is but she does not know the current year, the patient stated it was 1996. The patient denies any current episodes of diarrhea. The patient states she still has abdominal pain but it is better today but still a 8/10. The patient denies fever, nausea, vomiting, chest pain, shortness of breath, fever, or headache. Patient states she has started to eat better. Also discussed with patient in regards to her code states and the patient states in an emergency she would like to be intubated and resuscitated. 01/05/17 13:06 CCU Objective - Vital Signs / Intake & Output Vital Signs (Last 4 hours): Vital Signs Pulse Resp BP Pulse Ox 01/05/17 11:30 109 H 19 115/57 L 95 01/05/17 11:00 113 H 26 H 93 L 01/05/17 10:30 116 H 28 H 129/69 94 L 01/05/17 10:00 115 H 20 95 01/05/17 09:51 130/75 01/05/17 09:30 118 H 38 H 130/75 73 L 01/05/17 09:00 115 H 28 H 93 L Intake and Output (Last 8hrs): Intake & Output 01/04/17 01/05/17 01/05/17 22:59 06:59 14:59 Intake Total 200 250 Output Total 200 151 Balance 0 99 Intake: Intake, IV Amount 100 200 Left Hand 100 200 Oral 100 50 Output: Urine 180 150 Urine, Voided 180 150 Stool 20 Urine/Stool Mix 1 Other: # Voids Urine, Voided 4 1 0 # Bowel Movements 0 0 0 - Physical Exam Head: Positive for: Normocephalic Extroacular Muscles: Positive for: EOMI Conjunctiva: Positive for: Normal Mouth: Positive for: Moist Mucous Membranes Respiratory/Chest: Positive for: Clear to Auscultation, Good Air Exchange. Negative for: Accessory Muscle Use, Wheezes, Rales, Rhonchi Cardiovascular: Positive for: Regular Rate and Rhythm, Normal S1, S2 Abdomen: Positive for: Tenderness (tenderness in the right upper quadrant, mid epigastric and left upper quadrant), Normal Bowel Sounds. Negative for: Distention Upper Extremity: Positive for: Normal Inspection. Negative for: Cyanosis, Edema Lower Extremity: Positive for: Normal Inspection. Negative for: Edema, CALF TENDERNESS, Tenderness Neurological: Positive for: GCS=15, Speech Normal Skin: Positive for: Warm, Dry, Normal Color Psychiatric: Positive for: Alert, Oriented x 3, Normal Insight, Normal Concentration ( Patient knows she is at the hospital, she knows who are current president is but she does not know the current year, the patient stated it was 1996. ) - Medications Active Medications: Active Medications Generic Name Dose Route Start Last Admin Trade Name Freq PRN Reason Stop Dose Admin Albuterol/Ipratropium 3 ml 01/03/17 20:00 01/05/17 07:52 Duoneb 3 Mg/0.5 Mg (3 Ml) Ud INH 3 ml RQ6 TIKA Administration Aspirin 81 mg 01/04/17 10:00 01/05/17 09:47 Aspirin Chewable PO 81 mg DAILY TIKA Administration Enalapril Maleate 2.5 mg 01/04/17 10:00 01/05/17 09:51 Vasotec PO 2.5 mg DAILY TIKA Administration Enoxaparin Sodium 40 mg 01/04/17 10:00 01/05/17 09:48 Lovenox SC 40 mg DAILY TIKA Administration Ciprofloxacin 100 mls @ 67 mls/hr 01/04/17 06:00 01/05/17 06:21 Cipro 200mg/100ml D5w IVPB 67 mls/hr Q12H TIKA Administration Metronidazole 250 mg/ 50 mls @ 100 mls/hr 01/04/17 01:00 01/05/17 06:12 Miscellaneous IVPB 100 mls/hr Q8 TIKA Administration Sodium Chloride 1,000 mls @ 75 mls/hr 01/05/17 10:15 Sodium Chloride 0.9% IV .[id number] TIKA Lorazepam 0.5 mg 01/05/17 03:00 01/05/17 09:47 Ativan PO 0.5 mg BID TIKA Administration Ondansetron HCl 4 mg 01/03/17 17:49 01/03/17 17:54 Zofran Inj IVP 4 mg Q8H PRN Administration Nausea/Vomiting Tramadol HCl 25 mg 01/05/17 10:00 01/05/17 09:45 Ultram PO 25 mg BID TIKA Administration Vancomycin HCl 250 mg 01/03/17 22:00 01/05/17 09:48 Vancocin (Oral Or Rectal Use) PO 250 mg QID TIKA Administration - Patient Studies Lab Studies: Lab Studies 01/05/17 01/05/17 Range/Units 06:10 06:10 WBC 14.9 H (4.8-10.8) K/uL RBC 4.31 (3.80-5.20) Mil/uL Hgb 9.8 L (11.0-16.0) g/dL Hct 31.5 L (34.0-47.0) % MCV 73.0 L (81.0-99.0) fL MCH 22.8 L (27.0-31.0) pg MCHC 31.2 L (33.0-37.0) g/dL RDW 18.6 H (11.5-14.5) % Plt Count 100 L D (130-400) K/uL MPV 8.9 (7.2-11.7) fL Neut % (Auto) 82.8 H (50.0-75.0) % Lymph % (Auto) 6.0 L (20.0-40.0) % [place] % (Auto) 10.5 H (0.0-10.0) % Eos % (Auto) 0.5 (0.0-4.0) % Baso % (Auto) 0.2 (0.0-2.0) % Neut # 12.3 H (1.8-7.0) K/uL Lymph # 0.9 L (1.0-4.3) K/uL [place] # 1.6 H (0.0-0.8) K/uL Eos # 0.1 (0.0-0.7) K/uL Baso # 0.0 (0.0-0.2) K/uL Neutrophils % (Manual) 92 H (50-75) % Band Neutrophils % 1 (0-2) % Lymphocytes % (Manual) 4 L (20-40) % Monocytes % (Manual) 3 (0-10) % Platelet Estimate Decreased L (NORMAL) Large Platelets Present Polychromasia Slight Hypochromasia (manual) Slight Anisocytosis (manual) Slight Sodium 130 L (132-148) mmol/L Potassium 3.5 L (3.6-5.2) mmol/L Chloride 92 L (98-107) mmol/L Carbon Dioxide 24 (22-30) mmol/L Anion Gap 18 (10-20) BUN 30 H (7-17) mg/dL Creatinine 1.7 H (0.7-1.2) MG/DL Est GFR ( Amer) 35 Est GFR (Non-Af Amer) 29 Random Glucose 90 (65-105) mg/dL Calcium 9.0 (8.6-10.4) mg/dl Total Bilirubin 0.6 (0.2-1.3) mg/dL AST 38 H (14-36) U/L ALT 29 (9-52) U/L Alkaline Phosphatase 118 (38-126) U/L Total Protein 5.9 L (6.3-8.3) g/dL Albumin 2.8 L (3.5-5.0) g/dL Globulin 3.1 (2.2-3.9) gm/dL Albumin/Globulin Ratio 0.9 L (1.0-2.1) Laboratory Results - last 24 hr 01/05/17 01/05/17 06:10 06:10 WBC 14.9 H RBC 4.31 Hgb 9.8 L Hct 31.5 L MCV 73.0 L MCH 22.8 L MCHC 31.2 L RDW 18.6 H Plt Count 100 L D MPV 8.9 Neut % (Auto) 82.8 H Lymph % (Auto) 6.0 L [place] % (Auto) 10.5 H Eos % (Auto) 0.5 Baso % (Auto) 0.2 Neut # 12.3 H Lymph # 0.9 L [place] # 1.6 H Eos # 0.1 Baso # 0.0 Neutrophils % (Manual) 92 H Band Neutrophils % 1 Lymphocytes % (Manual) 4 L Monocytes % (Manual) 3 Platelet Estimate Decreased L Large Platelets Present Polychromasia Slight Hypochromasia (manual) Slight Anisocytosis (manual) Slight Sodium 130 L Potassium 3.5 L Chloride 92 L Carbon Dioxide 24 Anion Gap 18 BUN 30 H Creatinine 1.7 H Est GFR ( Amer) 35 Est GFR (Non-Af Amer) 29 Random Glucose 90 Calcium 9.0 Total Bilirubin 0.6 AST 38 H ALT 29 Alkaline Phosphatase 118 Total Protein 5.9 L Albumin 2.8 L Globulin 3.1 Albumin/Globulin Ratio 0.9 L Review of Systems - Constitutional Constitutional: absent: Fever - Cardiovascular Cardiovascular: absent: Chest Pain, Dyspnea - Respiratory Respiratory: absent: Dyspnea - Gastrointestinal Gastrointestinal: Abdominal Pain. absent: Nausea, Vomiting - Genitourinary Genitourinary: absent: Dysuria - Neurological Neurological: absent: Headaches Critical Care Progress Note - Nutrition Nutrition: Nutrition Category Date Time Status Liquid Diet [DIET] Diets 01/04/17 Lunch Active Assessment/Plan - Assessment and Plan (Free Text) Assessment: 81-year-old female with history of hypertension, congestive heart failure, chronic obstructive lung disease, chronic smoking, abdominal aortic aneurysm status post repair,patient came to the emergency room. Plan: Neuro: - Alert, Oriented to person and place. - The patient knows who the current president is but stated the year was 1996 Pulm: - O2 Nasal Cannula: 4L - Duoneb 3ml INH RQ6 CV: - Aspirin 81mg PO Daily Heme: - H/H: 11.7/38.2 - Lovenox 40mg SC daily ID: - Septic secondary to Colitis - WBC (01/05): 14.9; WBC (01/04): 17.7; WBC (01/03): 21.3 - f/u C. Diff - If negative will stop vancomycin - Ciprofloxacin 100mls at 67 mls/hr IVPB Q12H - Metronidazole 50mls at 100 mls/hr IVPB Q8 - Vancomycin 250mg PO QID Renal: - BUN/Cr: 25/1.8 - Creatinine Clearance: 32.8 GI: - Clear Liquid Diet DVT proph - SCDs Code status - full code Case discussed with Dr. Kushal Bennett PGY-1 <David Fatima - Last Filed: 01/05/17 16:54> CCU Objective - Vital Signs / Intake & Output Vital Signs (Last 4 hours): Vital Signs Temp Pulse Resp BP Pulse Ox 01/05/17 16:30 116 H 117/70 93 L 01/05/17 16:00 98.0 F 113 H 24 94 L 01/05/17 15:30 114 H 25 H 107/64 93 L 01/05/17 15:00 110 H 20 96 01/05/17 14:30 111 H 21 114/57 L 95 01/05/17 14:00 111 H 20 94 L 01/05/17 13:30 110 H 27 H 107/70 98 01/05/17 13:00 115 H 27 H 92 L Intake and Output (Last 8hrs): Intake & Output 01/05/17 01/05/17 01/05/17 06:59 14:59 22:59 Intake Total 250 0 Output Total 151 Balance 99 0 Intake: Intake, IV Amount 200 0 Left Hand 200 0 Oral 50 Output: Urine 150 Urine, Voided 150 Urine/Stool Mix 1 Other: # Voids Urine, Voided 1 0 # Bowel Movements 0 0 - Medications Active Medications: Active Medications Generic Name Dose Route Start Last Admin Trade Name Freq PRN Reason Stop Dose Admin Albuterol/Ipratropium 3 ml 01/03/17 20:00 01/05/17 13:24 Duoneb 3 Mg/0.5 Mg (3 Ml) Ud INH 3 ml RQ6 TIKA Administration Aspirin 81 mg 01/04/17 10:00 01/05/17 09:47 Aspirin Chewable PO 81 mg DAILY TIKA Administration Enalapril Maleate 2.5 mg 01/04/17 10:00 01/05/17 09:51 Vasotec PO 2.5 mg DAILY TIKA Administration Enoxaparin Sodium 30 mg 01/05/17 16:07 Lovenox SC DAILY TIKA Ciprofloxacin 100 mls @ 67 mls/hr 01/04/17 06:00 01/05/17 06:21 Cipro 200mg/100ml D5w IVPB 67 mls/hr Q12H TIKA Administration Metronidazole 250 mg/ 50 mls @ 100 mls/hr 01/04/17 01:00 01/05/17 14:50 Miscellaneous IVPB 100 mls/hr Q8 TIKA Administration Sodium Chloride 1,000 mls @ 75 mls/hr 01/05/17 10:15 01/05/17 10:45 Sodium Chloride 0.9% IV 75 mls/hr .[id number] TIKA Administration Lorazepam 0.5 mg 01/05/17 03:00 01/05/17 09:47 Ativan PO 0.5 mg BID TIKA Administration Ondansetron HCl 4 mg 01/03/17 17:49 01/03/17 17:54 Zofran Inj IVP 4 mg Q8H PRN Administration Nausea/Vomiting Tramadol HCl 25 mg 01/05/17 10:00 01/05/17 09:45 Ultram PO 25 mg BID TIKA Administration Vancomycin HCl 250 mg 01/03/17 22:00 01/05/17 15:15 Vancocin (Oral Or Rectal Use) PO 250 mg QID TIKA Administration - Patient Studies Lab Studies: Lab Studies 01/05/17 01/05/17 Range/Units 06:10 06:10 WBC 14.9 H (4.8-10.8) K/uL RBC 4.31 (3.80-5.20) Mil/uL Hgb 9.8 L (11.0-16.0) g/dL Hct 31.5 L (34.0-47.0) % MCV 73.0 L (81.0-99.0) fL MCH 22.8 L (27.0-31.0) pg MCHC 31.2 L (33.0-37.0) g/dL RDW 18.6 H (11.5-14.5) % Plt Count 100 L D (130-400) K/uL MPV 8.9 (7.2-11.7) fL Neut % (Auto) 82.8 H (50.0-75.0) % Lymph % (Auto) 6.0 L (20.0-40.0) % [place] % (Auto) 10.5 H (0.0-10.0) % Eos % (Auto) 0.5 (0.0-4.0) % Baso % (Auto) 0.2 (0.0-2.0) % Neut # 12.3 H (1.8-7.0) K/uL Lymph # 0.9 L (1.0-4.3) K/uL [place] # 1.6 H (0.0-0.8) K/uL Eos # 0.1 (0.0-0.7) K/uL Baso # 0.0 (0.0-0.2) K/uL Neutrophils % (Manual) 92 H (50-75) % Band Neutrophils % 1 (0-2) % Lymphocytes % (Manual) 4 L (20-40) % Monocytes % (Manual) 3 (0-10) % Platelet Estimate Decreased L (NORMAL) Large Platelets Present Polychromasia Slight Hypochromasia (manual) Slight Anisocytosis (manual) Slight Sodium 130 L (132-148) mmol/L Potassium 3.5 L (3.6-5.2) mmol/L Chloride 92 L (98-107) mmol/L Carbon Dioxide 24 (22-30) mmol/L Anion Gap 18 (10-20) BUN 30 H (7-17) mg/dL Creatinine 1.7 H (0.7-1.2) MG/DL Est GFR ( Amer) 35 Est GFR (Non-Af Amer) 29 Random Glucose 90 (65-105) mg/dL Calcium 9.0 (8.6-10.4) mg/dl Total Bilirubin 0.6 (0.2-1.3) mg/dL AST 38 H (14-36) U/L ALT 29 (9-52) U/L Alkaline Phosphatase 118 (38-126) U/L Total Protein 5.9 L (6.3-8.3) g/dL Albumin 2.8 L (3.5-5.0) g/dL Globulin 3.1 (2.2-3.9) gm/dL Albumin/Globulin Ratio 0.9 L (1.0-2.1) Laboratory Results - last 24 hr 01/05/17 01/05/17 06:10 06:10 WBC 14.9 H RBC 4.31 Hgb 9.8 L Hct 31.5 L MCV 73.0 L MCH 22.8 L MCHC 31.2 L RDW 18.6 H Plt Count 100 L D MPV 8.9 Neut % (Auto) 82.8 H Lymph % (Auto) 6.0 L [place] % (Auto) 10.5 H Eos % (Auto) 0.5 Baso % (Auto) 0.2 Neut # 12.3 H Lymph # 0.9 L [place] # 1.6 H Eos # 0.1 Baso # 0.0 Neutrophils % (Manual) 92 H Band Neutrophils % 1 Lymphocytes % (Manual) 4 L Monocytes % (Manual) 3 Platelet Estimate Decreased L Large Platelets Present Polychromasia Slight Hypochromasia (manual) Slight Anisocytosis (manual) Slight Sodium 130 L Potassium 3.5 L Chloride 92 L Carbon Dioxide 24 Anion Gap 18 BUN 30 H Creatinine 1.7 H Est GFR ( Amer) 35 Est GFR (Non-Af Amer) 29 Random Glucose 90 Calcium 9.0 Total Bilirubin 0.6 AST 38 H ALT 29 Alkaline Phosphatase 118 Total Protein 5.9 L Albumin 2.8 L Globulin 3.1 Albumin/Globulin Ratio 0.9 L Critical Care Progress Note - Nutrition Nutrition: Nutrition Category Date Time Status Liquid Diet [DIET] Diets 01/04/17 Lunch Active Assessment/Plan - Assessment and Plan (Free Text) Plan: Renal: -NS@75 Attending/Attestation - Attestation I have personally seen and examined this patient.: Yes I have fully participated in the care of the patient.: Yes I have reviewed all pertinent clinical information: Yes Notes (Text): 01/05/17 16:51 I have seen and examined the patient. Medical records, lab studies, and imaging were reviewed by me and a management plan was formulated on multidisciplinary rounds with resident Dr. Bennett. I agree with their above documented assessment and plan. Sepsis from colitis improving. Critical Care Time 35 minutes. Multi-disciplinary rounds were performed with house staff, nursing, speech therapy, respiratory therapy, pharmacy and nutrition with integrated input from the primary team/attending and other consulting services. The documented time is cumulative and includes review of patient data/exams/labs/chart review and examination of the patient on rounds and throughout the day; time is exclusive of any procedures or teaching time.
[2017-01-05] MEDS ORDERED: Enoxaparin 40 mg Syringe SC SCH (14:16)
[2017-01-06] MEDS: Albuterol-Ipratrop 3 mg / 0.5 (3 ml) UD INH SCH ×4 (01:55→20:10)
[2017-01-06] MEDS: Ciprofloxacin 200mg/100ml D5W 100 ML IVPB SCH ×2 (06:00→18:37)
[2017-01-06] MEDS: metroNIDAZOLE IV 500 mg/100 ml 250 MG in Premixed IV 1 EA IVPB SCH ×3 (06:00→22:00)
[2017-01-06 06:50] LABS: BASO % 0.3 % (0.0-2.0); EOS # 0.1 K/uL (0.0-0.7); HEMATOCRIT 31.7 % (34.0-47.0); LYMPH # 1.2 K/uL (1.0-4.3); LYMPH % 9.3 % (20.0-40.0); MEAN CELL VOLUME 73.3 fL (81.0-99.0); MEAN CORPUSCULAR HEMOGLOBIN 22.6 pg (27.0-31.0); MEAN CORPUSCULAR HGB CONC 30.8 g/dL (33.0-37.0); MEAN PLATELET VOLUME 8.9 fL (7.2-11.7); MONO # 1.5 K/uL (0.0-0.8); MONO % 11.5 % (0.0-10.0); PLATELET COUNT 91 K/uL (130-400); RED CELL DISTRIBUTION WIDTH 18.6 % (11.5-14.5); WHITE BLOOD COUNT 13.5 K/uL (4.8-10.8)
[2017-01-06 06:58] LABS: POTASSIUM 3.7 mmol/L (3.6-5.2)
[2017-01-06 07:00] LABS: BILIRUBIN,TOTAL 0.5 mg/dL (0.2-1.3)
[2017-01-06 07:01] LABS: ALB/GLOB RATIO 0.9 (1.0-2.1); CALCIUM 8.9 mg/dl (8.6-10.4); TOTAL PROTEIN 5.7 g/dL (6.3-8.3)
[2017-01-06 07:02] LABS: MAGNESIUM 2.2 mg/dL (1.6-2.3)
[2017-01-06] MEDS: Tramadol 25 mg PO SCH ×2 (09:01→18:10)
--- NOTE | 2017-01-06 09:14 | CP.PCM.CON ---
History of Present Illness - History of Present Illness History of Present Illness: Covering DR Purvis. Asked to see pt for colitis. Son is present. Pt was admitted for abdom pain and SOB. Was recently discharged 2 days earlier after an admission for SOB,, pulm embolus- anticoag held after hemoptysis. Was on antibiotics. CAme to ER and reports SOB, lower abdom pain and diarrhea. Diarrhea- soft and mult per day. Improving now. ABdom pain- lower , sharp, moderate to severe- improving today. At , CT shows left colitis. Treated with vanco po and flagyl,. WBC has decreased 21 to 14. PMH: HTN, CHOL, CHF, AAA repair, Lung CA- possible mets, PE. Pt reports colonosocpy 6 months agao at - but i do not see it in computer. Review of Systems - Constitutional Constitutional: Weight Loss. absent: Headache - EENT Eyes: absent: Blurred Vision - Cardiovascular Cardiovascular: Dyspnea, Lightheadedness. absent: Chest Pain - Respiratory Respiratory: Dyspnea. absent: Hemoptysis, Wheezing - Gastrointestinal Gastrointestinal: Abdominal Pain, Bloating, Diarrhea. absent: Dysphagia, Hematemesis, Hematochezia, Melena, Odynophagia, Vomiting - Genitourinary Genitourinary: absent: Dysuria, Hematuria - Musculoskeletal Musculoskeletal: absent: Arthralgias, Muscle Cramps - Integumentary Integumentary: absent: Jaundice - Neurological Neurological: absent: Convulsions - Psychiatric Psychiatric: absent: Hallucinations Past Patient History - Infectious Disease Hx of Infectious Diseases: C.diff - Past Medical History & Family History Past Medical History?: Yes - Past Social History Smoking Status: Never Smoked - CARDIAC Hx Hypercholesterolemia: Yes Hx Hypertension: Yes - PULMONARY Hx Chronic Obstructive Pulmonary Disease (COPD): Yes (EMPHYSEMA) Hx Emphysema: Yes Hx Pneumonia: Yes (november 2016) - NEUROLOGICAL Hx Neurological Disorder: No Hx Paralysis: No - HEENT Hx HEENT Problems: Yes (READING GLASSES) - ENDOCRINE/METABOLIC Hx Endocrine Disorders: No - HEMATOLOGICAL/ONCOLOGICAL Hx Blood Disorders: No Hx Blood Transfusions: No - INTEGUMENTARY Hx Dermatological Problems: No - MUSCULOSKELETAL/RHEUMATOLOGICAL Hx Musculoskeletal Disorders: No Hx Falls: No - GASTROINTESTINAL Hx Gastrointestinal Disorders: Yes (SEE COMMENT) Other/Comment: Hiatal Hernia, abdominal aortic aneurysm - GENITOURINARY/GYNECOLOGICAL Hx Genitourinary Disorders: No - PSYCHIATRIC Hx Anxiety: Yes Hx Substance Use: No - SURGICAL HISTORY Hx Surgeries: Yes Hx Herniorrhaphy: Yes Hx Hysterectomy: Yes Hx Vascular Surgery: Yes ([facility] ENDOLOGIC DEVICE 04-29-15) Other/Comment: abdominal aneurysm aortic surgery as per patient - ANESTHESIA Hx Anesthesia: Yes Hx Anesthesia Reactions: Yes (REACTED TO MORPHINE DROP IN BP) Hx Malignant Hyperthermia: No Meds Allergies/Adverse Reactions: Allergies Allergy/AdvReac Type Severity Reaction Status Date / Time carbamazepine [From Tegretol] Allergy Verified 01/03/17 12:03 morphine AdvReac Mild VOMITING Verified 01/03/17 12:03 - Medications Medications: Current Medications Albuterol/Ipratropium (Duoneb 3 Mg/0.5 Mg (3 Ml) Ud) 3 ml INH RQ6 [facility] Last Admin: 01/06/17 07:55 Dose: 3 ml Aspirin (Aspirin Chewable) 81 mg PO DAILY [facility] Last Admin: 01/05/17 09:47 Dose: 81 mg Enalapril Maleate (Vasotec) 2.5 mg PO DAILY [facility] Last Admin: 01/05/17 09:51 Dose: 2.5 mg Enoxaparin Sodium (Lovenox) 30 mg SC DAILY [facility] Ciprofloxacin (Cipro 200mg/100ml D5w) 100 mls @ 67 mls/hr IVPB Q12H [facility] Last Admin: 01/06/17 06:00 Dose: 67 mls/hr Metronidazole 250 mg/ (Miscellaneous) 50 mls @ 100 mls/hr IVPB Q8 [facility] Last Admin: 01/06/17 06:00 Dose: 100 mls/hr Lorazepam (Ativan) 0.5 mg PO BID [facility] Last Admin: 01/05/17 18:46 Dose: 0.5 mg Ondansetron HCl (Zofran Inj) 4 mg IVP Q8H PRN PRN Reason: Nausea/Vomiting Last Admin: 01/03/17 17:54 Dose: 4 mg Tramadol HCl (Ultram) 25 mg PO BID [facility] Last Admin: 01/06/17 09:01 Dose: 25 mg Vancomycin HCl (Vancocin (Oral Or Rectal Use)) 250 mg PO QID [facility] Last Admin: 01/05/17 22:36 Dose: 250 mg Physical Exam - Constitutional Appears: Non-toxic - ENT Exam ENT Exam: Mucous Membranes Moist - Neck Exam Neck exam: Negative for: Tenderness - Respiratory Exam Respiratory Exam: Clear to Auscultation Bilateral - Cardiovascular Exam Cardiovascular Exam: RRR - GI/Abdominal Exam GI & Abdominal Exam: Normal Bowel Sounds, Soft, Tenderness. absent: Distended, Guarding, Mass, Rebound, Rigid Additional comments: Mild tender mid lower abdomen - Extremities Exam Extremities exam: Negative for: calf tenderness, pedal edema - Neurological Exam Neurological exam: Alert, Oriented x3 - Psychiatric Exam Psychiatric exam: Normal Affect - Skin Skin Exam: Intact Results - Vital Signs Recent Vital Signs: Last Vital Signs Temp 98.3 F 01/06/17 04:00 Pulse 112 H 01/06/17 07:00 Resp 27 H 01/06/17 07:00 BP 122/77 01/06/17 06:30 Pulse Ox 94 L 01/06/17 07:00 - Labs Result Diagrams: 01/06/17 06:45 01/06/17 06:45 Labs: Laboratory Results - last 24 hr 01/03/17 01/06/17 01/06/17 16:30 06:45 06:45 WBC 13.5 H RBC 4.33 Hgb 9.8 L Hct 31.7 L MCV 73.3 L MCH 22.6 L MCHC 30.8 L RDW 18.6 H Plt Count 91 L MPV 8.9 Neut % (Auto) 77.9 H Lymph % (Auto) 9.3 L [place] % (Auto) 11.5 H Eos % (Auto) 1.0 Baso % (Auto) 0.3 Neut # 10.5 H Lymph # 1.2 [place] # 1.5 H Eos # 0.1 Baso # 0.0 Sodium 131 L Potassium 3.7 Chloride 94 L Carbon Dioxide 24 Anion Gap 17 BUN 21 H Creatinine 1.5 H Est GFR ( Amer) 40 Est GFR (Non-Af Amer) 33 Random Glucose 90 Calcium 8.9 Phosphorus 2.0 L Magnesium 2.2 Total Bilirubin 0.5 AST 42 H ALT 31 Alkaline Phosphatase 122 Total Protein 5.7 L Albumin 2.7 L Globulin 3.0 Albumin/Globulin Ratio 0.9 L C. difficile Ag & Toxin Negative Assessment & Plan (1) Colitis Assessment and Plan: On CT- with abdom pain, diarrhea, and recent admission with antibiotics- most likely antibiotic related- even thought c diff is neg. I doubt ischemic colitis , but it is possible. She is improving on vanco/flagyl, and wbc is improving. Abdom pain and diarrhea are improving. REC" Cont vanco/flagyl, check CBC. Will need colonoscopy in 1 month. Status: Acute (2) Anemia Assessment and Plan: chronic Status: Acute (3) Pulmonary embolus Assessment and Plan: anticog stopped last admission due to hemoptysis. Status: Acute (4) Abdominal pain Assessment and Plan: colitis Status: Acute (5) Diarrhea Assessment and Plan: colitis Status: Acute (6) Lung cancer Assessment and Plan: With possible mets Status: Acute (7) CHF (congestive heart failure) Status: Acute (8) SOB (shortness of breath) Status: Acute (9) AAA (abdominal aortic aneurysm) Assessment and Plan: s/p surgery Status: Acute
[2017-01-06] MEDS ORDERED: Sodium Phosphate 30 MMOLE in Sodium Chloride 0.9% 250 ML IVPB ONE (10:00)
[2017-01-06 10:55] LABS: EOSINOPHIL 1 % (0-4); NEUTROPHIL 79 % (50-75); TOTAL CELLS COUNTED 100
[2017-01-06 10:56] LABS: LARGE PLATELETS PRESENT
[2017-01-06 10:57] LABS: GIANT PLATELETS PRESENT
[2017-01-06] MEDS: Enoxaparin 30 mg Syringe SC SCH (10:57)
--- NOTE | 2017-01-06 12:04 | RAD ---
HISTORY: pneumonia COMPARISON: Comparison is made to the previous study dated 01/03/2017 FINDINGS: LUNGS: Interval worsening of opacities and infiltrate at the left lung which appears smaller compared to the previous exam. PLEURA: Suspicious for left pleural effusion. CARDIOVASCULAR: The cardiac silhouette is enlarged. OSSEOUS STRUCTURES: No significant abnormalities. VISUALIZED UPPER ABDOMEN: Normal. OTHER FINDINGS: None. IMPRESSION: Worsening opacities at the left lung associated with left pleural effusion. If clinically warranted further assessment by CT may be obtained. Cardiomegaly.
--- NOTE | 2017-01-06 13:33 | CP.CCUPN ---
CCU Subjective - Physician Review Events Since Last Encounter (Free Text): 01/06/17 13:25 Patient is clinically improved today, having formed bowel movements. Still has persistent cough, which I feel is secondary to her large metastatic pleural effusion. CCU Objective - Vital Signs / Intake & Output Vital Signs (Last 4 hours): Vital Signs Pulse Resp BP Pulse Ox 01/06/17 13:22 121/76 01/06/17 13:21 121/76 01/06/17 11:30 136/77 01/06/17 11:00 116 H 27 H 93 L 01/06/17 10:39 131/79 01/06/17 09:30 118 H 25 H 119/69 92 L Intake and Output (Last 8hrs): Intake & Output 01/05/17 01/06/17 01/06/17 22:59 06:59 14:59 Intake Total 700 200 220 Output Total 200 250 150 Balance 500 -50 70 Intake: Intake, IV Amount 300 100 100 Left Hand 225 100 100 Right Forearm 75 Oral 400 100 120 Output: Urine 200 250 150 Urine, Voided 200 250 150 Other: # Voids Urine, Voided 0 0 0 # Bowel Movements 0 0 0 - Physical Exam Head: Positive for: Normocephalic Extroacular Muscles: Positive for: EOMI Conjunctiva: Positive for: Normal Mouth: Positive for: Moist Mucous Membranes Respiratory/Chest: Positive for: Good Air Exchange, Decreased Breath Sounds. Negative for: Accessory Muscle Use, Wheezes, Rales, Rhonchi Cardiovascular: Positive for: Regular Rate and Rhythm, Normal S1, S2 Abdomen: Positive for: Tenderness (tenderness in the right upper quadrant, mid epigastric and left upper quadrant), Normal Bowel Sounds. Negative for: Distention Upper Extremity: Positive for: Normal Inspection. Negative for: Cyanosis, Edema Lower Extremity: Positive for: Normal Inspection. Negative for: Edema, CALF TENDERNESS, Tenderness Neurological: Positive for: GCS=15, Speech Normal Skin: Positive for: Warm, Dry, Normal Color Psychiatric: Positive for: Alert, Oriented x 3, Normal Insight, Normal Concentration ( Patient knows she is at the hospital, she knows who are current president is but she does not know the current year, the patient stated it was 1996. ) - Medications Active Medications: Active Medications Generic Name Dose Route Start Last Admin Trade Name Freq PRN Reason Stop Dose Admin Albuterol/Ipratropium 3 ml 01/03/17 20:00 01/06/17 07:55 Duoneb 3 Mg/0.5 Mg (3 Ml) Ud INH 3 ml RQ6 [facility] Administration Aspirin 81 mg 01/04/17 10:00 01/06/17 10:57 Aspirin Chewable PO 81 mg DAILY [facility] Administration Enalapril Maleate 2.5 mg 01/04/17 10:00 01/06/17 13:22 Vasotec PO 2.5 mg DAILY [facility] Administration Enoxaparin Sodium 30 mg 01/05/17 16:07 01/06/17 10:57 Lovenox SC 30 mg DAILY [facility] Administration Ciprofloxacin 100 mls @ 67 mls/hr 01/04/17 06:00 01/06/17 06:00 Cipro 200mg/100ml D5w IVPB 67 mls/hr Q12H [facility] Administration Metronidazole 250 mg/ 50 mls @ 100 mls/hr 01/04/17 01:00 01/06/17 06:00 Miscellaneous IVPB 100 mls/hr Q8 [facility] Administration Sodium Phosphate 30 mmole/ 260 mls @ 50 mls/hr 01/06/17 10:00 01/06/17 10:58 Sodium Chloride IVPB 01/06/17 15:11 50 mls/hr .Q5H12M ONE Administration Lorazepam 0.5 mg 01/06/17 09:45 Ativan PO BID PRN Anxiety Ondansetron HCl 4 mg 01/03/17 17:49 01/03/17 17:54 Zofran Inj IVP 4 mg Q8H PRN Administration Nausea/Vomiting Tramadol HCl 25 mg 01/05/17 10:00 01/06/17 09:01 Ultram PO 25 mg BID [facility] Administration - Patient Studies Lab Studies: Microbiology Studies 01/03/17 Unknown MRSA Culture (Admit) - Final Nose MRSA NOT DETECTED 01/04/17 Unknown MRSA Culture (Admit) - Final Naris MRSA NOT DETECTED Lab Studies 01/06/17 01/06/17 01/03/17 Range/Units 06:45 06:45 16:30 WBC 13.5 H (4.8-10.8) K/uL RBC 4.33 (3.80-5.20) Mil/uL Hgb 9.8 L (11.0-16.0) g/dL Hct 31.7 L (34.0-47.0) % MCV 73.3 L (81.0-99.0) fL MCH 22.6 L (27.0-31.0) pg MCHC 30.8 L (33.0-37.0) g/dL RDW 18.6 H (11.5-14.5) % Plt Count 91 L (130-400) K/uL MPV 8.9 (7.2-11.7) fL Neut % (Auto) 77.9 H (50.0-75.0) % Lymph % (Auto) 9.3 L (20.0-40.0) % Ball[place] % (Auto) 11.5 H (0.0-10.0) % Eos % (Auto) 1.0 (0.0-4.0) % Baso % (Auto) 0.3 (0.0-2.0) % Neut # 10.5 H (1.8-7.0) K/uL Lymph # 1.2 (1.0-4.3) K/uL [place] # 1.5 H (0.0-0.8) K/uL Eos # 0.1 (0.0-0.7) K/uL Baso # 0.0 (0.0-0.2) K/uL Neutrophils % (Manual) 79 H (50-75) % Band Neutrophils % 2 (0-2) % Lymphocytes % (Manual) 8 L (20-40) % Monocytes % (Manual) 10 (0-10) % Eosinophils % (Manual) 1 (0-4) % Toxic Granulation Present Platelet Estimate Decreased L (NORMAL) Large Platelets Present Giant Platelets Present Polychromasia Slight Hypochromasia (manual) Slight Anisocytosis (manual) Slight Target Cells Slight Sodium 131 L (132-148) mmol/L Potassium 3.7 (3.6-5.2) mmol/L Chloride 94 L (98-107) mmol/L Carbon Dioxide 24 (22-30) mmol/L Anion Gap 17 (10-20) BUN 21 H (7-17) mg/dL Creatinine 1.5 H (0.7-1.2) MG/DL Est GFR ( Amer) 40 Est GFR (Non-Af Amer) 33 Random Glucose 90 (65-105) mg/dL Calcium 8.9 (8.6-10.4) mg/dl Phosphorus 2.0 L (2.5-4.5) mg/dL Magnesium 2.2 (1.6-2.3) mg/dL Total Bilirubin 0.5 (0.2-1.3) mg/dL AST 42 H (14-36) U/L ALT 31 (9-52) U/L Alkaline Phosphatase 122 (38-126) U/L Total Protein 5.7 L (6.3-8.3) g/dL Albumin 2.7 L (3.5-5.0) g/dL Globulin 3.0 (2.2-3.9) gm/dL Albumin/Globulin Ratio 0.9 L (1.0-2.1) C. difficile Ag & Toxin Negative (NEGATIVE) Laboratory Results - last 24 hr 01/03/17 01/06/17 01/06/17 16:30 06:45 06:45 WBC 13.5 H RBC 4.33 Hgb 9.8 L Hct 31.7 L MCV 73.3 L MCH 22.6 L MCHC 30.8 L RDW 18.6 H Plt Count 91 L MPV 8.9 Neut % (Auto) 77.9 H Lymph % (Auto) 9.3 L [place] % (Auto) 11.5 H Eos % (Auto) 1.0 Baso % (Auto) 0.3 Neut # 10.5 H Lymph # 1.2 Ballard # 1.5 H Eos # 0.1 Baso # 0.0 Neutrophils % (Manual) 79 H Band Neutrophils % 2 Lymphocytes % (Manual) 8 L Monocytes % (Manual) 10 Eosinophils % (Manual) 1 Toxic Granulation Present Platelet Estimate Decreased L Large Platelets Present Giant Platelets Present Polychromasia Slight Hypochromasia (manual) Slight Anisocytosis (manual) Slight Target Cells Slight Sodium 131 L Potassium 3.7 Chloride 94 L Carbon Dioxide 24 Anion Gap 17 BUN 21 H Creatinine 1.5 H Est GFR ( Amer) 40 Est GFR (Non-Af Amer) 33 Random Glucose 90 Calcium 8.9 Phosphorus 2.0 L Magnesium 2.2 Total Bilirubin 0.5 AST 42 H ALT 31 Alkaline Phosphatase 122 Total Protein 5.7 L Albumin 2.7 L Globulin 3.0 Albumin/Globulin Ratio 0.9 L C. difficile Ag & Toxin Negative Review of Systems - Review of Systems All systems: reviewed and no additional remarkable complaints except - Respiratory Respiratory: Cough Critical Care Progress Note - Nutrition Nutrition: Nutrition Category Date Time Status Liquid Diet [DIET] Diets 01/04/17 Lunch Active Assessment/Plan (1) Lung cancer Assessment and plan: 81-year-old female with history of hypertension, congestive heart failure, chronic obstructive lung disease, chronic smoking, abdominal aortic aneurysm status post repair,patient came to the emergency room. Plan: Neuro: - Alert, Oriented to person and place, not time. Answers most questions appropriately. Pulm: - O2 Nasal Cannula: 4L - Duoneb 3ml INH RQ6 - Thoracentesis Sunday for large metastatic pleural effusion in left lung. CV: - Aspirin 81mg PO Daily - Hemodynamically stable, tachycardia possibly secondary to tachypnea with large effusion. Patient does not appear to be hypovolemic from diarrhea any longer. Heme: - H/H: 11.7/38.2 - Lovenox 40mg SC daily - Worsening thrombocytopenia, possibly secondary to sepsis. No indication of transfusion yet. Platelets greater than 50. will check HiT antibody, but suspicion is very low. ID: - Sepsis secondary to Colitis - Ciprofloxacin 100mls at 67 mls/hr IVPB Q12H - Metronidazole 50mls at 100 mls/hr IVPB Q8 - stopping Vanco as C. diff is negative Renal: - TEX improving. - creatinine downtrending to baseline. - urine output wnl - stopped fluids with worsening pleural effusion GI: - Clear Liquid Diet, tolerating DVT proph - SCDs, Lovenox Code status - full code Patient is clinically stable for downgrade to the floors. Current Visit: Yes Status: Acute
--- NOTE | 2017-01-06 17:55 | CP.PCM.PN ---
Subjective - Date & Time of Evaluation Date of Evaluation: 01/06/17 Time of Evaluation: 17:52 - Subjective Subjective: Patient having minimal symptoms of nasal stuffiness, also having right ear pain. Complaining of abdominal pain, better than before. Chest pain negative. Minimal shortness of breath and exertion causes more SOB. Able to sit up today for half an hour. But weakness and tiredness and easy fatigability. On examination: Vital signs reviewed No neck vein distention noted Chest good decreased air entry left lung CVS regular heart sound, no murmur noted Abdomen soft, nontender. Extremities no pedal edema [employer] alert awake oriented 3, no functional neurological deficit Patient labs reviewed PVCs noted. Family at bedside. Doppler in the legs showing evidence of decreased blood circulation. Posterior tibial both sides are good X-ray increasing left lung effusion noted. Assessment and recommendation: Patient this time admitted with acute colitis. Currently on antibiotic. C. difficile is negative Diarrhea persistent. We'll continue the current treatment. Oncology follow-up pending at this time currently and also pending tumor markers. Objective - Vital Signs/Intake and Output Vital Signs (last 24 hours): Temp Pulse Resp BP Pulse Ox 98.4 F 113 H 25 H 120/60 93 L 01/06/17 16:00 01/06/17 17:00 01/06/17 17:00 01/06/17 16:30 01/06/17 17:00 Intake and Output: 01/06/17 01/06/17 06:59 18:59 Intake Total 550 220 Output Total 450 150 Balance 100 70 - Medications Medications: Current Medications Albuterol/Ipratropium (Duoneb 3 Mg/0.5 Mg (3 Ml) Ud) 3 ml INH RQ6 [facility] Last Admin: 01/06/17 13:39 Dose: 3 ml Aspirin (Aspirin Chewable) 81 mg PO DAILY [facility] Last Admin: 01/06/17 10:57 Dose: 81 mg Carvedilol (Coreg) 3.125 mg PO BID [facility] Enoxaparin Sodium (Lovenox) 30 mg SC DAILY [facility] Last Admin: 01/06/17 10:57 Dose: 30 mg Ciprofloxacin (Cipro 200mg/100ml D5w) 100 mls @ 67 mls/hr IVPB Q12H [facility] Last Admin: 01/06/17 06:00 Dose: 67 mls/hr Metronidazole 250 mg/ (Miscellaneous) 50 mls @ 100 mls/hr IVPB Q8 [facility] Last Admin: 01/06/17 14:48 Dose: 100 mls/hr Lorazepam (Ativan) 0.5 mg PO BID PRN PRN Reason: Anxiety Ondansetron HCl (Zofran Inj) 4 mg IVP Q8H PRN PRN Reason: Nausea/Vomiting Last Admin: 01/03/17 17:54 Dose: 4 mg Tramadol HCl (Ultram) 25 mg PO BID [facility] Last Admin: 01/06/17 09:01 Dose: 25 mg Vitamin A (Vitamin A & D Oint Ud Foilpak) 1 ea TOP BID [facility] - Labs Labs: 01/06/17 06:45 01/06/17 06:45
[2017-01-06] MEDS ORDERED: Potassium Chloride 20 mEq/15 ml LIQ UD PO ONE (18:00)
[2017-01-06] MEDS: Vitamins A & D Oint UD Foilpak TOP SCH (18:37)
[2017-01-06] MEDS: Fluticasone Nasal 50 mcg/Spray NAS SCH (18:38)
[2017-01-07] MEDS: Albuterol-Ipratrop 3 mg / 0.5 (3 ml) UD INH SCH ×4 (02:15→19:34)
[2017-01-07] MEDS: metroNIDAZOLE IV 500 mg/100 ml 250 MG in Premixed IV 1 EA IVPB SCH ×3 (06:00→21:50)
[2017-01-07] MEDS: Ciprofloxacin 200mg/100ml D5W 100 ML IVPB SCH (06:00)
[2017-01-07 06:33] LABS: BASO % 0.3 % (0.0-2.0); EOS # 0.1 K/uL (0.0-0.7); EOS % 0.6 % (0.0-4.0); LYMPH # 1.3 K/uL (1.0-4.3); LYMPH % 9.2 % (20.0-40.0); MEAN CELL VOLUME 72.6 fL (81.0-99.0); MEAN CORPUSCULAR HEMOGLOBIN 22.6 pg (27.0-31.0); MEAN CORPUSCULAR HGB CONC 31.2 g/dL (33.0-37.0); MEAN PLATELET VOLUME 8.8 fL (7.2-11.7); MONO # 1.5 K/uL (0.0-0.8); MONO % 10.2 % (0.0-10.0); PLATELET COUNT 80 K/uL (130-400); RED CELL DISTRIBUTION WIDTH 19.4 % (11.5-14.5); WHITE BLOOD COUNT 14.3 K/uL (4.8-10.8)
[2017-01-07 06:35] LABS: ABG ALLEN TEST POS; ARTERIAL BLOOD HGB O2 SAT 94.5 % (95.0-98.0); CARBOXYHEMOGLOBIN 1.7 % (0.5-1.5); DRAW SITE RRADIAL; HHB 2.9 % (0.0-5.0); METHEMOGLOBIN 0.9 % (0.0-3.0)
[2017-01-07 06:53] LABS: ALB/GLOB RATIO 0.9 (1.0-2.1); BILIRUBIN,TOTAL 0.7 mg/dL (0.2-1.3); CALCIUM 8.7 mg/dl (8.6-10.4); PHOSPHOROUS 2.6 mg/dL (2.5-4.5); POTASSIUM 4.3 mmol/L (3.6-5.2); TOTAL PROTEIN 5.7 g/dL (6.3-8.3)
[2017-01-07 08:43] LABS: NEUTROPHIL 77 % (50-75); TOTAL CELLS COUNTED 100
[2017-01-07 08:44] LABS: LARGE PLATELETS PRESENT
[2017-01-07 08:45] LABS: GIANT PLATELETS PRESENT
[2017-01-07] MEDS: Vitamins A & D Oint UD Foilpak TOP SCH ×2 (09:24→18:03)
[2017-01-07] MEDS: Enoxaparin 30 mg Syringe SC SCH (09:25)
[2017-01-07] MEDS: Fluticasone Nasal 50 mcg/Spray NAS SCH (09:26)
[2017-01-07] MEDS ORDERED: Midazolam 2 MG/2 ML VIAL ONE (10:39)
[2017-01-07] MEDS ORDERED: MethylPREDNISolone 40 mg Vial IVP STA (11:07)
--- NOTE | 2017-01-07 11:13 | CP.PCM.PN ---
Subjective - Date & Time of Evaluation Date of Evaluation: 01/07/17 Time of Evaluation: 11:09 - Subjective Subjective: pt is having worsening sob worseing xray noted left lung effusion or soft tissue noted spoke to son and daughter if worsening will need intubation chest good air entry and less on the left side regular hs abd soft edema noted add lasix solu-medrol bipap will d/c with family about the DNR Objective - Vital Signs/Intake and Output Vital Signs (last 24 hours): Temp Pulse Resp BP Pulse Ox 98 F 113 H 30 H 109/70 97 01/07/17 08:00 01/07/17 11:00 01/07/17 11:00 01/07/17 10:31 01/07/17 11:00 Intake and Output: 01/07/17 01/07/17 06:59 18:59 Intake Total 400 350 Output Total 600 Balance -200 350 - Medications Medications: Current Medications Albuterol/Ipratropium (Duoneb 3 Mg/0.5 Mg (3 Ml) Ud) 3 ml INH RQ6 [facility] Last Admin: 01/07/17 07:49 Dose: 3 ml Aspirin (Aspirin Chewable) 81 mg PO DAILY [facility] Last Admin: 01/07/17 09:25 Dose: 81 mg Carbamide Peroxide (Debrox Ear Drops) 1 ml AD BID [facility] Last Admin: 01/06/17 18:39 Dose: 5 drop Carvedilol (Coreg) 3.125 mg PO BID [facility] Last Admin: 01/07/17 09:24 Dose: 3.125 mg Enoxaparin Sodium (Lovenox) 30 mg SC DAILY [facility] Last Admin: 01/07/17 09:25 Dose: 30 mg Fluticasone Propionate (Flonase) 1 spr ERASMO DAILY [facility] Last Admin: 01/07/17 09:26 Dose: 1 spr Ciprofloxacin (Cipro 200mg/100ml D5w) 100 mls @ 67 mls/hr IVPB Q12H [facility] Last Admin: 01/07/17 06:00 Dose: 67 mls/hr Metronidazole 250 mg/ (Miscellaneous) 50 mls @ 100 mls/hr IVPB Q8 [facility] Last Admin: 01/07/17 06:00 Dose: 100 mls/hr Lorazepam (Ativan) 0.5 mg PO BID PRN PRN Reason: Anxiety Last Admin: 01/06/17 22:55 Dose: 0.5 mg Ondansetron HCl (Zofran Inj) 4 mg IVP Q8H PRN PRN Reason: Nausea/Vomiting Last Admin: 01/03/17 17:54 Dose: 4 mg Tramadol HCl (Ultram) 25 mg PO BID [facility] Last Admin: 01/06/17 18:10 Dose: 25 mg Vitamin A (Vitamin A & D Oint Ud Foilpak) 1 ea TOP BID [facility] Last Admin: 01/07/17 09:24 Dose: 1 ea - Labs Labs: 01/07/17 06:30 01/07/17 06:29
[2017-01-07] MEDS: Tramadol 25 mg PO SCH ×2 (11:16→18:02)
--- NOTE | 2017-01-07 11:40 | RAD ---
HISTORY: ff.up/pleural effusion/pneumonia COMPARISON: Comparison is made to 01/06/2017 FINDINGS: LUNGS: Interval mild improvement in the left lung since the previous study. Otherwise no significant change PLEURA: Possible left pleural effusion CARDIOVASCULAR: Cardiomegaly is again noted. OSSEOUS STRUCTURES: No significant abnormalities. VISUALIZED UPPER ABDOMEN: Normal. OTHER FINDINGS: None. IMPRESSION: Interval mild improvement in the left lung since the previous study. Otherwise no significant change.
[2017-01-07] MEDS ORDERED: Albuterol-Ipratrop 3 mg / 0.5 (3 ml) UD INH STA (11:43)
--- NOTE | 2017-01-07 14:18 | CP.CCUPN ---
CCU Subjective - Physician Review Events Since Last Encounter (Free Text): 01/07/17 14:08 Patient is more dyspneic today. CCU Objective - Vital Signs / Intake & Output Vital Signs (Last 4 hours): Vital Signs Temp Pulse Resp BP Pulse Ox 01/07/17 13:46 107 H 01/07/17 13:30 105 H 23 106/52 L 96 01/07/17 13:00 109 H 25 H 96 01/07/17 12:30 106 H 21 101/52 L 95 01/07/17 12:00 97.6 F 106 H 23 97 01/07/17 11:30 112 H 23 98/62 L 95 01/07/17 11:16 109/70 01/07/17 11:00 113 H 30 H 97 01/07/17 10:31 119 H 31 H 109/70 95 Intake and Output (Last 8hrs): Intake & Output 01/06/17 01/07/17 01/07/17 22:59 06:59 14:59 Intake Total 400 350 Output Total 600 800 Balance -200 -450 Intake: Intake, IV Amount 400 Left Hand 200 Right Hand 200 Oral 350 Output: Urine 600 800 Urine, Voided 600 800 Stool 0 - Physical Exam Head: Positive for: Normocephalic Extroacular Muscles: Positive for: EOMI Conjunctiva: Positive for: Normal Mouth: Positive for: Moist Mucous Membranes Respiratory/Chest: Positive for: Good Air Exchange, Respiratory Distress, Decreased Breath Sounds. Negative for: Accessory Muscle Use, Wheezes, Rales, Rhonchi Cardiovascular: Positive for: Regular Rate and Rhythm, Normal S1, S2 Abdomen: Positive for: Tenderness (tenderness in the right upper quadrant, mid epigastric and left upper quadrant), Normal Bowel Sounds. Negative for: Distention Upper Extremity: Positive for: Normal Inspection. Negative for: Cyanosis, Edema Lower Extremity: Positive for: Normal Inspection. Negative for: Edema, CALF TENDERNESS, Tenderness Neurological: Positive for: GCS=15, Speech Normal Skin: Positive for: Warm, Dry, Normal Color Psychiatric: Positive for: Alert, Oriented x 3, Normal Insight, Normal Concentration ( Patient knows she is at the hospital, she knows who are current president is but she does not know the current year, the patient stated it was 1996. ) - Medications Active Medications: Active Medications Generic Name Dose Route Start Last Admin Trade Name Freq PRN Reason Stop Dose Admin Albuterol/Ipratropium 3 ml 01/03/17 20:00 01/07/17 07:49 Duoneb 3 Mg/0.5 Mg (3 Ml) Ud INH 3 ml RQ6 [facility] Administration Aspirin 81 mg 01/04/17 10:00 01/07/17 09:25 Aspirin Chewable PO 81 mg DAILY [facility] Administration Carbamide Peroxide 1 ml 01/06/17 18:00 01/07/17 12:01 Debrox Ear Drops AD Not Given BID [facility] Carvedilol 3.125 mg 01/06/17 18:00 01/07/17 09:24 Coreg PO 3.125 mg BID [facility] Administration Enoxaparin Sodium 30 mg 01/05/17 16:07 01/07/17 09:25 Lovenox SC 30 mg DAILY [facility] Administration Fluticasone Propionate 1 spr 01/06/17 18:00 01/07/17 09:26 Flonase ERASMO 1 spr DAILY [facility] Administration Metronidazole 250 mg/ 50 mls @ 100 mls/hr 01/04/17 01:00 01/07/17 13:15 Miscellaneous IVPB 100 mls/hr Q8 [facility] Administration Lorazepam 0.5 mg 01/06/17 09:45 01/06/17 22:55 Ativan PO 0.5 mg BID PRN Administration Anxiety Ondansetron HCl 4 mg 01/03/17 17:49 01/03/17 17:54 Zofran Inj IVP 4 mg Q8H PRN Administration Nausea/Vomiting Tramadol HCl 25 mg 01/05/17 10:00 01/07/17 11:16 Ultram PO 25 mg BID [facility] Administration Trazodone HCl 25 mg 01/07/17 22:00 Desyrel PO HS [facility] Vitamin A 1 ea 01/06/17 18:00 01/07/17 09:24 Vitamin A & D Oint Ud Foilpak TOP 1 ea BID [facility] Administration - Patient Studies Lab Studies: Lab Studies 01/07/17 01/07/17 01/07/17 Range/Units 06:30 06:30 06:29 WBC 14.3 H (4.8-10.8) K/uL RBC 4.41 (3.80-5.20) Mil/uL Hgb 10.0 L (11.0-16.0) g/dL Hct 32.0 L (34.0-47.0) % MCV 72.6 L (81.0-99.0) fL MCH 22.6 L (27.0-31.0) pg MCHC 31.2 L (33.0-37.0) g/dL RDW 19.4 H (11.5-14.5) % Plt Count 80 L (130-400) K/uL MPV 8.8 (7.2-11.7) fL Neut % (Auto) 79.7 H (50.0-75.0) % Lymph % (Auto) 9.2 L (20.0-40.0) % [place] % (Auto) 10.2 H (0.0-10.0) % Eos % (Auto) 0.6 (0.0-4.0) % Baso % (Auto) 0.3 (0.0-2.0) % Neut # 11.3 H (1.8-7.0) K/uL Lymph # 1.3 (1.0-4.3) K/uL [place] # 1.5 H (0.0-0.8) K/uL Eos # 0.1 (0.0-0.7) K/uL Baso # 0.0 (0.0-0.2) K/uL Neutrophils % (Manual) 77 H (50-75) % Band Neutrophils % 4 H (0-2) % Lymphocytes % (Manual) 9 L (20-40) % Monocytes % (Manual) 10 (0-10) % Platelet Estimate Decreased L (NORMAL) Large Platelets Present Giant Platelets Present Polychromasia Slight Hypochromasia (manual) Slight Anisocytosis (manual) Moderate Puncture Site Rradial pCO2 33 L (35-45) mm/Hg pO2 70 L (80-100) mm/Hg HCO3 23.4 (21-28) mmol/L ABG pH 7.43 (7.35-7.45) ABG Total CO2 22.9 (22-28) mmol/L ABG O2 Saturation 97.0 (95-98) % ABG Base Excess -1.9 (-2.0-3.0) mmol/L ABG Hemoglobin 10.1 L (11.7-17.4) g/dL ABG Carboxyhemoglobin 1.7 H (0.5-1.5) % POC ABG HHb (Measured) 2.9 (0.0-5.0) % ABG Methemoglobin 0.9 (0.0-3.0) % Romaine Test Pos A-a O2 Difference 245.0 mm/Hg Respiratory Index 3.5 Hgb O2 Saturation 94.5 L (95.0-98.0) % FiO2 50.0 % Sodium 129 L (132-148) mmol/L Potassium 4.3 (3.6-5.2) mmol/L Chloride 97 L (98-107) mmol/L Carbon Dioxide 23 (22-30) mmol/L Anion Gap 13 (10-20) BUN 17 (7-17) mg/dL Creatinine 1.4 H (0.7-1.2) MG/DL Est GFR ( Amer) 44 Est GFR (Non-Af Amer) 36 Random Glucose 93 (65-105) mg/dL Calcium 8.7 (8.6-10.4) mg/dl Phosphorus 2.6 (2.5-4.5) mg/dL Magnesium 2.0 (1.6-2.3) mg/dL Total Bilirubin 0.7 (0.2-1.3) mg/dL AST 42 H (14-36) U/L ALT 33 (9-52) U/L Alkaline Phosphatase 112 (38-126) U/L Total Protein 5.7 L (6.3-8.3) g/dL Albumin 2.6 L (3.5-5.0) g/dL Globulin 3.0 (2.2-3.9) gm/dL Albumin/Globulin Ratio 0.9 L (1.0-2.1) Laboratory Results - last 24 hr 01/07/17 01/07/17 01/07/17 06:29 06:30 06:30 WBC 14.3 H RBC 4.41 Hgb 10.0 L Hct 32.0 L MCV 72.6 L MCH 22.6 L MCHC 31.2 L RDW 19.4 H Plt Count 80 L MPV 8.8 Neut % (Auto) 79.7 H Lymph % (Auto) 9.2 L [place] % (Auto) 10.2 H Eos % (Auto) 0.6 Baso % (Auto) 0.3 Neut # 11.3 H Lymph # 1.3 [place] # 1.5 H Eos # 0.1 Baso # 0.0 Neutrophils % (Manual) 77 H Band Neutrophils % 4 H Lymphocytes % (Manual) 9 L Monocytes % (Manual) 10 Platelet Estimate Decreased L Large Platelets Present Giant Platelets Present Polychromasia Slight Hypochromasia (manual) Slight Anisocytosis (manual) Moderate Puncture Site Rradial pCO2 33 L pO2 70 L HCO3 23.4 ABG pH 7.43 ABG Total CO2 22.9 ABG O2 Saturation 97.0 ABG Base Excess -1.9 ABG Hemoglobin 10.1 L ABG Carboxyhemoglobin 1.7 H POC ABG HHb (Measured) 2.9 ABG Methemoglobin 0.9 Romaine Test Pos A-a O2 Difference 245.0 Respiratory Index 3.5 Hgb O2 Saturation 94.5 L FiO2 50.0 Sodium 129 L Potassium 4.3 Chloride 97 L Carbon Dioxide 23 Anion Gap 13 BUN 17 Creatinine 1.4 H Est GFR ( Amer) 44 Est GFR (Non-Af Amer) 36 Random Glucose 93 Calcium 8.7 Phosphorus 2.6 Magnesium 2.0 Total Bilirubin 0.7 AST 42 H ALT 33 Alkaline Phosphatase 112 Total Protein 5.7 L Albumin 2.6 L Globulin 3.0 Albumin/Globulin Ratio 0.9 L Review of Systems - Review of Systems All systems: reviewed and no additional remarkable complaints except - Respiratory Respiratory: Dyspnea Critical Care Progress Note - Nutrition Nutrition: Nutrition Category Date Time Status NPO Diet [DIET] Diets 01/07/17 Dinner Active Assessment/Plan (1) Lung cancer Assessment and plan: 81-year-old female with history of hypertension, congestive heart failure, chronic obstructive lung disease, chronic smoking, abdominal aortic aneurysm status post repair,patient came to the emergency room. Plan: Neuro: - Alert, Oriented to person and place, not time. Answers most questions appropriately. Pulm: - O2 Nasal Cannula: 4L - Duoneb 3ml INH RQ6 - cancelling Thoracentesis. Recent attempt didn't show much fluid. - acute respiratory failure now requiring BIPAP. Patient's family has requested trial intubation if she gets worse. - Family unsure about chemotherapy and patient's eligibility, will consult Hem/ Onc tomorrow. CV: - Aspirin 81mg PO Daily - Hemodynamically stable, tachycardia possibly secondary to tachypnea with large effusion. Patient does not appear to be hypovolemic from diarrhea any longer. Heme: - H/H: 11.7/38.2 - Lovenox 40mg SC daily - Worsening thrombocytopenia, possibly secondary to sepsis. No indication of transfusion yet. Platelets greater than 50. will check HiT antibody, but suspicion is very low. ID: - Sepsis secondary to Colitis - Ciprofloxacin 100mls at 67 mls/hr IVPB Q12H - Metronidazole 50mls at 100 mls/hr IVPB Q8 - stopping Vanco as C. diff is negative Renal: - TEX improving. - creatinine downtrending to baseline. - urine output wnl - stopped fluids with worsening pleural effusion GI: - Clear Liquid Diet, tolerating DVT proph - SCDs, Lovenox Code status - DNR not DNI Current Visit: Yes Status: Acute
[2017-01-07] MEDS: traZODone 25 mg Tab PO SCH (21:51)
[2017-01-08] MEDS: Albuterol-Ipratrop 3 mg / 0.5 (3 ml) UD INH SCH ×3 (01:26→19:38)
[2017-01-08] MEDS: metroNIDAZOLE IV 500 mg/100 ml 250 MG in Premixed IV 1 EA IVPB SCH (05:50)
[2017-01-08 06:23] LABS: BASO % 0.2 % (0.0-2.0); HEMATOCRIT 31.9 % (34.0-47.0); LYMPH % 5.3 % (20.0-40.0); MEAN CELL VOLUME 72.3 fL (81.0-99.0); MEAN CORPUSCULAR HEMOGLOBIN 22.7 pg (27.0-31.0); MEAN CORPUSCULAR HGB CONC 31.3 g/dL (33.0-37.0); MEAN PLATELET VOLUME 9.3 fL (7.2-11.7); MONO # 0.7 K/uL (0.0-0.8); MONO % 3.9 % (0.0-10.0); NRBC % 0.1 % (0.0-2.0); PLATELET COUNT 88 K/uL (130-400); RED CELL DISTRIBUTION WIDTH 19.1 % (11.5-14.5); WHITE BLOOD COUNT 18.2 K/uL (4.8-10.8)
[2017-01-08 06:36] LABS: BILIRUBIN,TOTAL 0.6 mg/dL (0.2-1.3); MAGNESIUM 1.9 mg/dL (1.6-2.3); PHOSPHOROUS 4.3 mg/dL (2.5-4.5); POTASSIUM 3.8 mmol/L (3.6-5.2); TOTAL PROTEIN 5.8 g/dL (6.3-8.3)
[2017-01-08 06:38] LABS: ALB/GLOB RATIO 0.9 (1.0-2.1)
--- NOTE | 2017-01-08 07:11 | CP.CCUPN ---
CCU Subjective - Physician Review Subjective (Free Text): Patient was seen and examined at bedside in the AM. Patient states she is feeling much better today. Patient states her breathing is better and feels less short of breath. Patient denies abdominal pain today. Patient states she has not had much of an appetite. CCU Objective - Vital Signs / Intake & Output Vital Signs (Last 4 hours): Vital Signs Temp Pulse Resp BP Pulse Ox 01/08/17 06:30 100 H 23 94/57 L 96 01/08/17 06:08 100 H 01/08/17 06:00 101 H 20 98 01/08/17 05:30 102 H 22 90/47 L 95 01/08/17 05:00 99 H 21 98 01/08/17 04:30 105 H 24 107/51 L 95 01/08/17 04:00 97.9 F 100 H 23 102/46 L 96 01/08/17 03:30 99 H 22 102/46 L 98 Intake and Output (Last 8hrs): Intake & Output 01/07/17 01/08/17 01/08/17 22:59 06:59 14:59 Intake Total 50 50 Output Total 1085 385 Balance -1030 -335 Intake: Intake, IV Amount 50 Left Hand 50 Oral 50 0 Output: Urine 1085 385 Urethral ([place]) 185 385 Urine, Voided 900 - Physical Exam Head: Positive for: Normocephalic Extroacular Muscles: Positive for: EOMI Conjunctiva: Positive for: Normal Mouth: Positive for: Moist Mucous Membranes Respiratory/Chest: Positive for: Good Air Exchange, Decreased Breath Sounds. Negative for: Respiratory Distress, Accessory Muscle Use, Wheezes, Rales, Rhonchi Cardiovascular: Positive for: Regular Rate and Rhythm, Normal S1, S2 Abdomen: Positive for: Normal Bowel Sounds. Negative for: Tenderness, Distention, Guarding Upper Extremity: Positive for: Normal Inspection. Negative for: Cyanosis, Edema Lower Extremity: Positive for: Normal Inspection. Negative for: Edema, CALF TENDERNESS, Tenderness Neurological: Positive for: GCS=15, Speech Normal Skin: Positive for: Warm, Dry, Normal Color Psychiatric: Positive for: Alert, Oriented x 3, Normal Insight, Normal Concentration ( Patient knows she is at the hospital, she knows who are current president is but she does not know the current year, the patient stated it was 1996. ) - Medications Active Medications: Active Medications Generic Name Dose Route Start Last Admin Trade Name Freq PRN Reason Stop Dose Admin Albuterol/Ipratropium 3 ml 01/03/17 20:00 01/08/17 01:26 Duoneb 3 Mg/0.5 Mg (3 Ml) Ud INH 3 ml RQ6 [facility] Administration Aspirin 81 mg 01/04/17 10:00 01/07/17 09:25 Aspirin Chewable PO 81 mg DAILY [facility] Administration Carbamide Peroxide 1 ml 01/06/17 18:00 01/07/17 18:04 Debrox Ear Drops AD 5 drop BID [facility] Administration Carvedilol 3.125 mg 01/06/17 18:00 01/07/17 18:02 Coreg PO 3.125 mg BID [facility] Administration Enoxaparin Sodium 30 mg 01/05/17 16:07 01/07/17 09:25 Lovenox SC 30 mg DAILY [facility] Administration Fluticasone Propionate 1 spr 01/06/17 18:00 01/07/17 09:26 Flonase ERASMO 1 spr DAILY [facility] Administration Metronidazole 250 mg/ 50 mls @ 100 mls/hr 01/04/17 01:00 01/08/17 05:50 Miscellaneous IVPB 100 mls/hr Q8 [facility] Administration Lorazepam 0.5 mg 01/06/17 09:45 01/07/17 21:58 Ativan PO 0.5 mg BID PRN Administration Anxiety Ondansetron HCl 4 mg 01/03/17 17:49 01/03/17 17:54 Zofran Inj IVP 4 mg Q8H PRN Administration Nausea/Vomiting Tramadol HCl 25 mg 01/05/17 10:00 01/07/17 18:02 Ultram PO Not Given BID [facility] Trazodone HCl 25 mg 01/07/17 22:00 01/07/17 21:51 Desyrel PO 25 mg HS [facility] Administration Vitamin A 1 ea 01/06/17 18:00 01/07/17 18:03 Vitamin A & D Oint Ud Foilpak TOP 1 ea BID [facility] Administration - Patient Studies Lab Studies: Lab Studies 01/08/17 01/08/17 01/07/17 Range/Units 06:11 06:11 06:30 WBC 18.2 H (4.8-10.8) K/uL RBC 4.41 (3.80-5.20) Mil/uL Hgb 10.0 L (11.0-16.0) g/dL Hct 31.9 L (34.0-47.0) % MCV 72.3 L (81.0-99.0) fL MCH 22.7 L (27.0-31.0) pg MCHC 31.3 L (33.0-37.0) g/dL RDW 19.1 H (11.5-14.5) % Plt Count 88 L (130-400) K/uL MPV 9.3 (7.2-11.7) fL Neut % (Auto) 90.6 H (50.0-75.0) % Lymph % (Auto) 5.3 L (20.0-40.0) % [place] % (Auto) 3.9 (0.0-10.0) % Eos % (Auto) 0.0 (0.0-4.0) % Baso % (Auto) 0.2 (0.0-2.0) % Neut # 16.5 H (1.8-7.0) K/uL Lymph # 1.0 (1.0-4.3) K/uL [place] # 0.7 (0.0-0.8) K/uL Eos # 0.0 (0.0-0.7) K/uL Baso # 0.0 (0.0-0.2) K/uL Neutrophils % (Manual) 77 H (50-75) % Band Neutrophils % 4 H (0-2) % Lymphocytes % (Manual) 9 L (20-40) % Monocytes % (Manual) 10 (0-10) % Platelet Estimate Decreased L (NORMAL) Large Platelets Present Giant Platelets Present Polychromasia Slight Hypochromasia (manual) Slight Anisocytosis (manual) Moderate Sodium 131 L (132-148) mmol/L Potassium 3.8 (3.6-5.2) mmol/L Chloride 93 L (98-107) mmol/L Carbon Dioxide 23 (22-30) mmol/L Anion Gap 19 (10-20) BUN 24 H (7-17) mg/dL Creatinine 1.7 H (0.7-1.2) MG/DL Est GFR ( Amer) 35 Est GFR (Non-Af Amer) 29 Random Glucose 109 H (65-105) mg/dL Calcium 9.0 (8.6-10.4) mg/dl Phosphorus 4.3 (2.5-4.5) mg/dL Magnesium 1.9 (1.6-2.3) mg/dL Total Bilirubin 0.6 (0.2-1.3) mg/dL AST 42 H (14-36) U/L ALT 29 (9-52) U/L Alkaline Phosphatase 104 (38-126) U/L Total Protein 5.8 L (6.3-8.3) g/dL Albumin 2.7 L (3.5-5.0) g/dL Globulin 3.1 (2.2-3.9) gm/dL Albumin/Globulin Ratio 0.9 L (1.0-2.1) Laboratory Results - last 24 hr 01/07/17 01/08/17 01/08/17 06:30 06:11 06:11 WBC 18.2 H RBC 4.41 Hgb 10.0 L Hct 31.9 L MCV 72.3 L MCH 22.7 L MCHC 31.3 L RDW 19.1 H Plt Count 88 L MPV 9.3 Neut % (Auto) 90.6 H Lymph % (Auto) 5.3 L [place] % (Auto) 3.9 Eos % (Auto) 0.0 Baso % (Auto) 0.2 Neut # 16.5 H Lymph # 1.0 [place] # 0.7 Eos # 0.0 Baso # 0.0 Neutrophils % (Manual) 77 H Band Neutrophils % 4 H Lymphocytes % (Manual) 9 L Monocytes % (Manual) 10 Platelet Estimate Decreased L Large Platelets Present Giant Platelets Present Polychromasia Slight Hypochromasia (manual) Slight Anisocytosis (manual) Moderate Sodium 131 L Potassium 3.8 Chloride 93 L Carbon Dioxide 23 Anion Gap 19 BUN 24 H Creatinine 1.7 H Est GFR ( Amer) 35 Est GFR (Non-Af Amer) 29 Random Glucose 109 H Calcium 9.0 Phosphorus 4.3 Magnesium 1.9 Total Bilirubin 0.6 AST 42 H ALT 29 Alkaline Phosphatase 104 Total Protein 5.8 L Albumin 2.7 L Globulin 3.1 Albumin/Globulin Ratio 0.9 L Review of Systems - Constitutional Constitutional: absent: Fever - EENT Nose/Mouth/Throat: Sore Throat - Cardiovascular Cardiovascular: absent: Chest Pain, Dyspnea, Palpitations - Respiratory Respiratory: absent: Dyspnea - Gastrointestinal Gastrointestinal: Diarrhea. absent: Constipation, Nausea, Vomiting - Neurological Neurological: absent: Headaches Critical Care Progress Note - Nutrition Nutrition: Nutrition Category Date Time Status NPO Diet [DIET] Diets 01/07/17 Dinner Active Assessment/Plan - Assessment and Plan (Free Text) Assessment: 81-year-old female with history of hypertension, congestive heart failure, chronic obstructive lung disease, chronic smoking, abdominal aortic aneurysm status post repair,patient came to the emergency room. Plan: Neuro: - Alert, Oriented to person and place. - The patient knows who the current president is but stated the year was 1996 Pulm: - O2 Nasal Cannula: 4L - Duoneb 3ml INH RQ6 - Acute respiratory failure started on Bipap on 01/07 CV: - Aspirin 81mg PO Daily Heme: - H/H: 04/24.9 - Lovenox 30mg SC daily - Worsening thrombocytopenia, possibly secondary to sepsis. No indication of transfusion yet. Platelets greater than 50. - f/u HIT antibody ID: - Sepsis secondary to Colitis - WBC (01/08): 18.2; WBC (01/07): 14.3; WBC (01/06):13.5; WBC (01/05): 14.9; WBC (): 17.7; WBC (01/03): 21.3 - C. Diff: Negative - Metronidazole 250mg PO Q8H - Vanco and Cipro discontinued Renal: - BUN/Cr: 24/1.7 - Creatinine Clearance: 32.8 GI: - Clear Liquid Diet DVT proph - SCDs Code status - DNR Case discussed with Dr. Nahun Bennett PGY-1
[2017-01-08 08:30] LABS: NEUTROPHIL 91 % (50-75); TOTAL CELLS COUNTED 100
[2017-01-08 08:31] LABS: LARGE PLATELETS PRESENT
--- NOTE | 2017-01-08 10:10 | CP.PCM.PN ---
Subjective - Date & Time of Evaluation Date of Evaluation: 01/08/17 Time of Evaluation: 10:06 - Subjective Subjective: Patient continues to have diarrhea which seems unchanged, according to family. she denies having nausea and vomiting. She complains of mild pain in the upper abdomen. Will check stool C difficile by PCR and other stool studies. Consider colonoscopy when stable. Objective - Vital Signs/Intake and Output Vital Signs (last 24 hours): Temp Pulse Resp BP Pulse Ox 97.6 F 105 H 26 H 96/60 L 97 01/08/17 08:00 01/08/17 09:00 01/08/17 09:00 01/08/17 08:30 01/08/17 09:00 Intake and Output: 01/08/17 01/08/17 06:59 18:59 Intake Total 100 0 Output Total 575 90 Balance -475 -90 - Medications Medications: Current Medications Albuterol/Ipratropium (Duoneb 3 Mg/0.5 Mg (3 Ml) Ud) 3 ml INH RQ6 [facility] Last Admin: 01/08/17 07:15 Dose: 3 ml Aspirin (Aspirin Chewable) 81 mg PO DAILY [facility] Last Admin: 01/07/17 09:25 Dose: 81 mg Carbamide Peroxide (Debrox Ear Drops) 1 ml AD BID [facility] Last Admin: 01/07/17 18:04 Dose: 5 drop Carvedilol (Coreg) 3.125 mg PO BID [facility] Last Admin: 01/07/17 18:02 Dose: 3.125 mg Enoxaparin Sodium (Lovenox) 30 mg SC DAILY [facility] Last Admin: 01/07/17 09:25 Dose: 30 mg Famotidine (Pepcid) 20 mg PO DAILY [facility] Fluticasone Propionate (Flonase) 1 spr ERASMO DAILY [facility] Last Admin: 01/07/17 09:26 Dose: 1 spr Lorazepam (Ativan) 0.5 mg PO BID PRN PRN Reason: Anxiety Last Admin: 01/07/17 21:58 Dose: 0.5 mg Metronidazole (Flagyl) 250 mg PO Q8H [facility] Ondansetron HCl (Zofran Inj) 4 mg IVP Q8H PRN PRN Reason: Nausea/Vomiting Last Admin: 01/03/17 17:54 Dose: 4 mg Tramadol HCl (Ultram) 25 mg PO BID [facility] Last Admin: 01/07/17 18:02 Dose: Not Given Trazodone HCl (Desyrel) 25 mg PO HS [facility] Last Admin: 01/07/17 21:51 Dose: 25 mg Vitamin A (Vitamin A & D Oint Ud Foilpak) 1 ea TOP BID [facility] Last Admin: 01/07/17 18:03 Dose: 1 ea - Labs Labs: 01/08/17 06:11 01/08/17 06:11 - Constitutional Appears: No Acute Distress - Head Exam Head Exam: ATRAUMATIC, NORMOCEPHALIC - Eye Exam Eye Exam: EOMI, PERRL - Neck Exam Neck Exam: absent: Lymphadenopathy, Thyromegaly - Respiratory Exam Respiratory Exam: NORMAL BREATHING PATTERN. absent: Rales, Rhonchi, Wheezes - Cardiovascular Exam Cardiovascular Exam: REGULAR RHYTHM, +S1, +S2. absent: Gallop, Rubs, Murmur - GI/Abdominal Exam GI & Abdominal Exam: Distended, Soft, Tenderness, Normal Bowel Sounds. absent: Mass, Organomegaly - Rectal Exam Rectal Exam: Deferred - Extremities Exam Extremities Exam: absent: Calf Tenderness, Pedal Edema Assessment and Plan (1) Diarrhea Assessment & Plan: Diarrhea persists. Patient has mild upper abdominal pain. CBC continues to show leukocytosis, WBC 18,200, althought the left shift is less pronounced. The platelet count is decreasing. Status: Acute
[2017-01-08] MEDS: Tramadol 25 mg PO SCH ×2 (10:26→17:45)
[2017-01-08] MEDS: Enoxaparin 30 mg Syringe SC SCH (10:27)
[2017-01-08] MEDS: Vitamins A & D Oint UD Foilpak TOP SCH ×2 (10:27→17:45)
[2017-01-08] MEDS: Fluticasone Nasal 50 mcg/Spray NAS SCH (10:28)
[2017-01-08 12:10] LABS: INR 1.2
--- NOTE | 2017-01-08 13:25 | RAD ---
PROCEDURE: CHEST RADIOGRAPH, 1 VIEW HISTORY: pneumonia COMPARISON: None available. FINDINGS: LUNGS: Re- demonstrated is left lower lobe opacity which probably represents a combination of on a hiatal hernia as well as some eventration of left hemidiaphragm atelectasis and small effusion. Mild moderate right basilar atelectasis. Note made of opacification of lateral aspect left upper lung field which could represent overlying artifact versus layering pleural fluid PLEURA: No pneumothorax CARDIOVASCULAR: Heart remains mildly enlarged. OSSEOUS STRUCTURES: No significant abnormalities. VISUALIZED UPPER ABDOMEN: Normal. OTHER FINDINGS: None. IMPRESSION: Re- demonstrated is left lower lobe opacity which probably represents a combination of on a hiatal hernia as well as some eventration of left hemidiaphragm atelectasis and small effusion. Mild moderate right basilar atelectasis. Note made of opacification of lateral aspect left upper lung field which could represent overlying artifact versus layering pleural fluid
--- NOTE | 2017-01-08 18:34 | CP.PCM.CON ---
History of Present Illness - History of Present Illness History of Present Illness: 81 yo woman recently d/john home after admission for SOB, pleural effusion, redmitted with abdominal pain, nausea, diarrhea, initial stool test for C.diff negative. Patient currently on BiPap, lying in bed, appears very frail, awake , denies any pain, cough. PMHx- Significant for COPD, h/o CHF, rt. lung nodule with uptake on PETscan, biopsy positive for adenocarcinoma, new left pleural effusion, biopsy showing adenoca, not consistent with lung primary, ??breast primary, negative for ER,MI and [id number] Past Patient History - Infectious Disease Hx of Infectious Diseases: C.diff - Past Medical History & Family History Past Medical History?: Yes - Past Social History Smoking Status: Never Smoked - CARDIAC Hx Hypercholesterolemia: Yes Hx Hypertension: Yes - PULMONARY Hx Chronic Obstructive Pulmonary Disease (COPD): Yes (EMPHYSEMA) Hx Emphysema: Yes Hx Pneumonia: Yes (november 2016) - NEUROLOGICAL Hx Neurological Disorder: No Hx Paralysis: No - HEENT Hx HEENT Problems: Yes (READING GLASSES) - ENDOCRINE/METABOLIC Hx Endocrine Disorders: No - HEMATOLOGICAL/ONCOLOGICAL Hx Blood Disorders: No Hx Blood Transfusions: No - INTEGUMENTARY Hx Dermatological Problems: No - MUSCULOSKELETAL/RHEUMATOLOGICAL Hx Musculoskeletal Disorders: No Hx Falls: No - GASTROINTESTINAL Hx Gastrointestinal Disorders: Yes (SEE COMMENT) Other/Comment: Hiatal Hernia, abdominal aortic aneurysm - GENITOURINARY/GYNECOLOGICAL Hx Genitourinary Disorders: No - PSYCHIATRIC Hx Anxiety: Yes Hx Substance Use: No - SURGICAL HISTORY Hx Surgeries: Yes Hx Herniorrhaphy: Yes Hx Hysterectomy: Yes Hx Vascular Surgery: Yes ([facility] END[facility]IC DEVICE 04-29-15) Other/Comment: abdominal aneurysm aortic surgery as per patient - ANESTHESIA Hx Anesthesia: Yes Hx Anesthesia Reactions: Yes (REACTED TO MORPHINE DROP IN BP) Hx Malignant Hyperthermia: No Meds Allergies/Adverse Reactions: Allergies Allergy/AdvReac Type Severity Reaction Status Date / Time carbamazepine [From Tegretol] Allergy Verified 01/03/17 12:03 morphine AdvReac Mild VOMITING Verified 01/03/17 12:03 - Medications Medications: Current Medications Albuterol/Ipratropium (Duoneb 3 Mg/0.5 Mg (3 Ml) Ud) 3 ml INH RQ6 [facility] Last Admin: 01/08/17 07:15 Dose: 3 ml Aspirin (Aspirin Chewable) 81 mg PO DAILY [facility] Last Admin: 01/08/17 10:26 Dose: 81 mg Carbamide Peroxide (Debrox Ear Drops) 1 ml AD BID [facility] Last Admin: 01/08/17 17:46 Dose: 5 drop Carvedilol (Coreg) 3.125 mg PO BID [facility] Last Admin: 01/08/17 17:46 Dose: 3.125 mg Enoxaparin Sodium (Lovenox) 30 mg SC DAILY [facility] Last Admin: 01/08/17 10:27 Dose: 30 mg Famotidine (Pepcid) 20 mg PO DAILY [facility] Last Admin: 01/08/17 10:27 Dose: 20 mg Fluticasone Propionate (Flonase) 1 spr ERASMO DAILY [facility] Last Admin: 01/08/17 10:28 Dose: 1 spr Lorazepam (Ativan) 0.5 mg PO BID PRN PRN Reason: Anxiety Last Admin: 01/07/17 21:58 Dose: 0.5 mg Metronidazole (Flagyl) 250 mg PO Q8H [facility] Last Admin: 01/08/17 17:46 Dose: 250 mg Ondansetron HCl (Zofran Inj) 4 mg IVP Q8H PRN PRN Reason: Nausea/Vomiting Last Admin: 01/03/17 17:54 Dose: 4 mg Tramadol HCl (Ultram) 25 mg PO BID [facility] Last Admin: 01/08/17 17:45 Dose: Not Given Trazodone HCl (Desyrel) 25 mg PO HS [facility] Last Admin: 01/07/17 21:51 Dose: 25 mg Vitamin A (Vitamin A & D Oint Ud Foilpak) 1 ea TOP BID [facility] Last Admin: 01/08/17 17:45 Dose: 1 ea Results - Vital Signs Recent Vital Signs: Last Vital Signs Temp 96.8 F L 01/08/17 16:00 Pulse 102 H 01/08/17 17:30 Resp 22 01/08/17 17:30 BP 112/61 01/08/17 17:30 Pulse Ox 98 01/08/17 17:30 - Labs Result Diagrams: 01/08/17 06:11 01/08/17 06:11 Labs: Laboratory Results - last 24 hr 01/08/17 01/08/17 01/08/17 06:11 06:11 12:00 WBC 18.2 H RBC 4.41 Hgb 10.0 L Hct 31.9 L MCV 72.3 L MCH 22.7 L MCHC 31.3 L RDW 19.1 H Plt Count 88 L MPV 9.3 Neut % (Auto) 90.6 H Lymph % (Auto) 5.3 L [place] % (Auto) 3.9 Eos % (Auto) 0.0 Baso % (Auto) 0.2 Neut # 16.5 H Lymph # 1.0 [place] # 0.7 Eos # 0.0 Baso # 0.0 Neutrophils % (Manual) 91 H Band Neutrophils % 2 Lymphocytes % (Manual) 5 L Monocytes % (Manual) 2 Platelet Estimate Decreased L Large Platelets Present Hypochromasia (manual) Slight Poikilocytosis (manual Slight Anisocytosis (manual) Slight PT 14.2 H INR 1.2 Sodium 131 L Potassium 3.8 Chloride 93 L Carbon Dioxide 23 Anion Gap 19 BUN 24 H Creatinine 1.7 H Est GFR ( Amer) 35 Est GFR (Non-Af Amer) 29 Random Glucose 109 H Calcium 9.0 Phosphorus 4.3 Magnesium 1.9 Total Bilirubin 0.6 AST 42 H ALT 29 Alkaline Phosphatase 104 Total Protein 5.8 L Albumin 2.7 L Globulin 3.1 Albumin/Globulin Ratio 0.9 L Stool Occult Blood 01/08/17 16:39 WBC RBC Hgb Hct MCV MCH MCHC RDW Plt Count MPV Neut % (Auto) Lymph % (Auto) [place] % (Auto) Eos % (Auto) Baso % (Auto) Neut # Lymph # [place] # Eos # Baso # Neutrophils % (Manual) Band Neutrophils % Lymphocytes % (Manual) Monocytes % (Manual) Platelet Estimate Large Platelets Hypochromasia (manual) Poikilocytosis (manual Anisocytosis (manual) PT INR Sodium Potassium Chloride Carbon Dioxide Anion Gap BUN Creatinine Est GFR ( Amer) Est GFR (Non-Af Amer) Random Glucose Calcium Phosphorus Magnesium Total Bilirubin AST ALT Alkaline Phosphatase Total Protein Albumin Globulin Albumin/Globulin Ratio Stool Occult Blood Positive H Assessment & Plan (1) Lung cancer Assessment and Plan: Rt. lung spiculated nodule, biopsy positive for adenoca, slowly progressive, left pleural effusion, cytology also positive for adenocarcinoma but initial stains not positive for lung primary. 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 Additional testing and stains will probably be helpful in identifying the primary, however as no treatment is planned for the immediate future, will hold off on discussing with the patient regarding diagnosis or prognosis for now( also unclear how much she is able to comprehend). Have discussed with her daughter and mentioned the the ER, MI and [id number] stains being negative and that hormonal therapy would prove ineffective. Will follow Status: Acute
[2017-01-08] MEDS: traZODone 25 mg Tab PO SCH (21:53)
[2017-01-09] MEDS: Albuterol-Ipratrop 3 mg / 0.5 (3 ml) UD INH SCH ×4 (02:59→19:09)
[2017-01-09 06:48] LABS: BASO % 0.3 % (0.0-2.0); EOS % 0.1 % (0.0-4.0); HEMATOCRIT 31.6 % (34.0-47.0); LYMPH # 1.7 K/uL (1.0-4.3); LYMPH % 10.6 % (20.0-40.0); MEAN CELL VOLUME 72.4 fL (81.0-99.0); MEAN CORPUSCULAR HEMOGLOBIN 22.6 pg (27.0-31.0); MEAN CORPUSCULAR HGB CONC 31.3 g/dL (33.0-37.0); MONO # 1.3 K/uL (0.0-0.8); MONO % 8.1 % (0.0-10.0); WHITE BLOOD COUNT 15.8 K/uL (4.8-10.8)
[2017-01-09 06:49] LABS: POTASSIUM 3.5 mmol/L (3.6-5.2)
[2017-01-09 06:52] LABS: ALB/GLOB RATIO 0.9 (1.0-2.1); BILIRUBIN,TOTAL 0.6 mg/dL (0.2-1.3); CALCIUM 8.6 mg/dl (8.6-10.4); TOTAL PROTEIN 5.6 g/dL (6.3-8.3)
[2017-01-09] MEDS ORDERED: Potassium Chloride 10 mEq ER Tab PO ONE (08:32)
--- NOTE | 2017-01-09 08:42 | CP.PCM.PN ---
Subjective - Date & Time of Evaluation Date of Evaluation: 01/09/17 Time of Evaluation: 08:39 - Subjective Subjective: Notes from Dr Maynard and Fidelia appreciated Diarrhea somewhat better Stool OB+, Cdiff-, Objective - Vital Signs/Intake and Output Vital Signs (last 24 hours): Temp Pulse Resp BP Pulse Ox 98.2 F 112 H 26 H 108/63 90 L 01/09/17 08:00 01/09/17 07:30 01/09/17 07:30 01/09/17 07:30 01/09/17 07:30 Intake and Output: 01/09/17 01/09/17 06:59 18:59 Intake Total 250 100 Output Total 380 90 Balance -130 10 - Medications Medications: Current Medications Albuterol/Ipratropium (Duoneb 3 Mg/0.5 Mg (3 Ml) Ud) 3 ml INH RQ6 [facility] Last Admin: 01/09/17 07:47 Dose: 3 ml Aspirin (Aspirin Chewable) 81 mg PO DAILY [facility] Last Admin: 01/08/17 10:26 Dose: 81 mg Carbamide Peroxide (Debrox Ear Drops) 1 ml AD BID [facility] Last Admin: 01/08/17 17:46 Dose: 5 drop Carvedilol (Coreg) 3.125 mg PO BID [facility] Last Admin: 01/08/17 17:46 Dose: 3.125 mg Enoxaparin Sodium (Lovenox) 30 mg SC DAILY [facility] Last Admin: 01/08/17 10:27 Dose: 30 mg Famotidine (Pepcid) 20 mg PO DAILY [facility] Last Admin: 01/08/17 10:27 Dose: 20 mg Fluticasone Propionate (Flonase) 1 spr ERASMO DAILY [facility] Last Admin: 01/08/17 10:28 Dose: 1 spr Lorazepam (Ativan) 0.5 mg PO BID PRN PRN Reason: Anxiety Last Admin: 01/08/17 21:53 Dose: 0.5 mg Metronidazole (Flagyl) 250 mg PO Q8H [facility] Last Admin: 01/09/17 05:58 Dose: 250 mg Ondansetron HCl (Zofran Inj) 4 mg IVP Q8H PRN PRN Reason: Nausea/Vomiting Last Admin: 01/03/17 17:54 Dose: 4 mg Tramadol HCl (Ultram) 25 mg PO BID [facility] Last Admin: 01/08/17 17:45 Dose: Not Given Trazodone HCl (Desyrel) 25 mg PO HS [facility] Last Admin: 01/08/17 21:53 Dose: 25 mg Vitamin A (Vitamin A & D Oint Ud Foilpak) 1 ea TOP BID [facility] Last Admin: 01/08/17 17:45 Dose: 1 ea - Labs Labs: 01/09/17 06:35 01/09/17 06:35 PT 14.2 SECONDS (9.7-12.2) H 01/08/17 12:00 INR 1.2 01/08/17 12:00 - Constitutional Appears: No Acute Distress - Head Exam Head Exam: ATRAUMATIC, NORMOCEPHALIC - Eye Exam Eye Exam: EOMI, PERRL - Respiratory Exam Respiratory Exam: NORMAL BREATHING PATTERN - Cardiovascular Exam Cardiovascular Exam: REGULAR RHYTHM - GI/Abdominal Exam GI & Abdominal Exam: Distended, Soft, Hyperactive Bowel Sounds. absent: Guarding, Mass, Rebound - Back Exam Back Exam: NORMAL INSPECTION Assessment and Plan (1) Abnormal CT of the abdomen Assessment & Plan: Abnormal region of descending and sigmoid colon c/w diverticulitis vs colitis infectious most likely vs ischemic Supportive Care Antibiotics per ICU team Stool studies Status: Acute (2) Occult blood in stools Assessment & Plan: Monitor for overt bleeding. No current plans for colonoscopy unless active bleeding or failure of colitis to improve Status: Acute (3) Diarrhea Assessment & Plan: as above Status: Acute (4) Anemia Status: Acute
[2017-01-09] MEDS ORDERED: Potassium Chloride 20 mEq ER Tab PO ONE (08:45)
[2017-01-09] MEDS: Tramadol 25 mg PO SCH ×2 (09:11→17:30)
[2017-01-09] MEDS: Enoxaparin 30 mg Syringe SC SCH (09:12)
[2017-01-09] MEDS: Vitamins A & D Oint UD Foilpak TOP SCH ×2 (09:13→17:31)
[2017-01-09] MEDS: Fluticasone Nasal 50 mcg/Spray NAS SCH (09:14)
--- NOTE | 2017-01-09 10:31 | CP.CCUPN ---
<DonaldNette SMichelle - Last Filed: 01/09/17 12:32> CCU Subjective - Physician Review Subjective (Free Text): Patient was seen and examined at bedside in the AM. Patient states her body feels tired. Patient denies abdominal pain. Patient states she is still having diarrhea. The nurse confirms the patient continues to have diarrhea. Patient states the bipap mask hurts her face so she has removed it and is currently on 3L of [place]. Patient denies shortness of breath or difficulty breathing. After I asked her to take multiple deep breaths she did appear very exhausted. 01/09/17 12:33 CCU Objective - Vital Signs / Intake & Output Vital Signs (Last 4 hours): Vital Signs Temp Pulse Resp BP Pulse Ox 01/09/17 08:00 98.2 F 01/09/17 07:30 112 H 26 H 108/63 90 L 01/09/17 06:31 98 H 22 112/63 99 Intake and Output (Last 8hrs): Intake & Output 01/08/17 01/09/17 01/09/17 22:59 06:59 14:59 Intake Total 390 100 100 Output Total 155 305 90 Balance 235 -205 10 Intake: Oral 390 100 100 Output: Urine 155 305 90 Urethral ([place]) 155 305 90 Other: # Bowel Movements 1 1 - Physical Exam Head: Positive for: Normocephalic Extroacular Muscles: Positive for: EOMI Conjunctiva: Positive for: Normal Mouth: Positive for: Moist Mucous Membranes Respiratory/Chest: Positive for: Good Air Exchange, Decreased Breath Sounds. Negative for: Respiratory Distress, Accessory Muscle Use, Wheezes, Rales, Rhonchi Cardiovascular: Positive for: Regular Rate and Rhythm, Normal S1, S2 Abdomen: Positive for: Normal Bowel Sounds. Negative for: Tenderness, Distention, Guarding Upper Extremity: Positive for: Normal Inspection. Negative for: Cyanosis, Edema Lower Extremity: Positive for: Normal Inspection. Negative for: Edema, CALF TENDERNESS, Tenderness Neurological: Positive for: GCS=15, Speech Normal Skin: Positive for: Warm, Dry, Normal Color Psychiatric: Positive for: Alert, Oriented x 3, Normal Insight, Normal Concentration ( Patient knows she is at the hospital, she knows who are current president is but she does not know the current year, the patient stated it was 1996. ) - Medications Active Medications: Active Medications Generic Name Dose Route Start Last Admin Trade Name Freq PRN Reason Stop Dose Admin Albuterol/Ipratropium 3 ml 01/03/17 20:00 01/09/17 07:47 Duoneb 3 Mg/0.5 Mg (3 Ml) Ud INH 3 ml RQ6 TIKA Administration Aspirin 81 mg 01/04/17 10:00 01/09/17 09:10 Aspirin Chewable PO 81 mg DAILY TIKA Administration Carbamide Peroxide 1 ml 01/06/17 18:00 01/09/17 09:14 Debrox Ear Drops AD 5 drop BID TIKA Administration Carvedilol 3.125 mg 01/06/17 18:00 01/09/17 09:13 Coreg PO 3.125 mg BID TIKA Administration Enoxaparin Sodium 30 mg 01/05/17 16:07 01/09/17 09:12 Lovenox SC 30 mg DAILY TIKA Administration Famotidine 20 mg 01/08/17 10:00 01/09/17 09:10 Pepcid PO 20 mg DAILY TIKA Administration Fluticasone Propionate 1 spr 01/06/17 18:00 01/09/17 09:14 Flonase ERASMO 1 spr DAILY TIKA Administration Lorazepam 0.5 mg 01/06/17 09:45 01/08/17 21:53 Ativan PO 0.5 mg BID PRN Administration Anxiety Metronidazole 250 mg 01/09/17 06:00 01/09/17 05:58 Flagyl PO 250 mg Q8H TIKA Administration Ondansetron HCl 4 mg 01/03/17 17:49 01/03/17 17:54 Zofran Inj IVP 4 mg Q8H PRN Administration Nausea/Vomiting Tramadol HCl 25 mg 01/05/17 10:00 01/09/17 09:11 Ultram PO 25 mg BID TIKA Administration Trazodone HCl 25 mg 01/07/17 22:00 01/08/17 21:53 Desyrel PO 25 mg HS TIKA Administration Vitamin A 1 ea 01/06/17 18:00 01/09/17 09:13 Vitamin A & D Oint Ud Foilpak TOP 1 ea BID TIKA Administration - Patient Studies Lab Studies: Lab Studies 01/09/17 01/09/17 01/08/17 Range/Units 06:35 06:35 16:39 WBC 15.8 H (4.8-10.8) K/uL RBC 4.36 (3.80-5.20) Mil/uL Hgb 9.9 L (11.0-16.0) g/dL Hct 31.6 L (34.0-47.0) % MCV 72.4 L (81.0-99.0) fL MCH 22.6 L (27.0-31.0) pg MCHC 31.3 L (33.0-37.0) g/dL RDW 19.0 H (11.5-14.5) % Plt Count 96 L (130-400) K/uL MPV 9.0 (7.2-11.7) fL Neut % (Auto) 80.9 H (50.0-75.0) % Lymph % (Auto) 10.6 L (20.0-40.0) % [place] % (Auto) 8.1 (0.0-10.0) % Eos % (Auto) 0.1 (0.0-4.0) % Baso % (Auto) 0.3 (0.0-2.0) % Neut # 12.8 H (1.8-7.0) K/uL Lymph # 1.7 (1.0-4.3) K/uL [place] # 1.3 H (0.0-0.8) K/uL Eos # 0.0 (0.0-0.7) K/uL Baso # 0.0 (0.0-0.2) K/uL PT (9.7-12.2) SECONDS INR Sodium 129 L (132-148) mmol/L Potassium 3.5 L (3.6-5.2) mmol/L Chloride 94 L (98-107) mmol/L Carbon Dioxide 23 (22-30) mmol/L Anion Gap 16 (10-20) BUN 33 H (7-17) mg/dL Creatinine 1.5 H (0.7-1.2) MG/DL Est GFR ( Amer) 40 Est GFR (Non-Af Amer) 33 Random Glucose 111 H (65-105) mg/dL Calcium 8.6 (8.6-10.4) mg/dl Total Bilirubin 0.6 (0.2-1.3) mg/dL AST 57 H D (14-36) U/L ALT 37 (9-52) U/L Alkaline Phosphatase 108 (38-126) U/L Total Protein 5.6 L (6.3-8.3) g/dL Albumin 2.6 L (3.5-5.0) g/dL Globulin 3.0 (2.2-3.9) gm/dL Albumin/Globulin Ratio 0.9 L (1.0-2.1) Stool Occult Blood Positive H (NEGATIVE) Stool Leukocytes, Qual (NEGATIVE) 01/08/17 01/08/17 Range/Units 16:30 12:00 WBC (4.8-10.8) K/uL RBC (3.80-5.20) Mil/uL Hgb (11.0-16.0) g/dL Hct (34.0-47.0) % MCV (81.0-99.0) fL MCH (27.0-31.0) pg MCHC (33.0-37.0) g/dL RDW (11.5-14.5) % Plt Count (130-400) K/uL MPV (7.2-11.7) fL Neut % (Auto) (50.0-75.0) % Lymph % (Auto) (20.0-40.0) % [place] % (Auto) (0.0-10.0) % Eos % (Auto) (0.0-4.0) % Baso % (Auto) (0.0-2.0) % Neut # (1.8-7.0) K/uL Lymph # (1.0-4.3) K/uL [place] # (0.0-0.8) K/uL Eos # (0.0-0.7) K/uL Baso # (0.0-0.2) K/uL PT 14.2 H (9.7-12.2) SECONDS INR 1.2 Sodium (132-148) mmol/L Potassium (3.6-5.2) mmol/L Chloride (98-107) mmol/L Carbon Dioxide (22-30) mmol/L Anion Gap (10-20) BUN (7-17) mg/dL Creatinine (0.7-1.2) MG/DL Est GFR ( Amer) Est GFR (Non-Af Amer) Random Glucose (65-105) mg/dL Calcium (8.6-10.4) mg/dl Total Bilirubin (0.2-1.3) mg/dL AST (14-36) U/L ALT (9-52) U/L Alkaline Phosphatase (38-126) U/L Total Protein (6.3-8.3) g/dL Albumin (3.5-5.0) g/dL Globulin (2.2-3.9) gm/dL Albumin/Globulin Ratio (1.0-2.1) Stool Occult Blood (NEGATIVE) Stool Leukocytes, Qual Negative (NEGATIVE) Laboratory Results - last 24 hr 01/08/17 01/08/17 01/08/17 12:00 16:30 16:39 WBC RBC Hgb Hct MCV MCH MCHC RDW Plt Count MPV Neut % (Auto) Lymph % (Auto) [place] % (Auto) Eos % (Auto) Baso % (Auto) Neut # Lymph # [place] # Eos # Baso # PT 14.2 H INR 1.2 Sodium Potassium Chloride Carbon Dioxide Anion Gap BUN Creatinine Est GFR ( Amer) Est GFR (Non-Af Amer) Random Glucose Calcium Total Bilirubin AST ALT Alkaline Phosphatase Total Protein Albumin Globulin Albumin/Globulin Ratio Stool Occult Blood Positive H Stool Leukocytes, Qual Negative 01/09/17 01/09/17 06:35 06:35 WBC 15.8 H RBC 4.36 Hgb 9.9 L Hct 31.6 L MCV 72.4 L MCH 22.6 L MCHC 31.3 L RDW 19.0 H Plt Count 96 L MPV 9.0 Neut % (Auto) 80.9 H Lymph % (Auto) 10.6 L [place] % (Auto) 8.1 Eos % (Auto) 0.1 Baso % (Auto) 0.3 Neut # 12.8 H Lymph # 1.7 [place] # 1.3 H Eos # 0.0 Baso # 0.0 PT INR Sodium 129 L Potassium 3.5 L Chloride 94 L Carbon Dioxide 23 Anion Gap 16 BUN 33 H Creatinine 1.5 H Est GFR ( Amer) 40 Est GFR (Non-Af Amer) 33 Random Glucose 111 H Calcium 8.6 Total Bilirubin 0.6 AST 57 H D ALT 37 Alkaline Phosphatase 108 Total Protein 5.6 L Albumin 2.6 L Globulin 3.0 Albumin/Globulin Ratio 0.9 L Stool Occult Blood Stool Leukocytes, Qual Review of Systems - Constitutional Constitutional: absent: Fever - Cardiovascular Cardiovascular: absent: Chest Pain, Dyspnea, Palpitations - Respiratory Respiratory: absent: Dyspnea - Gastrointestinal Gastrointestinal: Diarrhea. absent: Nausea, Vomiting - Musculoskeletal Musculoskeletal: Arthralgias, Muscle Weakness Critical Care Progress Note - Nutrition Nutrition: Nutrition Category Date Time Status Heart Healthy Diet [DIET] Diets 01/08/17 Breakfast Active Assessment/Plan - Assessment and Plan (Free Text) Assessment: 81-year-old female with history of hypertension, congestive heart failure, chronic obstructive lung disease, chronic smoking, abdominal aortic aneurysm status post repair,patient came to the emergency room. Plan: Neuro: - Alert, Oriented to person and place. - The patient knows who the current president is but stated the year was 1996 Pulm: - Duoneb 3ml INH RQ6 - Acute respiratory failure started on Bipap on 01/07 - Patient currently removed the Bipap and is on O2 Nasal Cannula: 3L CV: - Aspirin 81mg PO Daily Heme: - H/H: 9.9/31.6 - Lovenox 30mg SC daily - has been discontinued 01/09 - Worsening thrombocytopenia, possibly secondary to sepsis. No indication of transfusion yet. Platelets greater than 50. 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 Diff: Negative - Metronidazole 250mg PO Q8H - Vanco and Cipro discontinued Renal: - BUN/Cr: 33/1.5 - Creatinine Clearance: 32.8 GI: - Heart Healthy Diet DVT proph - SCDs Code status - DNR/DNI Disposition: Transferred to [facility] Case discussed with Dr. Harrison Bennett PGY-1 <Tristan Terry - Last Filed: 01/09/17 17:47> CCU Objective - Vital Signs / Intake & Output Vital Signs (Last 4 hours): Vital Signs Temp Pulse Resp BP Pulse Ox 01/09/17 16:00 97.9 F 95 H 20 98 01/09/17 15:00 101 H 21 97 01/09/17 14:44 103 H 25 H 97 01/09/17 14:36 103 H 26 H 105/67 97 01/09/17 14:12 109 H 30 H 97/51 L 97 Intake and Output (Last 8hrs): Intake & Output 01/09/17 01/09/17 01/09/17 06:59 14:59 22:59 Intake Total 100 660 Output Total 305 90 Balance -205 570 Intake: Oral 100 660 Output: Urine 305 90 Urethral ([place]) 305 90 Other: # Bowel Movements 1 1 - Medications Active Medications: Active Medications Generic Name Dose Route Start Last Admin Trade Name Freq PRN Reason Stop Dose Admin Albuterol/Ipratropium 3 ml 01/03/17 20:00 01/09/17 13:10 Duoneb 3 Mg/0.5 Mg (3 Ml) Ud INH 3 ml RQ6 TIKA Administration Aspirin 81 mg 01/04/17 10:00 01/09/17 09:10 Aspirin Chewable PO 81 mg DAILY TIKA Administration Carbamide Peroxide 1 ml 01/06/17 18:00 01/09/17 17:31 Debrox Ear Drops AD 5 drop BID TIKA Administration Carvedilol 3.125 mg 01/06/17 18:00 01/09/17 17:33 Coreg PO Not Given BID TIKA Enoxaparin Sodium 30 mg 01/05/17 16:07 01/09/17 09:12 Lovenox SC 30 mg DAILY TIKA Administration Famotidine 20 mg 01/08/17 10:00 01/09/17 09:10 Pepcid PO 20 mg DAILY TIKA Administration Fluticasone Propionate 1 spr 01/06/17 18:00 01/09/17 09:14 Flonase ERASMO 1 spr DAILY TIKA Administration Lorazepam 0.5 mg 01/06/17 09:45 01/08/17 21:53 Ativan PO 0.5 mg BID PRN Administration Anxiety Metronidazole 250 mg 01/09/17 06:00 01/09/17 13:35 Flagyl PO 250 mg Q8H TIKA Administration Ondansetron HCl 4 mg 01/03/17 17:49 01/03/17 17:54 Zofran Inj IVP 4 mg Q8H PRN Administration Nausea/Vomiting Tramadol HCl 25 mg 01/05/17 10:00 01/09/17 17:30 Ultram PO 25 mg BID TIKA Administration Trazodone HCl 25 mg 01/07/17 22:00 01/08/17 21:53 Desyrel PO 25 mg HS TIKA Administration Vitamin A 1 ea 01/06/17 18:00 01/09/17 17:31 Vitamin A & D Oint Ud Foilpak TOP 1 ea BID TIKA Administration - Patient Studies Lab Studies: Microbiology Studies 01/08/17 16:30 Ova and Parasite Concentrate Exam - Final Stool Lab Studies 01/09/17 01/09/17 01/08/17 Range/Units 06:35 06:35 16:30 WBC 15.8 H (4.8-10.8) K/uL RBC 4.36 (3.80-5.20) Mil/uL Hgb 9.9 L (11.0-16.0) g/dL Hct 31.6 L (34.0-47.0) % MCV 72.4 L (81.0-99.0) fL MCH 22.6 L (27.0-31.0) pg MCHC 31.3 L (33.0-37.0) g/dL RDW 19.0 H (11.5-14.5) % Plt Count 96 L (130-400) K/uL MPV 9.0 (7.2-11.7) fL Neut % (Auto) 80.9 H (50.0-75.0) % Lymph % (Auto) 10.6 L (20.0-40.0) % [place] % (Auto) 8.1 (0.0-10.0) % Eos % (Auto) 0.1 (0.0-4.0) % Baso % (Auto) 0.3 (0.0-2.0) % Neut # 12.8 H (1.8-7.0) K/uL Lymph # 1.7 (1.0-4.3) K/uL [place] # 1.3 H (0.0-0.8) K/uL Eos # 0.0 (0.0-0.7) K/uL Baso # 0.0 (0.0-0.2) K/uL Sodium 129 L (132-148) mmol/L Potassium 3.5 L (3.6-5.2) mmol/L Chloride 94 L (98-107) mmol/L Carbon Dioxide 23 (22-30) mmol/L Anion Gap 16 (10-20) BUN 33 H (7-17) mg/dL Creatinine 1.5 H (0.7-1.2) MG/DL Est GFR ( Amer) 40 Est GFR (Non-Af Amer) 33 Random Glucose 111 H (65-105) mg/dL Calcium 8.6 (8.6-10.4) mg/dl Total Bilirubin 0.6 (0.2-1.3) mg/dL AST 57 H D (14-36) U/L ALT 37 (9-52) U/L Alkaline Phosphatase 108 (38-126) U/L Total Protein 5.6 L (6.3-8.3) g/dL Albumin 2.6 L (3.5-5.0) g/dL Globulin 3.0 (2.2-3.9) gm/dL Albumin/Globulin Ratio 0.9 L (1.0-2.1) Stool Leukocytes, Qual Negative (NEGATIVE) Laboratory Results - last 24 hr 01/08/17 01/09/17 01/09/17 16:30 06:35 06:35 WBC 15.8 H RBC 4.36 Hgb 9.9 L Hct 31.6 L MCV 72.4 L MCH 22.6 L MCHC 31.3 L RDW 19.0 H Plt Count 96 L MPV 9.0 Neut % (Auto) 80.9 H Lymph % (Auto) 10.6 L [place] % (Auto) 8.1 Eos % (Auto) 0.1 Baso % (Auto) 0.3 Neut # 12.8 H Lymph # 1.7 [place] # 1.3 H Eos # 0.0 Baso # 0.0 Sodium 129 L Potassium 3.5 L Chloride 94 L Carbon Dioxide 23 Anion Gap 16 BUN 33 H Creatinine 1.5 H Est GFR ( Amer) 40 Est GFR (Non-Af Amer) 33 Random Glucose 111 H Calcium 8.6 Total Bilirubin 0.6 AST 57 H D ALT 37 Alkaline Phosphatase 108 Total Protein 5.6 L Albumin 2.6 L Globulin 3.0 Albumin/Globulin Ratio 0.9 L Stool Leukocytes, Qual Negative Critical Care Progress Note - Nutrition Nutrition: Nutrition Category Date Time Status Heart Healthy Diet [DIET] Diets 01/08/17 Breakfast Active Attending/Attestation - Attestation I have personally seen and examined this patient.: Yes I have fully participated in the care of the patient.: Yes I have reviewed all pertinent clinical information: Yes Notes (Text): 01/09/17 17:47 Patient seen and examined in the intensive care unit. Case discussed with house staff in the morning. Stable for transfer to floor and continue present treatment
[2017-01-09] MEDS: traZODone 25 mg Tab PO SCH (21:53)
[2017-01-10] MEDS: Albuterol-Ipratrop 3 mg / 0.5 (3 ml) UD INH SCH ×4 (02:57→19:36)
[2017-01-10] MEDS: Enoxaparin 30 mg Syringe SC SCH (09:12)
[2017-01-10] MEDS: Tramadol 25 mg PO SCH ×2 (09:13→17:20)
[2017-01-10] MEDS: Vitamins A & D Oint UD Foilpak TOP SCH ×2 (09:13→17:22)
[2017-01-10] MEDS: Fluticasone Nasal 50 mcg/Spray NAS SCH (09:51)
--- NOTE | 2017-01-10 10:36 | CP.PCM.PN ---
Subjective - Date & Time of Evaluation Date of Evaluation: 01/10/17 Time of Evaluation: 10:33 - Subjective Subjective: two pasty stools this am per nursing staff. Patient without complaints of pain or bleeding. Stool OB+ noted. H/H stable Objective - Vital Signs/Intake and Output Vital Signs (last 24 hours): Temp Pulse Resp BP Pulse Ox 97.9 F 109 H 27 H 126/80 98 01/10/17 08:30 01/10/17 09:14 01/10/17 09:14 01/10/17 09:14 01/10/17 09:14 Intake and Output: 01/10/17 01/10/17 06:59 18:59 Intake Total 300 Output Total 575 Balance -275 - Medications Medications: Current Medications Albuterol/Ipratropium (Duoneb 3 Mg/0.5 Mg (3 Ml) Ud) 3 ml INH RQ6 [facility] Last Admin: 01/10/17 07:24 Dose: 3 ml Aspirin (Aspirin Chewable) 81 mg PO DAILY [facility] Last Admin: 01/10/17 09:20 Dose: 81 mg Carbamide Peroxide (Debrox Ear Drops) 1 ml AD BID [facility] Last Admin: 01/10/17 09:20 Dose: 1 drop Carvedilol (Coreg) 3.125 mg PO BID [facility] Last Admin: 01/10/17 09:13 Dose: 3.125 mg Enoxaparin Sodium (Lovenox) 30 mg SC DAILY [facility] Last Admin: 01/10/17 09:12 Dose: 30 mg Famotidine (Pepcid) 20 mg PO DAILY [facility] Last Admin: 01/10/17 09:13 Dose: 20 mg Fluticasone Propionate (Flonase) 1 spr ERASMO DAILY [facility] Last Admin: 01/10/17 09:51 Dose: 1 spr Lorazepam (Ativan) 0.5 mg PO BID PRN PRN Reason: Anxiety Last Admin: 01/09/17 21:53 Dose: 0.5 mg Metronidazole (Flagyl) 250 mg PO Q8H [facility] Last Admin: 01/10/17 05:45 Dose: 250 mg Ondansetron HCl (Zofran Inj) 4 mg IVP Q8H PRN PRN Reason: Nausea/Vomiting Last Admin: 01/03/17 17:54 Dose: 4 mg Tramadol HCl (Ultram) 25 mg PO BID [facility] Last Admin: 01/10/17 09:13 Dose: 25 mg Trazodone HCl (Desyrel) 25 mg PO HS [facility] Last Admin: 01/09/17 21:53 Dose: 25 mg Vitamin A (Vitamin A & D Oint Ud Foilpak) 1 ea TOP BID [facility] Last Admin: 01/10/17 09:13 Dose: 1 ea - Labs Labs: 01/09/17 06:35 01/09/17 06:35 PT 14.2 SECONDS (9.7-12.2) H 01/08/17 12:00 INR 1.2 01/08/17 12:00 - Constitutional Appears: Chronically Ill - Head Exam Head Exam: ATRAUMATIC, NORMOCEPHALIC - Eye Exam Eye Exam: EOMI - Respiratory Exam Respiratory Exam: Decreased Breath Sounds - Cardiovascular Exam Cardiovascular Exam: REGULAR RHYTHM, +S1 - GI/Abdominal Exam GI & Abdominal Exam: Soft, Normal Bowel Sounds. absent: Tenderness, Mass, Rebound - Extremities Exam Extremities Exam: Normal Inspection Assessment and Plan (1) Abnormal CT of the abdomen Assessment & Plan: Continue Flagyl 250mg q6 hours and observe. Colonoscopy for failure continue to improve if needed Status: Acute (2) Occult blood in stools Assessment & Plan: Monitor for overt bleeding Status: Acute (3) Diarrhea Assessment & Plan: as above. Improving. Status: Acute (4) Anemia Assessment & Plan: Monitor H/H. Status: Acute
[2017-01-10] MEDS: traZODone 25 mg Tab PO SCH (22:09)
[2017-01-11] MEDS: Albuterol-Ipratrop 3 mg / 0.5 (3 ml) UD INH SCH ×4 (01:20→20:04)
[2017-01-11 08:21] LABS: BASO # 0.1 K/uL (0.0-0.2); EOS # 0.1 K/uL (0.0-0.7); HEMATOCRIT 36.3 % (34.0-47.0)
[2017-01-11 08:29] LABS: BASO % 0.6 % (0.0-2.0); EOS % 0.6 % (0.0-4.0); LYMPH # 1.6 K/uL (1.0-4.3); LYMPH % 9.2 % (20.0-40.0); MEAN CORPUSCULAR HEMOGLOBIN 22.8 pg (27.0-31.0); MEAN CORPUSCULAR HGB CONC 31.7 g/dL (33.0-37.0); MONO % 5.6 % (0.0-10.0); NRBC % 0.7 % (0.0-2.0); RED CELL DISTRIBUTION WIDTH 19.2 % (11.5-14.5); WHITE BLOOD COUNT 17.6 K/uL (4.8-10.8)
[2017-01-11 08:31] LABS: PLATELET COUNT 58 K/uL (130-400)
[2017-01-11 08:37] LABS: POTASSIUM 3.7 mmol/L (3.6-5.2)
[2017-01-11 08:39] LABS: ALB/GLOB RATIO 0.9 (1.0-2.1); BILIRUBIN,TOTAL 0.9 mg/dL (0.2-1.3); TOTAL PROTEIN 6.1 g/dL (6.3-8.3)
[2017-01-11 08:40] LABS: CALCIUM 9.1 mg/dl (8.6-10.4)
[2017-01-11 09:12] LABS: BASOPHIL 1 % (0-2); EOSINOPHIL 1 % (0-4); MYELOCYTE 2 % (0-0); NEUTROPHIL 83 % (50-75); TOTAL CELLS COUNTED 100
[2017-01-11 09:14] LABS: GIANT PLATELETS PRESENT; LARGE PLATELETS PRESENT
[2017-01-11] MEDS: Tramadol 25 mg PO SCH ×2 (09:44→17:37)
[2017-01-11] MEDS: Enoxaparin 30 mg Syringe SC SCH (09:50)
[2017-01-11] MEDS: Fluticasone Nasal 50 mcg/Spray NAS SCH (09:55)
[2017-01-11] MEDS: Vitamins A & D Oint UD Foilpak TOP SCH ×2 (09:57→17:43)
--- NOTE | 2017-01-11 10:59 | CP.PCM.PN ---
Subjective - Date & Time of Evaluation Date of Evaluation: 01/11/17 Time of Evaluation: 10:56 - Subjective Subjective: Diarrhea appears to be less frequent and stools more pasty/formed Cdiff antigen and toxin both negative Objective - Vital Signs/Intake and Output Vital Signs (last 24 hours): Temp Pulse Resp BP Pulse Ox 98.1 F 101 H 22 118/61 99 01/11/17 08:00 01/11/17 08:00 01/11/17 08:00 01/11/17 07:42 01/11/17 08:00 Intake and Output: 01/11/17 01/11/17 06:59 18:59 Intake Total 290 150 Output Total 400 135 Balance -110 15 - Medications Medications: Current Medications Albuterol/Ipratropium (Duoneb 3 Mg/0.5 Mg (3 Ml) Ud) 3 ml INH RQ6 [facility] Last Admin: 01/11/17 07:54 Dose: 3 ml Aspirin (Aspirin Chewable) 81 mg PO DAILY [facility] Last Admin: 01/11/17 09:42 Dose: 81 mg Carbamide Peroxide (Debrox Ear Drops) 1 ml AD BID [facility] Last Admin: 01/11/17 09:53 Dose: 5 drop Carvedilol (Coreg) 3.125 mg PO BID [facility] Last Admin: 01/11/17 09:42 Dose: 3.125 mg Enoxaparin Sodium (Lovenox) 30 mg SC DAILY [facility] Last Admin: 01/11/17 09:50 Dose: 30 mg Famotidine (Pepcid) 20 mg PO DAILY [facility] Last Admin: 01/11/17 09:43 Dose: 20 mg Fluticasone Propionate (Flonase) 1 spr ERASMO DAILY [facility] Last Admin: 01/11/17 09:55 Dose: 1 spr Lorazepam (Ativan) 0.5 mg PO BID PRN PRN Reason: Anxiety Last Admin: 01/10/17 22:13 Dose: 0.5 mg Metronidazole (Flagyl) 250 mg PO Q6H [facility] Last Admin: 01/11/17 09:45 Dose: 250 mg Ondansetron HCl (Zofran Inj) 4 mg IVP Q8H PRN PRN Reason: Nausea/Vomiting Last Admin: 01/03/17 17:54 Dose: 4 mg Tramadol HCl (Ultram) 25 mg PO BID [facility] Last Admin: 01/11/17 09:44 Dose: 25 mg Trazodone HCl (Desyrel) 25 mg PO HS [facility] Last Admin: 01/10/17 22:09 Dose: 25 mg Vitamin A (Vitamin A & D Oint Ud Foilpak) 1 ea TOP BID [facility] Last Admin: 01/11/17 09:57 Dose: 1 ea - Labs Labs: 01/11/17 08:13 01/11/17 08:13 PT 14.2 SECONDS (9.7-12.2) H 01/08/17 12:00 INR 1.2 01/08/17 12:00 - Head Exam Head Exam: NORMAL INSPECTION - Respiratory Exam Respiratory Exam: Decreased Breath Sounds - Cardiovascular Exam Cardiovascular Exam: REGULAR RHYTHM - GI/Abdominal Exam GI & Abdominal Exam: Soft, Normal Bowel Sounds. absent: Tenderness, Mass, Rebound - Extremities Exam Extremities Exam: Normal Inspection Assessment and Plan (1) Abnormal CT of the abdomen Assessment & Plan: Continue Flagyl emperically Monitor for clinical change Colonoscopy if needed to assess for lack of continued improvement Status: Acute (2) Occult blood in stools Status: Acute (3) Diarrhea Assessment & Plan: as above Status: Acute (4) Anemia Assessment & Plan: H/H stable. No overt bleeding. Status: Acute
[2017-01-11] MEDS: traZODone 25 mg Tab PO SCH (22:17)
[2017-01-12] MEDS: Albuterol-Ipratrop 3 mg / 0.5 (3 ml) UD INH SCH ×4 (01:49→19:55)
[2017-01-12] MEDS: Vitamins A & D Oint UD Foilpak TOP SCH ×2 (10:56→18:01)
[2017-01-12] MEDS: Fluticasone Nasal 50 mcg/Spray NAS SCH (10:58)
[2017-01-12] MEDS: Tramadol 25 mg PO SCH ×2 (10:58→18:08)
[2017-01-12] MEDS: Enoxaparin 30 mg Syringe SC SCH (10:59)
--- NOTE | 2017-01-12 12:42 | CP.PCM.PN ---
Subjective - Date & Time of Evaluation Date of Evaluation: 01/12/17 Time of Evaluation: 12:40 - Subjective Subjective: No pain. Stools remain unchanged but less frequent Objective - Vital Signs/Intake and Output Vital Signs (last 24 hours): Temp Pulse Resp BP Pulse Ox 98.2 F 100 H 20 114/73 100 01/12/17 00:00 01/12/17 04:00 01/12/17 04:00 01/12/17 04:00 01/12/17 04:00 Intake and Output: 01/12/17 01/12/17 06:59 18:59 Intake Total 250 Output Total 500 Balance -250 - Medications Medications: Current Medications Albuterol/Ipratropium (Duoneb 3 Mg/0.5 Mg (3 Ml) Ud) 3 ml INH RQ6 [facility] Last Admin: 01/12/17 07:28 Dose: 3 ml Aspirin (Aspirin Chewable) 81 mg PO DAILY [facility] Last Admin: 01/12/17 10:56 Dose: 81 mg Carbamide Peroxide (Debrox Ear Drops) 1 ml AD BID [facility] Last Admin: 01/12/17 10:59 Dose: 1 drop Carvedilol (Coreg) 3.125 mg PO BID [facility] Last Admin: 01/12/17 10:57 Dose: 3.125 mg Enoxaparin Sodium (Lovenox) 30 mg SC DAILY [facility] Last Admin: 01/12/17 10:59 Dose: 30 mg Famotidine (Pepcid) 20 mg PO DAILY [facility] Last Admin: 01/12/17 10:57 Dose: 20 mg Fluticasone Propionate (Flonase) 1 spr ERASMO DAILY [facility] Last Admin: 01/12/17 10:58 Dose: 1 spr Lorazepam (Ativan) 0.5 mg PO BID PRN PRN Reason: Anxiety Last Admin: 01/11/17 13:51 Dose: 0.5 mg Metronidazole (Flagyl) 250 mg PO Q6H [facility] Last Admin: 01/12/17 10:57 Dose: 250 mg Ondansetron HCl (Zofran Inj) 4 mg IVP Q8H PRN PRN Reason: Nausea/Vomiting Last Admin: 01/03/17 17:54 Dose: 4 mg Tramadol HCl (Ultram) 25 mg PO BID [facility] Last Admin: 01/12/17 10:58 Dose: Not Given Trazodone HCl (Desyrel) 25 mg PO HS [facility] Last Admin: 01/11/17 22:17 Dose: 25 mg Vitamin A (Vitamin A & D Oint Ud Foilpak) 1 ea TOP BID [facility] Last Admin: 01/12/17 10:56 Dose: 1 ea - Labs Labs: 01/11/17 08:13 01/11/17 08:13 PT 14.2 SECONDS (9.7-12.2) H 01/08/17 12:00 INR 1.2 01/08/17 12:00 - Constitutional Appears: No Acute Distress - Head Exam Head Exam: ATRAUMATIC, NORMOCEPHALIC - Respiratory Exam Respiratory Exam: Decreased Breath Sounds - Cardiovascular Exam Cardiovascular Exam: REGULAR RHYTHM - GI/Abdominal Exam GI & Abdominal Exam: Soft, Normal Bowel Sounds. absent: Distended, Tenderness, Mass, Rebound - Extremities Exam Extremities Exam: Normal Inspection Assessment and Plan (1) Abnormal CT of the abdomen Assessment & Plan: Continue supportive Care On Flagyl po Status: Acute (2) Occult blood in stools Assessment & Plan: H/H stable. Repeat CBC as none done today. Status: Acute (3) Diarrhea Assessment & Plan: as above Status: Acute (4) Anemia Assessment & Plan: Repeat cbc Status: Acute
--- NOTE | 2017-01-12 21:36 | CP.PCM.PN ---
Subjective - Date & Time of Evaluation Date of Evaluation: 01/12/17 Time of Evaluation: 21:35 - Subjective Subjective: pt moved to 5T pt is mourning but no pain no cough no pain poor intake Temp Pulse Resp BP Pulse Ox 98.6 F 110 H 18 103/71 97 01/12/17 16:00 01/12/17 18:26 01/12/17 18:02 01/12/17 18:02 01/12/17 18:02 chest good air entry regular hs abd soft non tender legs no edema 01/11/17 08:13 01/11/17 08:13 [place] ca ? mets sepsis colitis improving will watch plt Objective - Vital Signs/Intake and Output Vital Signs (last 24 hours): Temp Pulse Resp BP Pulse Ox 98.6 F 110 H 18 103/71 97 01/12/17 16:00 01/12/17 18:26 01/12/17 18:02 01/12/17 18:02 01/12/17 18:02 Intake and Output: 01/12/17 01/13/17 18:59 06:59 Intake Total 610 Output Total 400 Balance 210 - Medications Medications: Current Medications Albuterol/Ipratropium (Duoneb 3 Mg/0.5 Mg (3 Ml) Ud) 3 ml INH RQ6 [facility] Last Admin: 01/12/17 19:55 Dose: 3 ml Aspirin (Aspirin Chewable) 81 mg PO DAILY [facility] Last Admin: 01/12/17 10:56 Dose: 81 mg Carbamide Peroxide (Debrox Ear Drops) 1 ml AD BID [facility] Last Admin: 01/12/17 18:01 Dose: 5 drop Carvedilol (Coreg) 3.125 mg PO BID [facility] Last Admin: 01/12/17 18:01 Dose: 3.125 mg Enoxaparin Sodium (Lovenox) 30 mg SC DAILY [facility] Last Admin: 01/12/17 10:59 Dose: 30 mg Famotidine (Pepcid) 20 mg PO DAILY [facility] Last Admin: 01/12/17 10:57 Dose: 20 mg Fluticasone Propionate (Flonase) 1 spr ERASMO DAILY [facility] Last Admin: 01/12/17 10:58 Dose: 1 spr Lorazepam (Ativan) 0.5 mg PO BID PRN PRN Reason: Anxiety Last Admin: 01/11/17 13:51 Dose: 0.5 mg Metronidazole (Flagyl) 250 mg PO Q6H [facility] Last Admin: 01/12/17 16:46 Dose: 250 mg Ondansetron HCl (Zofran Inj) 4 mg IVP Q8H PRN PRN Reason: Nausea/Vomiting Last Admin: 01/03/17 17:54 Dose: 4 mg Tramadol HCl (Ultram) 25 mg PO BID [facility] Last Admin: 01/12/17 18:08 Dose: 25 mg Trazodone HCl (Desyrel) 25 mg PO HS [facility] Last Admin: 01/11/17 22:17 Dose: 25 mg Vitamin A (Vitamin A & D Oint Ud Foilpak) 1 ea TOP BID [facility] Last Admin: 01/12/17 18:01 Dose: 1 ea - Labs Labs: 01/11/17 08:13 01/11/17 08:13 PT 14.2 SECONDS (9.7-12.2) H 01/08/17 12:00 INR 1.2 01/08/17 12:00
[2017-01-12] MEDS: traZODone 25 mg Tab PO SCH (21:54)
[2017-01-13] MEDS: Albuterol-Ipratrop 3 mg / 0.5 (3 ml) UD INH SCH ×3 (08:18→16:22)
[2017-01-13 08:27] LABS: BASO # 0.1 K/uL (0.0-0.2); BASO % 0.7 % (0.0-2.0); EOS # 0.1 K/uL (0.0-0.7); EOS % 0.6 % (0.0-4.0); HEMATOCRIT 33.9 % (34.0-47.0); LYMPH # 1.6 K/uL (1.0-4.3); LYMPH % 10.1 % (20.0-40.0); MEAN CELL VOLUME 73.6 fL (81.0-99.0); MEAN CORPUSCULAR HEMOGLOBIN 22.8 pg (27.0-31.0); MEAN CORPUSCULAR HGB CONC 30.9 g/dL (33.0-37.0); MEAN PLATELET VOLUME 8.7 fL (7.2-11.7); NRBC % 0.2 % (0.0-2.0); PLATELET COUNT 68 K/uL (130-400); RED CELL DISTRIBUTION WIDTH 19.1 % (11.5-14.5); WHITE BLOOD COUNT 16.2 K/uL (4.8-10.8)
[2017-01-13] MEDS: Tramadol 25 mg PO SCH ×3 (08:29→17:50)
[2017-01-13 08:41] LABS: ALB/GLOB RATIO 0.9 (1.0-2.1); BILIRUBIN,TOTAL 0.8 mg/dL (0.2-1.3); CALCIUM 9.1 mg/dl (8.6-10.4); POTASSIUM 3.6 mmol/L (3.6-5.2)
[2017-01-13] MEDS ORDERED: Aluminum Hydroxide/Magnesium Hydroxide Susp (30 mL) PO STA (09:15)
[2017-01-13 10:11] LABS: BASOPHIL 1 % (0-2); METAMYELOCYTE 1 % (0-0); NEUTROPHIL 80 % (50-75); TOTAL CELLS COUNTED 100
--- NOTE | 2017-01-13 10:44 | RAD ---
HISTORY: Effusion. COMPARISON: Comparison chest dated 01/08/2017 FINDINGS: LUNGS: Re- demonstrated left lower lobe opacity that probably represent some combination of left lower lobe of atelectasis/ infiltrate effusion and left-sided hiatal hernia minor right basilar atelectasis and or scarring. Bullous emphysematous changes again seen in the right upper lobe. Bullous emphysematous changes in the left upper lobe less well seen . . Right upper lobe mass density is also not well delineated PLEURA: No significant pleural effusion identified, no pneumothorax apparent. CARDIOVASCULAR: Heart size difficult to assess due to silhouetting left cardiac border OSSEOUS STRUCTURES: No significant abnormalities. VISUALIZED UPPER ABDOMEN: Normal. OTHER FINDINGS: None. IMPRESSION: Re- demonstrated left lower lobe opacity that probably represent some combination of left lower lobe of atelectasis/ infiltrate effusion and left-sided hiatal hernia minor right basilar atelectasis and or scarring. Bullous emphysematous changes again seen in the right upper lobe. Bullous emphysematous changes in the left upper lobe less well seen . . Right upper lobe mass density is also not well delineated
[2017-01-13] MEDS: Vitamins A & D Oint UD Foilpak TOP SCH ×2 (11:14→17:56)
[2017-01-13] MEDS: Fluticasone Nasal 50 mcg/Spray NAS SCH (11:15)
--- NOTE | 2017-01-13 13:52 | CP.PCM.PN ---
Subjective - Date & Time of Evaluation Date of Evaluation: 01/13/17 Time of Evaluation: 13:50 - Subjective Subjective: Patient is sleepy. She continues to complain of epigastric pain, throat pain, and shortness of breath. She denies having nausea or vomiting. she ahs not had a bowel movement so far today. Objective - Vital Signs/Intake and Output Vital Signs (last 24 hours): Temp Pulse Resp BP Pulse Ox 97.7 F 104 H 20 105/70 97 01/13/17 07:20 01/13/17 12:00 01/13/17 07:20 01/13/17 07:20 01/13/17 07:20 - Medications Medications: Current Medications Albuterol/Ipratropium (Duoneb 3 Mg/0.5 Mg (3 Ml) Ud) 3 ml INH RQ6 [facility] Last Admin: 01/13/17 13:39 Dose: Not Given Aspirin (Aspirin Chewable) 81 mg PO DAILY [facility] Last Admin: 01/13/17 11:15 Dose: 81 mg Carbamide Peroxide (Debrox Ear Drops) 1 ml AD BID [facility] Last Admin: 01/13/17 11:15 Dose: 1 drop Carvedilol (Coreg) 3.125 mg PO BID [facility] Last Admin: 01/13/17 11:15 Dose: 3.125 mg Famotidine (Pepcid) 20 mg PO DAILY [facility] Last Admin: 01/13/17 11:15 Dose: 20 mg Fluticasone Propionate (Flonase) 1 spr ERASMO DAILY [facility] Last Admin: 01/13/17 11:15 Dose: 1 spr Lorazepam (Ativan) 0.5 mg PO BID PRN PRN Reason: Anxiety Last Admin: 01/13/17 11:15 Dose: 0.5 mg Metronidazole (Flagyl) 250 mg PO Q6H [facility] Last Admin: 01/13/17 11:15 Dose: 250 mg Ondansetron HCl (Zofran Inj) 4 mg IVP Q8H PRN PRN Reason: Nausea/Vomiting Last Admin: 01/13/17 11:14 Dose: 4 mg Tramadol HCl (Ultram) 25 mg PO BID [facility] Last Admin: 01/13/17 09:30 Dose: Not Given Vitamin A (Vitamin A & D Oint Ud Foilpak) 1 ea TOP BID [facility] Last Admin: 01/13/17 11:14 Dose: 1 ea - Labs Labs: 01/13/17 08:19 01/13/17 08:19 PT 14.2 SECONDS (9.7-12.2) H 01/08/17 12:00 INR 1.2 01/08/17 12:00 - Constitutional Appears: Other (Lethargic) - Neck Exam Neck Exam: absent: Lymphadenopathy, Thyromegaly - Respiratory Exam Respiratory Exam: NORMAL BREATHING PATTERN. absent: Rales, Rhonchi, Wheezes - Cardiovascular Exam Cardiovascular Exam: REGULAR RHYTHM, +S1, +S2. absent: Gallop, Rubs, Murmur - GI/Abdominal Exam GI & Abdominal Exam: Soft, Normal Bowel Sounds. absent: Tenderness, Mass, Organomegaly - Rectal Exam Rectal Exam: Deferred - Extremities Exam Extremities Exam: absent: Calf Tenderness, Pedal Edema Assessment and Plan (1) Diarrhea Assessment & Plan: Diarrhea is improving. The WBC count remains elevated. Stool leukocytes, C. difficile, culture, giardia antigen are all negative. Consider colonoscopy when stable. Status: Acute
[2017-01-14] MEDS: Albuterol-Ipratrop 3 mg / 0.5 (3 ml) UD INH SCH ×4 (02:52→19:34)
[2017-01-14] MEDS: Vitamins A & D Oint UD Foilpak TOP SCH ×2 (09:08→21:53)
[2017-01-14] MEDS: Tramadol 25 mg PO SCH ×2 (09:08→17:35)
[2017-01-14] MEDS: Fluticasone Nasal 50 mcg/Spray NAS SCH (09:09)
[2017-01-15] MEDS: Albuterol-Ipratrop 3 mg / 0.5 (3 ml) UD INH SCH ×4 (02:12→19:41)
[2017-01-15 07:51] LABS: POTASSIUM 3.7 mmol/L (3.6-5.2)
[2017-01-15 07:53] LABS: BILIRUBIN,TOTAL 0.6 mg/dL (0.2-1.3)
[2017-01-15 07:54] LABS: ALB/GLOB RATIO 0.9 (1.0-2.1); CALCIUM 8.8 mg/dl (8.6-10.4); TOTAL PROTEIN 5.5 g/dL (6.3-8.3)
[2017-01-15 08:03] LABS: BASO # 0.2 K/uL (0.0-0.2); BASO % 1.5 % (0.0-2.0); EOS # 0.1 K/uL (0.0-0.7); EOS % 0.8 % (0.0-4.0); HEMATOCRIT 30.3 % (34.0-47.0); LYMPH # 1.2 K/uL (1.0-4.3); MEAN CELL VOLUME 73.6 fL (81.0-99.0); MEAN CORPUSCULAR HEMOGLOBIN 23.5 pg (27.0-31.0); MEAN PLATELET VOLUME 9.3 fL (7.2-11.7); MONO # 0.8 K/uL (0.0-0.8); MONO % 6.7 % (0.0-10.0); NRBC % 0.1 % (0.0-2.0); RED CELL DISTRIBUTION WIDTH 19.3 % (11.5-14.5)
[2017-01-15] MEDS: Fluticasone Nasal 50 mcg/Spray NAS SCH (09:51)
[2017-01-15] MEDS: Tramadol 25 mg PO SCH ×2 (09:52→17:42)
[2017-01-15] MEDS: Vitamins A & D Oint UD Foilpak TOP SCH ×2 (09:52→17:43)
--- NOTE | 2017-01-15 10:31 | CP.PCM.PN ---
Subjective - Date & Time of Evaluation Date of Evaluation: 01/15/17 Time of Evaluation: 10:29 - Subjective Subjective: No diarrhea. Epigastric pain at times Objective - Vital Signs/Intake and Output Vital Signs (last 24 hours): Temp Pulse Resp BP Pulse Ox 98.1 F 91 H 18 107/70 99 01/15/17 07:57 01/15/17 07:57 01/15/17 07:57 01/15/17 07:57 01/15/17 07:57 Intake and Output: 01/15/17 01/15/17 06:59 18:59 Intake Total 60 Balance 60 - Medications Medications: Current Medications Albuterol/Ipratropium (Duoneb 3 Mg/0.5 Mg (3 Ml) Ud) 3 ml INH RQ6 [facility] Last Admin: 01/15/17 07:35 Dose: Not Given Aspirin (Aspirin Chewable) 81 mg PO DAILY [facility] Last Admin: 01/15/17 09:53 Dose: 81 mg Carbamide Peroxide (Debrox Ear Drops) 1 ml AD BID [facility] Last Admin: 01/15/17 09:51 Dose: 5 drop Carvedilol (Coreg) 3.125 mg PO BID [facility] Last Admin: 01/15/17 09:53 Dose: 3.125 mg Famotidine (Pepcid) 20 mg PO DAILY [facility] Last Admin: 01/15/17 09:53 Dose: 20 mg Fluticasone Propionate (Flonase) 1 spr ERASMO DAILY [facility] Last Admin: 01/15/17 09:51 Dose: 1 spr Lorazepam (Ativan) 0.5 mg PO BID PRN PRN Reason: Anxiety Last Admin: 01/14/17 20:53 Dose: 0.5 mg Metronidazole (Flagyl) 250 mg PO Q6H [facility] Last Admin: 01/15/17 09:55 Dose: 250 mg Ondansetron HCl (Zofran Inj) 4 mg IVP Q8H PRN PRN Reason: Nausea/Vomiting Last Admin: 01/15/17 09:53 Dose: 4 mg Tramadol HCl (Ultram) 25 mg PO BID [facility] Last Admin: 01/15/17 09:52 Dose: 25 mg Vitamin A (Vitamin A & D Oint Ud Foilpak) 1 ea TOP BID [facility] Last Admin: 01/15/17 09:52 Dose: 1 ea - Labs Labs: 01/15/17 07:27 01/15/17 07:27 PT 14.2 SECONDS (9.7-12.2) H 01/08/17 12:00 INR 1.2 01/08/17 12:00 - Constitutional Appears: Chronically Ill - Head Exam Head Exam: NORMAL INSPECTION - Eye Exam Eye Exam: EOMI, PERRL - Respiratory Exam Respiratory Exam: Decreased Breath Sounds - Cardiovascular Exam Cardiovascular Exam: REGULAR RHYTHM - GI/Abdominal Exam GI & Abdominal Exam: Soft, Normal Bowel Sounds. absent: Tenderness - Extremities Exam Extremities Exam: Normal Inspection Assessment and Plan (1) Abnormal CT of the abdomen Assessment & Plan: consider repeat CT Scan to evaluate the colon findings for interval change. Status: Acute (2) Occult blood in stools Status: Acute (3) Diarrhea Assessment & Plan: Much improved Status: Acute (4) Anemia Assessment & Plan: Monitor for active bleeding. H/H stable. Status: Acute
--- NOTE | 2017-01-15 15:41 | CP.PCM.CON ---
History of Present Illness - History of Present Illness History of Present Illness: Palliative consult Requested by Nidia GUERREOR Reason: Goals of care discussion Patient is a 81 yo lady admitted from home with SOB and diarrhea X 1 day. Patient was treated at ED for the similar reason and sent home. Upon this readmission the further diagnostic studies confirmed moderate colon thickening and large metastatic pleural effusion. The diagnosis was related to the patient by Doctor Nahun. Palliative care was called to assist patient's daughter in decision making process as they stated interest in Hospice care. WBC 12.0, Hb 9.7, Alb 2.7, + for occult blood BP 107/70, HR 92, RR 18, O2Sat 99% RA PMH: COPD, emphysema, HTN, periferal edema, pneumonia Soc. Hx: single, lives at home, has in home baby sitter 8 hr /day and uses O2 at home Fam: hx: Father for complications of COPD, mother from old age Review of Systems - Review of Systems All systems: reviewed and no additional remarkable complaints except - Constitutional Constitutional: Weakness - EENT Eyes: absent: As Per HPI, Blind Spots, Blurred Vision, Change in Vision, Decreased Night Vision, Diplopia, Discharge, Dry Eye, Exophthalmos, Floaters, Irritation, Itchy Eyes, Loss of Peripheral Vision, Pain, Photophobia, Requires Corrective Lenses, Sees Flashes, Spots in Vision, Tunnel Vision, Other Visual Disturbances, Loss of Vision, Other Ears: absent: As Per HPI, Decreased Hearing, Ear Discharge, Ear Pain, Tinnitus, Abnormal Hearing, Disequilibrium, Dizziness, Other Nose/Mouth/Throat: absent: As Per HPI, Epistaxis, Nasal Congestion, Nasal Discharge, Nasal Obstruction, Nasal Trauma, Nose Pain, Post Nasal Drip, Sinus Pain, Sinus Pressure, Bleeding Gums, Change in Voice, Dental Pain, Dry Mouth, Dysphagia, Halitosis, Hoarsness, Lip Swelling, Mouth Lesions, Mouth Pain, Odynophagia, Sore Throat, Throat Swelling, Tongue Swelling, Facial Pain, Neck Pain, Neck Mass, Other - Breasts Breasts: absent: As Per HPI, Change in Shape, Mass, Pain, Nipple Discharge, Nipple Inversion, Skin Changes, Swelling, Other - Cardiovascular Cardiovascular: Pedal Edema - Respiratory Respiratory: Cough, Dyspnea on Exertion, Pain on Inspiration, Pain with Coughing - Gastrointestinal Gastrointestinal: Heartburn - Reproductive: Female Reproductive:Female: Post Menopausal - Menstruation Menstruation: Post Menopausal - Musculoskeletal Musculoskeletal: Muscle Weakness - Integumentary Integumentary: Dry Skin - Neurological Neurological: Focal Weakness, Memory Loss - Psychiatric Psychiatric: Difficulty Concentrating, Memory Loss - Endocrine Endocrine: absent: As Per HPI, Change in Body Appearance, Change in Libido, Cold Intolorance, Deepening of Voice, Excessive Sweating, Fatigue, Flushing, Heat Intolorance, Increase in Ring/Shoe/Hat Size, Palpitations, Polydipsia, Polyphagia, Polyuria, Other - Hematologic/Lymphatic Hematologic: absent: As Per HPI, Easy Bleeding, Easy Bruising, Lymphadenopathy, Other Past Patient History - Infectious Disease Hx of Infectious Diseases: C.diff - Past Medical History & Family History Past Medical History?: Yes - Past Social History Smoking Status: Never Smoked - CARDIAC Hx Hypercholesterolemia: Yes Hx Hypertension: Yes - PULMONARY Hx Chronic Obstructive Pulmonary Disease (COPD): Yes (EMPHYSEMA) Hx Emphysema: Yes Hx Pneumonia: Yes (november 2016) - NEUROLOGICAL Hx Neurological Disorder: No Hx Paralysis: No - HEENT Hx HEENT Problems: Yes (READING GLASSES) - ENDOCRINE/METABOLIC Hx Endocrine Disorders: No - HEMATOLOGICAL/ONCOLOGICAL Hx Blood Disorders: No Hx Blood Transfusions: No - INTEGUMENTARY Hx Dermatological Problems: No - MUSCULOSKELETAL/RHEUMATOLOGICAL Hx Musculoskeletal Disorders: No Hx Falls: No - GASTROINTESTINAL Hx Gastrointestinal Disorders: Yes (SEE COMMENT) Other/Comment: Hiatal Hernia, abdominal aortic aneurysm - GENITOURINARY/GYNECOLOGICAL Hx Genitourinary Disorders: No - PSYCHIATRIC Hx Anxiety: Yes Hx Substance Use: No - SURGICAL HISTORY Hx Surgeries: Yes Hx Herniorrhaphy: Yes Hx Hysterectomy: Yes Hx Vascular Surgery: Yes ([facility] DEVICE 04-29-15) Other/Comment: abdominal aneurysm aortic surgery as per patient - ANESTHESIA Hx Anesthesia: Yes Hx Anesthesia Reactions: Yes (REACTED TO MORPHINE DROP IN BP) Hx Malignant Hyperthermia: No Meds Allergies/Adverse Reactions: Allergies Allergy/AdvReac Type Severity Reaction Status Date / Time carbamazepine [From Tegretol] Allergy Verified 01/03/17 12:03 morphine AdvReac Mild VOMITING Verified 01/03/17 12:03 - Medications Medications: Current Medications Albuterol/Ipratropium (Duoneb 3 Mg/0.5 Mg (3 Ml) Ud) 3 ml INH RQ6 [facility] Last Admin: 01/15/17 13:15 Dose: 3 ml Aspirin (Aspirin Chewable) 81 mg PO DAILY [facility] Last Admin: 01/15/17 09:53 Dose: 81 mg Carbamide Peroxide (Debrox Ear Drops) 1 ml AD BID [facility] Last Admin: 01/15/17 09:51 Dose: 5 drop Carvedilol (Coreg) 3.125 mg PO BID [facility] Last Admin: 01/15/17 09:53 Dose: 3.125 mg Famotidine (Pepcid) 20 mg PO DAILY [facility] Last Admin: 01/15/17 09:53 Dose: 20 mg Fluticasone Propionate (Flonase) 1 spr ERASMO DAILY [facility] Last Admin: 01/15/17 09:51 Dose: 1 spr Lorazepam (Ativan) 0.5 mg PO BID PRN PRN Reason: Anxiety Last Admin: 01/14/17 20:53 Dose: 0.5 mg Ondansetron HCl (Zofran Inj) 4 mg IVP Q8H PRN PRN Reason: Nausea/Vomiting Last Admin: 01/15/17 09:53 Dose: 4 mg Tramadol HCl (Ultram) 25 mg PO BID [facility] Last Admin: 01/15/17 09:52 Dose: 25 mg Vitamin A (Vitamin A & D Oint Ud Foilpak) 1 ea TOP BID [facility] Last Admin: 01/15/17 09:52 Dose: 1 ea Physical Exam - Constitutional Appears: Chronically Ill - Head Exam Head Exam: ATRAUMATIC, NORMAL INSPECTION, NORMOCEPHALIC - Eye Exam Eye Exam: Normal appearance Pupil Exam: NORMAL ACCOMODATION - ENT Exam ENT Exam: Mucous Membranes Moist, Normal Exam - Neck Exam Neck exam: Positive for: Normal Inspection - Respiratory Exam Respiratory Exam: Chest Wall Tenderness, Decreased Breath Sounds, NORMAL BREATHING PATTERN - Cardiovascular Exam Cardiovascular Exam: Tachycardia, REGULAR RHYTHM - GI/Abdominal Exam GI & Abdominal Exam: Normal Bowel Sounds - Rectal Exam Rectal Exam: Deferred - Extremities Exam Extremities exam: Positive for: pedal edema - Back Exam Back exam: NORMAL INSPECTION - Neurological Exam Neurological exam: Alert, Altered - Psychiatric Exam Psychiatric exam: Flat Affect - Skin Skin Exam: Pallor Results - Vital Signs Recent Vital Signs: Last Vital Signs Temp 98.1 F 01/15/17 07:57 Pulse 91 H 01/15/17 07:57 Resp 18 01/15/17 07:57 BP 107/70 01/15/17 07:57 Pulse Ox 99 01/15/17 07:57 - Labs Result Diagrams: 01/15/17 07:27 01/15/17 07:27 Labs: Laboratory Results - last 24 hr 01/15/17 01/15/17 07:27 07:27 WBC 12.0 H RBC 4.13 Hgb 9.7 L Hct 30.3 L MCV 73.6 L MCH 23.5 L MCHC 32.0 L RDW 19.3 H Plt Count 93 L D MPV 9.3 Neut % (Auto) 81.0 H Lymph % (Auto) 10.[address] [place] % (Auto) 6.7 Eos % (Auto) 0.8 Baso % (Auto) 1.5 Neut # 9.7 H Lymph # 1.2 [place] # 0.8 Eos # 0.1 Baso # 0.2 Sodium 137 Potassium 3.7 Chloride 97 L Carbon Dioxide 27 Anion Gap 17 BUN 19 H Creatinine 1.2 Est GFR ( Amer) 52 Est GFR (Non-Af Amer) 43 Random Glucose 98 Calcium 8.8 Total Bilirubin 0.6 AST 29 ALT 31 Alkaline Phosphatase 84 Total Protein 5.5 L Albumin 2.7 L Globulin 2.9 Albumin/Globulin Ratio 0.9 L Assessment & Plan - Assessment and Plan (Free Text) Assessment: Palliative consult Code status DNR/DNI from 01/07/17 when patient was on ICU, there is no supporting document, PPS 20% I Reviewed medical records, all diagnostic studies, examined and interviewed patient in the bed and discussed patient's condition with patient's daughter over the phone. Patient is alert, anxious and mildly confused, Maldivian speaking. Patient is not in any acute distress but looks chronically ill. Skin is pale.Upon entering the room, patient first complained of epigastic pain, cough, sore throat and SOB. Breath sounds are diminished. Cough is dry nonproductive. Patient is pleasant, cooperative and attempts to comply. Short concentration time. Patient does not answer all questions appropriately, but fallows simple commends. In phone conversation with daughter Alpesh, I learned that patient has been sick for while and was given in home baby sitter 8 hr / day. Patient also uses O2 at home. The daughter realizes that her mother's condition is chronic and life expectancy is limited. She would want her mother to be comfortable as much as possible on ordinary measures. The daughter does not want her mother to be institutionalized as she has enough support at home. We discussed the Comfort measures under the hospice care. The daughter does not want Hospice care as it will deny her mother's other in home baby sitter for 8 hr daily. We agreed to meet tomorrow at 9 am and further discuss the options. Impression * Chronically ill lady , newly diagnosed with metastatic cancer * patient is confused and unable to participate indecision making process * Patient's daughters are very involved in care * The daughters do not want patient to be sent to the facility, as they can provide enough help at home for the patient * Daughters are debiting between hospice care vs VNS * The daughters value quality of life over longevity for the patient Suggestion * Family meeting at 9 am to discuss plan for discharge home Thank you for consulting Palliative Care
[2017-01-16] MEDS: Albuterol-Ipratrop 3 mg / 0.5 (3 ml) UD INH SCH ×4 (01:46→19:14)
[2017-01-16] MEDS: Tramadol 25 mg PO SCH ×2 (09:12→17:40)
[2017-01-16] MEDS ORDERED: HYDROmorphone 0.5 mg/0.5 ml ISec IVP STA (09:46)
--- NOTE | 2017-01-16 09:56 | CP.PCM.PN ---
Subjective - Date & Time of Evaluation Date of Evaluation: 01/16/17 Time of Evaluation: 09:53 - Subjective Subjective: No diarrhea according to patient and nurse on duty (no diarrhea endorsed) Palliative Care consult reviewed and appreciated Objective - Vital Signs/Intake and Output Vital Signs (last 24 hours): Temp Pulse Resp BP Pulse Ox 98.5 F 102 H 18 115/78 100 01/16/17 08:03 01/16/17 08:03 01/16/17 08:03 01/16/17 08:03 01/16/17 08:03 - Medications Medications: Current Medications Acetaminophen (Tylenol 325mg Tab) 650 mg PO Q6 PRN PRN Reason: Pain, moderate (4-7) Last Admin: 01/15/17 22:11 Dose: 650 mg Albuterol/Ipratropium (Duoneb 3 Mg/0.5 Mg (3 Ml) Ud) 3 ml INH RQ6 [facility] Last Admin: 01/16/17 07:26 Dose: 3 ml Aspirin (Aspirin Chewable) 81 mg PO DAILY [facility] Last Admin: 01/15/17 09:53 Dose: 81 mg Carbamide Peroxide (Debrox Ear Drops) 1 ml AD BID [facility] Last Admin: 01/15/17 17:43 Dose: 5 drop Carvedilol (Coreg) 3.125 mg PO BID [facility] Last Admin: 01/15/17 17:43 Dose: 3.125 mg Famotidine (Pepcid) 20 mg PO DAILY [facility] Last Admin: 01/15/17 09:53 Dose: 20 mg Fluticasone Propionate (Flonase) 1 spr ERASMO DAILY [facility] Last Admin: 01/15/17 09:51 Dose: 1 spr Hydromorphone HCl (Dilaudid) 0.5 mg IVP STAT STA Stop: 01/16/17 09:47 Lorazepam (Ativan) 0.5 mg PO BID PRN PRN Reason: Anxiety Last Admin: 01/16/17 02:34 Dose: 0.5 mg Ondansetron HCl (Zofran Inj) 4 mg IVP Q8H PRN PRN Reason: Nausea/Vomiting Last Admin: 01/15/17 09:53 Dose: 4 mg Tramadol HCl (Ultram) 25 mg PO BID [facility] Last Admin: 01/16/17 09:12 Dose: 25 mg Vitamin A (Vitamin A & D Oint Ud Foilpak) 1 ea TOP BID [facility] Last Admin: 01/15/17 17:43 Dose: 1 ea - Labs Labs: 01/15/17 07:27 01/15/17 07:27 PT 14.2 SECONDS (9.7-12.2) H 01/08/17 12:00 INR 1.2 01/08/17 12:00 - Constitutional Appears: Chronically Ill - Head Exam Head Exam: ATRAUMATIC, NORMOCEPHALIC - Respiratory Exam Respiratory Exam: Decreased Breath Sounds, NORMAL BREATHING PATTERN - Cardiovascular Exam Cardiovascular Exam: REGULAR RHYTHM - GI/Abdominal Exam GI & Abdominal Exam: Soft, Normal Bowel Sounds. absent: Guarding, Tenderness, Mass, Organomegaly, Rebound - Extremities Exam Extremities Exam: Normal Inspection Assessment and Plan (1) Abnormal CT of the abdomen Assessment & Plan: Consider repeat CT SCan if family desires aggressive follow up Care. Colitis symptoms have resolved. Awaiting discharge planning vs hospice care. No current plans for invasive workup/colonoscopy at this time Will follow as needed. Appears to be stable from GI point of view currently. Thank you. Status: Acute (2) Occult blood in stools Assessment & Plan: H/H stable and no overt bleeding reported. Status: Acute (3) Diarrhea Assessment & Plan: No further diarrhea reported Status: Resolved (4) Anemia Assessment & Plan: Stable H/H without bleeding. Status: Acute
[2017-01-16] MEDS: Fluticasone Nasal 50 mcg/Spray NAS SCH (10:36)
[2017-01-16] MEDS: Vitamins A & D Oint UD Foilpak TOP SCH ×2 (10:36→23:20)
--- NOTE | 2017-01-16 11:33 | CP.PCM.PN ---
Subjective - Date & Time of Evaluation Date of Evaluation: 01/16/17 Time of Evaluation: 11:30 - Subjective Subjective: Patient complains of abdominal pain and chest tightness. Objective - Vital Signs/Intake and Output Vital Signs (last 24 hours): Temp Pulse Resp BP Pulse Ox 98.5 F 102 H 18 115/78 100 01/16/17 08:03 01/16/17 08:03 01/16/17 08:03 01/16/17 08:03 01/16/17 08:03 - Medications Medications: Current Medications Acetaminophen (Tylenol 325mg Tab) 650 mg PO Q6 PRN PRN Reason: Pain, moderate (4-7) Last Admin: 01/15/17 22:11 Dose: 650 mg Albuterol/Ipratropium (Duoneb 3 Mg/0.5 Mg (3 Ml) Ud) 3 ml INH RQ6 [facility] Last Admin: 01/16/17 07:26 Dose: 3 ml Aspirin (Aspirin Chewable) 81 mg PO DAILY [facility] Last Admin: 01/16/17 10:36 Dose: 81 mg Carbamide Peroxide (Debrox Ear Drops) 1 ml AD BID [facility] Last Admin: 01/16/17 10:36 Dose: 5 drop Carvedilol (Coreg) 3.125 mg PO BID [facility] Last Admin: 01/16/17 10:37 Dose: Not Given Famotidine (Pepcid) 20 mg PO DAILY [facility] Last Admin: 01/16/17 10:36 Dose: 20 mg Fluticasone Propionate (Flonase) 1 spr ERASMO DAILY [facility] Last Admin: 01/16/17 10:36 Dose: 1 spr Lorazepam (Ativan) 0.5 mg PO BID PRN PRN Reason: Anxiety Last Admin: 01/16/17 02:34 Dose: 0.5 mg Ondansetron HCl (Zofran Inj) 4 mg IVP Q8H PRN PRN Reason: Nausea/Vomiting Last Admin: 01/15/17 09:53 Dose: 4 mg Tramadol HCl (Ultram) 25 mg PO BID [facility] Last Admin: 01/16/17 09:12 Dose: 25 mg Vitamin A (Vitamin A & D Oint Ud Foilpak) 1 ea TOP BID [facility] Last Admin: 01/16/17 10:36 Dose: 1 ea - Labs Labs: 01/15/17 07:27 01/15/17 07:27 PT 14.2 SECONDS (9.7-12.2) H 01/08/17 12:00 INR 1.2 01/08/17 12:00 - Constitutional Appears: In Acute Distress, Chronically Ill - Head Exam Head Exam: ATRAUMATIC - Eye Exam Eye Exam: EOMI, Normal appearance, PERRL Pupil Exam: NORMAL ACCOMODATION, PERRL - ENT Exam ENT Exam: Mucous Membranes Moist, Normal Exam - Neck Exam Neck Exam: Full ROM - Respiratory Exam Respiratory Exam: Accessory Muscle Use, Chest Wall Tenderness, Rhonchi - Cardiovascular Exam Cardiovascular Exam: Tachycardia - GI/Abdominal Exam GI & Abdominal Exam: Guarding, Hypoactive Bowel Sounds - Rectal Exam Rectal Exam: Deferred - Exam Additional comments: Hematuria - Extremities Exam Extremities Exam: Normal Capillary Refill, Pedal Edema - Back Exam Back Exam: NORMAL INSPECTION - Neurological Exam Neurological Exam: Alert, Awake Neuro motor strength exam: Left Upper Extremity: 2/1, Right Upper Extremity: 2/1 , Left Lower Extremity: 2/1, Right Lower Extremity: 2/1 - Psychiatric Exam Psychiatric exam: Agitated - Skin Skin Exam: Pallor Assessment and Plan - Assessment and Plan (Free Text) Assessment: Patient looks very ill and in agonal pain. Patient is clenching her chest saying she was having pain. Patient points to epigastric area when asked to localize pain. Patient given Ultram for pain as ordered. per nursing, patient has been taking Ultram with poor pain relief. I suggested Dilaudid IV for acute pain as patient is allergic to Morphine and House Doctor was called to evaluate patient. Goals of care discussed with Aniana the daughter, at bed side. The daughter understands diagnosis and poor prognosis and is concerned with patient's comfort. I reassured her that after pain meds adjustment, the pain would be better controlled. I further discussed the end of life care expressing concerns regarding quality of life. I also suggested that patient was not appropriate for regular discharge home due to acute symptoms of pain and shortness of breath. Comfort care was discussed with the daughter including home hospice vs in house hospice. Once again the daughter is concerned about loosing present occupational therapist home based assigned to the patient for 8 hr a day. More information offered to the daughter regarding the acuity of her mother's condition and need for different level of care than VNS. Daughter agreed with hospice evaluation. Doctor Nahun primary nurse, and mattress spring encaser made aware of. Impression * Chronically ill patient with acute symptoms of cancer pain, dyspnea and chest pain * Patient is DNR/DNI and it was confirmed with family * Daughter Alpesh is considering best level of care for her mother and agreed with hospice evaluation, as she understood that patient was too sick for regular discharge home Suggestion * Patient need more agressive pain management, such as Dilaudid IV ( alergic to Morphine) * Hospice care would be beneficial for this dyingpatient . That would decrease further readmissions to the hospital for the reasons that could be managed at home under the hospice care ( pain and SOB) * Agree with DNR/DNI
[2017-01-16] MEDS ORDERED: HYDROmorphone 0.5 mg/0.5 ml ISec IVP PRN (15:31)
--- NOTE | 2017-01-16 17:07 | CARD ---
APPROVED REPORT EKG Measurement Heart [id number] <Conclusion> Sinus tachycardia with frequent premature ventricular complexes Left axis deviation Moderate voltage criteria for LVH, may be normal variant Baseline artifact Abnormal ECG
--- NOTE | 2017-01-16 23:32 | CP.PCM.PN ---
Subjective - Date & Time of Evaluation Date of Evaluation: 01/16/17 Time of Evaluation: 23:29 - Subjective Subjective: pt is feeling better pain medicine helped much c/o constipation no fever no chest pain now pt is very weak leg swelling less spoke pt daughter pt is confused at times did not understand and not oriented to time and place vitals stable clinically stable Temp Pulse Resp BP Pulse Ox 98.0 F 109 H 18 112/73 97 01/16/17 15:40 01/16/17 22:17 01/16/17 15:40 01/16/17 22:17 01/16/17 15:40 will plan for d/c home will need home pt home hospice home o2 nebs continue adequate pain control but not too much will f/u Objective - Vital Signs/Intake and Output Vital Signs (last 24 hours): Temp Pulse Resp BP Pulse Ox 98.0 F 109 H 18 112/73 97 01/16/17 15:40 01/16/17 22:17 01/16/17 15:40 01/16/17 22:17 01/16/17 15:40 Intake and Output: 01/16/17 01/17/17 18:59 06:59 Intake Total 680 Balance 680 - Medications Medications: Current Medications Acetaminophen (Tylenol 325mg Tab) 650 mg PO Q6 PRN PRN Reason: Pain, moderate (4-7) Last Admin: 01/15/17 22:11 Dose: 650 mg Albuterol/Ipratropium (Duoneb 3 Mg/0.5 Mg (3 Ml) Ud) 3 ml INH RQ6 [facility] Last Admin: 01/16/17 19:14 Dose: 3 ml Aspirin (Aspirin Chewable) 81 mg PO DAILY [facility] Last Admin: 01/16/17 10:36 Dose: 81 mg Carbamide Peroxide (Debrox Ear Drops) 1 ml AD BID [facility] Last Admin: 01/16/17 17:40 Dose: Not Given Carvedilol (Coreg) 3.125 mg PO BID [facility] Last Admin: 01/16/17 17:40 Dose: Not Given Famotidine (Pepcid) 20 mg PO DAILY [facility] Last Admin: 01/16/17 10:36 Dose: 20 mg Fluticasone Propionate (Flonase) 1 spr ERASMO DAILY [facility] Last Admin: 01/16/17 10:36 Dose: 1 spr Lorazepam (Ativan) 0.5 mg PO BID PRN PRN Reason: Anxiety Last Admin: 01/16/17 02:34 Dose: 0.5 mg Ondansetron HCl (Zofran Inj) 4 mg IVP Q8H PRN PRN Reason: Nausea/Vomiting Last Admin: 01/16/17 17:28 Dose: 4 mg Tramadol HCl (Ultram) 25 mg PO BID [facility] Last Admin: 01/16/17 17:40 Dose: Not Given Vitamin A (Vitamin A & D Oint Ud Foilpak) 1 ea TOP BID [facility] Last Admin: 01/16/17 23:20 Dose: 1 ea - Labs Labs: 01/15/17 07:27 01/15/17 07:27 PT 14.2 SECONDS (9.7-12.2) H 01/08/17 12:00 INR 1.2 01/08/17 12:00
[2017-01-17] MEDS: Albuterol-Ipratrop 3 mg / 0.5 (3 ml) UD INH SCH ×3 (01:10→13:05)
[2017-01-17 06:53] LABS: BASO # 0.1 K/uL (0.0-0.2); EOS # 0.1 K/uL (0.0-0.7); EOS % 0.9 % (0.0-4.0); HEMATOCRIT 30.4 % (34.0-47.0); LYMPH # 1.5 K/uL (1.0-4.3); LYMPH % 13.8 % (20.0-40.0); MEAN CORPUSCULAR HEMOGLOBIN 24.2 pg (27.0-31.0); MEAN CORPUSCULAR HGB CONC 32.6 g/dL (33.0-37.0); MONO # 0.9 K/uL (0.0-0.8); MONO % 8.5 % (0.0-10.0); RED CELL DISTRIBUTION WIDTH 20.5 % (11.5-14.5); WHITE BLOOD COUNT 10.7 K/uL (4.8-10.8)
[2017-01-17 07:00] LABS: CHLORIDE 96 mmol/L (98-107); POTASSIUM 3.7 mmol/L (3.6-5.2); SODIUM 134 mmol/L (132-148)
[2017-01-17 07:02] LABS: GFR AFRICAN-AMERICAN > 60
[2017-01-17 07:03] LABS: BLOOD UREA NITROGEN 15 mg/dL (7-17); CARBON DIOXIDE 26 mmol/L (22-30); GLUCOSE,RANDOM 89 mg/dL (65-105)
[2017-01-17 08:15] VITALS: BP 102/65; RESP 20; TEMP 97.9; O2SAT 99
[2017-01-17] MEDS: Tramadol 25 mg PO SCH (09:47)
[2017-01-17] MEDS: Vitamins A & D Oint UD Foilpak TOP SCH (09:48)
[2017-01-17] MEDS: Fluticasone Nasal 50 mcg/Spray NAS SCH (09:49)
--- NOTE | 2017-01-17 10:02 | CP.PCM.PN ---
Subjective - Date & Time of Evaluation Date of Evaluation: 01/17/17 Time of Evaluation: 09:59 - Subjective Subjective: No diarrhea. No stool yesterday. Tolerating diet Objective - Vital Signs/Intake and Output Vital Signs (last 24 hours): Temp Pulse Resp BP Pulse Ox 97.9 F 101 H 20 102/65 99 01/17/17 07:15 01/17/17 07:15 01/17/17 07:15 01/17/17 07:15 01/17/17 07:15 - Medications Medications: Current Medications Acetaminophen (Tylenol 325mg Tab) 650 mg PO Q6 PRN PRN Reason: Pain, moderate (4-7) Last Admin: 01/15/17 22:11 Dose: 650 mg Albuterol/Ipratropium (Duoneb 3 Mg/0.5 Mg (3 Ml) Ud) 3 ml INH RQ6 [facility] Last Admin: 01/17/17 07:25 Dose: 3 ml Aspirin (Aspirin Chewable) 81 mg PO DAILY [facility] Last Admin: 01/17/17 09:47 Dose: 81 mg Carbamide Peroxide (Debrox Ear Drops) 1 ml AD BID [facility] Last Admin: 01/17/17 09:48 Dose: 5 drop Carvedilol (Coreg) 3.125 mg PO BID [facility] Last Admin: 01/17/17 09:47 Dose: 3.125 mg Famotidine (Pepcid) 20 mg PO DAILY [facility] Last Admin: 01/17/17 09:48 Dose: 20 mg Fentanyl (Duragesic) 1 patch TD Q72H [facility] Last Admin: 01/17/17 07:00 Dose: 1 patch Fluticasone Propionate (Flonase) 1 spr ERASMO DAILY [facility] Last Admin: 01/17/17 09:49 Dose: 1 spr Lorazepam (Ativan) 0.5 mg PO BID PRN PRN Reason: Anxiety Last Admin: 01/17/17 09:47 Dose: 0.5 mg Ondansetron HCl (Zofran Inj) 4 mg IVP Q8H PRN PRN Reason: Nausea/Vomiting Last Admin: 01/16/17 17:28 Dose: 4 mg Tramadol HCl (Ultram) 25 mg PO BID [facility] Last Admin: 01/17/17 09:47 Dose: 25 mg Vitamin A (Vitamin A & D Oint Ud Foilpak) 1 ea TOP BID [facility] Last Admin: 01/17/17 09:48 Dose: 1 ea - Labs Labs: 01/17/17 06:36 01/17/17 06:36 PT 14.2 SECONDS (9.7-12.2) H 01/08/17 12:00 INR 1.2 01/08/17 12:00 - Constitutional Appears: No Acute Distress, Chronically Ill - Head Exam Head Exam: ATRAUMATIC, NORMOCEPHALIC - Respiratory Exam Respiratory Exam: Decreased Breath Sounds, NORMAL BREATHING PATTERN - Cardiovascular Exam Cardiovascular Exam: REGULAR RHYTHM, +S1 - GI/Abdominal Exam GI & Abdominal Exam: Soft, Normal Bowel Sounds. absent: Distended, Guarding, Tenderness, Mass, Organomegaly, Rebound - Extremities Exam Extremities Exam: Normal Inspection Assessment and Plan (1) Abnormal CT of the abdomen Assessment & Plan: No plans for colonoscopy at present Consider repeat CT to assess resolution of colitis findings. Will follow as needed Status: Acute (2) Occult blood in stools Assessment & Plan: Repeat stools and monitor for overt bleeding. May be relsted to CT findings and be self-limited. H/H stable Status: Acute (3) Diarrhea Status: Resolved (4) Anemia Assessment & Plan: H/H stable without overt bleeding Continue to monitor. Endoscopic workup in event of active bleeding or significant drop in H/H. Recall as needed. Thank you!! Status: Acute
--- NOTE | 2017-01-17 11:37 | CP.PCM.PN ---
Subjective - Date & Time of Evaluation Date of Evaluation: 01/17/17 Time of Evaluation: 11:37 - Subjective Subjective: D/C DISCUSSED BETWEEN KARLEE ZAMORA AND Maylin CHAVEZ. ALL ARRANGEMENTS FOR RX AND [facility] MADE YESTERDAY AND THIS MORNING. PT D/C TODAY HOME WITH HOME HOSPICE ([facility]). DAUGHTER AT BEDSIDE AND AWARE OF PLAN FOR D/C TODAY. RX ALSO GIVEN FOR HOME PHY THERAPY. CM TO MAKE ARRANGEMENTS FOR AMBULANCE P/U FOR HOME D/C. Objective - Vital Signs/Intake and Output Vital Signs (last 24 hours): Temp Pulse Resp BP Pulse Ox 97.9 F 101 H 20 102/65 99 01/17/17 07:15 01/17/17 07:15 01/17/17 07:15 01/17/17 07:15 01/17/17 07:15 - Medications Medications: Current Medications Acetaminophen (Tylenol 325mg Tab) 650 mg PO Q6 PRN PRN Reason: Pain, moderate (4-7) Last Admin: 01/15/17 22:11 Dose: 650 mg Albuterol/Ipratropium (Duoneb 3 Mg/0.5 Mg (3 Ml) Ud) 3 ml INH RQ6 FOR[facility], [facility] Last Admin: 01/17/17 07:25 Dose: 3 ml Aspirin (Aspirin Chewable) 81 mg PO DAILY [facility], [facility] Last Admin: 01/17/17 09:47 Dose: 81 mg Carbamide Peroxide (Debrox Ear Drops) 1 ml AD BID [facility], [facility]1983 Last Admin: 01/17/17 09:48 Dose: 5 drop Carvedilol (Coreg) 3.125 mg PO BID [facility], [facility] Last Admin: 01/17/17 09:47 Dose: 3.125 mg Famotidine (Pepcid) 20 mg PO DAILY [facility] Last Admin: 01/17/17 09:48 Dose: 20 mg Fentanyl (Duragesic) 1 patch TD Q72H [facility], [facility] Last Admin: 01/17/17 07:00 Dose: 1 patch Fluticasone Propionate (Flonase) 1 spr ERASMO DAILY [facility], [facility] Last Admin: 01/17/17 09:49 Dose: 1 spr Lorazepam (Ativan) 0.5 mg PO BID PRN PRN Reason: Anxiety Last Admin: 01/17/17 09:47 Dose: 0.5 mg Ondansetron HCl (Zofran Inj) 4 mg IVP Q8H PRN PRN Reason: Nausea/Vomiting Last Admin: 01/16/17 17:28 Dose: 4 mg Tramadol HCl (Ultram) 25 mg PO BID [facility] Last Admin: 01/17/17 09:47 Dose: 25 mg Vitamin A (Vitamin A & D Oint Ud Foilpak) 1 ea TOP BID [facility] Last Admin: 01/17/17 09:48 Dose: 1 ea - Labs Labs: 01/17/17 06:36 01/17/17 06:36 PT 14.2 SECONDS (9.7-12.2) H 01/08/17 12:00 INR 1.2 01/08/17 12:00
[2017-01-17 16:40] VITALS: PULSE 98
--- NOTE | 2017-02-01 01:47 | CP.PCM.DIS ---
Provider - Provider Date of Admission: 01/03/17 13:28 Attending physician: Addie Chavez MD Time Spent in preparation of Discharge (in minutes): 45 Hospital Course - Lab Results Lab Results: Micro Results 01/14/17 19:30 Stool Ova and Parasite Concentrate Exam - Final 01/12/17 08:22 Naris MRSA Culture - Final MRSA NOT DETECTED 01/11/17 04:25 Nose MRSA Culture (Admit) - Final MRSA NOT DETECTED 01/08/17 16:30 Stool Stool Culture - Final NO SALMONELLA, SHIGELLA OR CAMPYLOBACTER ISOLATED. 01/08/17 16:30 Stool Ova and Parasite Concentrate Exam - Final 01/03/17 Unknown Nose MRSA Culture (Admit) - Final MRSA NOT DETECTED 01/04/17 Unknown Naris MRSA Culture (Admit) - Final MRSA NOT DETECTED Most Recent Lab Values WBC 10.7 K/uL (4.8-10.8) 01/17/17 06:36 RBC 4.10 Mil/uL (3.80-5.20) 01/17/17 06:36 Hgb 9.9 g/dL (11.0-16.0) L 01/17/17 06:36 Hct 30.4 % (34.0-47.0) L 01/17/17 06:36 MCV 74.0 fL (81.0-99.0) L 01/17/17 06:36 MCH 24.2 pg (27.0-31.0) L 01/17/17 06:36 MCHC 32.6 g/dL (33.0-37.0) L 01/17/17 06:36 RDW 20.5 % (11.5-14.5) H 01/17/17 06:36 Plt Count 103 K/uL (130-400) L 01/17/17 06:36 MPV 9.0 fL (7.2-11.7) 01/17/17 06:36 Neut % (Auto) 75.8 % (50.0-75.0) H 01/17/17 06:36 Lymph % (Auto) 13.8 % (20.0-40.0) L 01/17/17 06:36 [place] % (Auto) 8.5 % (0.0-10.0) 01/17/17 06:36 Eos % (Auto) 0.9 % (0.0-4.0) 01/17/17 06:36 Baso % (Auto) 1.0 % (0.0-2.0) 01/17/17 06:36 Neut # 8.1 K/uL (1.8-7.0) H 01/17/17 06:36 Lymph # 1.5 K/uL (1.0-4.3) 01/17/17 06:36 [place] # 0.9 K/uL (0.0-0.8) H 01/17/17 06:36 Eos # 0.1 K/uL (0.0-0.7) 01/17/17 06:36 Baso # 0.1 K/uL (0.0-0.2) 01/17/17 06:36 Neutrophils % (Manual) 80 % (50-75) H 01/13/17 08:19 Band Neutrophils % 2 % (0-2) 01/13/17 08:19 Lymphocytes % (Manual) 10 % (20-40) L 01/13/17 08:19 Monocytes % (Manual) 6 % (0-10) 01/13/17 08:19 Eosinophils % (Manual) 1 % (0-4) 01/11/17 08:13 Basophils % (Manual) 1 % (0-2) 01/13/17 08:19 Metamyelocytes % 1 % (0-0) H 01/13/17 08:19 Myelocytes % 2 % (0-0) H 01/11/17 08:13 Toxic Granulation Present 01/06/17 06:45 Platelet Estimate Decreased (NORMAL) L 01/13/17 08:19 Large Platelets Present 01/11/17 08:13 Giant Platelets Present 01/11/17 08:13 Polychromasia Slight 01/13/17 08:19 Hypochromasia (manual) Slight 01/13/17 08:19 Poikilocytosis (manual Slight 01/13/17 08:19 Anisocytosis (manual) Moderate 01/13/17 08:19 Microcytosis (manual) Slight 01/13/17 08:19 Macrocytosis (manual) Slight 01/13/17 08:19 Target Cells Slight 01/11/17 08:13 Tear Drop Cells Slight 01/13/17 08:19 Ovalocytes Slight 01/13/17 08:19 Schistocytes Slight 01/13/17 08:19 PT 14.2 SECONDS (9.7-12.2) H 01/08/17 12:00 INR 1.2 01/08/17 12:00 Puncture Site Rradial 01/07/17 06:30 pCO2 33 mm/Hg (35-45) L 01/07/17 06:30 pO2 70 mm/Hg (80-100) L 01/07/17 06:30 HCO3 23.4 mmol/L (21-28) 01/07/17 06:30 ABG pH 7.43 (7.35-7.45) 01/07/17 06:30 ABG Total CO2 22.9 mmol/L (22-28) 01/07/17 06:30 ABG O2 Saturation 97.0 % (95-98) 01/07/17 06:30 ABG Base Excess -1.9 mmol/L (-2.0-3.0) 01/07/17 06:30 ABG Hemoglobin 10.1 g/dL (11.7-17.4) L 01/07/17 06:30 ABG Carboxyhemoglobin 1.7 % (0.5-1.5) H 01/07/17 06:30 POC ABG HHb (Measured) 2.9 % (0.0-5.0) 01/07/17 06:30 ABG Methemoglobin 0.9 % (0.0-3.0) 01/07/17 06:30 Romaine Test Pos 01/07/17 06:30 A-a O2 Difference 245.0 mm/Hg 01/07/17 06:30 Respiratory Index 3.5 01/07/17 06:30 Hgb O2 Saturation 94.5 % (95.0-98.0) L 01/07/17 06:30 FiO2 50.0 % 01/07/17 06:30 Sodium 134 mmol/L (132-148) 01/17/17 06:36 Potassium 3.7 mmol/L (3.6-5.2) 01/17/17 06:36 Chloride 96 mmol/L (98-107) L 01/17/17 06:36 Carbon Dioxide 26 mmol/L (22-30) 01/17/17 06:36 Anion Gap 16 (10-20) 01/17/17 06:36 BUN 15 mg/dL (7-17) 01/17/17 06:36 Creatinine 1.0 MG/DL (0.7-1.2) 01/17/17 06:36 Est GFR ( Amer) > 60 01/17/17 06:36 Est GFR (Non-Af Amer) 53 01/17/17 06:36 Random Glucose 89 mg/dL (65-105) 01/17/17 06:36 Calcium 9.0 mg/dl (8.6-10.4) 01/17/17 06:36 Phosphorus 4.3 mg/dL (2.5-4.5) 01/08/17 06:11 Magnesium 1.9 mg/dL (1.6-2.3) 01/08/17 06:11 Total Bilirubin 0.6 mg/dL (0.2-1.3) 01/15/17 07:27 AST 29 U/L (14-36) 01/15/17 07:27 ALT 31 U/L (9-52) 01/15/17 07:27 Alkaline Phosphatase 84 U/L (38-126) 01/15/17 07:27 Total Protein 5.5 g/dL (6.3-8.3) L 01/15/17 07:27 Albumin 2.7 g/dL (3.5-5.0) L 01/15/17 07:27 Globulin 2.9 gm/dL (2.2-3.9) 01/15/17 07:27 Albumin/Globulin Ratio 0.9 (1.0-2.1) L 01/15/17 07:27 Lipase 17 U/L (23-300) L 01/03/17 12:36 Urine Color Yellow (YELLOW) 01/03/17 13:24 Urine Clarity Hazy (Clear) 01/03/17 13:24 Urine pH 5.0 (5.0-8.0) 01/03/17 13:24 Ur Specific [place] 1.019 (1.003-1.030) 01/03/17 13:24 Urine Protein 2+ mg/dL (NEGATIVE) H 01/03/17 13:24 Urine Glucose (UA) Normal mg/dL (Normal) 01/03/17 13:24 Urine Ketones Trace mg/dL (NEGATIVE) 01/03/17 13:24 Urine Blood 1+ (NEGATIVE) H 01/03/17 13:24 Urine Nitrate Negative (NEGATIVE) 01/03/17 13:24 Urine Bilirubin Negative (NEGATIVE) 01/03/17 13:24 Urine Urobilinogen Normal mg/dL (0.2-1.0) 01/03/17 13:24 Ur Leukocyte Esterase 3+ Divine/uL (Negative) H 01/03/17 13:24 Urine WBC (Auto) 35 /hpf (0-5) H 01/03/17 13:24 Urine RBC (Auto) 17 /hpf (0-3) H 01/03/17 13:24 Ur Squamous Epith Cells 4 /hpf (0-5) 01/03/17 13:24 Urine Bacteria Rare (<OCC) 01/03/17 13:24 Stool Occult Blood Positive (NEGATIVE) H 01/08/17 16:39 Stool Leukocytes, Qual Negative (NEGATIVE) 01/08/17 16:30 C. difficile Tox B Gene Not detected (Not Detected) 01/08/17 13:29 C. difficile Ag & Toxin Negative (NEGATIVE) 01/03/17 16:30 Giardia Antigen Not detected (Not Detected) 01/08/17 08:30 - Hospital Course Hospital Course: Chief complaint: abdominal pain. History present illness: 81-year-old female with history of hypertension, congestive heart failure, chronic obstructive lung disease, chronic smoking, abdominal aortic aneurysm status post repair,patient came to the emergency room. Patient was recently hospitalized with the shortness of breath, and heart failure and was discharged yesterday. Last nightpatient went home, she was doing okay, this morning, patient started having some nausea, not eating well. She was feeling more nauseated sensation and also started having some epigastric discomfort, and one episode. The patient's home health aide called the ambulance,patient was brought to the emergency room following that In the emergency room patient started having some discomfort, abdominal pain.And one episode of vomiting. Mostly bile in nature. She was also noted to have tachycardia, and the shortness of breath identified. patient was recently diagnosed with possible lung cancer, and thesuspected metastatic lesion in the left lung the workup is still pending the markers not available yet. Oncology on board, awaiting for thefinal results. He was also recently hospitalized at [facility] with a possible pneumonia. At the time patient was managed conservatively. And during the time patient was noted to have evidence of pulmonary embolism, received anticoagulation. While she was on Lovenox therapeutic dose, patient had a 2 episodes of hemoptysis so lovenox hold at this time, but currently on prophylactic dose of anticoagulation Past medical history: Hypertension and hypercholesteremia COPD emphysematous lung disease CHF abdominal aortic aneurysm stent placement Surgical history: Inguinal hernia surgery, recent abdominal aortic stent placement Family history noncontributory Review of system noted from the chart Mild shortness of breath noted. Poor appetite noted On examination: Patient is having sinus tachycardia. Abdominal pain noted, abdomen tenderness noted. Diffuse abdominal distention and tenderness present. Bilateral wheezing noted. Mild tachycardia noted. Labs reviewed CAT scan of the abdomen showing evidence of suspected colitis. Unclear. Patient had an episode of diarrhea. Elevated WBC noted. No fever. Chest x-ray showing no new changes Assessment/condition: 80-year-old female with history of hypercholesteremia hypertension COPD emphysematous lung disease congestive heart failure aortic aneurysm Currently patient admitted to the hospital with the acute abdominal pain, most likely colitis. Antibiotic associated colitis cannot be ruled out. Patient was receiving antibiotic while at the [facility]. Possibility of C. difficile colitis. We will get a C. difficile testing. IV fluid. We'll start the patient on vancomycin by mouth. Flagyl.. Patient will need to be monitored closely. She is at high risk for recurrent flash pulmonary edema. Patient gets into very anxious about even small stress. At this time will closely monitor the patient for any complications related to heart failure. Patient is at high risk, prognosis is poor family aware about the condition pt admitted with the acute pain over the chest. And also not able to breathe. Patient was also brought to the intensive care unit. Extensively spoke to the family and patient. Hospice arrangement was also made. Patient explained to about the condition. Overall. Patient is having episodes of confusion, delirium, dementia. Family agreed for hospice, she will be discharged home with hospice service. Final diagnosis advanced malignancy. COPD. Lung cancer. Continue the supportive care. Discharge Exam - Head Exam Head Exam: ATRAUMATIC, NORMOCEPHALIC Discharge Plan - Follow Up Plan Condition: STABLE Disposition: HOME/ ROUTINE Instructions: Furosemide (By mouth), Acetaminophen (By mouth), Lorazepam (By mouth), Aspirin (By mouth), Omeprazole (By mouth), Tiotropium (By breathing), Carbamide Peroxide (Into the ear), Pain Management in the Elderly (DC), Hospice (DC), Hospice Care (GEN) Additional Instructions: [facility] WILL BE PROVIDING YOUR CARE AT HOME. ALL MEDICATIONS AND EQUIPMENT WILL GO THROUGH DR. CHAVEZ AND THE HOSPICE COMPANY. CONTACT THEM FOR ANY QUESTIONS OR CONCERNS. FOLLOW UP WITH DR. CHAVEZ. ALSO FOLLOW UP WITH DR. ALMONTE (STOMACH DOCTOR) AND DR. STEINER (ONCOLOGIST/ FUEL STORAGE TECHNICIAN). Referrals: Addie Chavez MD [Staff Provider] - Petrona Steiner MD [Staff Provider] - Malcolm Almonte MD [Staff Provider] -
== END 2017-01-17 15:41 | disposition home or self-care (01) | DRG 584 ==
LOC: C.ER 11:48 → C.9E 13:28 → C.3T 14:44 → C.9I 21:34 → C.6T 01-11 04:45 → C.9I 01-11 04:45 → C.5T 01-12 09:53
PROVIDERS: ADMIT Internal Medicine; ATTEND Internal Medicine
DX: A41.9 Sepsis, unspecified organism (principal); J96.00 Acute respiratory failure, unspecified whether with hypoxia or hypercapnia; I26.99 Other pulmonary embolism without acute cor pulmonale; N17.9 Acute kidney failure, unspecified; J91.0 Malignant pleural effusion; C34.90 Malignant neoplasm of unspecified part of unspecified bronchus or lung; D64.9 Anemia, unspecified; I11.0 Hypertensive heart disease with heart failure; I50.9 Heart failure, unspecified; J43.9 Emphysema, unspecified; I10 Essential (primary) hypertension; K52.9 Noninfective gastroenteritis and colitis, unspecified; Z66 Do not resuscitate